=== PATIENT | female | born 1940 | race Caucasian/White ===

== ENCOUNTER → 2023-12-05 10:09 | Outpatient (REF) | payer MEDICARE, OTHER, SELFPAY ==
[2023-12-05 11:02] LABS: Hematocrit 30.1 % (37.0-47.0); Hemoglobin 9.8 g/dL (12.0-16.0); Mean Corp Hgb Conc. 32.6 g/dL (33.0-37.0); Mean Corpuscular Hgb 30.6 pg (27.0-31.0); Mean Corpuscular Volume 94.1 fL (81.0-99.0); Mean Platelet Volume 10.8 fL (7.4-10.4); Platelet Count 406 10^3/uL (130-400); Red Cell Dist. Width 21.4 % (11.5-14.5); White Blood Cell Count 5.5 10^3/uL (4.8-10.8)
[2023-12-05 11:36] LABS: ALT (SGPT) 19 U/L (0-35); AST (SGOT) 32 U/L (14-36); Albumin 3.7 g/dl (3.5-5.0); Alkaline Phosphatase 93 U/L (38-126); Blood Urea Nitrogen 32 mg/dl (7-17); Calcium 9.5 mg/dl (8.4-10.2); Carbon Dioxide 27 mmol/L (22-30); Chloride 105 mmol/L (98-107); Glucose 96 mg/dl (70-99); HDL Cholesterol 52 mg/dl; LDL Cholesterol, Calculated 84 mg/dl; Potassium 4.4 mmol/L (3.5-5.1); Sodium 138 mmol/L (135-145); Total Bilirubin 1.3 mg/dl (0.2-1.3); Total Cholesterol 150 mg/dl (50-199); Triglyceride 70 mg/dl (10-149); Very Low Density Lipoprotein 14 mg/dl (0-30); eGFR 56.95
[2023-12-05 11:52] LABS: Glycohemoglobin (HgbA1c) 5.6 % (4.0-5.6)
[2023-12-05 11:53] LABS: Free T4 2.14 ng/dl (0.78-2.19); Vitamin D, 25-OH*** 45.6 ng/mL (30-80)
[2023-12-05 12:14] LABS: TSH 2.94 uIU/ml (0.47-4.68)
== END ==
LOC: OLABSOL 10:09
PROVIDERS: ATTENDING PHYSICIAN Nurse Practitioner Gerontology
DX: E03.9 Hypothyroidism, unspecified (principal); E55.9 Vitamin D deficiency, unspecified; D64.9 Anemia, unspecified; R94.4 Abnormal results of kidney function studies; E11.9 Type 2 diabetes mellitus without complications
CPT/HCPCS: 36415; 80053; 80061; 82306; 83036; 84439; 84443; 85027

== ENCOUNTER → 2024-01-18 09:59 | Outpatient (REF) | payer MEDICARE, OTHER, SELFPAY ==
[2024-01-18 12:34] LABS: % Basophils 1.7 % (0-2); % Eosinophils 6.1 % (0-6); % Immature Granulocytes 0.2 % (0-0.5); % Lymphocytes 29.5 % (20.5-51.1); % Monocytes 11.6 % (1.7-9.3); % Neutrophils 50.9 % (42.2-75.2); Absolute Basophils 0.1 10^3/uL (0-0.2); Absolute Eosinophils 0.4 10^3/uL (0-0.7); Absolute Lymphocytes 1.7 10^3/uL (1.2-3.4); Absolute Monocytes 0.7 10^3/uL (0.1-0.6); Absolute Neutrophils 2.9 10^3/uL (1.4-6.5); Hematocrit 28.3 % (37.0-47.0); Hemoglobin 9.3 g/dL (12.0-16.0); Mean Corp Hgb Conc. 32.9 g/dL (33.0-37.0); Mean Corpuscular Hgb 29.6 pg (27.0-31.0); Mean Corpuscular Volume 90.1 fL (81.0-99.0); Mean Platelet Volume 9.6 fL (7.4-10.4); Nucleated Red Blood Cells % 0 %; Platelet Count 434 10^3/uL (130-400); Red Blood Cell Count 3.14 10^6/uL (4.20-5.40); Red Cell Dist. Width 20.7 % (11.5-14.5); White Blood Cell Count 5.8 10^3/uL (4.8-10.8)
[2024-01-18 12:49] LABS: NT-proBNP 7480 pg/ml
[2024-01-18 12:53] LABS: ALT (SGPT) 19 U/L (0-35); AST (SGOT) 33 U/L (14-36); Albumin 3.8 g/dl (3.5-5.0); Alkaline Phosphatase 84 U/L (38-126); Blood Urea Nitrogen 29 mg/dl (7-17); Calcium 9.4 mg/dl (8.4-10.2); Carbon Dioxide 30 mmol/L (22-30); Chloride 103 mmol/L (98-107); Glucose 87 mg/dl (70-99); Potassium 5.3 mmol/L (3.5-5.1); Sodium 136 mmol/L (135-145); Total Bilirubin 1.3 mg/dl (0.2-1.3); eGFR 45.48
[2024-01-18 18:53] LABS: Urine Albumin Negative (Neg - Trace); Urine Bilirubin Negative (Negative); Urine Character Clear (Clear); Urine Color Yellow; Urine Glucose Negative (Negative); Urine Ketone Negative (Negative); Urine Leukocyte Negative (Negative); Urine Nitrite Negative (Negative); Urine Occult Blood Negative (Negative); Urine Urobilinogen Negative (Neg - 1+)
== END ==
LOC: OLABSOL 09:59
PROVIDERS: ATTENDING PHYSICIAN Nurse Practitioner Gerontology
DX: D64.9 Anemia, unspecified (principal); R94.4 Abnormal results of kidney function studies; I50.9 Heart failure, unspecified; D37.09 Neoplasm of uncertain behavior of other specified sites of the oral cavity; N39.0 Urinary tract infection, site not specified
CPT/HCPCS: 80053; 81003; 83880; 85025; 87086

== ENCOUNTER → 2024-01-25 09:44 | Outpatient (REF) | payer MEDICARE, OTHER, SELFPAY | LOC: OLABSOL 09:44 | PROVIDERS: ATTENDING PHYSICIAN Nurse Practitioner Gerontology | DX: E87.5 Hyperkalemia (principal); E83.42 Hypomagnesemia | CPT/HCPCS: 83735 ==

== ENCOUNTER → 2024-01-30 13:02 | Outpatient (REF) | payer MEDICARE, OTHER, SELFPAY | LOC: OLABSOL 13:02 | PROVIDERS: ATTENDING PHYSICIAN Nurse Practitioner Gerontology | DX: D64.9 Anemia, unspecified (principal); E56.1 Deficiency of vitamin K | CPT/HCPCS: 36415 ==

== ENCOUNTER 2024-06-18 08:32 | Outpatient (RCR) | payer MEDICARE, OTHER, SELFPAY | END 2024-06-18 23:59 | disposition home or self-care (01) | LOC: RPT 08:32 | PROVIDERS: FAMILY PHYSICIAN Internal Medicine | DX: I89.0 Lymphedema, not elsewhere classified (principal); Z73.6 Limitation of activities due to disability; R26.2 Difficulty in walking, not elsewhere classified | CPT/HCPCS: 97163; 97535; 97760 ==

== ENCOUNTER → 2024-06-20 11:17 | Outpatient (REF) | payer MEDICARE, OTHER, SELFPAY ==
[2024-06-20 14:16] LABS: Glycohemoglobin (HgbA1c) 6.8 % (4.0-5.6)
== END ==
LOC: OLABSOL 11:17
PROVIDERS: ATTENDING PHYSICIAN Nurse Practitioner Family
DX: E11.65 Type 2 diabetes mellitus with hyperglycemia (principal)
CPT/HCPCS: 36415; 83036

== ENCOUNTER → 2024-07-11 12:54 | Outpatient (REF) | payer MEDICARE, OTHER, SELFPAY ==
[2024-07-11 14:24] LABS: ALT (SGPT) 19 U/L (0-35); AST (SGOT) 29 U/L (14-36); Albumin 3.7 g/dl (3.5-5.0); Alkaline Phosphatase 85 U/L (38-126); Blood Urea Nitrogen 55 mg/dl (7-17); Calcium 9.1 mg/dl (8.4-10.2); Carbon Dioxide 29 mmol/L (22-30); Chloride 99 mmol/L (98-107); Glucose 125 mg/dl (70-99); Potassium 4.8 mmol/L (3.5-5.1); Sodium 137 mmol/L (135-145); Total Bilirubin 1.7 mg/dl (0.2-1.3)
== END ==
LOC: OLABSOL 12:54
PROVIDERS: ATTENDING PHYSICIAN Internal Medicine
DX: N18.31 Chronic kidney disease, stage 3a (principal)
CPT/HCPCS: 36415; 80053

== ENCOUNTER 2024-07-25 13:58 | Outpatient (RCR) | payer MEDICARE, OTHER, SELFPAY | END 2024-07-25 23:59 | disposition home or self-care (01) | LOC: RPT 13:58 | PROVIDERS: FAMILY PHYSICIAN Internal Medicine | DX: I89.0 Lymphedema, not elsewhere classified (principal); Z73.6 Limitation of activities due to disability; R26.2 Difficulty in walking, not elsewhere classified | CPT/HCPCS: 97140; 97535 ==

== ENCOUNTER 2024-09-10 18:54 | Inpatient (IN) | payer MEDICARE, OTHER, SELFPAY ==
[2024-09-10] VITALS (15 sets, daily range): BP systolic 65–115; BP diastolic 38–77
--- NOTE | 2024-09-10 15:41 | ED.GENMED ---
History of Present Illness
General
Chief Complaint: Breathing Problem
Source: patient
Exam Limitations: none
Time Seen by Provider: 09/10/24 14:58
Nursing documentation reviewed up to this point in time: agreed with
History of Present Illness
History of Present Illness:
83-year-old female from nursing facility [facility] presents to the ER for shortness of breath. Patient has a history of CABG, aortic valve replacement (TAVR) , hypertension hypercholesteremia ,diabetes, chronic swelling/lymphedema to bilateral
legs patient is been short of breath the past several weeks. She denies any actual chest pain.
Patient is on Lasix. As per daughter she saw her cleaner touch up worker Dr. Chris Craig([place]) 2 weeks ago and had Lasix increased to twice a day.
She does feel that she is still retaining fluid . She denies any recent fever or chills. She does report she was sick several weeks ago with viral syndrome .
She denies any chest pain.
Past History
Past History
ED Past Medical History: HTN, Hypercholesterolemia, NIDDM, Valvular disease and Hypothyroidism
ED Past Surgical History: Cardiac, Cholecystectomy, Gynecological and Other
Social History
Tobacco: Non-smoker
Living: alone
Employment: Retired
Review of Systems
Review of Systems
Allergies reviewed?: Yes
All Other Systems: ROS reviewed and negative except as documented in HPI and ROS
Constitutional: Reports no symptoms; Denies fever, fatigue or chills
EENT: Reports no symptoms
Respiratory: Reports trouble breathing
Cardiac: Reports no symptoms; Denies chest pain
ABD/GI: Reports no symptoms
: Reports no symptoms
Musculoskeletal: Reports no symptoms
Skin: Reports no symptoms
Neurological: Reports no symptoms
Psychiatric: Reports no symptoms
Phy Exam
General Physical Exam
General Presentation: well appearing
General age: appears stated age
General Skin: warm and dry
General Habitus: normal
General Mental: alert
General Hydration: appears well hydrated
Cardiovascular Exam
Cardiovascular Exam: regular rate/rhythm, no murmur and normal peripheral pulses
Pulmonary Exam
Pulmonary Exam: lungs clear and no respiratory distress
Neurological Exam
Neurological Exam: alert and oriented x3
Musculoskeletal Exam
Musculoskeletal Exam: other (mild swelling to b/l l/e )
Skin Exam
Skin Exam: normal color and warm/dry
Psychiatric Exam
Psychiatric Exam: normal mood/affect
Scores
Heart Failure Risk
Heart Failure Risk Score: Not Applicable
Course
Orders/Labs/Results
Orders:
Orders
09/10/24 Dinner
Cholesterol Lowering
At Your Request: Limited, Help Desk Support Specialist Required
Fluid Restriction: 1440 mL/day (48 oz)
Cholesterol Lowering: Sodium, 2 Gram
1800 bob/15 CHO Diabetic
09/10/24 15:35
Basic Metabolic Panel Urgent
Complete Blood Count/With Diff Urgent
NT-proBNP Urgent
09/10/24 15:39
Electrocardiogram (*1) Urgent
Reason for Study: Shortness of Breath
EKG- Treatment ONCE
09/10/24 16:10
Chest [CR Chest - 2 Views ] Urgent
Comment:
Reason For Exam: sob
09/10/24 17:45
Potassium Urgent
Troponin I Urgent
09/10/24 18:21
Admit/Transfer Patient As Directed
Co-Sign Provider:
Level of Care: Inpatient admission
Assign to:: Telemetry
Physician / Group: loyd
Diagnosis: chf exacerbation
Reason for Telemetry: Arrhythmia
Date to Stop Telemetry: 09/13/24
Time to Stop Telemetry: 11:00
Reason for Hospitalization: chf exacerbation
Expected length of stay greater than two midnights?: Yes
ELOS- Estimated Length of Stay in days: 2
I certify the patient meets the requirements for IP care: Yes
PRN Pain Medication Management As Directed
May give lesser potent ordered pain med per pt: Yes
preference::
Protocol:: Medication orders for pain may be administered in a
manner that supports deferring to patient preference
when the pt is:
- Requesting an ordered lesser potent pain medication.
Least to most potent pain medications are defined
as: acetaminophen < NSAID < tramadol < opioids
(morphine, oxycodone, hydromorphone).
- Requesting a lesser dose of the same medication IF
ORDERED.
- Requesting a less intrusive route of administration
if both routes are prescribed by the provider (PO <
IV).
09/10/24 18:22
Code Status As Directed
Resuscitation Status: Full Code
09/10/24 18:25
Furosemide [Lasix] 40 mg IV NOW STA
09/10/24 19:06
Dextrose 50%-Water [Dextrose 50% Syringe] 12.5 grams IV [id number] PRN
Glucagon [GlucaGen] 1 mg IM PRN PRN
09/10/24 19:06
Activity As Directed
Activity Level: As Tolerated
Bedside Glucose Monitoring As Directed
Frequency: AC&HS
Additional Instructions:: Change to q6h if pt on TPN, tube feeding or not eating
Intake/ Output As Directed
Frequency: q12h
Patient Education As Directed
Type: CHF folder
Comment: give on admission. Document in Interdisciplinary Education record
Sleep Apnea Assessment by RN As Directed
Comment:
Physician Instructions:
Vital Signs As Directed
Frequency: Other
Additional Instructions:: Q12 or per unit guidelines if more frequent.
Weight As Directed
Frequency: Daily
Type of Scale: Standing Scale
Comment: Daily morning weight. If unable to stand, use balanced bed scale.
Weight As Directed
Frequency: Once
Type of Scale: Standing Scale
Comment: Upon Admission. If unable to stand, use balanced bed scale.
Pulse Ox/cont/shift [RESP] Routine
Quantity: 1
Special Instructions: Daily pulse oximetry at rest. If greater than 92% at rest also obtain pulse oximetry
while ambulating as tolerated.
DX Deep Vein Thrombosis Video Routine
09/10/24 20:00
Heparin 5,000 units SC Q12
09/11/24 05:12
Complete Blood Count/With Diff IN AM
Comprehensive Metabolic Panel IN AM
Glycohemoglobin (HgbA1c) IN AM
09/11/24 07:30
Insulin Aspart Corrective Low [Novolog Flexpen-Low Resistance] See Protocol SC AC
09/11/24 08:00
Furosemide [Lasix] 40 mg IV BID AT 0800,1600
Abnormal Lab Results
09/10/24 09/10/24
15:35 17:45
RBC 3.75 L 10^6/uL
(4.20-5.40)
Hgb 11.3 L g/dL
(12.0-16.0)
Hct 34.3 L %
(37.0-47.0)
MCHC 32.9 L g/dL
(33.0-37.0)
RDW 18.6 H %
(11.5-14.5)
MPV 10.8 H fL
(7.4-10.4)
Lymphocytes % 20.2 L %
(20.5-51.1)
BUN 75 H mg/dl
(7-17)
Creatinine 2.7 H mg/dL
(0.6-1.0)
Glucose 179 H mg/dl
(70-99)
Troponin I 0.039 H* ng/ml
09/10/24 15:35
09/10/24 17:45
Vital Signs
Initial and Last Documented VS:
Initial Vital Signs
Pulse Resp Pulse Ox
65 25 94
09/10/24 14:55 09/10/24 14:55 09/10/24 14:55
Last Documented Vital Signs
Temp Pulse Resp BP Pulse Ox
98.2 F 95 17 115/56 97
09/12/24 04:32 09/12/24 06:30 09/12/24 06:30 09/12/24 06:02 09/12/24 06:30
MDM/Problems Addressed
Differential Diagnosis Includes:
Not limited to congestive heart failure
MDM/Problems Addressed:
Patient is documented has increasing shortness of breath over the past several weeks. Her Lasix was increased 2 weeks ago however she states she is still short of breath with exertion. She does have chronic lower extremity swelling. Her BNP is
elevated at 27,000, chest x-ray read by me hazy consistent with CHF. Her troponin is pending however she has no chest pain. She does have intermittent PVCs on the monitor. Potassium was clotted and pending. Patient's renal function increased
from 1.7 creatinine July 11 to 2.7 today also with elevated BUN. Will hold off on Lasix until potassium is back also with elevated renal function. Patient is short of breath with exertion even moving back and forth from x-ray. 2 L nasal
cannula applied for support and comfort. Patient will need hospitalist admission for diuresis and close monitoring of renal function.
*Radiology
Radiology exam reviewed: radiology read reviewed
*Pulse Oximetry
Patient hypoxic: no
*EKG
Interpreted by ED Provider?: Yes
Heart Rate: 62
Rate: normal
Rhythm: sinus
Ischemia: non-specific ST changes
*Critical Care Note
Total Time (30-74mins, 75-104mins- exclusive of procedures): Not Applicable
ED Attending Note
-
Portions of this chart may have been created with voice recognition software.� Occasional wrong word or��sound alike� substitutions may have occurred due to the inherent limitations of voice recognition software.
Discharge Plan
Departure
Patient Disposition: Admit
Date of Disposition: 09/10/24
Time of Disposition: 17:53
Admit to: Telemetry
Admit to doctor: hospitalist
Presentation/result/management discussed w/ accepting MD/DO: Hospitalist
Patient with high blood pressure during this ER visit?: No
Covid-19: Not Applicable
Discharge Problem:
ANDERSON (dyspnea on exertion), Congestive heart failure, Acute renal insufficiency
Interventions
Interventions:
*Risk Screen - Suicide Last Done: 09/10/24 14:56
*General Assessment Last Done: 09/10/24 19:34
*Neglect/Abuse Screening Last Done: 09/10/24 14:56
*ED- Fall Risk Assessment Last Done: 09/10/24 19:34
*ED COVID-19 Vaccine History Last Done: 09/10/24 19:34
*Nursing Disposition Last Done: 09/11/24 00:47
ED- Cardiac Assessment Last Done: 09/10/24 15:45
ED- Pulmonary Assessment Last Done: 09/10/24 15:45
Discharge Date and Time
Discharge Date/Time: 09/11/24 00:48
[2024-09-10 15:50] LABS: % Basophils 1.1 % (0-2); % Eosinophils 2.3 % (0-6); % Immature Granulocytes 0.2 % (0-0.5); % Lymphocytes 20.2 % (20.5-51.1); % Monocytes 9.1 % (1.7-9.3); % Neutrophils 67.1 % (42.2-75.2); Absolute Basophils 0.1 10^3/uL (0-0.2); Absolute Eosinophils 0.2 10^3/uL (0-0.7); Absolute Lymphocytes 1.3 10^3/uL (1.2-3.4); Absolute Monocytes 0.6 10^3/uL (0.1-0.6); Absolute Neutrophils 4.5 10^3/uL (1.4-6.5); Hematocrit 34.3 % (37.0-47.0); Hemoglobin 11.3 g/dL (12.0-16.0); Mean Corp Hgb Conc. 32.9 g/dL (33.0-37.0); Mean Corpuscular Hgb 30.1 pg (27.0-31.0); Mean Corpuscular Volume 91.5 fL (81.0-99.0); Mean Platelet Volume 10.8 fL (7.4-10.4); Nucleated Red Blood Cells % 0 %; Platelet Count 336 10^3/uL (130-400); Red Blood Cell Count 3.75 10^6/uL (4.20-5.40); Red Cell Dist. Width 18.6 % (11.5-14.5); White Blood Cell Count 6.6 10^3/uL (4.8-10.8)
[2024-09-10 16:13] LABS: NT-proBNP > 27000 pg/ml
[2024-09-10 16:16] LABS: Blood Urea Nitrogen 75 mg/dl (7-17); Calcium 9.4 mg/dl (8.4-10.2); Carbon Dioxide 27 mmol/L (22-30); Chloride 100 mmol/L (98-107); Glucose 179 mg/dl (70-99); Sodium 137 mmol/L (135-145); eGFR 17.19
[2024-09-10 18:17] LABS: Potassium 4.9 mmol/L (3.5-5.1)
--- NOTE | 2024-09-10 18:30 | HPS.HSE ---
Family Physician
-
Family Physician: Elidia West
Chief Complaint
-
shortness of breath
History of Present Illness
83-year-old male past medical history of CAD status post CABG, TAVR, hypertension, hypercholesteremia, diabetes, chronic lymphedema, presenting with shortness of breath for the past several weeks. Shortness of breath is worse with exertion and she
cannot lie down flat. She denies chest pain. Denies fevers or chills. She has cough. She saw her manager lpn Dr. Chris Craig at [place] 2 weeks ago and had Lasix increased to twice a 40 day. She feels she is still retaining fluid.
Denies fevers or chills. She had a viral syndrome few weeks ago. She has increased lower extremity edema going up to her thighs.
She denies smoking or alcohol use.
Medical History
Past Medical History
Past Medical History: Reports Other (CAD status post CABG, TAVR, hypertension, hypercholesteremia, diabetes, chronic lymphedema)
Past Surgical History: Reports None
Social History
Tobacco: Non-smoker
Alcohol: None
Drug: None
Family History
Family History: Not pertinent
Allergies / Home Medications
Allergies reflects when Allergies were last updated in [employer].
Home Medications with original date entered in [employer]
Allergy/Medication List:
Allergies
Allergy/AdvReac Type Severity Reaction Status Date / Time
lisinopril Allergy Mild Unknown Verified 09/10/24 14:56
Home Medications
cephalexin 250 mg capsule 250 mg PO DAILY Infection 11/30/20
vitamins A,C,H-vzvh-aynaxi 4,296 mcg-226 mg-90 mg capsule (PreserVision AREDS) 2 cap PO DAILY 03/14/21
acetaminophen 325 mg tablet 650 mg (2 x 325 mg) PO Q6HPRN PRN MILD PAIN 03/29/21
aspirin 81 mg chewable tablet 81 mg PO DAILY #30 tabs 03/29/21
atorvastatin 40 mg tablet 40 mg PO QPM #30 tabs 03/29/21
calcium 500 mg (as carbonate)-vitamin D3 5 mcg (200 unit) tablet (Oyster Shell Calcium-Vitamin D3) 500 mg PO DAILY #30 tabs 03/29/21
carvedilol 6.25 mg tablet 6.25 mg PO BID #60 tabs 03/29/21
clopidogrel 75 mg tablet 75 mg PO DAILY #30 tabs 03/29/21
clotrimazole 1 % topical cream (Antifungal (clotrimazole)) 1 applic topical BID #1 tube 03/29/21
docusate sodium 100 mg capsule 100 mg PO BID #60 caps 03/29/21
furosemide 40 mg tablet 40 mg PO BID AT 0800,1600 #60 tabs 03/29/21
glipizide 2.5 mg tablet, extended release 24 hr 2.5 mg PO DAILY #30 tabs 03/29/21
levothyroxine 88 mcg tablet 88 mcg PO DAILY@0700 #30 tabs 03/29/21
losartan 25 mg tablet 25 mg PO DAILY #30 tabs 03/29/21
magnesium oxide 500 mg PO TID #90 tabs 03/29/21
melatonin 3 mg tablet 3 mg PO HS #30 tabs 03/29/21
metformin 500 mg tablet 500 mg PO BID #60 tabs 03/29/21
methenamine hippurate 1 gram tablet 1 g PO DAILY #0 tabs 03/29/21
multivitamin with folic acid 400 mcg tablet (Tab-A-Ingrid) 1 tab PO DAILY #30 tabs 03/29/21
pantoprazole 40 mg tablet,delayed release 40 mg PO DAILY #30 tabs 03/29/21
spironolactone 25 mg tablet 12.5 mg (1/2 x 25 mg) PO DAILY ##30 03/29/21
Review of Systems
-
History Source: Patient
A 12 point ROS was completed and negative except as noted: Yes
Constitutional: Reports No Symptoms
EENT: Reports No Symptoms
Respiratory: Reports See HPI
Cardiac: Reports See HPI
Abdomen/GI: Reports No Symptoms
: Reports No Symptoms
Musculoskeletal: Reports No Symptoms
Skin: Reports No Symptoms
Neurological: Reports No Symptoms
Endocrine: Reports No Symptoms
Hematologic/Lymphatic: Reports No Symptoms
Psych: Reports No Symptoms
Physical Exam
Vital Signs
Vital Signs
Temp Pulse Resp BP Pulse Ox
97.8 F 64 19 115/77 97
09/10/24 14:56 09/10/24 18:00 09/10/24 18:00 09/10/24 18:00 09/10/24 18:00
Physical Exam
General: Well Developed, Well Nourished and No Apparent Distress
HEENT: NormoCephalic, Moist mucous membranes and Atraumatic
Respiratory: Clear
Cardiac: S1/S2 and Regular Rhythm; No Murmur or Rub
GI: Soft, Non Tender, Non Distended and Normal Bowel Sounds; No Organomegaly
Rectal: Deferred by Provider
Musculoskeletal: No Clubbing, No Cyanosis and No Edema
Skin: No Rash
Neuro: Nonfocal/grossly intact
Laboratory Results
-
09/10/24 15:35
09/10/24 17:45
Laboratory Results
Total Bilirubin Cancelled 09/10/24 15:35
AST Cancelled 09/10/24 15:35
ALT Cancelled 09/10/24 15:35
Alkaline Phosphatase Cancelled 09/10/24 15:35
Data Reviewed
-
Lab Data: Labs Reviewed by me
Old Records: Reviewed
Impression/Plan
-
IMPRESSION:
PLAN:
# Acute CHF exacerbation
-Cardiac BNP greater than 27,000
-Chest x-ray shows pulm edema, report pending
-Check I's and O's, daily weights
-40 IV Lasix twice daily
-Get records from [place]
-Cardiology consulted
# SAM likely cardiorenal on CKD
-Creatinine of 2.7 from 1.9
-40 IV Lasix twice daily
-Nephrology consulted
-Hold spironolactone, losartan,
Edema blistering
History of TAVR
CAD status post CABG
-Continue Plavix
-Continue Coreg
Chronic lymphedema
Essential hypertension
Hypercholesterolemia
Chronic anemia
Type 2 diabetes
-Hold metformin, glipizide
-Insulin sliding scale
History of CVA
Hypothyroidism
-Continue levothyroxine
Full code
DVT prophylaxis�heparin
Cardiac diet
[2024-09-10 18:34] LABS: Troponin I 0.039 ng/ml
[2024-09-10] MEDS: LASIX 40 MG IV (18:53)
[2024-09-10] MEDS: HEPARIN 5000 UNITS SC (21:10)
[2024-09-10] MEDS: ProAmatine 5 MG PO (21:13)
[2024-09-10] MEDS: LOW STRENGTH ASPIRIN 81 MG PO (22:22)
--- NOTE | 2024-09-10 23:00 | PTCARENOTE ---
Patient received from ED. Report given over the phone from ED RN. Pt transported on a stretcher and pulled over to the bed. Pt AAOx3, [id number]. Pt NS on monitor with PVCs. Pt on 2L NC SpO2 96%. Pt on Levo gtt to maintain MAP >65, titrating as necessary
see order and worklist. Pt denies any chest pain or SOB. B/l LE edema +3. Purewick replaced. Assessment as charted. Pt oriented to the unit and has the call rey within reach.
--- NOTE | 2024-09-10 23:19 | W.PN.UPDATE ---
Update Note
Progress Note Update
Patient is hypotensive asymptomatic with SBP in high 70s, one time order of midodrine 5mg given. SBP still in low 80s and map is 57. Will start Levophed and transfer to IMU level for med administration per protocol.
[2024-09-10] MEDS: LEVOPHED 250 IV (23:42)
[2024-09-11] VITALS (54 sets, daily range): BP systolic 80–115; BP diastolic 38–87; BMI 41.8; BMI 41.7
[2024-09-11] MEDS: SYNTHROID 88 MCG PO (05:32)
[2024-09-11 05:38] LABS: % Basophils 0.9 % (0-2); % Eosinophils 3.6 % (0-6); % Immature Granulocytes 0.2 % (0-0.5); % Lymphocytes 20.9 % (20.5-51.1); % Monocytes 8.2 % (1.7-9.3); % Neutrophils 66.2 % (42.2-75.2); Absolute Basophils 0.1 10^3/uL (0-0.2); Absolute Eosinophils 0.2 10^3/uL (0-0.7); Absolute Lymphocytes 1.3 10^3/uL (1.2-3.4); Absolute Monocytes 0.5 10^3/uL (0.1-0.6); Absolute Neutrophils 4.2 10^3/uL (1.4-6.5); Hematocrit 33.5 % (37.0-47.0); Mean Corp Hgb Conc. 32.8 g/dL (33.0-37.0); Mean Corpuscular Hgb 30.1 pg (27.0-31.0); Mean Corpuscular Volume 91.5 fL (81.0-99.0); Mean Platelet Volume 10.4 fL (7.4-10.4); Nucleated Red Blood Cells % 0 %; Platelet Count 320 10^3/uL (130-400); Red Blood Cell Count 3.66 10^6/uL (4.20-5.40); Red Cell Dist. Width 18.1 % (11.5-14.5); White Blood Cell Count 6.4 10^3/uL (4.8-10.8)
[2024-09-11 05:57] LABS: ALT (SGPT) 15 U/L (0-35); AST (SGOT) 23 U/L (14-36); Albumin 3.3 g/dl (3.5-5.0); Alkaline Phosphatase 90 U/L (38-126); Blood Urea Nitrogen 74 mg/dl (7-17); Calcium 9.4 mg/dl (8.4-10.2); Carbon Dioxide 31 mmol/L (22-30); Chloride 101 mmol/L (98-107); Estimated Creatinine Clearance 19 ml/min; Glucose 147 mg/dl (70-99); Potassium 4.6 mmol/L (3.5-5.1); Sodium 138 mmol/L (135-145); Total Bilirubin 1.5 mg/dl (0.2-1.3); Total Protein 5.5 g/dl (6.3-8.2); eGFR 17.98
--- NOTE | 2024-09-11 07:52 | CON.CAR ---
Addendum entered and electronically signed by Luly Mojica MD 09/11/24 14:54:
I saw and examined the patient.
The Television Maintenance Man's note was reviewed and I agree with the note.
Comment: General: Well developed, well nourished in NAD.
Heart: Distant heart sounds with 2/6 basal systolic murmur
Lungs: Crackles at the bases decreased at the bases bilateral
Extremities: No clubbing, cyanosis at least +2 edema bilaterally.
She has a very complex cardiac history with CABG and 2009 and bioprosthetic aortic valve replacement in 2020. Previously followed by Dr. Chris Craig at [place] but now has moved to [place]. She presents with heart failure and extremis along
with hypotension necessitating discontinuation of guideline directed medical therapy for heart failure with reduced ejection fraction. Previous left ventricular ejection fraction 25% on last check with primary tire mold tester 07/2023 left ventricular
ejection fraction 45% with peak/mean aortic valve gradients 49/32 mmHg. She feels her dry weight is closer to 190 pounds and on presentation she was 220 pounds. This is complicated in addition by renal insufficiency with current creatinine 2.6 and
prior baseline on admission 1.5.
Plan at this time:
-Continue Levophed as needed for blood pressure support
-Continue to maintain oxygenation status
-Continue diuresis. proBNP 27,000
-Continue to monitor renal function. Nephrology consult. Avoid all nephrotoxic medication including SGLT2 inhibitors
-Await echocardiogram
-Heart failure education
-Continue guideline directed medical therapy for coronary artery disease in addition. Currently on statin. No chest pain noted. Troponins are flat. Likely non-NC troponin elevation.
-Continue to monitor telemetry
I have discussed with nursing.
I had discussed with patient and all questions answered.
32 minutes total critical care time.
Original Note:
Consultation
Consultation Request
Date/Time Consultation Performed: 09/11/24
Requesting Provider: Dr. Akbar
Performing Provider: Nicole Montiel PA-C for Dr. Luly Mojica
Reason for Consultation: CHF
Medical History
-
Chief Complaint: SOB
History of Present Illness:
Patient is an 83 yo F with PMH of CABG in 2008, biologic AVR with root enlargement and CABG times 07/21/2020, cardiomyopathy EF 25%, diabetes, hypertension, hyperlipidemia, history of CVA, history of breast cancer, CKD who is followed by Dr. Perez
Rafa at [place]. She is a resident of [facility] since October 2023. She reports she saw her tire mold tester several weeks ago due to shortness of breath and lower extremity edema. She states her Lasix was increased from 20 mg daily to
40 mg daily then to 40 mg twice daily. She initially saw some increase in urinary output, however did not see significant change with transitioning to twice daily dosing. She worries about salt intake since she has been at assisted living as she
can no longer have as much control over her food. With any exertion she had to stop every couple of seconds due to shortness of breath. She reports she has been sleeping in a chair. She also endorses abd bloating and significant LE edema. She
states last evening was particularly difficult for her to catch her breath and came to the ER. proBNP greater than 27,000. Chest x-ray with moderate acute interstitial and alveolar cardiogenic pulmonary edema, small bilateral pleural effusions.
Due to hypotension initially required levophed resulting in admission to IMU.
PMH:
Chronic HFrEF
CAD
s/p CABG 10/2008 with FOLEY to LAD and SVG to RPDA
s/p cardiac cath at [facility] 11/16/20 FOLEY to LAD patent, SVG to RPDA occluded, ostial Circ 75% stenosis, ostial RCA 75% stenosis
Severe
Type 2 NC related to severe 11/2020 resulting in transfer to [facility], s/p BAV 12/06/20
Status post sternotomy with biologic AVR, aortic root enlargement with pericardial patch, and CABG x1 on 03/04/[address] Smith
Brief post op afib episode while at [facility]
CM EF 25% by echo 11/18/20
s/p [facility] [facility] implanted loop recorder
PVCs
Chronic LBBB
DM 2
HTN
Hyperlipidemia
Hypothyroid
h/o CVA
Peripheral neuropathy
s/p IVC filter
Breast cancer s/p chemotherapy and radiation 2008
CKD
Past Medical History
Past Medical History: Other (in HPI)
Social History
Tobacco: Non-Smoker
Alcohol: None
Living: Assisted Living ([facility])
Employment: Retired
Family History
Family History: CAD
Allergies / Home Medications
Allergy/AdvReac Type Severity Reaction Status Date / Time
lisinopril Allergy Unknown Verified 09/10/24 23:25
�Medication �Instructions �Recorded �Confirmed �Type
acetaminophen 325 mg tablet 650 mg (2 x 325 mg) PO Q6HPRN PRN 03/29/21 09/10/24 Rx
MILD PAIN
carvedilol 6.25 mg tablet 6.25 mg PO BID #60 tabs 03/29/21 09/10/24 Rx
clopidogrel 75 mg tablet 75 mg PO DAILY #30 tabs 03/29/21 09/10/24 Rx
furosemide 40 mg tablet 40 mg PO BID AT 0800,1600 #60 tabs 03/29/21 09/10/24 Rx
levothyroxine 88 mcg tablet 88 mcg PO DAILY@0700 #30 tabs 03/29/21 09/10/24 Rx
pantoprazole 40 mg tablet,delayed 40 mg PO DAILY #30 tabs 03/29/21 09/10/24 Rx
release
aspirin 81 mg chewable tablet 81 mg PO Q12H 09/10/24 09/10/24 History
atorvastatin 40 mg tablet 40 mg PO DAILY 09/10/24 09/10/24 History
calcium 600 mg (as 1 tab PO DAILY 09/10/24 09/10/24 History
carbonate)-vitamin D3 10 mcg (400
unit) tablet (Calcium 600 + D(3))
ciclopirox 0.77 % topical cream 1 applic topical DAILY bottoms of 09/10/24 09/10/24 History
feet
dextromethorphan-guaifenesin 10 10 ml PO Q4HPRN PRN cough 09/10/24 09/10/24 History
mg-100 mg/5 mL oral syrup
empagliflozin 10 mg tablet 10 mg PO DAILY 09/10/24 09/10/24 History
(Jardiance)
ferrous sulfate 325 mg (65 mg 325 mg PO DAILY 09/10/24 09/10/24 History
iron) tablet
fluticasone propionate 50 2 spray intranasal DAILY 09/10/24 09/10/24 History
mcg/actuation nasal
spray,suspension
guaifenesin 400 mg tablet 400 mg PO BIDPRN PRN congestion 09/10/24 09/10/24 History
loratadine 10 mg tablet 10 mg PO DAILY 09/10/24 09/10/24 History
magnesium oxide 500 mg PO DAILY 09/10/24 09/10/24 History
methenamine hippurate 1 gram tablet 1 g PO BID 09/10/24 09/10/24 History
miconazole nitrate 2 % topical 1 applic topical BIDPRN PRN under 09/10/24 09/10/24 History
powder (Micro-Guard) bilateral breasts/abd folds
potassium citrate 15 mEq (1,620 15 meq PO BID 09/10/24 09/10/24 History
mg) tablet,extended release
sacubitril 24 mg-valsartan 26 mg 1 tab PO BID 09/10/24 09/10/24 History
tablet (Entresto)
sennosides 8.6 mg tablet (senna) 8.6 mg PO DAILYPRN PRN constipation 09/10/24 09/10/24 History
therapeutic multivitamin 1 tab PO DAILY 09/10/24 09/10/24 History
vit C 250 mg-vit E 90 mg-zinc 40 1 tab PO BID 09/10/24 09/10/24 History
mg-copper 1 [id number]
capsule (PreserVision AREDS-2)
zinc oxide-cod liver oil 40 % 1 applic topical BID 09/10/24 09/10/24 History
topical paste (Desitin)
Review of Systems
-
History Source: Patient
All other systems: Negative unless noted
Physical Exam
Vital Signs
Temp Pulse Resp BP Pulse Ox
98.6 F 64 19 115/61 99
09/11/24 03:50 09/11/24 06:00 09/11/24 06:00 09/11/24 06:00 09/11/24 06:00
Lab Results
09/11/24 05:12
09/11/24 05:12
Troponin I 0.040 ng/ml H* 09/11/24 05:12
Rgg-V-Imekzhwbhgj Pept > 73137 pg/ml 09/10/24 15:35
Physical Exam
General: No Apparent Distress, Comfortable and Other (on supp O2. obese)
HEENT: Normocephalic, Anicteric and Moist Mucous Membranes
Respiratory: Rhonchi and Non Labored Respirations
Cardiac: S1/S2 and Regular Rhythm
GI: Soft, Non Tender, Non Distended and Normal Bowel Sounds
Musculoskeletal: No Clubbing, No Cyanosis and Edema (3+ of B/L LE to level of thighs)
Skin: Warm and Dry
Neuro: AO x 3
Impression / Plan
-
Primary Field Service Tech: Dr. Chris Craig of [place]
Assessment:
Presentation with SOB, LE edema
Acute on chronic HFrEF
Acute hypoxic respiratory insufficiency
SAM on CKD, suspected cardiorenal
Hypotension requiring pressor support
Elevated troponin, suspected nonischemic myocardial injury
CAD
s/p CABG 10/2008 with FOLEY to LAD and SVG to RPDA
s/p cardiac cath at [facility] 11/16/20 FOLEY to LAD patent, SVG to RPDA occluded, ostial Circ 75% stenosis, ostial RCA 75% stenosis
Severe
Type 2 NC related to severe 11/2020 resulting in transfer to [facility], s/p BAV 12/06/20
Status post sternotomy with biologic AVR, aortic root enlargement with pericardial patch, and CABG x1 SVG to distal RCA on 03/04/[address] Smith
Brief post op afib episode while at [facility], without known recurrence
CM EF 25% by echo 11/18/20
s/p [employer] implanted loop recorder
PVCs
Chronic LBBB
DM 2
HTN
Hyperlipidemia
Hypothyroid
h/o CVA
Peripheral neuropathy
s/p IVC filter
L breast cancer s/p lumpectomy, chemotherapy, and radiation 2008
Obesity
Anemia
ECHO 07/2023: Mildly reduced LV systolic function 45% due to akinesis of distal inferior wall, mild MR with severe left atrial dilation, bioprosthetic aortic valve with peak gradient 49/mean gradient 32, valve size known to be small, moderate
pulmonary hypertension
Nuclear stress test 08/24/2023: Large sized moderate to severe defect in apex, apical anterior, apical inferior wall, prone imaging not performed, defect consistent with infarct with minimal gerald-infarct ischemia, EF 35% with global hypokinesis and
anteroapical akinesis, unchanged compared to prior cath and echo in 2020
Plan:
-Patient presents with worsening shortness of breath and lower extremity edema despite escalation of outpatient diuretic therapy. proBNP on arrival greater than 27,000 and chest x-ray with evidence of pulmonary edema and small bilateral pleural
effusions
-records obtained and reviewed from primary tire mold tester including last office visit 08/15/24, echo 07/23/23, stress test 08/24/23, labs 03/21/24
-Continue IV Lasix 40mg BID. Wean supplemental oxygen as able. Patient reports a dry weight of approximately 190 pounds. had previously been on 20mg po lasix daily, however over last 2 months has been escalated to 40mg BID.
-Baseline creatinine 1.56 as of 03/23/2024. 2.6 today
-Due to hypotension, has been requiring Levophed, currently at 6. Wean as able
-continue GDMT of CM as BP allows. on coreg, entresto, jardiance as OP. of note, she is on methenamine hippurate as OP so monitor closely on SGLT2 inhibitor
-last EF by echo 07/2023 was 45%. will repeat echo this admission, ordered by me
-CHF education
-wean supp O2 as able. not on O2 prior to admission
-continue OP asa, plavix
-trops flat at 0.04. reports no CP. suspected nonischemic myocardial injury. last ischemic eval as above in 2023.
-she is in SR with LBBB on review of tele with frequent PVCs at times in pattern of bigeminy. known history of PVCs. K stable. check mag. continue BB as able.
-PT/OT
-LE wound care. may have degree of chronic lymphedema in addition
Data Reviewed
-
EKG: Tracing Personally Visualized and interpreted
Radiology: Report Reviewed by me
Medical Tests (Nuc Med, Echo etc): Report Reviewed by me
Labs: Labs Reviewed by me
Old Records: Requested and Reviewed
[2024-09-11] MEDS: NOVOLOG FLEXPEN-LOW RESISTANCE SC (09:06)
[2024-09-11] MEDS: UROCIT-K 10 MEQ PO ×2 (09:06→20:23)
[2024-09-11 09:07] LABS: Glucose - Point of Care 143 mg/dl (70-99)
[2024-09-11] MEDS: FARXIGA 10 MG PO (09:07)
[2024-09-11] MEDS: PROTONIX 40 MG PO (09:07)
[2024-09-11] MEDS: MAGNESIUM OXIDE 500 MG PO (09:07)
[2024-09-11] MEDS: LOW STRENGTH ASPIRIN 81 MG PO ×2 (09:07→20:23)
[2024-09-11] MEDS: COREG 6.25 MG PO ×2 (09:07→20:22)
[2024-09-11] MEDS: FEOSOL 325 MG PO (09:07)
[2024-09-11] MEDS: PLAVIX 75 MG PO (09:07)
[2024-09-11] MEDS: CLARITIN 10 MG PO (09:07)
[2024-09-11] MEDS: OCUVITE SOFTGEL 1 CAP PO ×2 (09:07→20:23)
[2024-09-11] MEDS: HEPARIN 5000 UNITS SC ×2 (09:10→20:22)
[2024-09-11] MEDS: THERAGRAN 1 TABLET PO (09:10)
[2024-09-11] MEDS: HIPREX 1 GRAM PO ×2 (09:10→20:22)
[2024-09-11] MEDS: LIPITOR 40 MG PO (09:10)
[2024-09-11] MEDS: LASIX 40 MG IV ×2 (09:10→16:52)
[2024-09-11] MEDS: OSCAL 500 + D 500 MG PO (09:12)
[2024-09-11 09:20] LABS: Glycohemoglobin (HgbA1c) 6.8 % (4.0-5.6)
--- NOTE | 2024-09-11 11:10 | W.CON.NEPH ---
Consultation
-
Date/Time Consultation Requested: 09/10/24 2218
Date/Time Consultation Performed: 09/11/24 1030
Requesting Provider: Elisha Balderrama
Performing Provider: Yulisa Miramontes
Reason for Consultation: SAM
Medical History
-
Chief Complaint: sob
History of Present Illness:
83-year-old male past medical history of CAD status post CABG 2008, TAVR 2020, cardiomyopathy EF 25% on ENtresto,lasix, hypertension on coreg, hypercholesteremia, diabetes on Jardiance, chronic lymphedema, HLD, CKD cr 1.2 in December, last cr in Jul
1.9 presenting to ER on 09/10 with shortness of breath for the past several weeks, initially started with FLU like symp. She lives at [facility] and her Lasix dose was increased by cards Dr. Chris Craig at [place] 2weeks ago but her symp
did not improve. She has orthopnea, thinks gained ~10 lbs. She denies chest pain. Denies fevers or chills. She has cough. Denies fevers or chills. She has increased lower extremity edema going up to her thighs. No dysuria. no n/v.
In ER CXR showed pulm edema, she also noted hypotensive and started on norepinephrine Her cr was at 2.7 on admit and today at 2.6. Nephrology asked to see her for SAM.
Past Medical History
Chronic HFrEF
CAD
s/p CABG 10/2008 with FOLEY to LAD and SVG to RPDA
s/p cardiac cath at [facility] 11/16/20 FOLEY to LAD patent, SVG to RPDA occluded, ostial Circ 75% stenosis, ostial RCA 75% stenosis
Type 2 PA related to severe 11/2020 resulting in transfer to [facility], s/p BAV 12/06/20
Status post sternotomy with biologic AVR, aortic root enlargement with pericardial patch, and CABG x1 on 03/04/[address] Smith
P Afib
CM EF 25% by echo 11/18/20
s/p [facility] implanted loop recorder
PVCs
Chronic LBBB
DM 2
HTN
Hyperlipidemia
Hypothyroid
h/o CVA
Peripheral neuropathy
s/p IVC filter
Breast cancer s/p chemotherapy and radiation 2008
CKD3
Social History
Tobacco: Non-Smoker
Alcohol: None
Living: Assisted Living ([facility])
Employment: Retired
Family History
no CKD
Family History: Not Pertinent
Allergies / Home Medications
Allergy/AdvReac Type Severity Reaction Status Date / Time
lisinopril Allergy Unknown Verified 09/10/24 23:25
�Medication �Instructions �Recorded �Confirmed �Type
acetaminophen 325 mg tablet 650 mg (2 x 325 mg) PO Q6HPRN PRN 03/29/21 09/10/24 Rx
MILD PAIN
carvedilol 6.25 mg tablet 6.25 mg PO BID #60 tabs 03/29/21 09/10/24 Rx
clopidogrel 75 mg tablet 75 mg PO DAILY #30 tabs 03/29/21 09/10/24 Rx
furosemide 40 mg tablet 40 mg PO BID AT 0800,1600 #60 tabs 03/29/21 09/10/24 Rx
levothyroxine 88 mcg tablet 88 mcg PO DAILY@0700 #30 tabs 03/29/21 09/10/24 Rx
pantoprazole 40 mg tablet,delayed 40 mg PO DAILY #30 tabs 03/29/21 09/10/24 Rx
release
aspirin 81 mg chewable tablet 81 mg PO Q12H 09/10/24 09/10/24 History
atorvastatin 40 mg tablet 40 mg PO DAILY 09/10/24 09/10/24 History
calcium 600 mg (as 1 tab PO DAILY 09/10/24 09/10/24 History
carbonate)-vitamin D3 10 mcg (400
unit) tablet (Calcium 600 + D(3))
ciclopirox 0.77 % topical cream 1 applic topical DAILY bottoms of 09/10/24 09/10/24 History
feet
dextromethorphan-guaifenesin 10 10 ml PO Q4HPRN PRN cough 09/10/24 09/10/24 History
mg-100 mg/5 mL oral syrup
empagliflozin 10 mg tablet 10 mg PO DAILY 09/10/24 09/10/24 History
(Jardiance)
ferrous sulfate 325 mg (65 mg 325 mg PO DAILY 09/10/24 09/10/24 History
iron) tablet
fluticasone propionate 50 2 spray intranasal DAILY 09/10/24 09/10/24 History
mcg/actuation nasal
spray,suspension
guaifenesin 400 mg tablet 400 mg PO BIDPRN PRN congestion 09/10/24 09/10/24 History
loratadine 10 mg tablet 10 mg PO DAILY 09/10/24 09/10/24 History
magnesium oxide 500 mg PO DAILY 09/10/24 09/10/24 History
methenamine hippurate 1 gram tablet 1 g PO BID 09/10/24 09/10/24 History
miconazole nitrate 2 % topical 1 applic topical BIDPRN PRN under 09/10/24 09/10/24 History
powder (Micro-Guard) bilateral breasts/abd folds
potassium citrate 15 mEq (1,620 15 meq PO BID 09/10/24 09/10/24 History
mg) tablet,extended release
sacubitril 24 mg-valsartan 26 mg 1 tab PO BID 09/10/24 09/10/24 History
tablet (Entresto)
sennosides 8.6 mg tablet (senna) 8.6 mg PO DAILYPRN PRN constipation 09/10/24 09/10/24 History
therapeutic multivitamin 1 tab PO DAILY 09/10/24 09/10/24 History
vit C 250 mg-vit E 90 mg-zinc 40 1 tab PO BID 09/10/24 09/10/24 History
mg-copper 1 [id number]
capsule (PreserVision AREDS-2)
zinc oxide-cod liver oil 40 % 1 applic topical BID 09/10/24 09/10/24 History
topical paste (Desitin)
Review of Systems
-
All complete 12 point ROS have been inquired and found negative other than stated in HPI
Physical Exam
Vital Signs
Vital Signs
Temp Pulse Resp BP Pulse Ox
97.8 F 60 21 96/52 97
09/11/24 07:17 09/11/24 10:45 09/11/24 10:45 09/11/24 10:30 09/11/24 10:53
Lab Results
WBC 6.4 10^3/uL (4.8-10.8) 09/11/24 05:12
RBC 3.66 10^6/uL (4.20-5.40) L 09/11/24 05:12
Hgb 11.0 g/dL (12.0-16.0) L 09/11/24 05:12
Hct 33.5 % (37.0-47.0) L 09/11/24 05:12
Plt Count 320 10^3/uL (130-400) 09/11/24 05:12
Sodium 138 mmol/L (135-145) 09/11/24 05:12
Potassium 4.6 mmol/L (3.5-5.1) 09/11/24 05:12
Chloride 101 mmol/L (98-107) 09/11/24 05:12
Carbon Dioxide 31 mmol/L (22-30) H 09/11/24 05:12
BUN 74 mg/dl (7-17) H 09/11/24 05:12
Creatinine 2.6 mg/dL (0.6-1.0) H 09/11/24 05:12
eGFR 17.98 09/11/24 05:12
Glucose 147 mg/dl (70-99) H 09/11/24 05:12
Calcium 9.4 mg/dl (8.4-10.2) 09/11/24 05:12
Pzz-Y-Acjmrrxldid Pept > 41655 pg/ml 09/10/24 15:35
Albumin 3.3 g/dl (3.5-5.0) L 09/11/24 05:12
Physical Exam
General: Awake, Alert, Oriented, AOx3, No Distress and Nontoxic
HEENT: EOMI, Anicteric and Facial Symmetry
Respiratory: Crackels and Nonlabored Respirations
Cardiac: S1/S2 and Regular Rate/Rhythm
Breast: Deferred by me
Abdomen: Soft, Nontender and Other (obese)
Musculoskeletal: Cyanosis and Edema (3+)
Skin: No Rash and Warm
Neuro: Nonfocal/Grossly Intact
Psych: Mood/afflect pleasant, Insight/judgement good and Appropriate
Data Reviewed
-
Radiology: Report Reviewed by me and Discussed with Patient
Labs: Labs Reviewed by me, Discussed with Nurse and Discussed with Patient
Assessment/Plan
-
IMP:
Acute on chronic CHF exacerbation with reduced ejection fraction
Acute hypoxic respiratory insufficiency
Sam with CKD
Cardiomyopathy EF of 45% from echo in 2023
s/p CABG 10/2008 with FOLEY to LAD and SVG to RPDA
s/p cardiac cath at [facility] 11/16/20 FOLEY to LAD patent, SVG to RPDA occluded, ostial Circ 75% stenosis, ostial RCA 75% stenosis
Severe s/p BAV 12/06/20
Shock, unknown etiology
Elevated troponin likely secondary to nonischemic myocardial injury
Edema blistering 2/2 fluid overload
Chronic lymphedema
Essential hypertension
Chronic LBBB
Hypercholesterolemia
Chronic anemia
Type 2 diabetes
History of CVA
Hypothyroidism
Plan:
A/w sob, noted CHF flare
SAM with CKD_no clear baseline cr , cr 1.2 in december, and in Jul at 1.9
highly suspect cardiorenal, await UA and Fena
check renal US, follow bladder scan
cont IV diuresis for CHF
hypotension , cont levo for MAP >65, no clear etiology
echo pending
avoid nephrotoxins and hold SGLT2I
follow labs
d/w pt and nursing
--- NOTE | 2024-09-11 11:51 | W.PN.HOSP.TC ---
Today's Communication/Plan
-
Monitor vital signs see plan
Wean oxygen as tolerated
Continue with IV diuresis
Hold Farxiga for now
Monitor renal function
Currently on Levophed, change parameters to keep systolic >90
Assessment / Plan
Assessment / Plan
General: Well Developed, Well Nourished and No Apparent Distress
HEENT: NormoCephalic, Moist mucous membranes and Atraumatic
Respiratory: Clear
Cardiac: S1/S2 and Regular Rhythm; No Murmur or Rub
GI: Soft, Non Tender, Non Distended and Normal Bowel Sounds
Musculoskeletal: + Edema
Neuro: Nonfocal/grossly intact
Acute on chronic CHF exacerbation with reduced ejection fraction
Acute hypoxic respiratory insufficiency secondary to above, currently on 2 L. Wean oxygen as tolerated
-Cardiac BNP greater than 27,000
-Chest x-ray shows pulm edema, does not appear to have pneumonia. Will monitor. No fever, leukocytosis.
-Check I's and O's, daily weights
Continue with IV diuresis
-Get records from [facility]
EF of 25% from echo in 2020
-Cardiology following
Echo
s/p CABG 10/2008 with FOLEY to LAD and SVG to RPDA
s/p cardiac cath at [facility] 11/16/20 FOLEY to LAD patent, SVG to RPDA occluded, ostial Circ 75% stenosis, ostial RCA 75% stenosis
Severe
Hold Farxiga
Shock, unknown etiology
Continue with Levophed for systolic less than 90, wean Levophed as tolerated. Currently at 5
monitor for infection
# SAM likely cardiorenal on CKD, unknown baseline
-Creatinine of 2.7 from 1.9; now 2.6
continue with IV diuresis
-Nephrology consulted
-Hold spironolactone, losartan
Check UA
Elevated troponin likely secondary to nonischemic myocardial injury
Monitor
Edema blistering 2/2 fluid overload
monitor
Check venous Doppler lower extremity
History of TAVR
CAD status post CABG
-Continue Plavix
-Continue Coreg
Chronic lymphedema
Essential hypertension
Chronic LBBB
Hypercholesterolemia
Chronic anemia
Type 2 diabetes
-Hold metformin, glipizide
-Insulin sliding scale
A1c 6.8
History of CVA
Hypothyroidism
-Continue levothyroxine
Full code
DVT prophylaxis�heparin
I spent a total of 54 minutes with the patient or on the floor. More than 50% of this time involved counseling and coordination of care.
Anticipated Discharge: > 48 hours
Subjective/Interval History
-
Date of Service: September 11, 2024
denies pain
Objective Data
-
Labs:
Laboratory Results
09/11/24
05:12
WBC 6.4
Hgb 11.0 L
Hct 33.5 L
Plt Count 320
Sodium 138
Potassium 4.6
Chloride 101
Carbon Dioxide 31 H
BUN 74 H
Creatinine 2.6 H
Glucose 147 H
Calcium 9.4
Total Bilirubin 1.5 H
AST 23
ALT 15
Alkaline Phosphatase 90
Vital Signs:
Vital Signs
Temp Pulse Resp BP Pulse Ox
97.8 F 60 21 96/52 97
09/11/24 07:17 09/11/24 10:45 09/11/24 10:45 09/11/24 10:30 09/11/24 10:53
I&O
09/10/24 09/11/24 09/12/24
06:59 06:59 06:59
Intake Total 240 / 240
Output Total 550 / 550
Balance -310 / -310
[2024-09-11 12:26] LABS: Glucose - Point of Care 152 mg/dl (70-99)
--- NOTE | 2024-09-11 12:39 | CARDSERVDEF ---
Echocardiogram with [facility] completed after protocol screening completed. Allergies verified.
Patent IV site: right metacarpal 22 G PC site clear
IV site flushed with 0.9% NaCl pre and post administration.
Diluted bolus method utilized to enhance visualization of ventricular waldron.
Total volume given: __3__ mL
Patient tolerated all procedures well without complications.
[2024-09-11] MEDS: NOVOLOG FLEXPEN-LOW RESISTANCE 1 UNITS SC ×2 (12:55→17:52)
[2024-09-11] MEDS: LEVOPHED 250 IV (12:55)
[2024-09-11 13:12] LABS: Urine Albumin Negative (Neg - Trace); Urine Bilirubin Negative (Negative); Urine Character Clear (Clear); Urine Color Yellow; Urine Glucose 4+ (Negative); Urine Ketone Negative (Negative); Urine Leukocyte 2+ (Negative); Urine Nitrite Negative (Negative); Urine Occult Blood Negative (Negative); Urine Urobilinogen Negative (Neg - 1+)
[2024-09-11 13:37] LABS: Troponin I 0.036 ng/ml
[2024-09-11 13:44] LABS: Urine Bacteria Few (Negative)
[2024-09-11 14:54] LABS: Urine Protein 13 mg/dl (0-12)
--- NOTE | 2024-09-11 16:35 | CM ---
Patient from [facility] facility with Dx Acute on chronic CHF exacerbation. O2 2L Receiving Levophed gtt, IV Lasix. Per nursing; A/O, forgetful.
Met with patient who resides alone at [facility].
Patient states she is assisted with ADLs as she has difficulty dressing and reaching for her socks, and needs assistance with showering.
She states she is independent in ambulation with her RW.
DME - RW
She has she was getting in house PT - Need to confirm with [facility].
Prior [facility]
PCP - [facility]
Pharmacy - [facility]
Patient will benefit from PT/OT Evals when medically stable ---> message to Dr Akbar.
Plan follow up after seen by PT/OT.
Plan probable return to [facility].
[2024-09-11 17:38] LABS: Glucose - Point of Care 181 mg/dl (70-99)
[2024-09-11 22:00] LABS: Glucose - Point of Care 118 mg/dl (70-99)
[2024-09-12] VITALS (38 sets, daily range): BP systolic 76–122; BP diastolic 31–72; BMI 41.3
[2024-09-12 04:56] LABS: % Basophils 0.7 % (0-2); % Eosinophils 3.9 % (0-6); % Immature Granulocytes 0.3 % (0-0.5); % Lymphocytes 14.5 % (20.5-51.1); % Monocytes 10.4 % (1.7-9.3); % Neutrophils 70.2 % (42.2-75.2); Absolute Basophils 0.1 10^3/uL (0-0.2); Absolute Eosinophils 0.3 10^3/uL (0-0.7); Absolute Monocytes 0.8 10^3/uL (0.1-0.6); Absolute Neutrophils 5.1 10^3/uL (1.4-6.5); Hematocrit 32.7 % (37.0-47.0); Hemoglobin 10.8 g/dL (12.0-16.0); Mean Corpuscular Hgb 30.3 pg (27.0-31.0); Mean Corpuscular Volume 91.9 fL (81.0-99.0); Mean Platelet Volume 12.2 fL (7.4-10.4); Nucleated Red Blood Cells % 0 %; Platelet Count 348 10^3/uL (130-400); Red Blood Cell Count 3.56 10^6/uL (4.20-5.40); Red Cell Dist. Width 17.9 % (11.5-14.5); White Blood Cell Count 7.2 10^3/uL (4.8-10.8)
[2024-09-12 05:16] LABS: Blood Urea Nitrogen 66 mg/dl (7-17); Calcium 9.4 mg/dl (8.4-10.2); Carbon Dioxide 33 mmol/L (22-30); Chloride 98 mmol/L (98-107); Estimated Creatinine Clearance 22 ml/min; Glucose 146 mg/dl (70-99); Potassium 4.5 mmol/L (3.5-5.1); Sodium 137 mmol/L (135-145); eGFR 21.97
[2024-09-12] MEDS: TYLENOL 650 MG PO (05:22)
[2024-09-12] MEDS: SYNTHROID 88 MCG PO (05:22)
[2024-09-12] MEDS: DESENEX/MITRAZOL/ZEASORB 1 APPLIC TOPICAL ×2 (05:22→20:38)
[2024-09-12] MEDS: LEVOPHED 250 IV ×2 (05:59→20:38)
--- NOTE | 2024-09-12 07:12 | PTCARENOTE ---
Pt able to sleep. NSR/SB w/ BBB & frequent PVCs/ bigeminy. Levo gtt titrated per the worklist. Tylenol provided for back pain. pt swallowing pills w/o issues. repositioned throughout the night. heels floated. afebrile. Purewick in place, no BM. HS
CBG 118. on 1L NC, Sp02 WNL. Call rey within reach.
[2024-09-12 07:26] LABS: Glucose - Point of Care 139 mg/dl (70-99)
[2024-09-12] MEDS: NOVOLOG FLEXPEN-LOW RESISTANCE SC (08:38)
[2024-09-12] MEDS: CLARITIN 10 MG PO (08:55)
[2024-09-12] MEDS: OCUVITE SOFTGEL 1 CAP PO ×2 (08:55→20:33)
[2024-09-12] MEDS: PROTONIX 40 MG PO (08:55)
[2024-09-12] MEDS: UROCIT-K 10 MEQ PO ×2 (08:55→20:33)
[2024-09-12] MEDS: PLAVIX 75 MG PO (08:55)
[2024-09-12] MEDS: FEOSOL 325 MG PO (08:55)
[2024-09-12] MEDS: OSCAL 500 + D 500 MG PO (08:55)
[2024-09-12] MEDS: COREG 6.25 MG PO ×2 (08:55→20:33)
[2024-09-12] MEDS: LIPITOR 40 MG PO (08:55)
[2024-09-12] MEDS: THERAGRAN 1 TABLET PO (08:55)
[2024-09-12] MEDS: MAGNESIUM OXIDE 500 MG PO (08:55)
[2024-09-12] MEDS: HIPREX 1 GRAM PO ×2 (08:55→20:33)
[2024-09-12] MEDS: HEPARIN 5000 UNITS SC ×2 (08:56→20:33)
[2024-09-12] MEDS: LASIX 40 MG IV ×2 (08:56→17:44)
--- NOTE | 2024-09-12 09:08 | PN.CDI ---
CDI
- -
CDI:
Physician Documentation Request
Admit Date: 09/10/24 18:54
Dear Doctor Raffy,
Please review the following and provide your response in the progress notes.
Clinical Indicators:
Pt admitted with acute on chronic systolic CHF exacerbation/shock/ SAM
Documented per nursing wound care notes/panel 09/10, ' Present on admission left buttock pressure related pressure injury stage 1 ...Treatment silicone border.'
Physician documentation of the type and location of wounds is required for compliant documentation. Based on the above clinical findings and your assessment, please provide the following in your progress note:
1. Location of the ulcer/wound, including laterality.
2. Type (etiology) of ulcer/wound:
- Pressure (decubitus) ulcer
- Non-Pressure Ulcer
- Other ( please specify)
Use of terms such as suspected, likely, concern for, or probable (associated with a specific diagnosis that is being evaluated, monitored, or treated as if it exists) are acceptable and can be coded in the inpatient setting, when documented at the
time of discharge.
Thank you,
Dawn Ruiz RN
CDI Specialist
[place] [facility]
Please use your independent medical judgment in providing your response.
*Source: National Pressure Ulcer Advisory Panel (NPUAP)
[2024-09-12] MEDS: LOW STRENGTH ASPIRIN 81 MG PO ×2 (10:31→20:33)
[2024-09-12] MEDS: LIDOCAINE 4% PATCH 2 PATCH TOPICAL (10:31)
--- NOTE | 2024-09-12 11:01 | PTOTSP ---
Speech Therapy Swallowing Assessment
Oral/pharyngeal swallow deemed within functional limits without overt signs of aspiration.
Recommend
1. Continue with current diet of regular solids and thin liquids.
2. Upright as able with intake.
3. Meds whole in applesauce.
4. No skilled ST indicated at this time.
--- NOTE | 2024-09-12 11:12 | W.PN.NEPH.PH ---
Today's Communication / Plan
-
diurese
Assessment/Plan
-
IMP:
Acute on chronic CHF exacerbation with reduced ejection fraction
Acute hypoxic respiratory insufficiency
Fredi with CKD
Cardiomyopathy EF of 45% from echo in 2023
s/p CABG 10/2008 with FOLEY to LAD and SVG to RPDA
s/p cardiac cath at [facility] 11/16/20 FOLEY to LAD patent, SVG to RPDA occluded, ostial Circ 75% stenosis, ostial RCA 75% stenosis
Severe s/p BAV 12/06/20
Shock, unknown etiology
Elevated troponin likely secondary to nonischemic myocardial injury
Edema blistering 2/2 fluid overload
Chronic lymphedema
Essential hypertension
Chronic LBBB
Hypercholesterolemia
Chronic anemia
Type 2 diabetes
History of CVA
Hypothyroidism
Plan:
continue IV lasix
follow BMP
watch BP carefully
renal US ok
-
-
Date of Service: September 12, 2024
CC / HPI / ROS
-
Chief Complaint:
FREDI
History of Present Illness:
FREDI/Cr down to 2.2
BP low stable
diuresing well for decompensated HF with lasix
weights down
Review of Systems:
no CP
SOB slightly better
Labs
-
Labs:
WBC 7.2 10^3/uL (4.8-10.8) 09/12/24 04:12
RBC 3.56 10^6/uL (4.20-5.40) L 09/12/24 04:12
Hgb 10.8 g/dL (12.0-16.0) L 09/12/24 04:12
Hct 32.7 % (37.0-47.0) L 09/12/24 04:12
Plt Count 348 10^3/uL (130-400) 09/12/24 04:12
Sodium 137 mmol/L (135-145) 09/12/24 04:12
Potassium 4.5 mmol/L (3.5-5.1) 09/12/24 04:12
Chloride 98 mmol/L (98-107) 09/12/24 04:12
Carbon Dioxide 33 mmol/L (22-30) H 09/12/24 04:12
BUN 66 mg/dl (7-17) H 09/12/24 04:12
Creatinine 2.2 mg/dL (0.6-1.0) H 09/12/24 04:12
eGFR 21.97 09/12/24 04:12
Glucose 146 mg/dl (70-99) H 09/12/24 04:12
Calcium 9.4 mg/dl (8.4-10.2) 09/12/24 04:12
Vle-Z-Bkzwpzkprjy Pept > 68507 pg/ml 09/10/24 15:35
Albumin 3.3 g/dl (3.5-5.0) L 09/11/24 05:12
Physical Exam
-
Vital Signs:
Vital Signs
Temp Pulse Resp BP Pulse Ox
97.5 F 93 21 93/58 97
09/12/24 07:05 09/12/24 09:15 09/12/24 09:15 09/12/24 09:15 09/12/24 09:15
Cardiovascular:: Regular rate and rhythm
Respiratory:: Bilateral: Coarse
Lung Excursion:: Normal
Abdomen:: Nontender and Soft
Bowel Sounds:: Normal
Extremity Edema:: +1: Bilateral:
--- NOTE | 2024-09-12 12:10 | PTCARENOTE ---
Pt's assessment as documented. Aox3, [place]. NSR with [employer] on tele monitor. Levo infusing for SBP over 90; titrated per protocol- see intervention. Satting mid 90's on 1L. Pt ringing appropriately. IVT at bedside to place PICC.
[2024-09-12 12:53] LABS: Glucose - Point of Care 188 mg/dl (70-99)
[2024-09-12] MEDS: NOVOLOG FLEXPEN-LOW RESISTANCE 1 UNITS SC (13:21)
--- NOTE | 2024-09-12 13:50 | W.PN.HOSP.TC ---
Today's Communication/Plan
-
Monitor vital signs see plan
Continue with diuresis
Wean pressors as tolerated
Start cefepime
Monitor renal function
PT/OT
Wean oxygen as tolerated
Assessment / Plan
Assessment / Plan
General: Well Developed, Well Nourished and No Apparent Distress
HEENT: NormoCephalic, Moist mucous membranes and Atraumatic
Respiratory: Clear
Cardiac: S1/S2 and Regular Rhythm; No Murmur or Rub
GI: Soft, Non Tender, Non Distended and Normal Bowel Sounds
Musculoskeletal: + Edema
Neuro: Nonfocal/grossly intact
Acute on chronic CHF exacerbation with reduced ejection fraction
Acute hypoxic respiratory insufficiency secondary to above, currently on 2 L. Wean oxygen as tolerated
-Cardiac BNP greater than 27,000
-Chest x-ray shows pulm edema, does not appear to have pneumonia. Will monitor. No fever, leukocytosis.
-Check I's and O's, daily weights
Continue with IV diuresis
-Get records from [place]
EF of 25% from echo in 2020
-Cardiology following
Echo 09/11 noted with a EF 15 to 20%,
s/p CABG 10/2008 with FOLEY to LAD and SVG to RPDA
s/p cardiac cath at [facility] 11/16/20 FOLEY to LAD patent, SVG to RPDA occluded, ostial Circ 75% stenosis, ostial RCA 75% stenosis
Severe
Hold Farxiga
Shock, unknown etiology
Continue with Levophed for systolic less than 90, wean Levophed as tolerated. Currently at 5
monitor for infection
# SAM likely cardiorenal on CKD, unknown baseline
-Creatinine of 2.7 from 1.9; now 2.2
continue with IV diuresis
-Nephrology consulted
-Hold spironolactone, losartan
UA suggestive of mild UTI, urine culture with gram-negative rods. History of Pseudomonas, E. coli. Start cefepime
Elevated troponin likely secondary to nonischemic myocardial injury
Monitor
Edema blistering 2/2 fluid overload
monitor
venous Doppler lower extremity neg for DVT
History of TAVR
CAD status post CABG
-Continue Plavix
-Continue Coreg
Chronic lymphedema
left buttock pressure related pressure injury stage 1
Essential hypertension
Chronic LBBB
Hypercholesterolemia
Chronic anemia
Type 2 diabetes
-Hold metformin, glipizide
-Insulin sliding scale
A1c 6.8
History of CVA
Hypothyroidism
-Continue levothyroxine
Full code
DVT prophylaxis�heparin
Total Critical Care Time__42___ minutes. I was immediately available to the patient and staff. I personally examined, reviewed labs, diagnostic images/reports, interpretations, treatment plans, discussed patient care with other providers and
family or caregivers (if patient is unable to make decisions), entered orders as appropriate and documented the medical record.
Anticipated Discharge: > 48 hours
Subjective/Interval History
-
Date of Service: September 12, 2024
denies nausea
Objective Data
-
Labs:
Laboratory Results
09/12/24
04:12
WBC 7.2
Hgb 10.8 L
Hct 32.7 L
Plt Count 348
Sodium 137
Potassium 4.5
Chloride 98
Carbon Dioxide 33 H
BUN 66 H
Creatinine 2.2 H
Glucose 146 H
Calcium 9.4
Vital Signs:
Vital Signs
Temp Pulse Resp BP Pulse Ox
98.1 F 94 26 99/60 94
09/12/24 11:17 09/12/24 12:00 09/12/24 12:00 09/12/24 11:31 09/12/24 12:12
I&O
09/11/24 09/12/24 09/13/24
06:59 06:59 06:59
Intake Total 240 / 240 960 / 960 240 / 240
Output Total 550 / 550 1950 / 1950 1000 / 1000
Balance -310 / -310 -990 / -990 -760 / -760
[2024-09-12] MEDS: STERILE WATER FOR INJECTION 10 ML IV (14:53)
[2024-09-12] MEDS: MAXIPIME 1000 MG IV (14:53)
--- NOTE | 2024-09-12 14:58 | VATNOTE ---
Per radiology report, PICC tip is in good position with tip in the SVC. PCN notified PICC OK to use at this time. Instructed to change IV tubing prior to using PICC. Ipsilateral IV discontinued by this RN.
--- NOTE | 2024-09-12 17:30 | CM ---
Patient from [facility] facility with Dx CHF, SAM. O2 1L. Receiving Levophed gtt, IV Lasix, IV Abx. PICC line. Per nursing; forgetful. PT Held today.
Plan follow up after seen by PT.
Plan probable return to [facility].
[2024-09-12 17:39] LABS: Glucose - Point of Care 243 mg/dl (70-99)
[2024-09-12] MEDS: NOVOLOG FLEXPEN-LOW RESISTANCE 300 UNITS SC (17:44)
--- NOTE | 2024-09-12 18:20 | W.PN.CARDCBS ---
Today's Communication / Plan
-
Will review 2D echocardiogram regarding increased AVR gradients
Continue efforts for diuresis
Continue hemodynamic support with pressors and wean as able
May need inotropes if does not continue to improve
IV antibiotics for positive urine culture
Impression / Plan
-
Primary E Learning Coordinator: Dr. Chris Craig of [place]
Assessment:
Presentation with SOB, LE edema
Acute on chronic HFrEF
Acute hypoxic respiratory insufficiency
SAM on CKD, suspected cardiorenal
Hypotension requiring pressor support
Elevated troponin, suspected nonischemic myocardial injury
CAD
s/p CABG 10/2008 with FOLEY to LAD and SVG to RPDA
s/p cardiac cath at [facility] 11/16/20 FOLEY to LAD patent, SVG to RPDA occluded, ostial Circ 75% stenosis, ostial RCA 75% stenosis
Severe
Type 2 [place] related to severe 11/2020 resulting in transfer to [facility], s/p BAV 12/06/20
Status post sternotomy with biologic AVR, aortic root enlargement with pericardial patch, and CABG x1 SVG to distal RCA on 03/04/[address] Smith
Brief post op afib episode while at [facility], without known recurrence
CM EF 25% by echo 11/18/20
s/p [facility] implanted loop recorder
PVCs
Chronic LBBB
DM 2
HTN
Hyperlipidemia
Hypothyroid
h/o CVA
Peripheral neuropathy
s/p IVC filter
L breast cancer s/p lumpectomy, chemotherapy, and radiation 2008
Obesity
Anemia
ECHO 07/2023: Mildly reduced LV systolic function 45% due to akinesis of distal inferior wall, mild MR with severe left atrial dilation, bioprosthetic aortic valve with peak gradient 49/mean gradient 32, valve size known to be small, moderate
pulmonary hypertension
Nuclear stress test 08/24/2023: Large sized moderate to severe defect in apex, apical anterior, apical inferior wall, prone imaging not performed, defect consistent with infarct with minimal gerald-infarct ischemia, EF 35% with global hypokinesis and
anteroapical akinesis, unchanged compared to prior cath and echo in 2020
2D echocardiogram 09/11/2024: Dilated left ventricle with severely reduced left ventricular systolic function estimated 15-20% with grade 2 diastolic dysfunction increased LV filling pressures. Moderate mitral and tricuspid regurgitation.
Bioprosthetic aortic valve with peak/mean gradients 37/23 mmHg and no significant aortic regurgitation.
Plan:
Acute on chronic heart failure with reduced ejection fraction with marked volume overload, Status post AVR/aortic root enlargement with pericardial patch in 2020 with coronary artery disease status post CABG in 2008 and redo CABG x 1 with SVG G to
distal RCA at the time of AVR in 2020 and component of lymphedema. Symptoms of acute decompensation over 1 month with escalating outpatient doses of Lasix and attempts towards goal-directed medical therapy with Acute on chronic renal failure
-Patient reports some improvement in shortness of breath and edema with IV Lasix
-Will continue efforts to diurese
-Wean supplemental oxygen as able.
-Reviewed echocardiogram with patient and daughter at bedside.
-Baseline creatinine 1.56 as of 03/23/2024; peak 2.7, today slightly improved at 2.4
-Nephrology consult reviewed
-Monitor renal function closely. Keep K greater than 4, mag greater than 2
-trops flat at 0.04. reports no CP. suspected nonischemic myocardial injury. last ischemic eval as above in 2023.
-GDMT limited with hypotension/MICHELL- currently on Levophed at 4 with MAP >65
-Continue outpatient aspirin and Plavix
-Consider addition of hydralazine drops however will hold off at this time
-PVCs at times in bigeminal pattern noted on telemetry
Gram-negative bacilli in urine culture without leukocytosis
-IV antibiotics per primary
Progress Note - E Learning Coordinator
Subjective
Date of Service: September 12, 2024
Seen and examined. Reports improved shortness of breath and abdominal distention. Denies chest pain or pressure.
Objective
Labs:
09/12/24 04:12
09/12/24 04:12
Labs
Hgb 10.8 g/dL (12.0-16.0) L 09/12/24 04:12
Hct 32.7 % (37.0-47.0) L 09/12/24 04:12
Plt Count 348 10^3/uL (130-400) 09/12/24 04:12
Sodium 137 mmol/L (135-145) 09/12/24 04:12
Potassium 4.5 mmol/L (3.5-5.1) 09/12/24 04:12
BUN 66 mg/dl (7-17) H 09/12/24 04:12
Creatinine 2.2 mg/dL (0.6-1.0) H 09/12/24 04:12
Glucose 146 mg/dl (70-99) H 09/12/24 04:12
Troponins
09/10/24 09/11/24 09/11/24
17:45 05:12 13:02
Troponin I 0.039 H* 0.040 H* 0.036 H*
Vital Signs and I&O:
Vital Signs
Temp Pulse Resp BP Pulse Ox
98.5 F 63 23 106/53 95
09/12/24 15:09 09/12/24 17:15 09/12/24 17:15 09/12/24 17:15 09/12/24 17:15
Vital Signs
Temp Pulse Resp BP Pulse Ox
98.5 F 63 23 106/53 95
09/12/24 15:09 09/12/24 17:15 09/12/24 17:15 09/12/24 17:15 09/12/24 17:15
Intake & Output
09/10/24 09/11/24 09/12/24 09/13/24
06:59 06:59 06:59 06:59
Intake Total 240 / 240 960 / 960 240 / 240
Output Total 550 / 550 1950 / 1950 1000 / 1000
Balance -310 / -310 -990 / -990 -760 / -760
Physical Exam
Physical Exam
General: 83-year-old female with nasal cannula O2, awake alert and oriented in no acute distress at rest
Heart: Regular. Positive S1-S2. Positive ectopy. 2/6 SM
Lungs: Bronchovesicular breath sounds decreased bilaterally with bibasilar crackles
Extremities:+++ edema bilaterally/Component of lymphedema.
[2024-09-12 21:06] LABS: Glucose - Point of Care 315 mg/dl (70-99)
[2024-09-13] VITALS (26 sets, daily range): BP systolic 97–126; BP diastolic 38–89; PULSE 72; O2SAT 98; BMI 42.1
[2024-09-13] MEDS: STERILE WATER FOR INJECTION 10 ML IV ×2 (02:55→13:52)
[2024-09-13] MEDS: MAXIPIME 1000 MG IV ×2 (02:55→13:52)
[2024-09-13 04:06] LABS: Glucose - Point of Care 149 mg/dl (70-99)
[2024-09-13] MEDS: SYNTHROID 88 MCG PO (05:53)
[2024-09-13 06:11] LABS: % Basophils 0.6 % (0-2); % Eosinophils 3.9 % (0-6); % Immature Granulocytes 0.3 % (0-0.5); % Lymphocytes 16.6 % (20.5-51.1); % Monocytes 10.8 % (1.7-9.3); % Neutrophils 67.8 % (42.2-75.2); Absolute Eosinophils 0.3 10^3/uL (0-0.7); Absolute Lymphocytes 1.1 10^3/uL (1.2-3.4); Absolute Monocytes 0.7 10^3/uL (0.1-0.6); Absolute Neutrophils 4.6 10^3/uL (1.4-6.5); Hematocrit 29.9 % (37.0-47.0); Hemoglobin 10.3 g/dL (12.0-16.0); Mean Corp Hgb Conc. 34.4 g/dL (33.0-37.0); Mean Corpuscular Hgb 31.5 pg (27.0-31.0); Mean Corpuscular Volume 91.4 fL (81.0-99.0); Mean Platelet Volume 10.5 fL (7.4-10.4); Nucleated Red Blood Cells % 0 %; Platelet Count 289 10^3/uL (130-400); Red Blood Cell Count 3.27 10^6/uL (4.20-5.40); Red Cell Dist. Width 17.7 % (11.5-14.5); White Blood Cell Count 6.7 10^3/uL (4.8-10.8)
--- NOTE | 2024-09-13 06:32 | PTCARENOTE ---
CHG done this morning. PICC line dressing intact, +blood return. Levo titrated per the worklist. Repositioned throughout the night; heels floated. Voiding clear yellow urine via purewick. no BM. NSR/SB w/ BBB/PVCs/1st degree AVB. 1L NC. swallowing
pills in applesauce w/o issues. pt has pain to back when turning, denied the need for pain medication. foam to sacrum intact. Call rey and tray table within reach. pt appreciative of care.
[2024-09-13 06:41] LABS: Blood Urea Nitrogen 61 mg/dl (7-17); Calcium 9.5 mg/dl (8.4-10.2); Carbon Dioxide 34 mmol/L (22-30); Chloride 96 mmol/L (98-107); Estimated Creatinine Clearance 30 ml/min; Glucose 144 mg/dl (70-99); Sodium 136 mmol/L (135-145)
[2024-09-13] MEDS: LIPITOR 40 MG PO (08:56)
[2024-09-13] MEDS: PROTONIX 40 MG PO (08:57)
[2024-09-13] MEDS: PLAVIX 75 MG PO (08:57)
[2024-09-13] MEDS: UROCIT-K 10 MEQ PO ×2 (08:58→21:20)
[2024-09-13] MEDS: THERAGRAN 1 TABLET PO (08:58)
[2024-09-13] MEDS: MAGNESIUM OXIDE 500 MG PO (08:59)
[2024-09-13] MEDS: CLARITIN 10 MG PO (09:00)
[2024-09-13] MEDS: COREG 6.25 MG PO ×2 (09:00→21:20)
[2024-09-13] MEDS: OCUVITE SOFTGEL 1 CAP PO ×2 (09:00→21:20)
[2024-09-13] MEDS: HIPREX 1 GRAM PO ×2 (09:01→21:20)
[2024-09-13] MEDS: OSCAL 500 + D 500 MG PO (09:02)
[2024-09-13] MEDS: FEOSOL 325 MG PO (09:02)
[2024-09-13] MEDS: HEPARIN 5000 UNITS SC ×2 (09:03→21:20)
[2024-09-13] MEDS: LASIX 40 MG IV ×2 (09:07→18:06)
[2024-09-13] MEDS: LIDOCAINE 4% PATCH 2 PATCH TOPICAL (09:08)
[2024-09-13 09:21] LABS: Glucose - Point of Care 126 mg/dl (70-99)
[2024-09-13] MEDS: NOVOLOG FLEXPEN-LOW RESISTANCE SC (09:30)
--- NOTE | 2024-09-13 10:52 | W.PN.NEPH.PH ---
Today's Communication / Plan
-
diurese
Assessment/Plan
-
IMP:
Acute on chronic CHF exacerbation with reduced ejection fraction
Acute hypoxic respiratory insufficiency
Fredi with CKD
Cardiomyopathy EF of 45% from echo in 2023
s/p CABG 10/2008 with FOLEY to LAD and SVG to RPDA
s/p cardiac cath at [facility] 11/16/20 FOLEY to LAD patent, SVG to RPDA occluded, ostial Circ 75% stenosis, ostial RCA 75% stenosis
Severe s/p BAV 12/06/20
Shock, unknown etiology
Elevated troponin likely secondary to nonischemic myocardial injury
Edema blistering 2/2 fluid overload
Chronic lymphedema
Essential hypertension
Chronic LBBB
Hypercholesterolemia
Chronic anemia
Type 2 diabetes
History of CVA
Hypothyroidism
Plan:
continue IV lasix
follow BMP
watch BP carefully
hopefully po lasix in next 48hrs
-
-
Date of Service: September 13, 2024
CC / HPI / ROS
-
Chief Complaint:
FREDI
History of Present Illness:
FREDI/Cr down to 1.6
BP low stable
diuresing well for decompensated HF with lasix
weights down
Review of Systems:
no CP
SOB slightly better
Labs
-
Labs:
WBC 6.7 10^3/uL (4.8-10.8) 09/13/24 06:01
RBC 3.27 10^6/uL (4.20-5.40) L 09/13/24 06:01
Hgb 10.3 g/dL (12.0-16.0) L 09/13/24 06:01
Hct 29.9 % (37.0-47.0) L 09/13/24 06:01
Plt Count 289 10^3/uL (130-400) 09/13/24 06:01
Sodium 136 mmol/L (135-145) 09/13/24 06:01
Potassium 4.0 mmol/L (3.5-5.1) 09/13/24 06:01
Chloride 96 mmol/L (98-107) L 09/13/24 06:01
Carbon Dioxide 34 mmol/L (22-30) H 09/13/24 06:01
BUN 61 mg/dl (7-17) H 09/13/24 06:01
Creatinine 1.6 mg/dL (0.6-1.0) H 09/13/24 06:01
eGFR 32.20 09/13/24 06:01
Glucose 144 mg/dl (70-99) H 09/13/24 06:01
Calcium 9.5 mg/dl (8.4-10.2) 09/13/24 06:01
Llm-W-Tiqrjqbsqji Pept > 29890 pg/ml 09/10/24 15:35
Albumin 3.3 g/dl (3.5-5.0) L 09/11/24 05:12
Physical Exam
-
Vital Signs:
Vital Signs
Temp Pulse Resp BP Pulse Ox
97.6 F 76 24 104/55 96
09/13/24 07:25 09/13/24 06:15 09/13/24 06:15 09/13/24 06:00 09/13/24 06:00
Cardiovascular:: Regular rate and rhythm
Respiratory:: Bilateral: Coarse
Lung Excursion:: Normal
Abdomen:: Nontender and Soft
Bowel Sounds:: Normal
Extremity Edema:: +1: Bilateral:
[2024-09-13 12:01] LABS: Glucose - Point of Care 178 mg/dl (70-99)
[2024-09-13] MEDS: LOW STRENGTH ASPIRIN 81 MG PO ×2 (12:21→21:20)
[2024-09-13] MEDS: NOVOLOG FLEXPEN-LOW RESISTANCE 1 UNITS SC ×2 (13:51→18:07)
--- NOTE | 2024-09-13 14:55 | W.PN.HOSP.TC ---
Today's Communication/Plan
-
Monitor vital signs see plan
Continue with cefepime
Follow urine culture
PT/OT
Continue with IV diuresis
Monitor renal function
Wean oxygen as tolerated
Assessment / Plan
Assessment / Plan
General: Well Developed, Well Nourished and No Apparent Distress
HEENT: NormoCephalic, Moist mucous membranes and Atraumatic
Respiratory: Clear
Cardiac: S1/S2 and Regular Rhythm; No Murmur or Rub
GI: Soft, Non Tender, Non Distended and Normal Bowel Sounds
Musculoskeletal: + Edema
Neuro: Nonfocal/grossly intact
Acute on chronic CHF exacerbation with reduced ejection fraction
Acute hypoxic respiratory insufficiency secondary to above, currently on 2 L. Wean oxygen as tolerated
-Cardiac BNP greater than 27,000
-Chest x-ray shows pulm edema, does not appear to have pneumonia. Will monitor. No fever, leukocytosis.
-Check I's and O's, daily weights
Continue with IV diuresis
-Get records from [place]
EF of 25% from echo in 2020
-Cardiology following
Echo 09/11 noted with a EF 15 to 20%,
s/p CABG 10/2008 with FOLEY to LAD and SVG to RPDA
s/p cardiac cath at [facility] 11/16/20 FOLEY to LAD patent, SVG to RPDA occluded, ostial Circ 75% stenosis, ostial RCA 75% stenosis
Severe
Hold Farxiga
Shock, unknown etiology
Continue with Levophed for systolic less than 90, wean Levophed as tolerated. Currently at 1
monitor for infection
# SAM likely cardiorenal on CKD, unknown baseline
-Creatinine of 2.7 from 1.9; now 1.6
continue with IV diuresis
-Nephrology following
-Hold spironolactone, losartan
UA suggestive of mild UTI, urine culture with gram-negative rods. History of Pseudomonas, E. coli. Start cefepime
UTI
History of multiple UTIs in past
Urine culture with gram-negative bacilli
History of Pseudomonas, continue with cefepime
Postvoid residual
Elevated troponin likely secondary to nonischemic myocardial injury
Monitor
Edema blistering 2/2 fluid overload
monitor
venous Doppler lower extremity neg for DVT
History of TAVR
CAD status post CABG
-Continue Plavix
-Continue Coreg
Chronic lymphedema
left buttock pressure related pressure injury stage 1
Essential hypertension
Chronic LBBB
Hypercholesterolemia
Chronic anemia
Type 2 diabetes
-Hold metformin, glipizide
-Insulin sliding scale
A1c 6.8
History of CVA
Hypothyroidism
-Continue levothyroxine
Full code
DVT prophylaxis�heparin
I spent a total of 52 minutes with the patient or on the floor. More than 50% of this time involved counseling and coordination of care.
Anticipated Discharge: > 48 hours
Subjective/Interval History
-
Date of Service: September 13, 2024
Denies chest pain
Objective Data
-
Labs:
Laboratory Results
09/13/24
06:01
WBC 6.7
Hgb 10.3 L
Hct 29.9 L
Plt Count 289
Sodium 136
Potassium 4.0
Chloride 96 L
Carbon Dioxide 34 H
BUN 61 H
Creatinine 1.6 H
Glucose 144 H
Calcium 9.5
Vital Signs:
Vital Signs
Temp Pulse Resp BP Pulse Ox
98.5 F 76 24 104/55 96
09/13/24 14:53 09/13/24 06:15 09/13/24 06:15 09/13/24 06:00 09/13/24 06:00
I&O
09/12/24 09/13/24 09/14/24
06:59 06:59 06:59
Intake Total 960 / 960 240 / 240
Output Total 1949 / 1950 1800 / 1800 1100 / 1100
Balance -990 / -990 -1560 / -1560 -1100 / -1100
--- NOTE | 2024-09-13 15:15 | W.PN.CARDCBS ---
Today's Communication / Plan
-
Continue diuresis
Follow labs
Continue pressor support as needed could consider starting dobutamine with caution given aortic valve disease if no improvement
Impression / Plan
-
Primary Service Counter Cashier: Dr. Chris Craig of [place]
Assessment:
Presentation with SOB, LE edema
Acute on chronic HFrEF with decreased left ventricular ejection fraction 15 to 20%
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
Acute hypoxic respiratory insufficiency
SAM on CKD, suspected cardiorenal
Hypotension requiring pressor support
Elevated troponin, suspected nonischemic myocardial injury
CAD
s/p CABG 10/2008 with FOLEY to LAD and SVG to RPDA
s/p cardiac cath at [facility] 11/16/20 FOLEY to LAD patent, SVG to RPDA occluded, ostial Circ 75% stenosis, ostial RCA 75% stenosis
Severe
Type 2 [place] related to severe 11/2020 resulting in transfer to [facility], s/p BAV 12/06/20
Status post sternotomy with biologic AVR, aortic root enlargement with pericardial patch, and CABG x1 SVG to distal RCA on 03/04/[address] Smith
Brief post op afib episode while at [facility], without known recurrence
s/p [employer] implanted loop recorder
PVCs
Chronic LBBB
DM 2
HTN
Hyperlipidemia
Hypothyroid
h/o CVA
Peripheral neuropathy
s/p IVC filter
L breast cancer s/p lumpectomy, chemotherapy, and radiation 2008
Obesity
Anemia
ECHO 07/2023: Mildly reduced LV systolic function 45% due to akinesis of distal inferior wall, mild MR with severe left atrial dilation, bioprosthetic aortic valve with peak gradient 49/mean gradient 32, valve size known to be small, moderate
pulmonary hypertension
Nuclear stress test 08/24/2023: Large sized moderate to severe defect in apex, apical anterior, apical inferior wall, prone imaging not performed, defect consistent with infarct with minimal gerald-infarct ischemia, EF 35% with global hypokinesis and
anteroapical akinesis, unchanged compared to prior cath and echo in 2020
2D echocardiogram 09/11/2024: Dilated left ventricle with severely reduced left ventricular systolic function estimated 15-20% with grade 2 diastolic dysfunction increased LV filling pressures. Moderate mitral and tricuspid regurgitation.
Bioprosthetic aortic valve with peak/mean gradients 37/23 mmHg and no significant aortic regurgitation.
Plan:
Acute on chronic heart failure with reduced ejection fraction with marked volume overload, Status post AVR/aortic root enlargement with pericardial patch in 2020 with coronary artery disease status post CABG in 2008 and redo CABG x 1 with SVG G to
distal RCA at the time of AVR in 2020 and component of lymphedema. Symptoms of acute decompensation over 1 month with escalating outpatient doses of Lasix and attempts towards goal-directed medical therapy with Acute on chronic renal failure.
We discussed her decreased ejection fraction today with left ventricular ejection fraction 15 to 20%. Previously 25% documented at [place] but according to primary tetryl wringer operator records echo most recently 07/2023 45%.
-Continue IV diuresis unfortunately she has required Levophed to maintain blood pressure with diuresis.
-She is making progress with volume and will continue to reassess
-If blood pressure continues to be problematic could consider low-dose dobutamine with caution given likely significant aortic valve stenosis
-Wean oxygen as tolerates
-On 09/12/2024 our team also reviewed echocardiogram with patient and daughter at bedside.
-GDMT limited with hypotension/MICHELL- currently on Levophed
Aortic valve stenosis with bioprosthetic aortic valve 12/06/2020
-I suspect she has significant aortic valve stenosis.
-Gradients 07/2023 done elsewhere in the setting of ejection fraction 45% were 49/32 mmHg. This admission 08/2024 with ejection fraction 15 to 20% gradients 37/23 mmHg.
-Acute on chronic renal insufficiency with now creatinine at baseline at 1.6. Prior baseline 1.56 (03/23/2024). Creatinine peaked at 2.7
-Appreciate nephrology input
CABG x 1 with SVG to distal RCA 03/04/2021 with cardiac catheterization as noted and FOLEY to LAD patent at that time.
-Original CABG 2008 with FOLEY to LAD and SVG to RPDA (occluded)
-Redo CABG 2020 at time of AVR with SVG to distal RCA
-Troponins flat at 0.04. reports
-No chest pain. Suspect nonischemic myocardial injury. Last ischemic as above in 2023.
-Continue outpatient aspirin and Plavix
-PVCs at times in bigeminal pattern at times noted on telemetry
-Left bundle branch block noted
Given last left ventricular ejection fraction 45% I do not believe that there was discussion regarding need for resynchronization therapy/ICD
Gram-negative bacilli in urine culture without leukocytosis
-IV antibiotics per primary
Although able to answer questions today she does have some memory loss related to details. Defer to primary service.
Progress Note - Service Counter Cashier
Subjective
Date of Service: September 13, 2024
She denies chest pain, palpitations and dizziness. Breathing is a bit better than prior.
Objective
Labs:
09/13/24 06:01
09/13/24 06:01
Labs
Hgb 10.3 g/dL (12.0-16.0) L 09/13/24 06:01
Hct 29.9 % (37.0-47.0) L 09/13/24 06:01
Plt Count 289 10^3/uL (130-400) 09/13/24 06:01
Sodium 136 mmol/L (135-145) 09/13/24 06:01
Potassium 4.0 mmol/L (3.5-5.1) 09/13/24 06:01
BUN 61 mg/dl (7-17) H 09/13/24 06:01
Creatinine 1.6 mg/dL (0.6-1.0) H 09/13/24 06:01
Glucose 144 mg/dl (70-99) H 09/13/24 06:01
Troponins
09/10/24 09/11/24 09/11/24
17:45 05:12 13:02
Troponin I 0.039 H* 0.040 H* 0.036 H*
Vital Signs and I&O:
Vital Signs
Temp Pulse Resp BP Pulse Ox
98.5 F 70 21 102/89 96
09/13/24 14:53 09/13/24 15:00 09/13/24 15:00 09/13/24 15:00 09/13/24 15:00
Vital Signs
Temp Pulse Resp BP Pulse Ox
98.5 F 70 21 102/89 96
09/13/24 14:53 09/13/24 15:00 09/13/24 15:00 09/13/24 15:00 09/13/24 15:00
Intake & Output
09/11/24 09/12/24 09/13/24 09/14/24
06:59 06:59 06:59 06:59
Intake Total 240 / 240 960 / 960 240 / 240
Output Total 550 / 550 1950 / 1950 1800 / 1800 1100 / 1100
Balance -310 / -310 -990 / -990 -1560 / -1560 -1100 / -1100
Physical Exam
Physical Exam
General: Well developed, well nourished in NAD.
Heart: Non displaced PMI, RRR, 3/6 basal systolic murmur, No S3, S4, no rubs.
Lungs: Crackles at the bases
Extremities: No clubbing, cyanosis +1 edema bilaterally.
Neuro: Awake and pleasant
[2024-09-13 17:54] LABS: Glucose - Point of Care 153 mg/dl (70-99)
[2024-09-13 21:16] LABS: Glucose - Point of Care 181 mg/dl (70-99)
[2024-09-14] VITALS (9 sets, daily range): BP systolic 97–133; BP diastolic 42–86; BMI 40.4
[2024-09-14] MEDS: MAXIPIME 1000 MG IV ×2 (01:18→14:04)
[2024-09-14] MEDS: STERILE WATER FOR INJECTION 10 ML IV ×2 (01:18→14:04)
[2024-09-14] MEDS: SYNTHROID 88 MCG PO (05:37)
--- NOTE | 2024-09-14 06:17 | PTCARENOTE ---
No changes overnight. BP stable off levo. NSR w/ BBB & 1st degree AVB. Voiding via purewick. repositioned as pt tolerates, heels floated. denies any pain. CHG done this morning. Pt becomes forgetful; pt stated she needed to go to work at 1am.
re-oriented as needed. Foam changed on bottom. PICC line dressing intact, +blood return. 2L NC in place; pt takes 02 off at times. swallows pills whole in applesauce w/o issues.
call rey and tray table within reach.
[2024-09-14 06:25] LABS: % Basophils 0.6 % (0-2); % Eosinophils 2.6 % (0-6); % Immature Granulocytes 0.4 % (0-0.5); % Lymphocytes 13.6 % (20.5-51.1); % Monocytes 10.2 % (1.7-9.3); % Neutrophils 72.6 % (42.2-75.2); Absolute Eosinophils 0.2 10^3/uL (0-0.7); Absolute Lymphocytes 0.9 10^3/uL (1.2-3.4); Absolute Monocytes 0.7 10^3/uL (0.1-0.6); Hematocrit 30.5 % (37.0-47.0); Hemoglobin 9.9 g/dL (12.0-16.0); Mean Corp Hgb Conc. 32.5 g/dL (33.0-37.0); Mean Corpuscular Hgb 30.1 pg (27.0-31.0); Mean Corpuscular Volume 92.7 fL (81.0-99.0); Mean Platelet Volume 10.3 fL (7.4-10.4); Nucleated Red Blood Cells % 0 %; Platelet Count 295 10^3/uL (130-400); Red Blood Cell Count 3.29 10^6/uL (4.20-5.40); Red Cell Dist. Width 17.8 % (11.5-14.5); White Blood Cell Count 6.9 10^3/uL (4.8-10.8)
[2024-09-14 06:43] LABS: Blood Urea Nitrogen 55 mg/dl (7-17); Calcium 9.5 mg/dl (8.4-10.2); Carbon Dioxide 39 mmol/L (22-30); Chloride 96 mmol/L (98-107); Estimated Creatinine Clearance 31 ml/min; Glucose 141 mg/dl (70-99); Potassium 3.9 mmol/L (3.5-5.1); Sodium 139 mmol/L (135-145); eGFR 34.79
[2024-09-14] MEDS: NOVOLOG FLEXPEN-LOW RESISTANCE SC (08:17)
[2024-09-14 08:26] LABS: Glucose - Point of Care 146 mg/dl (70-99)
--- NOTE | 2024-09-14 09:56 | W.PN.NEPH.PH ---
Today's Communication / Plan
-
Reduce Lasix
Assessment/Plan
-
IMP:
Acute on chronic CHF exacerbation with reduced ejection fraction
Acute hypoxic respiratory insufficiency
Fredi with CKD
Cardiomyopathy EF of 45% from echo in 2023
s/p CABG 10/2008 with FOLEY to LAD and SVG to RPDA
s/p cardiac cath at [facility] 11/16/20 FOLEY to LAD patent, SVG to RPDA occluded, ostial Circ 75% stenosis, ostial RCA 75% stenosis
Severe s/p BAV 12/06/20
Shock, unknown etiology
Elevated troponin likely secondary to nonischemic myocardial injury
Edema blistering 2/2 fluid overload
Chronic lymphedema
Essential hypertension
Chronic LBBB
Hypercholesterolemia
Chronic anemia
Type 2 diabetes
History of CVA
Hypothyroidism
Plan:
continue IV lasix, reduce to daily
follow BMP
watch BP carefully
hopefully po lasix in next 48hrs
-
-
Date of Service: September 14, 2024
CC / HPI / ROS
-
Chief Complaint:
FREDI
History of Present Illness:
FREDI/Cr down to 1.5
BP low stable
diuresing well for decompensated HF with lasix
weights down
Alkalosis evolving 39
Review of Systems:
no CP
SOB slightly better
Labs
-
Labs:
WBC 6.9 10^3/uL (4.8-10.8) 09/14/24 05:49
RBC 3.29 10^6/uL (4.20-5.40) L 09/14/24 05:49
Hgb 9.9 g/dL (12.0-16.0) L 09/14/24 05:49
Hct 30.5 % (37.0-47.0) L 09/14/24 05:49
Plt Count 295 10^3/uL (130-400) 09/14/24 05:49
Sodium 139 mmol/L (135-145) 09/14/24 05:49
Potassium 3.9 mmol/L (3.5-5.1) 09/14/24 05:49
Chloride 96 mmol/L (98-107) L 09/14/24 05:49
Carbon Dioxide 39 mmol/L (22-30) H 09/14/24 05:49
BUN 55 mg/dl (7-17) H 09/14/24 05:49
Creatinine 1.5 mg/dL (0.6-1.0) H 09/14/24 05:49
eGFR 34.79 09/14/24 05:49
Glucose 141 mg/dl (70-99) H 09/14/24 05:49
Calcium 9.5 mg/dl (8.4-10.2) 09/14/24 05:49
Awf-W-Rphonscoarh Pept > 27424 pg/ml 09/10/24 15:35
Albumin 3.3 g/dl (3.5-5.0) L 09/11/24 05:12
Physical Exam
-
Vital Signs:
Vital Signs
Temp Pulse Resp BP Pulse Ox
97.8 F 68 21 122/48 96
09/14/24 07:20 09/14/24 06:00 09/14/24 06:00 09/14/24 04:00 09/14/24 06:00
Cardiovascular:: Regular rate and rhythm
Respiratory:: Bilateral: Coarse
Lung Excursion:: Normal
Abdomen:: Nontender and Soft
Bowel Sounds:: Normal
Extremity Edema:: +1: Bilateral:
[2024-09-14] MEDS: PROTONIX 40 MG PO (09:57)
[2024-09-14] MEDS: UROCIT-K 10 MEQ PO ×2 (09:58→20:28)
[2024-09-14] MEDS: THERAGRAN 1 TABLET PO (09:58)
[2024-09-14] MEDS: CLARITIN 10 MG PO (09:58)
[2024-09-14] MEDS: PLAVIX 75 MG PO (10:00)
[2024-09-14] MEDS: LIPITOR 40 MG PO (10:00)
[2024-09-14] MEDS: LIDOCAINE 4% PATCH 2 PATCH TOPICAL (10:06)
[2024-09-14] MEDS: LASIX 40 MG IV (10:07)
[2024-09-14] MEDS: LOW STRENGTH ASPIRIN 81 MG PO ×2 (10:09→21:00)
[2024-09-14] MEDS: FEOSOL 325 MG PO (10:09)
[2024-09-14] MEDS: COREG 6.25 MG PO ×2 (10:09→20:28)
[2024-09-14] MEDS: OSCAL 500 + D 500 MG PO (10:12)
[2024-09-14] MEDS: MAGNESIUM OXIDE 500 MG PO (10:17)
[2024-09-14] MEDS: HEPARIN 5000 UNITS SC ×2 (10:17→20:28)
[2024-09-14] MEDS: OCUVITE SOFTGEL 1 CAP PO ×2 (10:18→20:28)
[2024-09-14] MEDS: HIPREX PO (10:25)
--- NOTE | 2024-09-14 12:16 | W.PN.HOSP.TC ---
Today's Communication/Plan
-
Monitor vital signs see plan
Weaned off pressors, if blood pressure stable then can be transferred to the floor
Continue with IV diuresis
Monitor renal function
PT/OT
Continue with antibiotics
Assessment / Plan
Assessment / Plan
General: Well Developed, Well Nourished and No Apparent Distress
HEENT: NormoCephalic, Moist mucous membranes and Atraumatic
Respiratory: Clear
Cardiac: S1/S2 and Regular Rhythm; No Murmur or Rub
GI: Soft, Non Tender, Non Distended and Normal Bowel Sounds
Musculoskeletal: + Edema
Neuro: Nonfocal/grossly intact
Acute on chronic CHF exacerbation with reduced ejection fraction
Acute hypoxic respiratory insufficiency secondary to above, currently on 2 L. Wean oxygen as tolerated
-Cardiac BNP greater than 27,000
-Chest x-ray shows pulm edema, does not appear to have pneumonia. Will monitor. No fever, leukocytosis.
-Check I's and O's, daily weights
Continue with IV diuresis
-Get records from [place]
EF of 25% from echo in 2020
-Cardiology following
Echo 09/11 noted with a EF 15 to 20%,
s/p CABG 10/2008 with FOLEY to LAD and SVG to RPDA
s/p cardiac cath at [facility] 11/16/20 FOLEY to LAD patent, SVG to RPDA occluded, ostial Circ 75% stenosis, ostial RCA 75% stenosis
Severe
Hold Farxiga
Shock, unknown etiology
Continue with Levophed for systolic less than 90, wean Levophed as tolerated. now off; if stable then transfer to floors
monitor for infection
# SAM likely cardiorenal on CKD, unknown baseline
-Creatinine of 2.7 from 1.9; now 1.5
continue with IV diuresis
-Nephrology following
-Hold spironolactone, losartan
UA suggestive of mild UTI, urine culture with gram-negative rods. History of Pseudomonas, E. coli. Started cefepime
UTI
History of multiple UTIs in past
Urine culture with gram-negative bacilli
History of Pseudomonas, continue with cefepime
Postvoid residual
Elevated troponin likely secondary to nonischemic myocardial injury
Monitor
Edema blistering 2/2 fluid overload
monitor
venous Doppler lower extremity neg for DVT
History of TAVR
CAD status post CABG
-Continue Plavix
-Continue Coreg
Chronic lymphedema
left buttock pressure related pressure injury stage 1
Essential hypertension
Chronic LBBB
Hypercholesterolemia
Chronic anemia
Type 2 diabetes
-Hold metformin, glipizide
-Insulin sliding scale
A1c 6.8
History of CVA
Hypothyroidism
-Continue levothyroxine
Full code
DVT prophylaxis�heparin
I spent a total of 52 minutes with the patient or on the floor. More than 50% of this time involved counseling and coordination of care.
Anticipated Discharge: > 48 hours
Subjective/Interval History
-
Date of Service: September 14, 2024
Denies chest pain
Objective Data
-
Labs:
Laboratory Results
09/14/24
05:49
WBC 6.9
Hgb 9.9 L
Hct 30.5 L
Plt Count 295
Sodium 139
Potassium 3.9
Chloride 96 L
Carbon Dioxide 39 H
BUN 55 H
Creatinine 1.5 H
Glucose 141 H
Calcium 9.5
Vital Signs:
Vital Signs
Temp Pulse Resp BP Pulse Ox
97.6 F 68 21 122/48 96
09/14/24 11:57 09/14/24 06:00 09/14/24 06:00 09/14/24 04:00 09/14/24 06:00
I&O
09/13/24 09/14/24 09/15/24
06:59 06:59 06:59
Intake Total 240 / 240
Output Total 1800 / 1800 1999
Balance -1560 / -1560 -1999
[2024-09-14 12:22] LABS: Glucose - Point of Care 175 mg/dl (70-99)
--- NOTE | 2024-09-14 13:39 | W.PN.CARDCBS ---
Today's Communication / Plan
-
Continue diuresis
Follow labs
Reinstitute guideline directed medical therapy when blood pressure stabilizes
Treatment of UTI per primary service
Impression / Plan
-
Primary Wet End Helper: Dr. Chris Craig of [place]
Assessment:
Presentation with SOB, LE edema
Acute on chronic HFrEF with decreased left ventricular ejection fraction 15 to 20%
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
Acute hypoxic respiratory insufficiency
SAM on CKD, suspected cardiorenal
Hypotension requiring pressor support
Elevated troponin, suspected nonischemic myocardial injury
CAD
s/p CABG 10/2008 with FOLEY to LAD and SVG to RPDA
s/p cardiac cath at [facility] 11/16/20 FOLEY to LAD patent, SVG to RPDA occluded, ostial Circ 75% stenosis, ostial RCA 75% stenosis
Severe
Type 2 [place] related to severe 11/2020 resulting in transfer to [facility], s/p BAV 12/06/20
Status post sternotomy with biologic AVR, aortic root enlargement with pericardial patch, and CABG x1 SVG to distal RCA on 03/04/[address] Smith
Brief post op afib episode while at [facility], without known recurrence
s/p [employer] implanted loop recorder
PVCs
Chronic LBBB
DM 2
HTN
Hyperlipidemia
Hypothyroid
h/o CVA
Peripheral neuropathy
s/p IVC filter
L breast cancer s/p lumpectomy, chemotherapy, and radiation 2008
Obesity
Anemia
Memory loss
ECHO 07/2023: Mildly reduced LV systolic function 45% due to akinesis of distal inferior wall, mild MR with severe left atrial dilation, bioprosthetic aortic valve with peak gradient 49/mean gradient 32, valve size known to be small, moderate
pulmonary hypertension
Nuclear stress test 08/24/2023: Large sized moderate to severe defect in apex, apical anterior, apical inferior wall, prone imaging not performed, defect consistent with infarct with minimal gerald-infarct ischemia, EF 35% with global hypokinesis and
anteroapical akinesis, unchanged compared to prior cath and echo in 2020
2D echocardiogram 09/11/2024: Dilated left ventricle with severely reduced left ventricular systolic function estimated 15-20% with grade 2 diastolic dysfunction increased LV filling pressures. Moderate mitral and tricuspid regurgitation.
Bioprosthetic aortic valve with peak/mean gradients 37/23 mmHg and no significant aortic regurgitation.
Plan:
Acute on chronic heart failure with reduced ejection fraction admitted with marked volume overload, Status post AVR/aortic root enlargement with pericardial patch in 2020 with coronary artery disease status post CABG in 2008 and redo CABG x 1 with
SVG to distal RCA at the time of AVR in 2020 and component of lymphedema. Symptoms of acute decompensation over 1 month with escalating outpatient doses of Lasix and attempts towards goal-directed medical therapy with Acute on chronic renal failure.
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 Previously at [place] she did have ejection fraction previously noted at 25%. Probable worsening of bioprosthetic aortic valve stenosis.
Memory loss for which she currently lives at assisted living at [place].
Her daughter is at the bedside.
Discussed with patient and her daughter at great length current status with volume overload and significant decrease in left ventricular ejection fraction for which she is diuresing although she still appears dyspneic.
Heart failure with severely reduced ejection fraction acute on chronic
-Continue IV diuresis which was dose reduced by nephrology. During this admission she had required Levophed to maintain blood pressure with diuresis. Now discontinued.
-If blood pressure becomes recurrently problematic in the setting of volume overload could consider low-dose dobutamine with caution given likely significant aortic valve stenosis
-Continue oxygen
-GDMT limited with hypotension/MICHELL. Continue to reassess reinstituting to help with improvement of LV function.
Aortic valve stenosis with bioprosthetic aortic valve 12/06/2020
-I suspect she has significant aortic valve stenosis.
-Gradients 07/2023 done elsewhere in the setting of ejection fraction 45% were 49/32 mmHg. This admission 08/2024 with ejection fraction 15 to 20% gradients 37/23 mmHg.
Acute on chronic renal insufficiency
-Acute on chronic renal insufficiency with now creatinine at baseline at 1.5. Prior baseline 1.56 (03/23/2024). Creatinine peaked at 2.7
-Appreciate nephrology input
Coronary artery disease
CABG x 1 with SVG to distal RCA 03/04/2021 with cardiac catheterization as noted and FOLEY to LAD patent at that time.
-Original CABG 2008 with FOLEY to LAD and SVG to RPDA (occluded)
-Redo CABG 2020 at time of AVR with SVG to distal RCA
-Troponins flat at 0.04.
-No chest pain. Suspect nonischemic myocardial injury. Last ischemic as above in 2023.
-Continue outpatient aspirin and Plavix
-PVCs at times in bigeminal pattern at times noted on telemetry
-Left bundle branch block noted
Given last left ventricular ejection fraction 45% I do not believe that there was discussion regarding need for resynchronization therapy/ICD
Gram-negative bacilli (Pseudomonas) in urine culture without leukocytosis
-IV antibiotics per primary service
Although able to answer questions today she does have some memory loss related to details.
I did speak with the patient and her daughter at great length about 'big picture '. They wish to take things day by day. Given memory loss exhibited during hospital stay I do not think she would be a candidate at this time for invasive procedures
of significance. Would continue to diurese and try to implement guideline directed medical therapy once blood pressure has stabilized. Then would reassess left ventricular ejection fraction. Would only proceed with cardiac catheterization as
inpatient/outpatient if patient would be a candidate for intervention/redo valve which is not clearly the case currently. Daughter agrees and for now conservative management.
I spent 32 minutes critical care time [id number] and [id number] time in discussion with patient and her daughter and review of records. We have identified goals of care. On discharge patient would like to follow with me in the office given
that she is now living locally.
Progress Note - Wet End Helper
Subjective
Date of Service: September 14, 2024
She is short of breath but denies chest pain and palpitations.
Objective
Labs:
09/14/24 05:49
09/14/24 05:49
Labs
Hgb 9.9 g/dL (12.0-16.0) L 09/14/24 05:49
Hct 30.5 % (37.0-47.0) L 09/14/24 05:49
Plt Count 295 10^3/uL (130-400) 09/14/24 05:49
Sodium 139 mmol/L (135-145) 09/14/24 05:49
Potassium 3.9 mmol/L (3.5-5.1) 09/14/24 05:49
BUN 55 mg/dl (7-17) H 09/14/24 05:49
Creatinine 1.5 mg/dL (0.6-1.0) H 09/14/24 05:49
Glucose 141 mg/dl (70-99) H 09/14/24 05:49
Vital Signs and I&O:
Vital Signs
Temp Pulse Resp BP Pulse Ox
97.6 F 68 21 122/48 96
09/14/24 11:57 09/14/24 06:00 09/14/24 06:00 09/14/24 04:00 09/14/24 06:00
Vital Signs
Temp Pulse Resp BP Pulse Ox
97.6 F 68 21 122/48 96
09/14/24 11:57 09/14/24 06:00 09/14/24 06:00 09/14/24 04:00 09/14/24 06:00
Intake & Output
09/12/24 09/13/24 09/14/24 09/15/24
06:59 06:59 06:59 06:59
Intake Total 960 / 960 240 / 240
Output Total 1950 / 1950 1800 / 1800 1999
Balance -990 / -990 -1560 / -1560 -1999
Physical Exam
Physical Exam
General: Short of breath at rest
Heart: Distant heart sounds, regular. 2/6 basal systolic murmur
Lungs: Coarse breath sounds anteriorly oxygen in place.
Extremities: No clubbing, cyanosis at least +1 edema bilaterally.
Neuro: Pleasant but with memory loss
[2024-09-14] MEDS: NOVOLOG FLEXPEN-LOW RESISTANCE 1 UNITS SC (14:00)
[2024-09-14 17:26] LABS: Glucose - Point of Care 210 mg/dl (70-99)
[2024-09-14] MEDS: NOVOLOG FLEXPEN-LOW RESISTANCE 2 UNITS SC (17:29)
[2024-09-14 21:46] LABS: Glucose - Point of Care 220 mg/dl (70-99)
[2024-09-15] MEDS: MAXIPIME 1000 MG IV ×2 (01:10→13:25)
[2024-09-15] MEDS: STERILE WATER FOR INJECTION 10 ML IV ×2 (01:10→13:27)
[2024-09-15 03:00] VITALS: BP 115/50
[2024-09-15] MEDS: SYNTHROID 88 MCG PO (05:15)
[2024-09-15 05:19] VITALS: BMI 40.7
[2024-09-15 07:27] VITALS: BP 128/64
[2024-09-15 07:56] LABS: % Eosinophils 4.1 % (0-6); % Immature Granulocytes 0.3 % (0-0.5); % Monocytes 10.6 % (1.7-9.3); Absolute Basophils 0.1 10^3/uL (0-0.2); Absolute Eosinophils 0.3 10^3/uL (0-0.7); Absolute Monocytes 0.8 10^3/uL (0.1-0.6); Absolute Neutrophils 5.2 10^3/uL (1.4-6.5); Hematocrit 29.3 % (37.0-47.0); Hemoglobin 9.7 g/dL (12.0-16.0); Mean Corp Hgb Conc. 33.1 g/dL (33.0-37.0); Mean Corpuscular Hgb 30.7 pg (27.0-31.0); Mean Corpuscular Volume 92.7 fL (81.0-99.0); Nucleated Red Blood Cells % 0 %; Platelet Count 270 10^3/uL (130-400); Red Blood Cell Count 3.16 10^6/uL (4.20-5.40); Red Cell Dist. Width 17.5 % (11.5-14.5); White Blood Cell Count 7.4 10^3/uL (4.8-10.8)
[2024-09-15 08:23] LABS: NT-proBNP > 27000 pg/ml
[2024-09-15 08:42] LABS: Blood Urea Nitrogen 58 mg/dl (7-17); Calcium 9.2 mg/dl (8.4-10.2); Carbon Dioxide 37 mmol/L (22-30); Chloride 96 mmol/L (98-107); Estimated Creatinine Clearance 34 ml/min; Glucose 136 mg/dl (70-99); Potassium 4.1 mmol/L (3.5-5.1); Sodium 138 mmol/L (135-145)
[2024-09-15 08:56] LABS: Glucose - Point of Care 149 mg/dl (70-99)
[2024-09-15] MEDS: LIDOCAINE 4% PATCH 2 PATCH TOPICAL (09:06)
[2024-09-15] MEDS: PROTONIX 40 MG PO (09:06)
[2024-09-15] MEDS: PLAVIX 75 MG PO (09:07)
[2024-09-15] MEDS: THERAGRAN 1 TABLET PO (09:07)
[2024-09-15] MEDS: COREG 6.25 MG PO ×2 (09:07→21:45)
[2024-09-15] MEDS: OCUVITE SOFTGEL 1 CAP PO ×2 (09:07→21:47)
[2024-09-15] MEDS: OSCAL 500 + D 500 MG PO (09:07)
[2024-09-15] MEDS: LIPITOR 40 MG PO (09:07)
[2024-09-15] MEDS: UROCIT-K 10 MEQ PO ×2 (09:07→21:47)
[2024-09-15] MEDS: FEOSOL 325 MG PO (09:07)
[2024-09-15] MEDS: LASIX 40 MG IV (09:08)
[2024-09-15] MEDS: HEPARIN 5000 UNITS SC ×2 (09:08→21:48)
[2024-09-15] MEDS: NOVOLOG FLEXPEN-LOW RESISTANCE SC (09:09)
[2024-09-15] MEDS: LOW STRENGTH ASPIRIN 81 MG PO ×2 (09:11→21:47)
[2024-09-15] MEDS: CLARITIN 10 MG PO (09:11)
[2024-09-15] MEDS: MAGNESIUM OXIDE 500 MG PO (09:12)
[2024-09-15] MEDS: FLUSH (NSS) 2 FLUSH IV (09:17)
[2024-09-15 10:34] VITALS: BP 112/60
--- NOTE | 2024-09-15 11:27 | W.PN.HOSP.TC ---
Today's Communication/Plan
-
Monitor vital signs
see plan
Continue with IV diuresis
Continue with antibiotics
PT/OT
Wean oxygen as tolerated
Assessment / Plan
Assessment / Plan
General: Well Developed, Well Nourished and No Apparent Distress
HEENT: NormoCephalic, Moist mucous membranes and Atraumatic
Respiratory: Clear
Cardiac: S1/S2 and Regular Rhythm; No Murmur or Rub
GI: Soft, Non Tender, Non Distended and Normal Bowel Sounds
Musculoskeletal: + Edema
Neuro: Nonfocal/grossly intact
Acute on chronic CHF exacerbation with reduced ejection fraction
Acute hypoxic respiratory insufficiency secondary to above, currently on 2 L. Wean oxygen as tolerated
-Cardiac BNP greater than 27,000
-Chest x-ray shows pulm edema, does not appear to have pneumonia. Will monitor. No fever, leukocytosis.
-Check I's and O's, daily weights
Continue with IV diuresis
-Get records from [place]
EF of 25% from echo in 2020
-Cardiology following
Echo 09/11 noted with a EF 15 to 20%,
s/p CABG 10/2008 with FOLEY to LAD and SVG to RPDA
s/p cardiac cath at [facility] 11/16/20 FOLEY to LAD patent, SVG to RPDA occluded, ostial Circ 75% stenosis, ostial RCA 75% stenosis
Severe
Hold Farxiga
Shock, unknown etiology
resolved
Pressors weaned off
# SAM likely cardiorenal on CKD, unknown baseline
-Creatinine of 2.7 from 1.9; now 1.4
continue with IV diuresis
-Nephrology following
-Hold spironolactone, losartan
UA suggestive of mild UTI, urine culture with pseudomonas. History of Pseudomonas, E. coli. Started cefepime
UTI
History of multiple UTIs in past
Urine culture with pseudomonas
History of Pseudomonas, continue with cefepime
Postvoid residual
Elevated troponin likely secondary to nonischemic myocardial injury
Monitor
Edema blistering 2/2 fluid overload
monitor
venous Doppler lower extremity neg for DVT
History of TAVR
CAD status post CABG
-Continue Plavix
-Continue Coreg
Chronic lymphedema
left buttock pressure related pressure injury stage 1
Essential hypertension
Chronic LBBB
Hypercholesterolemia
Chronic anemia
Type 2 diabetes
-Hold metformin, glipizide
-Insulin sliding scale
A1c 6.8
History of CVA
Hypothyroidism
-Continue levothyroxine
Full code
DVT prophylaxis�heparin
I spent a total of 51 minutes with the patient or on the floor. More than 50% of this time involved counseling and coordination of care.
Anticipated Discharge: 24 - 48 hours
Subjective/Interval History
-
Date of Service: September 15, 2024
denies pain
Objective Data
-
Labs:
Laboratory Results
09/15/24
07:46
WBC 7.4
Hgb 9.7 L
Hct 29.3 L
Plt Count 270
Sodium 138
Potassium 4.1
Chloride 96 L
Carbon Dioxide 37 H
BUN 58 H
Creatinine 1.4 H
Glucose 136 H
Calcium 9.2
Vital Signs:
Vital Signs
Temp Pulse Resp BP Pulse Ox
98.1 F 67 20 112/60 96
09/15/24 10:34 09/15/24 10:34 09/15/24 11:10 09/15/24 10:34 09/15/24 10:34
I&O
09/14/24 09/15/24 09/16/24
06:59 06:59 06:59
Intake Total 480 / 480
Output Total 1999 1300 / 1300
Balance -1999 -820 / -820
[2024-09-15 12:26] LABS: Glucose - Point of Care 185 mg/dl (70-99)
[2024-09-15] MEDS: NOVOLOG FLEXPEN-LOW RESISTANCE 1 UNITS SC ×2 (12:28→18:34)
--- NOTE | 2024-09-15 13:17 | W.PN.CARDCBS ---
Addendum entered and electronically signed by Eric Woodson MD 09/15/24 19:17:
83-year-old woman with CABG 2008, CABG and aortic valve replacement 2020, followed at [place] but now living at [facility], admitted with acute on chronic heart failure reduced EF and hypotension with SAM on CKD. proBNP 27,000 on admission,
creatinine 2.6, troponin 0.040
PMH/PSH: Suspected prosthetic valve dysfunction, diabetes, hypertension, hyperlipidemia, left bundle branch block, IVC filter, breast cancer treated with chemotherapy and radiation, CKD, memory loss, moderate MR, UTI
Medications: Methenamine, subcu heparin, aspirin 81 every 12, atorvastatin 40 mg a day,, Farxiga, on hold, iron, Claritin, mag oxide 500 a day, potassium citrate, multivitamins, carvedilol 6.25 twice daily, clopidogrel 75 mg a day, levothyroxine 88
mcg daily, pantoprazole, lidocaine patch, Maxipime, furosemide 40 mg daily
112/60, pulse 67, respiratory rate 20, weight is 97.6 kg, which is unchanged, if accurate weight was 104 kg on admission in 2020 was 80.4 kg, intake and output -0.8 L, Pleasant, mildly confused, exam difficult but lungs with few crackles, JVD may be
elevated, soft MR murmur, abdomen obese, some edema
Echo 09/11/2024: EF 15 to 20%, normal RV, MAC, moderate MR, bioprosthetic aortic valve peak and mean gradients are 37 and 23 mmHg, moderate TR, pulmonary artery systolic pressure is 58
BUN and creatinine 58 and 1.4, potassium 4.1
Impression:
Acute on chronic HFrEF
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
Severe ischemic/nonischemic cardiomyopathy, EF 15 to 20%
SAM on CKD
History of CABG x 2, 2008 and 2020
Prior need for pressor support
Left bundle branch block
Diabetes
Hypertension
Hyperlipidemia
History of CVA
IVC filter, left breast cancer with lumpectomy, chemotherapy radiation
Dementia
Plan:
SGLT2 antagonist on hold given Pseudomonas and urine
Patient now on oral furosemide 40 mg a day
SAM is improving, creatinine was 2.7 on admission, now 1.4
Will need to follow volume status closely, BP is marginal with baseline CKD, severe aortic stenosis, and very severe LV dysfunction. It may be difficult to get to euvolemic state without unacceptable SAM
Prognosis is guarded, currently she is still a full code.
Goals of care/level of care may need to be considered
Likely will need to be discharged to a skilled facility
Original Note:
Today's Communication / Plan
-
Lasix 40 mg PO daily per Nephrology, weight trending up, but oxygenation improved
Impression / Plan
-
PCP: Dr. Elidia Meneses
Primary Warehouse Distribution Specialist: Dr. Chris Craig of [place]
Assessment:
Presentation with SOB, LE edema 09/10/24
Acute on chronic HFrEF
CM EF previously 45% by echo 07/2023 and reduced further to 15 to 20% by echo 09/11/24
Severe
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
s/p sternotomy with biologic AVR, aortic root enlargement with pericardial patch, and CABG x1 SVG to distal RCA by Dr. Smith on 03/04/2021
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
Acute hypoxic respiratory insufficiency
SAM on CKD, suspected cardiorenal
Hypotension requiring pressor support
Elevated troponin, suspected nonischemic myocardial injury
CAD
s/p CABG with FOLEY to LAD and SVG to RPDA (occluded by cath 2020) in 2008
s/p cardiac cath at [facility] FOLEY to LAD patent, SVG to RPDA occluded, ostial Circ 75% stenosis, ostial RCA 75% stenosis 11/16/20
s/p CABG at time of AVR with SVG to distal RCA 03/04/21
Brief post op afib episode while at [facility], without known recurrence
s/p [facility] implanted loop recorder
PVCs
Chronic LBBB
DM 2
HTN
Hyperlipidemia
Hypothyroid
h/o CVA
Peripheral neuropathy
s/p IVC filter
L breast cancer s/p lumpectomy, chemotherapy, and radiation 2008
Obesity
Anemia
Memory loss
Nuclear stress test 08/24/2023: Large sized moderate to severe defect in apex, apical anterior, apical inferior wall, prone imaging not performed, defect consistent with infarct with minimal gerald-infarct ischemia, EF 35% with global hypokinesis and
anteroapical akinesis, unchanged compared to prior cath and echo in 2020
Echo 03/24/2021: EF 25%, severe global hypokinesis with possible inferolateral and apical akinesis, mild MR, bioprosthetic AVR with peak/mean 21/12 mmHg
ECHO 07/2023: Mildly reduced LV systolic function 45% due to akinesis of distal inferior wall, mild MR with severe left atrial dilation, bioprosthetic aortic valve with peak gradient 49/mean gradient 32, valve size known to be small, moderate
pulmonary hypertension
Echo 09/11/2024: Dilated left ventricle with severely reduced left ventricular systolic function estimated 15-20% with grade 2 diastolic dysfunction increased LV filling pressures. Moderate mitral and tricuspid regurgitation. Bioprosthetic aortic
valve with peak/mean gradients 37/23 mmHg and no significant aortic regurgitation.
Plan:
-Patient with h/o severe treated at [facility] with BAV on 12/06/2020 followed later by sternotomy with tissue AVR, aortic root enlargement, pericardial patch and CABG x 1 on 03/04/2021. Coming in now with acute HF and by echo there appears to be likely
significant bioprosthetic .
-If bed scale weight is correct then weight is up 2 lbs following transition to Lasix 40 mg PO daily. Patient was taking Lasix 40 mg PO BID prior to admission. Nephrology following and lowered the Lasix dose.
-Despite possible weight gain it appears that oxygenation has improved and the patient now with pulse ox at 95% on room air 09/15/24
-EF now down to 15-20% and was previously 45% by echo 07/2023. Of note EF was previously as low as 25% by an echo at on 03/24/2021.
-Outpatient dose of Coreg 6.25 mg BID has been continued
-Outpatient dose of Entresto 24/26 mg twice daily has been on hold since admission due to hypotension and then SAM
-Outpatient dose of Jardiance 10 mg daily was transition to Farxiga 10 mg daily due to formulary changes at , will resume Jardiance upon d/c
-Troponin peaked at 0.04 and was managed as a nonischemic myocardial injury troponin elevation in the setting of acute HF. No CP
-Patient is not felt to be candidate for invasive management. Patient lives at [facility] and has memory loss though we have seen during this admission. Patient remains a full code, but details were discussed with the patient and most
importantly her daughter on 09/14/2024 and they are aware of the plans for conservative management and are in agreement.
-BP is 112/60 following morning meds on 09/15/2024. Patient with hypotension earlier this admission that was treated with Levophed. If patient has recurrent hypotension would recommend low-dose dobutamine given likely severe
-Patient is chronically on aspirin and Plavix for history of CVA
-Cefepime ordered for Pseudomonas UTI
-
Progress Note - Warehouse Distribution Specialist
Subjective
Date of Service: September 15, 2024
Sleeping initially, then awakens and knows she is in the hospital
Objective
Labs:
09/15/24 07:46
09/15/24 07:46
Labs
Hgb 9.7 g/dL (12.0-16.0) L 09/15/24 07:46
Hct 29.3 % (37.0-47.0) L 09/15/24 07:46
Plt Count 270 10^3/uL (130-400) 09/15/24 07:46
Sodium 138 mmol/L (135-145) 09/15/24 07:46
Potassium 4.1 mmol/L (3.5-5.1) 09/15/24 07:46
BUN 58 mg/dl (7-17) H 09/15/24 07:46
Creatinine 1.4 mg/dL (0.6-1.0) H 09/15/24 07:46
Glucose 136 mg/dl (70-99) H 09/15/24 07:46
Vital Signs and I&O:
Vital Signs
Temp Pulse Resp BP Pulse Ox
98.1 F 67 20 112/60 96
09/15/24 10:34 09/15/24 10:34 09/15/24 11:10 09/15/24 10:34 09/15/24 10:34
Vital Signs
Temp Pulse Resp BP Pulse Ox
98.1 F 67 20 112/60 96
09/15/24 10:34 09/15/24 10:34 09/15/24 11:10 09/15/24 10:34 09/15/24 10:34
Intake & Output
09/13/24 09/14/24 09/15/24 09/16/24
06:59 06:59 06:59 06:59
Intake Total 240 / 240 480 / 480
Output Total 1800 / 1800 1999 / 1999 1300 / 1300
Balance -1560 / -1560 -1999 / -2000 -820 / -820
Physical Exam
Physical Exam
General: NAD
Heart: SR on tele
Lungs: RA
Extremities: +1 edema B/L LE
Neuro: Pleasant but with memory loss
--- NOTE | 2024-09-15 13:18 | W.PN.NEPH.PH ---
Today's Communication / Plan
-
po lasix
Assessment/Plan
-
IMP:
Acute on chronic CHF exacerbation with reduced ejection fraction
Acute hypoxic respiratory insufficiency
Fredi with CKD
Cardiomyopathy EF of 45% from echo in 2023
s/p CABG 10/2008 with FOLEY to LAD and SVG to RPDA
s/p cardiac cath at [facility] 11/16/20 FOLEY to LAD patent, SVG to RPDA occluded, ostial Circ 75% stenosis, ostial RCA 75% stenosis
Severe s/p BAV 12/06/20
Shock, unknown etiology
Elevated troponin likely secondary to nonischemic myocardial injury
Edema blistering 2/2 fluid overload
Chronic lymphedema
Essential hypertension
Chronic LBBB
Hypercholesterolemia
Chronic anemia
Type 2 diabetes
History of CVA
Hypothyroidism
Plan:
follow BMP
cr much improved
po lasx today
-
-
Date of Service: September 15, 2024
CC / HPI / ROS
-
Chief Complaint:
FREDI
History of Present Illness:
FREDI/Cr down to 1.5
BP low stable
diuresing well for decompensated HF with lasix
weights down
Alkalosis evolving 39
Review of Systems:
no CP
SOB slightly better
Labs
-
Labs:
WBC 7.4 10^3/uL (4.8-10.8) 09/15/24 07:46
RBC 3.16 10^6/uL (4.20-5.40) L 09/15/24 07:46
Hgb 9.7 g/dL (12.0-16.0) L 09/15/24 07:46
Hct 29.3 % (37.0-47.0) L 09/15/24 07:46
Plt Count 270 10^3/uL (130-400) 09/15/24 07:46
Sodium 138 mmol/L (135-145) 09/15/24 07:46
Potassium 4.1 mmol/L (3.5-5.1) 09/15/24 07:46
Chloride 96 mmol/L (98-107) L 09/15/24 07:46
Carbon Dioxide 37 mmol/L (22-30) H 09/15/24 07:46
BUN 58 mg/dl (7-17) H 09/15/24 07:46
Creatinine 1.4 mg/dL (0.6-1.0) H 09/15/24 07:46
eGFR 37.80 09/15/24 07:46
Glucose 136 mg/dl (70-99) H 09/15/24 07:46
Calcium 9.2 mg/dl (8.4-10.2) 09/15/24 07:46
Hss-F-Bjfsmoxwspj Pept > 20032 pg/ml 09/15/24 07:46
Albumin 3.3 g/dl (3.5-5.0) L 09/11/24 05:12
Physical Exam
-
Vital Signs:
Vital Signs
Temp Pulse Resp BP Pulse Ox
98.1 F 67 20 112/60 96
09/15/24 10:34 09/15/24 10:34 09/15/24 11:10 09/15/24 10:34 09/15/24 10:34
Cardiovascular:: Regular rate and rhythm
Respiratory:: Bilateral: Coarse
Lung Excursion:: Normal
Abdomen:: Nontender and Soft
Bowel Sounds:: Normal
Extremity Edema:: +1: Bilateral:
--- NOTE | 2024-09-15 14:17 | CM ---
PT recommended SNF when stable for discharge; CM spoke with patient's daughter via phone; she is agreeable with plan; SNF site preferences are [facility] and [facility]
Referrals sent via [facility]
Plan: discharge to SNF pending bed availability
[2024-09-15 15:11] VITALS: BP 120/54
[2024-09-15 16:59] LABS: Glucose - Point of Care 194 mg/dl (70-99)
[2024-09-15 19:43] VITALS: BP 110/69
[2024-09-15 23:48] VITALS: BP 87/44
[2024-09-16] VITALS (17 sets, daily range): BP systolic 79–120; BP diastolic 46–78; PULSE 67; O2SAT 97; BMI 40.8; BMI 40.7
[2024-09-16 01:07] LABS: Glucose - Point of Care 157 mg/dl (70-99)
--- NOTE | 2024-09-16 01:35 | W.PN.UPDATE ---
Update Note
Progress Note Update
-Per nursing staff, patient is hypotensive SBP in high 80s, bp was monitored for another hour, recheck bp with sbp in 70s and map in 50s. Patient is currently Acute on chronic HFrEF and on Lasix daily will avoid IVF. Levophed ordered and patient
transferred to IMU for med administration. �
-after patient transferred to IMU, Levophed was not started as recheck bp not within parameters to start ( sbp in 100s and map > 65).
Will keep the order for now and monitor during the night.
[2024-09-16] MEDS: MAXIPIME 1000 MG IV ×3 (02:00→14:10)
[2024-09-16] MEDS: STERILE WATER FOR INJECTION 10 ML IV ×2 (03:01→14:09)
--- NOTE | 2024-09-16 03:09 | PTCARENOTE ---
Received pt from 3W RN. Initial BP on L calf 115/54 MAP 67. Repeat BP on R forearm 94/56 MAP 69. Levo order in to keep SBP > 90. Levo not within admin parameters at this time. Will continue to monitor.
--- NOTE | 2024-09-16 03:20 | PTCARENOTE ---
Patient's blood pressure was 86/45. After rechecking, it was 87/44. Patient is asymptomatic. Heart rate is 68. Patient has both a left upper extremity restriction and a right upper extremity restriction, so blood pressures are checked on her calves.
SHAINA Huber notified. Blood pressure rechecked 1 hour and 30 minutes later, it was 79/46. SHAINA Huber notified. SHAINA Huber spoke to me via phone, put in order for Midodrine. SHAINA Huber spoke to me via phone again,
told this RN not to give Midodrine and transfer patient to IMU.
--- NOTE | 2024-09-16 03:27 | PTCARENOTE ---
Patient transferred to IMU.
[2024-09-16 05:34] LABS: % Basophils 0.8 % (0-2); % Eosinophils 5.5 % (0-6); % Immature Granulocytes 0.3 % (0-0.5); % Lymphocytes 19.3 % (20.5-51.1); % Monocytes 9.4 % (1.7-9.3); % Neutrophils 64.7 % (42.2-75.2); Absolute Basophils 0.1 10^3/uL (0-0.2); Absolute Eosinophils 0.3 10^3/uL (0-0.7); Absolute Lymphocytes 1.2 10^3/uL (1.2-3.4); Absolute Monocytes 0.6 10^3/uL (0.1-0.6); Absolute Neutrophils 3.9 10^3/uL (1.4-6.5); Hemoglobin 9.4 g/dL (12.0-16.0); Mean Corp Hgb Conc. 32.4 g/dL (33.0-37.0); Mean Corpuscular Hgb 30.1 pg (27.0-31.0); Mean Corpuscular Volume 92.9 fL (81.0-99.0); Mean Platelet Volume 11.5 fL (7.4-10.4); Nucleated Red Blood Cells % 0 %; Platelet Count 318 10^3/uL (130-400); Red Blood Cell Count 3.12 10^6/uL (4.20-5.40); Red Cell Dist. Width 17.3 % (11.5-14.5); White Blood Cell Count 6.1 10^3/uL (4.8-10.8)
[2024-09-16 05:58] LABS: Blood Urea Nitrogen 67 mg/dl (7-17); Calcium 9.1 mg/dl (8.4-10.2); Chloride 95 mmol/L (98-107); Estimated Creatinine Clearance 29 ml/min; Glucose 138 mg/dl (70-99); Potassium 4.3 mmol/L (3.5-5.1); Sodium 136 mmol/L (135-145)
[2024-09-16] MEDS: SYNTHROID 88 MCG PO (06:07)
[2024-09-16 06:09] LABS: Carbon Dioxide 32 mmol/L (22-30)
[2024-09-16 07:36] LABS: Glucose - Point of Care 163 mg/dl (70-99)
[2024-09-16] MEDS: CLARITIN 10 MG PO (08:16)
[2024-09-16] MEDS: FEOSOL 325 MG PO (08:16)
[2024-09-16] MEDS: MAGNESIUM OXIDE 500 MG PO (08:16)
[2024-09-16] MEDS: OCUVITE SOFTGEL 1 CAP PO ×2 (08:16→19:47)
[2024-09-16] MEDS: PROTONIX 40 MG PO (08:16)
[2024-09-16] MEDS: UROCIT-K 10 MEQ PO ×2 (08:16→19:46)
[2024-09-16] MEDS: OSCAL 500 + D 500 MG PO (08:16)
[2024-09-16] MEDS: LASIX 40 MG PO (08:17)
[2024-09-16] MEDS: COREG 6.25 MG PO (08:17)
[2024-09-16] MEDS: THERAGRAN 1 TABLET PO (08:17)
[2024-09-16] MEDS: PLAVIX 75 MG PO (08:17)
[2024-09-16] MEDS: HEPARIN 5000 UNITS SC ×2 (08:17→19:47)
[2024-09-16] MEDS: LIPITOR 40 MG PO (08:17)
[2024-09-16] MEDS: NOVOLOG FLEXPEN-LOW RESISTANCE 1 UNITS SC ×3 (08:18→17:02)
[2024-09-16] MEDS: LIDOCAINE 4% PATCH 2 PATCH TOPICAL (08:40)
--- NOTE | 2024-09-16 09:13 | W.PN.CARDCBS ---
Today's Communication / Plan
-
Decrease carvedilol from 6.25 twice daily to 3.125 twice daily
If blood pressure drops again, add midodrine
Diuretics per nephrology
Impression / Plan
-
PCP: Dr. Elidia Meneses
Primary Business Analyst Ecommerce: Dr. Chris Craig of [place]
Assessment:
Presentation with SOB, LE edema 09/10/24
Acute on chronic HFrEF
CM EF previously 45% by echo 07/2023 and reduced further to 15 to 20% by echo 09/11/24
Severe
h/o type 2 PA related to severe 11/2020 resulting in transfer to [facility], s/p BAV 12/06/20
s/p sternotomy with biologic AVR, aortic root enlargement with pericardial patch, and CABG x1 SVG to distal RCA by Dr. Smith on 03/04/2021
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
Acute hypoxic respiratory insufficiency
SAM on CKD, suspected cardiorenal
Hypotension requiring pressor support
Elevated troponin, suspected nonischemic myocardial injury
CAD
s/p CABG with FOLEY to LAD and SVG to RPDA (occluded by cath 2020) in 2008
s/p cardiac cath at [facility] FOLEY to LAD patent, SVG to RPDA occluded, ostial Circ 75% stenosis, ostial RCA 75% stenosis 11/16/20
s/p CABG at time of AVR with SVG to distal RCA 03/04/21
Brief post op afib episode while at [facility], without known recurrence
s/p [facility] implanted loop recorder
PVCs
Chronic LBBB
DM 2
HTN
Hyperlipidemia
Hypothyroid
h/o CVA
Peripheral neuropathy
s/p IVC filter
L breast cancer s/p lumpectomy, chemotherapy, and radiation 2008
Obesity
Anemia
Memory loss
Nuclear stress test 08/24/2023: Large sized moderate to severe defect in apex, apical anterior, apical inferior wall, prone imaging not performed, defect consistent with infarct with minimal gerald-infarct ischemia, EF 35% with global hypokinesis and
anteroapical akinesis, unchanged compared to prior cath and echo in 2020
Echo 03/24/2021: EF 25%, severe global hypokinesis with possible inferolateral and apical akinesis, mild MR, bioprosthetic AVR with peak/mean 21/12 mmHg
ECHO 07/2023: Mildly reduced LV systolic function 45% due to akinesis of distal inferior wall, mild MR with severe left atrial dilation, bioprosthetic aortic valve with peak gradient 49/mean gradient 32, valve size known to be small, moderate
pulmonary hypertension
Echo 09/11/2024: Dilated left ventricle with severely reduced left ventricular systolic function estimated 15-20% with grade 2 diastolic dysfunction increased LV filling pressures. Moderate mitral and tricuspid regurgitation. Bioprosthetic aortic
valve with peak/mean gradients 37/23 mmHg and no significant aortic regurgitation.
Plan:
Her acute on chronic heart failure with reduced EF is marginally compensated, but she remains very tenuous with episodes of hypotension in the setting of prosthetic aortic valve stenosis/dysfunction. Yesterday she was transferred to IMU in
anticipation of the need of norepinephrine. Jardiance/Farxiga are on hold related to Pseudomonas in the urine. Defer to hospitalist and nephrology as to whether or not Jardiance can be resumed. Patient now on cefepime.
Now on oral furosemide 40 mg a day. Creatinine is 1.6, had been 1.4 yesterday and was 2.7 on admission. She is still volume overloaded, but we cannot achieve a euvolemic state without unacceptable kidney injury and hypotension.
Will decrease carvedilol to 3.125 mg twice daily, may need to discontinue. If blood pressure remains low would add midodrine.
Prognosis remains guarded, goals of care/level of care may need to be addressed. Currently, patient is a full code.
From cardiac standpoint, okay to proceed with discharge planning.
Progress Note - Business Analyst Ecommerce
Subjective
Date of Service: September 16, 2024:
Transferred last night for hypotension and written for norepinephrine, blood pressure dania, and norepinephrine not started, currently patient offers no complaints
Meds: Methenamine, subcu heparin, aspirin 81 every 12, atorvastatin 40 mg a day, Farxiga 10 mg a day on hold, iron, Claritin, mag oxide, potassium citrate 10 mill equivalents twice daily, multivitamins, carvedilol 6.25 twice daily, Plavix 75 mg a
day, levothyroxine 88 mcg daily, pantoprazole 40 mg a day, calcium, lidocaine patch, Maxipime, furosemide 40 mg daily, norepinephrine, never started
105/50, 94/56, pulse 65, respiratory 21, afebrile, weight is 97.7 kg, which is stable, weight on admission was 104 kg, intake and output +0.2 L if accurate, pleasant, offers no complaints, head neck exam unremarkable, lungs relatively clear, aortic
stenosis murmur abdomen benign some edema
Hemoglobin 9.4, hemoglobin had been 9.7, BUN and creatinine are 67 and 1.6, creatinine had been 1.4, was 2.7 on admission, now on furosemide 40 mg a day
Objective
Labs:
09/16/24 05:07
09/16/24 05:07
Labs
Hgb 9.4 g/dL (12.0-16.0) L 09/16/24 05:07
Hct 29.0 % (37.0-47.0) L 09/16/24 05:07
Plt Count 318 10^3/uL (130-400) 09/16/24 05:07
Sodium 136 mmol/L (135-145) 09/16/24 05:07
Potassium 4.3 mmol/L (3.5-5.1) 09/16/24 05:07
BUN 67 mg/dl (7-17) H 09/16/24 05:07
Creatinine 1.6 mg/dL (0.6-1.0) H 09/16/24 05:07
Glucose 138 mg/dl (70-99) H 09/16/24 05:07
Vital Signs and I&O:
Vital Signs
Temp Pulse Resp BP Pulse Ox
36.3 C 65 21 105/50 97
09/16/24 07:22 09/16/24 08:17 09/16/24 06:00 09/16/24 08:17 09/16/24 06:00
Vital Signs
Temp Pulse Resp BP Pulse Ox
36.3 C 65 21 105/50 97
09/16/24 07:22 09/16/24 08:17 09/16/24 06:00 09/16/24 08:17 09/16/24 06:00
Intake & Output
09/14/24 09/15/24 09/16/24 09/17/24
07:59 07:59 07:59 07:59
Intake Total 480 / 480 570 / 570
Output Total 1999 1300 / 1300 350 / 350
Balance -1999 / -820 / -820 220 / 220
Physical Exam
Physical Exam
See above
[2024-09-16] MEDS: LOW STRENGTH ASPIRIN 81 MG PO ×2 (09:42→21:44)
--- NOTE | 2024-09-16 10:55 | W.PN.NEPH.PH ---
Today's Communication / Plan
-
Continue p.o. Lasix/daily weights/sodium restriction
Assessment/Plan
-
IMP:
Acute on chronic CHF exacerbation with reduced ejection fraction
Acute hypoxic respiratory insufficiency
Fredi with CKD
Cardiomyopathy EF of 45% from echo in 2023
s/p CABG 10/2008 with FOLEY to LAD and SVG to RPDA
s/p cardiac cath at [facility] 11/16/20 FOLEY to LAD patent, SVG to RPDA occluded, ostial Circ 75% stenosis, ostial RCA 75% stenosis
Severe s/p BAV 12/06/20
Shock, unknown etiology
Elevated troponin likely secondary to nonischemic myocardial injury
Edema blistering 2/2 fluid overload
Chronic lymphedema
Essential hypertension
Chronic LBBB
Hypercholesterolemia
Chronic anemia
Type 2 diabetes
History of CVA
Hypothyroidism
Plan:
follow BMP
Creatinine overall improved slightly up today at 1.6 with a peak of 2.7
Converted to p.o. Lasix on 09/15= she had a hypotensive episode over the last 12 hours was transferred for pressor support but ultimately did not require
Follow weights
Sodium restriction
Total Time Spent with Patient (in minutes): 35
-
-
Date of Service: September 16, 2024
CC / HPI / ROS
-
Chief Complaint:
FREDI
History of Present Illness:
FREDI/Cr down to 1.5>1.6
BP low stable
diuresing well for decompensated HF with lasix
weights down
Alkalosis evolving 39
Review of Systems:
no CP
Remains on nasal cannula
Negative fluid balance over the last 24
Labs
-
Labs:
WBC 6.1 10^3/uL (4.8-10.8) 09/16/24 05:07
RBC 3.12 10^6/uL (4.20-5.40) L 09/16/24 05:07
Hgb 9.4 g/dL (12.0-16.0) L 09/16/24 05:07
Hct 29.0 % (37.0-47.0) L 09/16/24 05:07
Plt Count 318 10^3/uL (130-400) 09/16/24 05:07
Sodium 136 mmol/L (135-145) 09/16/24 05:07
Potassium 4.3 mmol/L (3.5-5.1) 09/16/24 05:07
Chloride 95 mmol/L (98-107) L 09/16/24 05:07
Carbon Dioxide 32 mmol/L (22-30) H 09/16/24 05:07
BUN 67 mg/dl (7-17) H 09/16/24 05:07
Creatinine 1.6 mg/dL (0.6-1.0) H 09/16/24 05:07
eGFR 32.20 09/16/24 05:07
Glucose 138 mg/dl (70-99) H 09/16/24 05:07
Calcium 9.1 mg/dl (8.4-10.2) 09/16/24 05:07
Lgs-I-Jtsnmvkgnlg Pept > 23681 pg/ml 09/15/24 07:46
Albumin 3.3 g/dl (3.5-5.0) L 09/11/24 05:12
Physical Exam
-
Vital Signs:
Vital Signs
Temp Pulse Resp BP Pulse Ox
97.3 F 69 16 120/78 96
09/16/24 07:22 09/16/24 10:00 09/16/24 10:00 09/16/24 10:00 09/16/24 10:00
Cardiovascular:: Regular rate and rhythm
Respiratory:: Bilateral: Coarse
Lung Excursion:: Normal
Abdomen:: Nontender and Soft
Bowel Sounds:: Normal
Extremity Edema:: +1: Bilateral:
[2024-09-16 10:57] LABS: Magnesium 2.4 mg/dl (1.6-2.3)
[2024-09-16 11:42] LABS: Glucose - Point of Care 182 mg/dl (70-99)
--- NOTE | 2024-09-16 12:35 | W.PN.HOSP.TC ---
Today's Communication/Plan
-
monitor vitals
see plan
monitor BP closely
wean o2 as tolerated
cw diuresis
Discussed with daughter, consult palliative care
Monitor renal function
Assessment / Plan
Assessment / Plan
General: Well Developed, Well Nourished and No Apparent Distress
HEENT: NormoCephalic, Moist mucous membranes and Atraumatic
Respiratory: Clear
Cardiac: S1/S2 and Regular Rhythm; No Murmur or Rub
GI: Soft, Non Tender, Non Distended and Normal Bowel Sounds
Musculoskeletal: + Edema
Neuro: Nonfocal/grossly intact
Acute on chronic CHF exacerbation with reduced ejection fraction
Acute hypoxic respiratory insufficiency secondary to above, currently on 2 L. Wean oxygen as tolerated
-Cardiac BNP greater than 27,000
-Chest x-ray shows pulm edema, does not appear to have pneumonia. Will monitor. No fever, leukocytosis.
-Check I's and O's, daily weights
Continue with diuresis per renal
EF of 25% from echo in 2020
-Cardiology following
Echo 09/11 noted with a EF 15 to 20%,
s/p CABG 10/2008 with FOLEY to LAD and SVG to RPDA
s/p cardiac cath at [facility] 11/16/20 FOLEY to LAD patent, SVG to RPDA occluded, ostial Circ 75% stenosis, ostial RCA 75% stenosis
Severe
Hold Farxiga
Shock, unknown etiology
resolved
Pressors weaned off
was hypotensive again09/16; transferred back to IMU, so far no pressors restarted
coreg dec, monitor. If BP low again then cardiology rec midodrine, would need to be cautious give low EF
# SAM likely cardiorenal on CKD, unknown baseline
-Creatinine of 2.7 from 1.9; now 1.6
continue with diuresis
-Nephrology following
-Hold spironolactone, losartan
UA suggestive of mild UTI, urine culture with pseudomonas. History of Pseudomonas, E. coli. Started cefepime
UTI
History of multiple UTIs in past
Urine culture with pseudomonas
History of Pseudomonas, continue with cefepime
Postvoid residual
Elevated troponin likely secondary to nonischemic myocardial injury
Monitor
Edema blistering 2/2 fluid overload
monitor
venous Doppler lower extremity neg for DVT
History of TAVR
CAD status post CABG
-Continue Plavix
-Continue Coreg
Chronic lymphedema
left buttock pressure related pressure injury stage 1
Essential hypertension
Chronic LBBB
Hypercholesterolemia
Chronic anemia
Type 2 diabetes
-Hold metformin, glipizide
-Insulin sliding scale
A1c 6.8
History of CVA
Hypothyroidism
-Continue levothyroxine
Full code
DVT prophylaxis�heparin
I discussed CODE STATUS and hospital course with patient and daughter. They understand and daughter agreeable on meeting with palliate care. Consulted palliative care.
I spent a total of 52 minutes with the patient or on the floor. More than 50% of this time involved counseling and coordination of care.
Anticipated Discharge: > 48 hours
Subjective/Interval History
-
Date of Service: September 16, 2024
denies pain
Objective Data
-
Labs:
Laboratory Results
09/16/24
05:07
WBC 6.1
Hgb 9.4 L
Hct 29.0 L
Plt Count 318
Sodium 136
Potassium 4.3
Chloride 95 L
Carbon Dioxide 32 H
BUN 67 H
Creatinine 1.6 H
Glucose 138 H
Calcium 9.1
Vital Signs:
Vital Signs
Temp Pulse Resp BP Pulse Ox
98.2 F 65 18 110/64 93
09/16/24 11:09 09/16/24 12:00 09/16/24 12:00 09/16/24 12:00 09/16/24 12:00
I&O
09/15/24 09/16/24 09/17/24
06:59 06:59 06:59
Intake Total 480 / 480 570 / 570
Output Total 1300 / 1300 350 / 350
Balance -820 / -820 220 / 220
--- NOTE | 2024-09-16 14:19 | PTCARENOTE ---
Assumed care of patient at beginning of this shift from previous RN with O2 2L n/c in use; able to wean to 1L n/c with POx 95%. Attempted to wean to RA but POx dropped to 87-88%. Patient Ox3 but drowsy; easily arousable. See worklist for full
assessment and vital signs.
[2024-09-16 16:49] LABS: Glucose - Point of Care 194 mg/dl (70-99)
[2024-09-16] MEDS: COREG 3.125 MG PO (19:46)
[2024-09-16] MEDS: TYLENOL 650 MG PO (21:44)
[2024-09-16 21:45] LABS: Glucose - Point of Care 205 mg/dl (70-99)
--- NOTE | 2024-09-16 23:33 | PTCARENOTE ---
Assumed care for patient overnight, received report from octavio RN. Pt AAOx3, [place]. Pt forgetful at times and anxious regarding palliative care consult. Pt remaining on 2L NC. SpO2 95%. Pt normal sinus on monitor with BBB 1st degree block and
prolonged QT. Lungs diminished with fine crackles at the right base. Pt incontinent of urine. Pt had one saturation of urine. CHG bath and oral care done. Sacral foam and R buttock foam replaced. Heel foams remain in place and intact. Heels floated
on a pillow. Pt having 5/10 pain describing as 'aching' in lower back, PRN Tylenol administered. Pt tolerating frequent turning and repositioning. Call rey is within reach.
[2024-09-17] VITALS (15 sets, daily range): BP systolic 88–146; BP diastolic 46–76; BMI 40.7
[2024-09-17] MEDS: ProAmatine 5 MG PO ×3 (02:00→17:44)
[2024-09-17] MEDS: STERILE WATER FOR INJECTION 10 ML IV (02:00)
--- NOTE | 2024-09-17 04:23 | DOWNTIME ---
There was a [employer] Client [employer] Downtime on 09/17/2024 from 0100 to 09/18/2023 at 0420 . Downtime documentation of patient's care, including medication administrations, has been reconciled in the electronic record per guidelines. Refer to the
patient's paper chart under the miscellaneous tab to see printed paper medication records and downtime forms.
--- NOTE | 2024-09-17 04:26 | PTCARENOTE ---
Patient became hypotensive BP 88/46 MAP 60. CHUCK Malik made aware and came to the bedside. Got a verbal order to give 5mg midodrine PO for hypotension due to downtime. Pt BP has since resolved last BP 142/65 MAP 87. Pt remained asymptomatic.
[2024-09-17] MEDS: SYNTHROID 88 MCG PO (05:44)
[2024-09-17 06:08] LABS: % Basophils 1.4 % (0-2); % Eosinophils 8.8 % (0-6); % Immature Granulocytes 0.3 % (0-0.5); % Lymphocytes 18.4 % (20.5-51.1); % Monocytes 8.8 % (1.7-9.3); % Neutrophils 62.3 % (42.2-75.2); Absolute Basophils 0.1 10^3/uL (0-0.2); Absolute Eosinophils 0.5 10^3/uL (0-0.7); Absolute Lymphocytes 1.1 10^3/uL (1.2-3.4); Absolute Monocytes 0.5 10^3/uL (0.1-0.6); Absolute Neutrophils 3.6 10^3/uL (1.4-6.5); Hematocrit 27.5 % (37.0-47.0); Hemoglobin 9.2 g/dL (12.0-16.0); Mean Corp Hgb Conc. 33.5 g/dL (33.0-37.0); Mean Corpuscular Hgb 30.8 pg (27.0-31.0); Mean Platelet Volume 10.2 fL (7.4-10.4); Nucleated Red Blood Cells % 0 %; Platelet Count 297 10^3/uL (130-400); Red Blood Cell Count 2.99 10^6/uL (4.20-5.40); Red Cell Dist. Width 17.2 % (11.5-14.5); White Blood Cell Count 5.8 10^3/uL (4.8-10.8)
[2024-09-17 06:24] LABS: Blood Urea Nitrogen 79 mg/dl (7-17); Carbon Dioxide 34 mmol/L (22-30); Chloride 95 mmol/L (98-107); Estimated Creatinine Clearance 29 ml/min; Glucose 149 mg/dl (70-99); Potassium 4.4 mmol/L (3.5-5.1); Sodium 135 mmol/L (135-145)
[2024-09-17 08:12] LABS: Glucose - Point of Care 165 mg/dl (70-99)
--- NOTE | 2024-09-17 08:47 | W.CON.PAL ---
Consultation
-
Date/Time Consultation Requested: 09/16
Date/Time Consultation Performed: 09/16
Requesting Provider: Dr Akbar
Performing Provider: Maddy Calhoun
Reason for Consult: Goals of Care Discussion
Primary Diagnosis: advanced heart failure, CKD
Reason for Admission
Illness Course/HPI
83 year old F with PMH of severe s/p TAVR, CAD s/p CABG, CKD, multiple UTIs admitted with heart failure exacerbation.
Upon admission +SAM creat 2.9. Echo with EF 15%, previously 25% on echo in July. Also with recurrent AV stenosis. Follows at [facility] with cardiology. She was hypotensive requiring levo. Diuresed with worsening renal function. Also with UTI s/p
antibiotics.
Remains a full code. Discussions had with patient and daughter regarding poor prognosis and end stage nature of heart failure.
Consult for GOC.
Seen at bedside with no family present. Patient is awake and oriented but seems slightly confused. States they have been telling her 'all the same bad things' but that she doesnt believe it. Discussed her testing thus far to which she stated 'well
i've lived a good life and I dont want to be bothered anymore.' Started to answer some questions inappropriately but was easily redirected.
Per chart review she resides at the [facility] in assisted living. Needs assistance with bathing, dressing. Independent with ambulation with RW.
Called and spoke with patients daughter Tanesha. Tanesha expresses understanding that patient is not doing well, but is optimistic because she is starting to look better. Discussed that 'big picture' she has an end stage heart condition that puts her
at risk for further complications and repeat hospitalizations. We discussed hospice as an option either now or down the line. She believes they could do hospice at her [facility] if it came to that but states after talking with her mother, goal is to at
least try to get to rehab and see how it goes. If she declines further, hospice would be considered. As far as code status, states she discussed this with her mom who said she would be okay with CPR and intubation for short term, but not if
prolonged.
Will follow up with patient tomorrow.
Pain & Symptom Assessment
[place] Symptom Scale 0=none, 10=worst
Pain: 0
Drowsy: 3
Appetite: 0
Shortness of Breath: 0
Objective Data
-
Objective Data:
Vital Signs
Temp Pulse Resp BP Pulse Ox
97.0 F 70 21 99/76 95
09/17/24 03:15 09/17/24 06:00 09/17/24 06:00 09/17/24 06:00 09/17/24 06:00
Laboratory Results
09/17/24 05:43
09/17/24 05:43
Hemoglobin A1c 6.8 % (4.0-5.6) H 09/11/24 05:12
Total Protein 5.5 g/dl (6.3-8.2) L 09/11/24 05:12
Albumin 3.3 g/dl (3.5-5.0) L 09/11/24 05:12
Urine Color Yellow 09/11/24 13:02
Urine Clarity Clear (Clear) 09/11/24 13:02
Urine pH 7.0 (5.0-9.0) 09/11/24 13:02
Ur Specific [place] 1.010 (<1.030) 09/11/24 13:02
Urine Ketones Negative (Negative) 09/11/24 13:02
Urine Bilirubin Negative (Negative) 09/11/24 13:02
Palliative Performance Scale
Palliative Performance Scale:
PPS Level Ambulation Activity & Evidence of Disease Self Care Intake Conscious Level
100% Full Normal Activity & Work; Full Intake Full
No Evidence of Disease
90% Full Normal Activity & Work; Full Normal Full
Some Evidence of Disease
80% Full Normal Activity with Effort Full Normal or Full
Some Evidence of Disease Reduced
70% Reduced Unable Normal Job/Work Full Normal or Full
Significant Disease Reduced
60% Reduced Unable Hobby/Housework Occasional Normal or Full or Confusion
Significant Disease Assistance Reduced
50% Mainly Sit/Lie Unable to do Any Work Considerable Normal or Full or Confusion
Extensive Disease Assistance Req'd Reduced
40% Mainly in Bed Unable to do Most Activity Mainly Assistance Normal or Full or Drowsy;
Extensive Disease Reduced +/- Confusion
30% Totally Bed Unable to do Any Activity Total Care Normal or Full or Drowsy;
Bound Extensive Disease Reduced +/- Confusion
20% Totally Bed Bound Unable to do Any Activity Total Care Minimal to Full or Drowsy;
Extensive Disease Sips +/- Confusion
10% Totally Bed Bound Unable to do Any Activity Total Care Mouth Care Drowsy or Coma;
Extensive Disease Only +/- Confusion
0%
PPS Score Level:
Palliative Performance Score Response
Palliative Performance Score Response: 40%
Physical Exam
-
General: Comfortable and Obese
HEENT: Normocephalic
Respiratory: Clear to Auscultation
Cardiac: Regular Rhythm and Murmur
Peripheral Vascular: No Edema
GI: Soft and Nontender
Skin: Warm
Neuro: AO x 3
Psych: Confused
Assessment / Plan
-
Assessment/Plan:
83 year old F with CKD, end stage heart failure admitted with CHF exacerbation and SAM.
- goals are rehabilitative at this time. If patient were to decline, hospice would be considered
- full code at this time
- will follow up with patient/family this week
Care Reviewed
Data Reviewed
Radiology procedure: Image Reviewed
Medical Tests: I reviewed
Reviewed with: Patient, Family and Physician
[2024-09-17] MEDS: NOVOLOG FLEXPEN-LOW RESISTANCE 1 UNITS SC ×3 (09:03→17:46)
[2024-09-17] MEDS: PROTONIX 40 MG PO (09:04)
[2024-09-17] MEDS: CLARITIN 10 MG PO (09:04)
[2024-09-17] MEDS: COREG 3.125 MG PO ×2 (09:04→20:28)
[2024-09-17] MEDS: MAGNESIUM OXIDE 500 MG PO (09:04)
[2024-09-17] MEDS: UROCIT-K 10 MEQ PO ×2 (09:04→20:29)
[2024-09-17] MEDS: FEOSOL 325 MG PO (09:04)
[2024-09-17] MEDS: HEPARIN 5000 UNITS SC ×2 (09:05→20:29)
[2024-09-17] MEDS: LIPITOR 40 MG PO (09:05)
[2024-09-17] MEDS: OSCAL 500 + D 500 MG PO (09:05)
[2024-09-17] MEDS: THERAGRAN 1 TABLET PO (09:05)
[2024-09-17] MEDS: LASIX 40 MG PO (09:05)
[2024-09-17] MEDS: PLAVIX 75 MG PO (09:05)
[2024-09-17] MEDS: OCUVITE SOFTGEL 1 CAP PO ×2 (09:05→20:29)
[2024-09-17] MEDS: LIDOCAINE 4% PATCH 2 PATCH TOPICAL (09:06)
--- NOTE | 2024-09-17 09:09 | W.PN.NEPH.PH ---
Today's Communication / Plan
-
midodrine
Assessment/Plan
-
IMP:
Acute on chronic CHF exacerbation with reduced ejection fraction
Acute hypoxic respiratory insufficiency
Fredi with CKD
Cardiomyopathy EF of 45% from echo in 2023
s/p CABG 10/2008 with FOLEY to LAD and SVG to RPDA
s/p cardiac cath at [facility] 11/16/20 FOLEY to LAD patent, SVG to RPDA occluded, ostial Circ 75% stenosis, ostial RCA 75% stenosis
Severe s/p BAV 12/06/20
Shock, unknown etiology
Elevated troponin likely secondary to nonischemic myocardial injury
Edema blistering 2/2 fluid overload
Chronic lymphedema
Essential hypertension
Chronic LBBB
Hypercholesterolemia
Chronic anemia
Type 2 diabetes
History of CVA
Hypothyroidism
Plan:
add midodrine
increase lasix
Does appear that she is still significantly volume overloaded
We may need to attempt diuresis until development of FREDI
Could consider right heart catheterization Sunday after additional diuresis
follow BMP
-
-
Date of Service: September 17, 2024
CC / HPI / ROS
-
Chief Complaint:
FREDI
History of Present Illness:
FREDI/Cr down to 1.6 stable
BP low stable
diuresing slowly for decompensated HF with lasix
weights down
Alkalosis stable 34
Review of Systems:
no CP
Remains on nasal cannula
Labs
-
Labs:
WBC 5.8 10^3/uL (4.8-10.8) 09/17/24 05:43
RBC 2.99 10^6/uL (4.20-5.40) L 09/17/24 05:43
Hgb 9.2 g/dL (12.0-16.0) L 09/17/24 05:43
Hct 27.5 % (37.0-47.0) L 09/17/24 05:43
Plt Count 297 10^3/uL (130-400) 09/17/24 05:43
Sodium 135 mmol/L (135-145) 09/17/24 05:43
Potassium 4.4 mmol/L (3.5-5.1) 09/17/24 05:43
Chloride 95 mmol/L (98-107) L 09/17/24 05:43
Carbon Dioxide 34 mmol/L (22-30) H 09/17/24 05:43
BUN 79 mg/dl (7-17) H 09/17/24 05:43
Creatinine 1.6 mg/dL (0.6-1.0) H 09/17/24 05:43
eGFR 32.20 09/17/24 05:43
Glucose 149 mg/dl (70-99) H 09/17/24 05:43
Calcium 9.0 mg/dl (8.4-10.2) 09/17/24 05:43
Vyo-P-Fibzclgdvjt Pept > 19365 pg/ml 09/15/24 07:46
Albumin 3.3 g/dl (3.5-5.0) L 09/11/24 05:12
Physical Exam
-
Vital Signs:
Vital Signs
Temp Pulse Resp BP Pulse Ox
97.0 F 70 21 99/76 95
09/17/24 03:15 09/17/24 06:00 09/17/24 06:00 09/17/24 06:00 09/17/24 06:00
Cardiovascular:: Regular rate and rhythm
Respiratory:: Bilateral: Rales
Lung Excursion:: Normal
Abdomen:: Nontender and Soft
Bowel Sounds:: Normal
Extremity Edema:: +3: Bilateral:
--- NOTE | 2024-09-17 10:30 | W.PN.CARDCBS ---
Today's Communication / Plan
-
Continue to attempt to diurese with Lasix 40 mg IV twice daily. Follow creatinine at 1.6.
Continue lower dose of carvedilol. May need to add midodrine if blood pressure remains labile.
Continue medical therapy for CAD.
I suspect she has significant bioprosthetic stenosis with markedly reduced ejection fraction.
Continue discussions regarding level of care.
Impression / Plan
-
PCP: Dr. Elidia Meneses
Primary Cleaning Crew Member: Dr. Chris Craig of [place]
Assessment:
Presentation with SOB, LE edema 09/10/24
Acute on chronic HFrEF
CM EF previously 45% by echo 07/2023 and reduced further to 15 to 20% by echo 09/11/24
Severe
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
s/p sternotomy with biologic AVR, aortic root enlargement with pericardial patch, and CABG x1 SVG to distal RCA by Dr. Smith on 03/04/2021
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
Acute hypoxic respiratory insufficiency
SAM on CKD, suspected cardiorenal
Hypotension requiring pressor support
Elevated troponin, suspected nonischemic myocardial injury
CAD
s/p CABG with FOLEY to LAD and SVG to RPDA (occluded by cath 2020) in 2008
s/p cardiac cath at [facility] FOLEY to LAD patent, SVG to RPDA occluded, ostial Circ 75% stenosis, ostial RCA 75% stenosis 11/16/20
s/p CABG at time of AVR with SVG to distal RCA 03/04/21
Brief post op afib episode while at [facility], without known recurrence
s/p [facility] [place] implanted loop recorder
PVCs
Chronic LBBB
DM 2
HTN
Hyperlipidemia
Hypothyroid
h/o CVA
Peripheral neuropathy
s/p IVC filter
L breast cancer s/p lumpectomy, chemotherapy, and radiation 2008
Obesity
Anemia
Memory loss
Nuclear stress test 08/24/2023: Large sized moderate to severe defect in apex, apical anterior, apical inferior wall, prone imaging not performed, defect consistent with infarct with minimal gerald-infarct ischemia, EF 35% with global hypokinesis and
anteroapical akinesis, unchanged compared to prior cath and echo in 2020
Echo 03/24/2021: EF 25%, severe global hypokinesis with possible inferolateral and apical akinesis, mild MR, bioprosthetic AVR with peak/mean 21/12 mmHg
ECHO 07/2023: Mildly reduced LV systolic function 45% due to akinesis of distal inferior wall, mild MR with severe left atrial dilation, bioprosthetic aortic valve with peak gradient 49/mean gradient 32, valve size known to be small, moderate
pulmonary hypertension
Echo 09/11/2024: Dilated left ventricle with severely reduced left ventricular systolic function estimated 15-20% with grade 2 diastolic dysfunction increased LV filling pressures. Moderate mitral and tricuspid regurgitation. Bioprosthetic aortic
valve with peak/mean gradients 37/23 mmHg and no significant aortic regurgitation.
Plan:
Her acute on chronic heart failure with reduced EF is marginally compensated, but she remains very tenuous with episodes of hypotension in the setting of prosthetic aortic valve stenosis/dysfunction.
Her blood pressure remains labile. Remains on low-dose Coreg. May need to add midodrine.
Jardiance/Farxiga are on hold related to Pseudomonas in the urine. Defer to hospitalist and nephrology as to whether or not Jardiance can be resumed. Patient now on cefepime.
Creatinine is overall improved at 1.6. Agree with plan to attempt IV diuresis. We may need to accept some azotemia. She is still volume overloaded, but we cannot achieve a euvolemic state without unacceptable kidney injury and hypotension.
Prognosis remains guarded, goals of care/level of care may need to be addressed. Currently, patient is a full code.
Her long-term prognosis appears to be very poor. I do not think she is a redo surgical candidate and she likely has significant bioprosthetic aortic valve stenosis.
Will continue discussions with family. Could consider right heart catheterization to better evaluate volume status, however. Also been discussions about palliative care. This would be reasonable.
Progress Note - Cleaning Crew Member
Subjective
Date of Service: September 17, 2024
Denies new chest pains. Still has baseline shortness of breath. No new fevers
Objective
Labs:
09/17/24 05:43
09/17/24 05:43
Labs
Hgb 9.2 g/dL (12.0-16.0) L 09/17/24 05:43
Hct 27.5 % (37.0-47.0) L 09/17/24 05:43
Plt Count 297 10^3/uL (130-400) 09/17/24 05:43
Sodium 135 mmol/L (135-145) 09/17/24 05:43
Potassium 4.4 mmol/L (3.5-5.1) 09/17/24 05:43
BUN 79 mg/dl (7-17) H 09/17/24 05:43
Creatinine 1.6 mg/dL (0.6-1.0) H 09/17/24 05:43
Glucose 149 mg/dl (70-99) H 09/17/24 05:43
Vital Signs and I&O:
Vital Signs
Temp Pulse Resp BP Pulse Ox
97.0 F 70 21 99/76 95
09/17/24 03:15 09/17/24 06:00 09/17/24 06:00 09/17/24 06:00 09/17/24 06:00
Vital Signs
Temp Pulse Resp BP Pulse Ox
97.0 F 70 21 99/76 95
09/17/24 03:15 09/17/24 06:00 09/17/24 06:00 09/17/24 06:00 09/17/24 06:00
Intake & Output
09/15/24 09/16/24 09/17/24 09/18/24
06:59 06:59 06:59 06:59
Intake Total 480 / 480 570 / 570 780 / 780
Output Total 1300 / 1300 350 / 350 650 / 650
Balance -820 / -820 220 / 220 130 / 130
Physical Exam
Physical Exam
GEN: No distress, awake, Ox3
HEENT: supple, anicteric, mmm
LUNGS: scatt rhonchi
CV: Reg, S1/S2, 2/6 syst LSB, S3+
ABD: soft, BS+, NT/ND
EXT: +1 edema
NEURO: Gross non-focal
SKIN: No rash
--- NOTE | 2024-09-17 10:58 | WOUNDNOTE ---
LLE (LATERAL); RLE (MEDIAL)
--- NOTE | 2024-09-17 10:59 | WOUNDNOTE ---
SACRAL/R BUTTOCKS (sacral crease/dimple blanchable red, no ulcer)
--- NOTE | 2024-09-17 11:00 | WOUNDNOTE ---
[facility] RN note: Patient seen for HAPI for sacral stage 2 pressure injury. Sacrum blanchable red and intact. R buttocks ulcer healed. Skin on heels blanchable red and intact. Patient incontinent of urine. Renuka care given. Sacral shaped silicone border
foam changed on sacrum and silicone border foam dressing changed on R buttocks. Protective silicone border foam applied to R posterior lower calf healed/scabbed blister. +Hemosiderosis. Patient stated she wears knee high Velcro compression garments
at home. She lives a [facility] (assisted living?). Patient is on a [facility] [employer] air bed. t/c SPD and ordered a bariatric air chair cushion. Discussed with ZAYRA Lopez. Consult as needed.
--- NOTE | 2024-09-17 11:04 | WOUNDNOTE ---
Patient turned to R semi side lying position with help from [facility]. Heels off bed with pillow.
--- NOTE | 2024-09-17 11:25 | WOUNDNOTE ---
Confirmed bilateral knee high Tubigrip (remove q hs) order with Dr. kAbar. Care plan and discharge instructions updated.
[2024-09-17] MEDS: LASIX 40 MG IV ×2 (11:53→15:22)
[2024-09-17] MEDS: LOW STRENGTH ASPIRIN 81 MG PO ×2 (11:58→21:45)
[2024-09-17 12:18] LABS: Glucose - Point of Care 197 mg/dl (70-99)
--- NOTE | 2024-09-17 12:39 | W.PN.HOSP.TC ---
Today's Communication/Plan
-
monitor vitals
see plan
GOC discussions ongoing
palliative consulted
wean o2 as tolerated
Midodrine with holding parameters
Continue with IV diuresis
Monitor renal function
switch to PO abx
Discussed with Daughter
Assessment / Plan
Assessment / Plan
General: Well Developed, Well Nourished and No Apparent Distress
HEENT: NormoCephalic, Moist mucous membranes and Atraumatic
Respiratory: Clear
Cardiac: S1/S2 and Regular Rhythm; No Murmur or Rub
GI: Soft, Non Tender, Non Distended and Normal Bowel Sounds
Musculoskeletal: + Edema
Neuro: Nonfocal/grossly intact
Acute on chronic CHF exacerbation with reduced ejection fraction
Acute hypoxic respiratory insufficiency secondary to above, currently on 2 L. Wean oxygen as tolerated
-Cardiac BNP greater than 27,000
-Chest x-ray shows pulm edema, does not appear to have pneumonia. Will monitor. No fever, leukocytosis.
-Check I's and O's, daily weights
Continue with diuresis per renal, Back to IV diuresis. If family wants full intervention then possible RHC
EF of 25% from echo in 2020
-Cardiology following
Echo 09/11 noted with a EF 15 to 20%,
s/p CABG 10/2008 with FOLEY to LAD and SVG to RPDA
s/p cardiac cath at [facility] 11/16/20 FOLEY to LAD patent, SVG to RPDA occluded, ostial Circ 75% stenosis, ostial RCA 75% stenosis
Severe
Hold Farxiga
add midodrine with holding parameter
Shock, unknown etiology
resolved
Pressors weaned off
was hypotensive again09/16; transferred back to IMU, so far no pressors restarted
coreg dec, monitor. If BP low again then cardiology rec midodrine, would need to be cautious give low EF
# SAM likely cardiorenal on CKD, unknown baseline
-Creatinine of 2.7 from 1.9; now 1.6
continue with diuresis
-Nephrology following
-Hold spironolactone, losartan
UA suggestive of mild UTI, urine culture with pseudomonas. History of Pseudomonas, E. coli. Transition to Cipro to complete course
UTI
History of multiple UTIs in past
Urine culture with pseudomonas;Transition to Cipro to complete course
Postvoid residual
Elevated troponin likely secondary to nonischemic myocardial injury
Monitor
Edema blistering 2/2 fluid overload
monitor
venous Doppler lower extremity neg for DVT
History of TAVR
CAD status post CABG
-Continue Plavix
-Continue Coreg
Chronic lymphedema
left buttock pressure related pressure injury stage 1
Essential hypertension
Chronic LBBB
Hypercholesterolemia
Chronic anemia
Type 2 diabetes
-Hold metformin, glipizide
-Insulin sliding scale
A1c 6.8
History of CVA
Hypothyroidism
-Continue levothyroxine
Full code
DVT prophylaxis�heparin
I discussed CODE STATUS and hospital course with patient and daughter. They understand and daughter agreeable on meeting with palliate care. Consulted palliative care.
CODE STATUS remains full code
I spent a total of 52 minutes with the patient or on the floor. More than 50% of this time involved counseling and coordination of care.
Anticipated Discharge: > 48 hours
Subjective/Interval History
-
Date of Service: September 17, 2024
denies pain
Objective Data
-
Labs:
Laboratory Results
09/17/24
05:43
WBC 5.8
Hgb 9.2 L
Hct 27.5 L
Plt Count 297
Sodium 135
Potassium 4.4
Chloride 95 L
Carbon Dioxide 34 H
BUN 79 H
Creatinine 1.6 H
Glucose 149 H
Calcium 9.0
Vital Signs:
Vital Signs
Temp Pulse Resp BP Pulse Ox
97.5 F 67 25 97/57 95
09/17/24 07:20 09/17/24 10:00 09/17/24 10:00 09/17/24 10:00 09/17/24 10:00
I&O
09/16/24 09/17/24 09/18/24
06:59 06:59 06:59
Intake Total 570 / 570 780 / 780
Output Total 350 / 350 650 / 650
Balance 220 / 220 130 / 130
[2024-09-17] MEDS: CIPRO 500 MG PO (14:40)
--- NOTE | 2024-09-17 16:33 | PTCARENOTE ---
Assumed care of patient this morning from previous shift with O2 2l n/c in use and POx 96%. Patient quiet and tearful at times about condition; this nurse contacted electroplater automatic's office and spoke with Galina Vazquez who came to visit with patient.
Lasix po changed to IV and midodrine added by Dr Akbar; see worklist for vital sign trends. Suly Ponce up to see patient and changed sacral/buttock dressings; BLE tubigrips added as per order. See worklist for full assessment.
[2024-09-17 16:34] LABS: Glucose - Point of Care 179 mg/dl (70-99)
--- NOTE | 2024-09-17 16:49 | PN.CDI ---
CDI
- -
CDI:
Physician Documentation Request
Admit Date: 09/10/24 18:54
Dear Doctor Raffy,
Please review the following and provide your response in the progress notes.
Clinical Indicators:
Pt admitted with acute on chronic systolic CHF exacerbation/shock/ SAM
Documented per WOCN NOTE 09/17 @ 11Am, ' Patient seen for HAPI for sacral stage 2 pressure injury.... Sacral shaped silicone border foam changed on sacrum and silicone border foam dressing changed on R buttocks.....'
Physician documentation of the type and location of wounds is required for compliant documentation. Based on the above clinical findings and your assessment, please provide the following in your progress note:
1. Location of the ulcer/wound, including laterality.
2. Type (etiology) of ulcer/wound:
- Pressure (decubitus) ulcer
- Non-pressure ulcer
- Other ( please specify)
Use of terms such as suspected, likely, concern for, or probable (associated with a specific diagnosis that is being evaluated, monitored, or treated as if it exists) are acceptable and can be coded in the inpatient setting, when documented at the
time of discharge.
Thank you,
Dawn Ruiz RN
CDI Specialist
[facility]
Please use your independent medical judgment in providing your response.
*Source: National Pressure Ulcer Advisory Panel (NPUAP)
[2024-09-17] MEDS: SENOKOT 8.6 MG PO (20:32)
[2024-09-17 21:26] LABS: Glucose - Point of Care 196 mg/dl (70-99)
--- NOTE | 2024-09-17 22:14 | PTCARENOTE ---
Assumed care for patient overnight, received report from dayshift RN. Pt AAOx3, seemingly in better spirits regarding plan of care. Pt remaining on 2L NC SpO2 94%. BPs sustaining. VSS. Voiding large amounts of clear yellow urine. Assessment and
vitals as charted. Tolerating frequent turning and repositioning. Call rey within reach.
[2024-09-18] VITALS (14 sets, daily range): BP systolic 89–143; BP diastolic 52–84; PULSE 72; O2SAT 87; BMI 41.5
--- NOTE | 2024-09-18 01:38 | PTCARENOTE ---
Pt woke up very confused, ripping telemetry leads and gown off. Pt disoriented to time and place. Pt incontinent of urine. Pt changed, CHG bath done. Pt reoriented and reassured. Pt now calm.
[2024-09-18 04:51] LABS: % Eosinophils 7.9 % (0-6); % Immature Granulocytes 0.5 % (0-0.5); % Lymphocytes 17.2 % (20.5-51.1); % Monocytes 8.3 % (1.7-9.3); % Neutrophils 65.1 % (42.2-75.2); Absolute Basophils 0.1 10^3/uL (0-0.2); Absolute Eosinophils 0.5 10^3/uL (0-0.7); Absolute Monocytes 0.5 10^3/uL (0.1-0.6); Absolute Neutrophils 3.8 10^3/uL (1.4-6.5); Hematocrit 28.4 % (37.0-47.0); Hemoglobin 9.1 g/dL (12.0-16.0); Mean Corpuscular Hgb 29.9 pg (27.0-31.0); Mean Corpuscular Volume 93.4 fL (81.0-99.0); Nucleated Red Blood Cells % 0 %; Platelet Count 342 10^3/uL (130-400); Red Blood Cell Count 3.04 10^6/uL (4.20-5.40); White Blood Cell Count 5.8 10^3/uL (4.8-10.8)
[2024-09-18 05:17] LABS: Blood Urea Nitrogen 87 mg/dl (7-17); Calcium 8.9 mg/dl (8.4-10.2); Carbon Dioxide 34 mmol/L (22-30); Chloride 95 mmol/L (98-107); Estimated Creatinine Clearance 30 ml/min; Glucose 155 mg/dl (70-99); Potassium 4.4 mmol/L (3.5-5.1); Sodium 136 mmol/L (135-145)
[2024-09-18] MEDS: SYNTHROID 88 MCG PO (05:49)
--- NOTE | 2024-09-18 08:00 | PTCARENOTE ---
PT AAO x3, pleasant and cooperative, took pills 3 at a time with water. States she is not hungry at this time does not want me to order her breakfast
[2024-09-18 08:21] LABS: Glucose - Point of Care 157 mg/dl (70-99)
[2024-09-18] MEDS: NOVOLOG FLEXPEN-LOW RESISTANCE 1 UNITS SC (08:34)
[2024-09-18] MEDS: LIDOCAINE 4% PATCH 2 PATCH TOPICAL (08:35)
[2024-09-18] MEDS: UROCIT-K 10 MEQ PO ×2 (08:36→21:27)
[2024-09-18] MEDS: MAGNESIUM OXIDE 500 MG PO (08:36)
[2024-09-18] MEDS: THERAGRAN 1 TABLET PO (08:37)
[2024-09-18] MEDS: COREG 3.125 MG PO ×2 (08:37→21:27)
[2024-09-18] MEDS: HEPARIN 5000 UNITS SC ×2 (08:37→21:27)
[2024-09-18] MEDS: OSCAL 500 + D 500 MG PO (08:39)
[2024-09-18] MEDS: PROTONIX 40 MG PO (08:40)
[2024-09-18] MEDS: CIPRO 500 MG PO (08:40)
[2024-09-18] MEDS: LIPITOR 40 MG PO (08:40)
[2024-09-18] MEDS: PLAVIX 75 MG PO (08:40)
[2024-09-18] MEDS: CLARITIN 10 MG PO (08:40)
[2024-09-18] MEDS: LASIX 40 MG IV ×2 (08:41→15:56)
[2024-09-18] MEDS: OCUVITE SOFTGEL 1 CAP PO ×2 (08:41→21:27)
[2024-09-18] MEDS: FEOSOL 325 MG PO (08:56)
[2024-09-18] MEDS: ProAmatine 5 MG PO ×2 (08:58→15:56)
[2024-09-18] MEDS: LOW STRENGTH ASPIRIN 81 MG PO ×2 (09:03→21:27)
--- NOTE | 2024-09-18 09:49 | W.PN.HOSP.TC ---
Today's Communication/Plan
-
CW IV diuresis
Assessment / Plan
Assessment / Plan
Acute on chronic CHF exacerbation with reduced ejection fraction
Acute hypoxic respiratory insufficiency secondary to above, currently on room air
-Cardiac BNP greater than 27,000
-Chest x-ray shows pulm edema, does not appear to have pneumonia. Will monitor. No fever, leukocytosis.
-Check I's and O's, daily weights
Continue with diuresis per renal, Back to IV diuresis. If family wants full intervention then possible RHC
EF of 25% from echo in 2020
-Cardiology following
Echo 09/11 noted with a EF 15 to 20%,
s/p CABG 10/2008 with FOLEY to LAD and SVG to RPDA
s/p cardiac cath at [facility] 11/16/20 FOLEY to LAD patent, SVG to RPDA occluded, ostial Circ 75% stenosis, ostial RCA 75% stenosis
Severe
Hold Farxiga
Continue midodrine with holding parameter
Shock, unknown etiology
resolved
Pressors weaned off
was hypotensive again09/16; transferred back to IMU, so far no pressors restarted
coreg dec, monitor. If BP low again then cardiology rec midodrine, would need to be cautious give low EF
# SAM likely cardiorenal on CKD, unknown baseline
-Creatinine of 2.7 from 1.9; now 1.6
continue with diuresis
-Nephrology following
-Hold spironolactone, losartan
UA suggestive of mild UTI, urine culture with pseudomonas. History of Pseudomonas, E. coli. Transition to Cipro to complete course
UTI
History of multiple UTIs in past
Urine culture with pseudomonas;Transition to Cipro to complete course
Postvoid residual
Elevated troponin likely secondary to nonischemic myocardial injury
Monitor
Edema blistering 2/2 fluid overload
monitor
venous Doppler lower extremity neg for DVT
History of TAVR
CAD status post CABG
-Continue Plavix
-Continue Coreg
Chronic lymphedema
left buttock pressure related pressure injury stage 1
Essential hypertension
Chronic LBBB
Hypercholesterolemia
Chronic anemia
Type 2 diabetes
-Hold metformin, glipizide
-Insulin sliding scale
A1c 6.8
History of CVA
Hypothyroidism
-Continue levothyroxine
Full code
DVT prophylaxis�heparin
Dr. Akbar discussed CODE STATUS and hospital course with patient and daughter. They understand and daughter agreeable on meeting with palliate care. Consulted palliative care.
CODE STATUS remains full code
Discussed with nephrology in the unit. Continue with IV diuresis with midodrine support. She is moving fluids without much changes in creatinine but BUN is rising. Possibly right heart cath on Sunday after diuresis. Might need inotrope support
depending on her blood pressure.
Total time spent on today's encounter was 52 minutes which included time spent in counseling the patient/family regarding diagnosis and treatment plan as listed above, goals of care, and symptom management. Case was discussed with nursing staff,
specialists, and care coordinators/case management. All labs and imaging personally reviewed by me. Remainder the time spent in detailed review of previous records, lab data, imaging, and other medical provider documentation.
Anticipated Discharge: > 48 hours
Subjective/Interval History
-
Date of Service: September 18, 2024
Denies shortness of breath. She think she still has a lot of body weight to come down.
Denies chest pain.
No nausea vomiting.
No fevers.
Objective Data
-
Labs:
Laboratory Results
09/18/24
04:28
WBC 5.8
Hgb 9.1 L
Hct 28.4 L
Plt Count 342
Sodium 136
Potassium 4.4
Chloride 95 L
Carbon Dioxide 34 H
BUN 87 H
Creatinine 1.6 H
Glucose 155 H
Calcium 8.9
Vital Signs:
Vital Signs
Temp Pulse Resp BP Pulse Ox
97.4 F 76 23 115/58 99
09/18/24 07:20 09/18/24 08:58 09/18/24 06:00 09/18/24 08:58 09/18/24 04:04
I&O
09/17/24 09/18/24 09/19/24
06:59 06:59 06:59
Intake Total 780 / 780
Output Total 1000 / 1000 750 / 750 350 / 350
Balance -220 / -220 -750 / -750 -350 / -350
Review of Systems
-
EENT: Denies Sore Throat
Respiratory: Denies Cough
Abdomen/GI: Denies Abdominal Pain, Nausea or Vomiting
Neuro: Denies Dizzy
Physical Exam
-
General: No Apparent Distress
HEENT: Moist Mucous Membranes
Respiratory: Crackles (few basal crackles); Negative Wheezes
Cardiac: Regular Rhythm and S1/S2
GI: Soft and Other (obese)
Neuro: AO x 3
Psych: Calm
Data Reviewed
-
Labs: Labs Reviewed by me
--- NOTE | 2024-09-18 09:52 | W.PN.NEPH.PH ---
Today's Communication / Plan
-
diurese
Assessment/Plan
-
IMP:
Acute on chronic CHF exacerbation with reduced ejection fraction
Acute hypoxic respiratory insufficiency
Fredi with CKD
Cardiomyopathy EF of 45% from echo in 2023
s/p CABG 10/2008 with FOLEY to LAD and SVG to RPDA
s/p cardiac cath at [facility] 11/16/20 FOLEY to LAD patent, SVG to RPDA occluded, ostial Circ 75% stenosis, ostial RCA 75% stenosis
Severe s/p BAV 12/06/20
Shock, unknown etiology
Elevated troponin likely secondary to nonischemic myocardial injury
Edema blistering 2/2 fluid overload
Chronic lymphedema
Essential hypertension
Chronic LBBB
Hypercholesterolemia
Chronic anemia
Type 2 diabetes
History of CVA
Hypothyroidism
Plan:
continue midodrine
continue IV lasix
Does appear that she is still significantly volume overloaded
We may need to attempt diuresis until development of FREDI
Would consider right heart catheterization Sunday after additional diuresis over weekend
follow BMP
-
-
Date of Service: September 18, 2024
CC / HPI / ROS
-
Chief Complaint:
FREDI
History of Present Illness:
FREDI/Cr down to 1.6 stable
BP low stable
diuresing slowly for decompensated HF with lasix IV
weights up
Alkalosis stable 34
Review of Systems:
no CP
Remains on nasal cannula
Labs
-
Labs:
WBC 5.8 10^3/uL (4.8-10.8) 09/18/24 04:28
RBC 3.04 10^6/uL (4.20-5.40) L 09/18/24 04:28
Hgb 9.1 g/dL (12.0-16.0) L 09/18/24 04:28
Hct 28.4 % (37.0-47.0) L 09/18/24 04:28
Plt Count 342 10^3/uL (130-400) 09/18/24 04:28
Sodium 136 mmol/L (135-145) 09/18/24 04:28
Potassium 4.4 mmol/L (3.5-5.1) 09/18/24 04:28
Chloride 95 mmol/L (98-107) L 09/18/24 04:28
Carbon Dioxide 34 mmol/L (22-30) H 09/18/24 04:28
BUN 87 mg/dl (7-17) H 09/18/24 04:28
Creatinine 1.6 mg/dL (0.6-1.0) H 09/18/24 04:28
eGFR 32.20 09/18/24 04:28
Glucose 155 mg/dl (70-99) H 09/18/24 04:28
Calcium 8.9 mg/dl (8.4-10.2) 09/18/24 04:28
Fmq-Y-Tkwhlzmtwms Pept > 37297 pg/ml 09/15/24 07:46
Albumin 3.3 g/dl (3.5-5.0) L 09/11/24 05:12
Physical Exam
-
Vital Signs:
Vital Signs
Temp Pulse Resp BP Pulse Ox
97.4 F 76 23 115/58 99
09/18/24 07:20 09/18/24 08:58 09/18/24 06:00 09/18/24 08:58 09/18/24 04:04
Cardiovascular:: Regular rate and rhythm
Respiratory:: Bilateral: Coarse
Lung Excursion:: Normal
Abdomen:: Nontender and Soft
Bowel Sounds:: Normal
Extremity Edema:: +2: Bilateral:
[2024-09-18 12:49] LABS: Glucose - Point of Care 131 mg/dl (70-99)
[2024-09-18] MEDS: NOVOLOG FLEXPEN-LOW RESISTANCE SC ×2 (12:50→15:54)
[2024-09-18] MEDS: ProAmatine PO (12:51)
--- NOTE | 2024-09-18 12:52 | PTCARENOTE ---
Pt refusing meds , pt thinks Trumpi s making people not like her. Dr Miles aware
--- NOTE | 2024-09-18 13:39 | W.PN.CARDCBS ---
Addendum entered and electronically signed by Joel Hernandez MD 09/18/24 13:54:
I saw and examined the patient.
The Bundle Clerk's note was reviewed and I agree with the note.
Comment:
GEN: No distress, awake, Ox3
HEENT: supple, anicteric, mmm
LUNGS: scatt rhonchi
CV: Reg, S1/S2, 3/6 syst LSB, no gallop
ABD: soft, BS+, NT/ND
EXT: +1 edema
NEURO: Gross non-focal
SKIN: No rash
Plan:
Continues to do poorly. Remains on IV Lasix. Her weight is minimally improved.
Creat stable at 1.6 but BUN rising.
Unfortunately she has a new worsening cardiomyopathy with significant bioprosthetic aortic valve stenosis.
Continue Coreg and midodrine.
Her long-term prognosis appears to be very poor. The patient expresses concern with continuing with current level of care.
Will discuss with family options. I am happy to have a family meeting tomorrow to further discuss her prognosis from a cardiac standpoint.
Original Note:
Today's Communication / Plan
-
goal of care discussions ongoing. overall prognosis poor
for now continue IV lasix
follow BPs
Impression / Plan
-
PCP: Dr. Elidia Meneses
Primary Photovoltaic Fabrication Technician: Dr. Chris Craig of [place]
Assessment:
Presentation with SOB, LE edema 09/10/24
Acute on chronic HFrEF
CM EF previously 45% by echo 07/2023 and reduced further to 15 to 20% by echo 09/11/24
Severe
h/o type 2 SC related to severe 11/2020 resulting in transfer to [facility], s/p BAV 12/06/20
s/p sternotomy with biologic AVR, aortic root enlargement with pericardial patch, and CABG x1 SVG to distal RCA by Dr. Smith on 03/04/2021
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
Acute hypoxic respiratory insufficiency
SAM on CKD, suspected cardiorenal
Hypotension requiring pressor support
Elevated troponin, suspected nonischemic myocardial injury
CAD
s/p CABG with FOLEY to LAD and SVG to RPDA (occluded by cath 2020) in 2008
s/p cardiac cath at [facility] FOLEY to LAD patent, SVG to RPDA occluded, ostial Circ 75% stenosis, ostial RCA 75% stenosis 11/16/20
s/p CABG at time of AVR with SVG to distal RCA 03/04/21
Brief post op afib episode while at [facility], without known recurrence
s/p [facility] [place] implanted loop recorder
PVCs
Chronic LBBB
DM 2
HTN
Hyperlipidemia
Hypothyroid
h/o CVA
Peripheral neuropathy
s/p IVC filter
L breast cancer s/p lumpectomy, chemotherapy, and radiation 2008
Obesity
Anemia
Memory loss
Nuclear stress test 08/24/2023: Large sized moderate to severe defect in apex, apical anterior, apical inferior wall, prone imaging not performed, defect consistent with infarct with minimal gerald-infarct ischemia, EF 35% with global hypokinesis and
anteroapical akinesis, unchanged compared to prior cath and echo in 2020
Echo 03/24/2021: EF 25%, severe global hypokinesis with possible inferolateral and apical akinesis, mild MR, bioprosthetic AVR with peak/mean 21/12 mmHg
ECHO 07/2023: Mildly reduced LV systolic function 45% due to akinesis of distal inferior wall, mild MR with severe left atrial dilation, bioprosthetic aortic valve with peak gradient 49/mean gradient 32, valve size known to be small, moderate
pulmonary hypertension
Echo 09/11/2024: Dilated left ventricle with severely reduced left ventricular systolic function estimated 15-20% with grade 2 diastolic dysfunction increased LV filling pressures. Moderate mitral and tricuspid regurgitation. Bioprosthetic aortic
valve with peak/mean gradients 37/23 mmHg and no significant aortic regurgitation.
Plan:
-Unclear if weight accurate, as noted to be up 4 pounds overnight. She is now off of Levophed, will follow blood pressures
-She has EF 15 to 20% by echocardiogram and worsened bioprosthetic aortic valve gradients and moderate MR in setting of low flow state.
-Today she states 'I do not want to live anymore'. Nursing reports she is refusing medications and did not want to be examined during my visit. She had meeting with palliative care yesterday, and plan was to proceed with that upon discharge if she
continued to clinically improve. Will need to discuss with patient's daughter. Do not think she would be candidate for redo valve in valve surgery in setting of significant hypotension and cardiomyopathy with renal insufficiency. She remains a
full code at this time. Overall prognosis remains poor
-Continue diuresis with IV Lasix. Creatinine stable at 1.6
-Continue low-dose Coreg, midodrine
-Jardiance/Farxiga are on hold related to Pseudomonas in the urine, and suspect should not be restarted
-continue asa, plavix, statin
-d/w nursing. d/w hospitalist
Progress Note - Photovoltaic Fabrication Technician
Subjective
Date of Service: September 18, 2024
'I do not want to live anymore'
Objective
Labs:
09/18/24 04:28
09/18/24 04:28
Labs
Hgb 9.1 g/dL (12.0-16.0) L 09/18/24 04:28
Hct 28.4 % (37.0-47.0) L 09/18/24 04:28
Plt Count 342 10^3/uL (130-400) 09/18/24 04:28
Sodium 136 mmol/L (135-145) 09/18/24 04:28
Potassium 4.4 mmol/L (3.5-5.1) 09/18/24 04:28
BUN 87 mg/dl (7-17) H 09/18/24 04:28
Creatinine 1.6 mg/dL (0.6-1.0) H 09/18/24 04:28
Glucose 155 mg/dl (70-99) H 09/18/24 04:28
Vital Signs and I&O:
Vital Signs
Temp Pulse Resp BP Pulse Ox
97.4 F 73 21 117/81 92
09/18/24 07:20 09/18/24 10:00 09/18/24 10:00 09/18/24 10:00 09/18/24 10:09
Vital Signs
Temp Pulse Resp BP Pulse Ox
97.4 F 73 21 117/81 92
09/18/24 07:20 09/18/24 10:00 09/18/24 10:00 09/18/24 10:00 09/18/24 10:09
Intake & Output
09/16/24 09/17/24 09/18/24 09/19/24
07:59 07:59 07:59 07:59
Intake Total 570 / 570 780 / 780
Output Total 350 / 350 1000 / 1000 750 / 750 350 / 350
Balance 220 / 220 -220 / -220 -750 / -750 -350 / -350
Physical Exam
Physical Exam
limited exam as patient refused
GEN: No distress, awake, alert, oriented x3. obese
HEENT: supple, anicteric, mmm, eomi
LUNGS: CTA anterolaterally, no wheezes
CV: Reg, S1/S2, 2/6 murmur
EXT: Trace edema of B/L LE
NEURO: Gross non-focal
SKIN: Warm, pink, dry. No rash
--- NOTE | 2024-09-18 14:55 | PTCARENOTE ---
Pt daughter at bedside ordering food for pt. Daughter awrae of confusion and states she would rather this than her being depressed.
--- NOTE | 2024-09-18 15:47 | CM ---
Patient from [facility] facility with Dx Acute on chronic CHF exacerbation. O2 2L. Receiving Levophed gtt, IV Lasix. Seen by wound care nurse. Per nursing; both oriented and confused today. PT & OT; requires assist of 2, skilled
rehab vs return to [facility]. Seen by Ship Laborer.
SNF referrals reviewed; declined by [facility] in [place]
Spoke with [facility]; they cannot accept a patient right now with the stage 2 wound.
Spoke with patient's daughter Tanesha;
she is here today and has been getting updates from the doctor and nurse, and shares she was told that her mother is not a candidate for aortic valve replacement, they are getting the excess fluid off. Daughter plans on meeting with someone from
the Palliative Care team tomorrow.
Provided update to daughter that neither [facility] or [facility] can accept. Discussed alternate local SNFs and provided ratings; daughter [facility]. Additional SNF referrals placed.
CM continuing to follow.
Plan follow up updated SNF referrals.
--- NOTE | 2024-09-18 15:54 | W.PN.UPDATE ---
Update Note
Progress Note Update
called and discussed with patient's daughter Tanesha via telephone for 6:46. We discussed what her mother had expressed to me earlier today, and daughter states patient is 'loopy'. We discussed that she would not be a candidate for redo valve
surgery with RI and CM, and patient reportedly would not want this anyway. Daughter states patient does not want invasive or extreme measures. We then discussed focus of palliative care on comfort and quality of life. We discussed DNR code status
would be appropriate with these diagnoses. Plan for family meeting tomorrow at 1:00PM to discuss further.
--- NOTE | 2024-09-18 16:02 | PTCARENOTE ---
Pt given Midodrine early whike daughter here. she took med without incident
[2024-09-18 16:05] LABS: Glucose - Point of Care 149 mg/dl (70-99)
--- NOTE | 2024-09-18 16:09 | CM ---
Patient from [facility] with Dx Acute on chronic CHF exacerbation. O2 2L. Receiving midodrine, IV Lasix. Midline IV. Seen by wound care nurse. Per nursing; both oriented and confused today. PT & OT; requires assist of
2, skilled rehab vs return to [facility]. Seen by Fuel Buyer.
SNF referrals reviewed; declined by [facility] in [place]
Spoke with [facility]; they cannot accept a patient right now with the stage 2 wound.
Spoke with patient's daughter Tanesha;
she is here today and has been getting updates from the doctor and nurse, and shares she was told that her mother is not a candidate for aortic valve replacement, they are getting the excess fluid off. Daughter plans on meeting with someone from
the Palliative Care team tomorrow.
Provided update to daughter that neither [facility] or [facility] can accept. Discussed alternate local SNFs and provided ratings; daughter [facility]. Additional SNF referrals placed.
CM continuing to follow.
Plan follow up updated SNF referrals.
[2024-09-19] VITALS (13 sets, daily range): BP systolic 84–123; BP diastolic 44–99; BMI 41.0
--- NOTE | 2024-09-19 03:14 | PTCARENOTE ---
Pt AAOx2, disoriented to time. Pt confused at times and forgetful. Pt anxious overnight and sleeping on and off. Pt remains on 2L O2. SpO2 95%. Pt tolerating frequent turning and repositioning. Call rey within reach.
[2024-09-19 05:01] LABS: Hematocrit 29.2 % (37.0-47.0); Hemoglobin 9.4 g/dL (12.0-16.0); Mean Corp Hgb Conc. 32.2 g/dL (33.0-37.0); Mean Corpuscular Volume 93.3 fL (81.0-99.0); Mean Platelet Volume 11.5 fL (7.4-10.4); Platelet Count 372 10^3/uL (130-400); Red Blood Cell Count 3.13 10^6/uL (4.20-5.40); White Blood Cell Count 5.7 10^3/uL (4.8-10.8)
[2024-09-19 05:25] LABS: Blood Urea Nitrogen 84 mg/dl (7-17); Calcium 9.3 mg/dl (8.4-10.2); Carbon Dioxide 35 mmol/L (22-30); Chloride 98 mmol/L (98-107); Estimated Creatinine Clearance 30 ml/min; Glucose 132 mg/dl (70-99); Magnesium 2.4 mg/dl (1.6-2.3); Potassium 4.2 mmol/L (3.5-5.1); Sodium 137 mmol/L (135-145)
[2024-09-19] MEDS: SYNTHROID 88 MCG PO (05:39)
[2024-09-19] MEDS: NOVOLOG FLEXPEN-LOW RESISTANCE SC ×3 (08:25→17:10)
[2024-09-19] MEDS: PLAVIX 75 MG PO (08:26)
[2024-09-19] MEDS: FEOSOL 325 MG PO (08:26)
[2024-09-19] MEDS: ProAmatine 5 MG PO ×2 (08:26→13:06)
[2024-09-19] MEDS: PROTONIX 40 MG PO (08:26)
[2024-09-19] MEDS: COREG 3.125 MG PO ×2 (08:26→20:17)
[2024-09-19] MEDS: LIPITOR 40 MG PO (08:26)
[2024-09-19] MEDS: UROCIT-K 10 MEQ PO ×2 (08:26→20:17)
[2024-09-19] MEDS: THERAGRAN 1 TABLET PO (08:26)
[2024-09-19] MEDS: CLARITIN 10 MG PO (08:26)
[2024-09-19] MEDS: OCUVITE SOFTGEL 1 CAP PO ×2 (08:26→20:17)
[2024-09-19] MEDS: MAGNESIUM OXIDE 500 MG PO (08:26)
[2024-09-19] MEDS: CIPRO 500 MG PO (08:26)
[2024-09-19] MEDS: OSCAL 500 + D 500 MG PO (08:26)
[2024-09-19] MEDS: HEPARIN 5000 UNITS SC ×2 (08:27→20:17)
[2024-09-19] MEDS: LASIX 40 MG IV ×2 (08:27→16:45)
[2024-09-19] MEDS: LIDOCAINE 4% PATCH 2 PATCH TOPICAL (08:28)
[2024-09-19 08:36] LABS: Glucose - Point of Care 128 mg/dl (70-99)
--- NOTE | 2024-09-19 09:14 | W.PN.HOSP.TC ---
Today's Communication/Plan
-
CW IV diuresis
RHC as pt wants to pursue continued tx
Family mtg with daughter planned at 1pm by cards.
Assessment / Plan
Assessment / Plan
Acute on chronic CHF exacerbation with reduced ejection fraction
Acute hypoxic respiratory insufficiency secondary to above, back on 2 L
-Cardiac BNP greater than 27,000
-Chest x-ray shows pulm edema, does not appear to have pneumonia. Will monitor. No fever, leukocytosis.
-Check I's and O's, daily weights
-Continue with diuresis per renal, Back to IV diuresis. If family wants full intervention then possible RHC
-EF of 25% from echo in 2020
-Cardiology following
-Echo 09/11 noted with a EF 15 to 20%,
-S/p CABG 10/2008 with FOLEY to LAD and SVG to RPDA
-S/p cardiac cath at [facility] 11/16/20 FOLEY to LAD patent, SVG to RPDA occluded, ostial Circ 75% stenosis, ostial RCA 75% stenosis
Severe
-Hold Farxiga
-Continue midodrine with holding parameter
Shock, unknown etiology
resolved
Pressors weaned off
was hypotensive again09/16; transferred back to IMU, so far no pressors restarted
coreg dec, monitor. If BP low again then cardiology rec midodrine, would need to be cautious give low EF
# SAM likely cardiorenal on CKD, unknown baseline
-Creatinine of 2.7 from 1.9; now 1.6
-Continue with diuresis
-Nephrology following
-Hold spironolactone, losartan
UA suggestive of mild UTI, urine culture with pseudomonas. History of Pseudomonas, E. coli. Transition to Cipro to complete course
UTI
History of multiple UTIs in past
Urine culture with pseudomonas;Transitioned to Cipro
Day 8 of abx -dc further.
Afeb , WBC normal. No dysuria.
Elevated troponin likely secondary to nonischemic myocardial injury
Monitor
Edema blistering 2/2 fluid overload
monitor
venous Doppler lower extremity neg for DVT
History of TAVR
CAD status post CABG
-Continue Plavix
-Continue Coreg
Chronic lymphedema
left buttock pressure related pressure injury stage 1
Essential hypertension
Chronic LBBB
Hypercholesterolemia
Chronic anemia
Type 2 diabetes
-Hold metformin, glipizide
-Insulin sliding scale
A1c 6.8
History of CVA
Hypothyroidism
-Continue levothyroxine
Full code
DVT prophylaxis�heparin
Patient yesterday told other medical providers that she had a nap and she wanted to .
Confronted today with patient about it.' I was being a smart Aleck yesterday doctor !' was her response.
She wants to continue with the treatments.
Dr. Akbar discussed CODE STATUS and hospital course with patient and daughter. They understand and daughter agreeable on meeting with palliate care. Consulted palliative care.
CODE STATUS remains full code
Discussed with RN
Total time spent on today's encounter was 52 minutes which included time spent in counseling the patient/family regarding diagnosis and treatment plan as listed above, goals of care, and symptom management. Case was discussed with nursing staff,
specialists, and care coordinators/case management. All labs and imaging personally reviewed by me. Remainder the time spent in detailed review of previous records, lab data, imaging, and other medical provider documentation.
Anticipated Discharge: > 48 hours
Subjective/Interval History
-
Date of Service: September 19, 2024
Patient slept okay
She had a good breakfast. Finished 100% of her breakfast.
Denies shortness of breath at rest. Requiring 2 L of oxygen. No chest pain.
No dizziness.
Objective Data
-
Labs:
Laboratory Results
09/19/24
04:27
WBC 5.7
Hgb 9.4 L
Hct 29.2 L
Plt Count 372
Sodium 137
Potassium 4.2
Chloride 98
Carbon Dioxide 35 H
BUN 84 H
Creatinine 1.6 H
Glucose 132 H
Calcium 9.3
Vital Signs:
Vital Signs
Temp Pulse Resp BP Pulse Ox
97.8 F 65 22 105/50 100
09/19/24 07:27 09/19/24 08:27 09/19/24 06:00 09/19/24 08:27 09/19/24 06:00
I&O
09/18/24 09/19/24 09/20/24
06:59 06:59 06:59
Output Total 750 / 750 1700 / 1700
Balance -750 / -750 -1700 / -1700
Review of Systems
-
Constitutional: Denies Fever or Chills
Abdomen/GI: Denies Abdominal Pain, Nausea or Vomiting
Neuro: Denies Dizzy
Physical Exam
-
General: No Apparent Distress
HEENT: Moist Mucous Membranes
Respiratory: Crackles (Bibasilar) and Non Labored Respirations; Negative Wheezes or Accessory Resp Muscle Use
Cardiac: Regular Rhythm and S1/S2; Negative Tachycardic
GI: Soft
Musculoskeletal: Edema, Right Lower Extrem and Edema, Left Lower Extrem
Neuro: AO x 3
Psych: Calm; Negative Confused or Agitated
Data Reviewed
-
Labs: Labs Reviewed by me
[2024-09-19] MEDS: LOW STRENGTH ASPIRIN 81 MG PO ×2 (10:21→20:18)
--- NOTE | 2024-09-19 12:14 | PTCARENOTE ---
Assumed care of patient at beginning of this shift from previous RN with O2 2l n/c in use. Attempted to wean to RA but POx dropped to 89-90%. Lungs diminished with exp wheeze; occasional moist cough. Family meeting to discuss GOC set for 1300 per
Jd. See worklist for full assessment and vital signs.
--- NOTE | 2024-09-19 12:35 | W.PN.PAL2 ---
Today's Communication
-
seen at bedside, no family
reports to me today that shes 'lived a good life and is ready to go' also reported this to team yesterday then said she was joking
planned to speak with cards today with daughter present
will follow up re' that conversation
Assessment / Plan
-
Assessment/Plan:
- planned for discussion with cardiology and daughter today
- daughter aware patient is a candidate for hospice if this is the direction they want to go
- spoke with patient about hospice today as well although she is slightly confused
- will follow up regarding conversation with daughter today
Pain & Symptom Assessment
[place] Symptom Scale 0=none, 10=worst
Pain: 0
Tired: 4
Shortness of Breath: 0
Objective Data
-
Objective Data:
Vital Signs
Temp Pulse Resp BP Pulse Ox
97.8 F 67 21 110/61 97
09/19/24 07:27 09/19/24 10:00 09/19/24 10:00 09/19/24 10:00 09/19/24 10:14
Laboratory Results
09/19/24 04:27
09/19/24 04:27
Hemoglobin A1c 6.8 % (4.0-5.6) H 09/11/24 05:12
Total Protein 5.5 g/dl (6.3-8.2) L 09/11/24 05:12
Albumin 3.3 g/dl (3.5-5.0) L 09/11/24 05:12
Urine Color Yellow 09/11/24 13:02
Urine Clarity Clear (Clear) 09/11/24 13:02
Urine pH 7.0 (5.0-9.0) 09/11/24 13:02
Ur Specific Leroy 1.010 (<1.030) 09/11/24 13:02
Urine Ketones Negative (Negative) 09/11/24 13:02
Urine Bilirubin Negative (Negative) 09/11/24 13:02
Palliative Performance Scale
Palliative Performance Scale:
PPS Level Ambulation Activity & Evidence of Disease Self Care Intake Conscious Level
100% Full Normal Activity & Work; Full Intake Full
No Evidence of Disease
90% Full Normal Activity & Work; Full Normal Full
Some Evidence of Disease
80% Full Normal Activity with Effort Full Normal or Full
Some Evidence of Disease Reduced
70% Reduced Unable Normal Job/Work Full Normal or Full
Significant Disease Reduced
60% Reduced Unable Hobby/Housework Occasional Normal or Full or Confusion
Significant Disease Assistance Reduced
50% Mainly Sit/Lie Unable to do Any Work Considerable Normal or Full or Confusion
Extensive Disease Assistance Req'd Reduced
40% Mainly in Bed Unable to do Most Activity Mainly Assistance Normal or Full or Drowsy;
Extensive Disease Reduced +/- Confusion
30% Totally Bed Unable to do Any Activity Total Care Normal or Full or Drowsy;
Bound Extensive Disease Reduced +/- Confusion
20% Totally Bed Bound Unable to do Any Activity Total Care Minimal to Full or Drowsy;
Extensive Disease Sips +/- Confusion
10% Totally Bed Bound Unable to do Any Activity Total Care Mouth Care Drowsy or Coma;
Extensive Disease Only +/- Confusion
0%
PPS Score Level:
Physical Exam
-
General: Well Developed, Conversant and Obese
HEENT: Normocephalic
Respiratory: Decreased Breath Sounds
Cardiac: Regular Rhythm
GI: Soft
Skin: Warm
Neuro: AO x 3
Care Reviewed
Data Reviewed
Medical Tests: I reviewed
Reviewed with: Patient
--- NOTE | 2024-09-19 12:35 | W.PN.NEPH.PH ---
Today's Communication / Plan
-
Continue diuretic
Assessment/Plan
-
IMP:
Acute on chronic CHF exacerbation with reduced ejection fraction
Acute hypoxic respiratory insufficiency
Fredi with CKD
Cardiomyopathy EF of 45% from echo in 2023
s/p CABG 10/2008 with FOLEY to LAD and SVG to RPDA
s/p cardiac cath at [facility] 11/16/20 FOLEY to LAD patent, SVG to RPDA occluded, ostial Circ 75% stenosis, ostial RCA 75% stenosis
Severe s/p BAV 12/06/20
Shock, unknown etiology
Elevated troponin likely secondary to nonischemic myocardial injury
Edema blistering 2/2 fluid overload
Chronic lymphedema
Essential hypertension
Chronic LBBB
Hypercholesterolemia
Chronic anemia
Type 2 diabetes
History of CVA
Hypothyroidism
Plan:
continue midodrine
continue IV lasix
Hospice being considered
Possible right heart cath
follow BMP
-
-
Date of Service: September 19, 2024
CC / HPI / ROS
-
Chief Complaint:
FREDI
History of Present Illness:
FREDI/Cr down to 1.6 stable
BP low stable
diuresing slowly for decompensated HF with lasix IV
Review of Systems:
no CP
Remains on nasal cannula
Labs
-
Labs:
WBC 5.7 10^3/uL (4.8-10.8) 09/19/24 04:27
RBC 3.13 10^6/uL (4.20-5.40) L 09/19/24 04:27
Hgb 9.4 g/dL (12.0-16.0) L 09/19/24 04:27
Hct 29.2 % (37.0-47.0) L 09/19/24 04:27
Plt Count 372 10^3/uL (130-400) 09/19/24 04:27
Sodium 137 mmol/L (135-145) 09/19/24 04:27
Potassium 4.2 mmol/L (3.5-5.1) 09/19/24 04:27
Chloride 98 mmol/L (98-107) 09/19/24 04:27
Carbon Dioxide 35 mmol/L (22-30) H 09/19/24 04:27
BUN 84 mg/dl (7-17) H 09/19/24 04:27
Creatinine 1.6 mg/dL (0.6-1.0) H 09/19/24 04:27
eGFR 32.20 09/19/24 04:27
Glucose 132 mg/dl (70-99) H 09/19/24 04:27
Calcium 9.3 mg/dl (8.4-10.2) 09/19/24 04:27
Chn-Z-Fljonhewlfy Pept > 48072 pg/ml 09/15/24 07:46
Albumin 3.3 g/dl (3.5-5.0) L 09/11/24 05:12
Physical Exam
-
Vital Signs:
Vital Signs
Temp Pulse Resp BP Pulse Ox
97.8 F 67 21 110/61 97
09/19/24 07:27 09/19/24 10:00 09/19/24 10:00 09/19/24 10:00 09/19/24 10:14
Cardiovascular:: Regular rate and rhythm
Respiratory:: Bilateral: Coarse
Lung Excursion:: Normal
Abdomen:: Nontender and Soft
Bowel Sounds:: Normal
Extremity Edema:: +2: Bilateral:
[2024-09-19 13:54] LABS: Glucose - Point of Care 137 mg/dl (70-99)
--- NOTE | 2024-09-19 13:58 | W.PN.CARDCBS ---
Today's Communication / Plan
-
Had extensive family meeting. Discussed options with daughter and patient.
Offered a right heart cath and KRYSTIN early next week as most aggressive option versus medical therapy alone with DNR/DNI versus hospice/palliative care.
She is going to think about these options.
For now continue IV Lasix, midodrine, and carvedilol.
Another option would be to add dobutamine to try to augment diuresis.
However if long-term issue is bioprosthetic aortic valve stenosis, the only realistic treatment for this is transcatheter valve in valve procedure.
Impression / Plan
-
PCP: Dr. Elidia Meneses
Primary Tooth Polisher: Dr. Chris Craig of [place]
Assessment:
Presentation with SOB, LE edema 09/10/24
Acute on chronic HFrEF
CM EF previously 45% by echo 07/2023 and reduced further to 15 to 20% by echo 09/11/24
Severe
h/o type 2 [place] related to severe 11/2020 resulting in transfer to [facility], s/p BAV 12/06/20
s/p sternotomy with biologic AVR, aortic root enlargement with pericardial patch, and CABG x1 SVG to distal RCA by Dr. Smith on 03/04/2021
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
Acute hypoxic respiratory insufficiency
SAM on CKD, suspected cardiorenal
Hypotension requiring pressor support
Elevated troponin, suspected nonischemic myocardial injury
CAD
s/p CABG with FOLEY to LAD and SVG to RPDA (occluded by cath 2020) in 2008
s/p cardiac cath at [facility] FOLEY to LAD patent, SVG to RPDA occluded, ostial Circ 75% stenosis, ostial RCA 75% stenosis 11/16/20
s/p CABG at time of AVR with SVG to distal RCA 03/04/21
Brief post op afib episode while at [facility], without known recurrence
s/p [facility] [facility] implanted loop recorder
PVCs
Chronic LBBB
DM 2
HTN
Hyperlipidemia
Hypothyroid
h/o CVA
Peripheral neuropathy
s/p IVC filter
L breast cancer s/p lumpectomy, chemotherapy, and radiation 2008
Obesity
Anemia
Memory loss
Nuclear stress test 08/24/2023: Large sized moderate to severe defect in apex, apical anterior, apical inferior wall, prone imaging not performed, defect consistent with infarct with minimal gerald-infarct ischemia, EF 35% with global hypokinesis and
anteroapical akinesis, unchanged compared to prior cath and echo in 2020
Echo 03/24/2021: EF 25%, severe global hypokinesis with possible inferolateral and apical akinesis, mild MR, bioprosthetic AVR with peak/mean 21/12 mmHg
ECHO 07/2023: Mildly reduced LV systolic function 45% due to akinesis of distal inferior wall, mild MR with severe left atrial dilation, bioprosthetic aortic valve with peak gradient 49/mean gradient 32, valve size known to be small, moderate
pulmonary hypertension
Echo 09/11/2024: Dilated left ventricle with severely reduced left ventricular systolic function estimated 15-20% with grade 2 diastolic dysfunction increased LV filling pressures. Moderate mitral and tricuspid regurgitation. Bioprosthetic aortic
valve with peak/mean gradients 37/23 mmHg and no significant aortic regurgitation.
Plan:
-I had a lengthy discussion with her and her daughter. I reviewed her echo personally and we discussed multiple treatment options. She remains in congestive heart failure with minimal improvement with diuresis with a borderline blood pressure.
LVEF is 20% with likely significant bioprosthetic aortic valve stenosis.
-Option 1 would be to continue aggressive care. We would proceed with a right heart catheterization on Sunday and likely transesophageal echo afterwards. This would allow us to properly evaluate her filling pressures, need for a possible inotrope,
and evaluate her bioprosthetic aortic valve for significant stenosis. We would also consider at some point a left heart catheterization if felt she was a candidate for valve in valve transcatheter valve procedure.
Option 2 would be medical therapy alone. We will continue to attempt diuresis. We could consider adding an inotrope to improve diuresis for the short-term.
Option 3 would be for palliative care/comfort care.
These are all reasonable options. The family going to think about them. I did advise them if they choose option 1 she is not able to be DNR/DNI while we are doing invasive cardiac procedures.
For now we will continue the Lasix 40 mg IV twice daily, and her creatinine overall remains stable at 1.6. Weight is down somewhat today.
-Continue low-dose Coreg, midodrine
-Jardiance/Farxiga are on hold related to Pseudomonas in the urine, and suspect should not be restarted
-continue asa, plavix, statin
Progress Note - Tooth Polisher
Subjective
Date of Service: September 19, 2024
Still with dyspnea on exertion. May be slightly improved. She denies chest pains.
Objective
Labs:
09/19/24 04:27
09/19/24 04:27
Labs
Hgb 9.4 g/dL (12.0-16.0) L 09/19/24 04:27
Hct 29.2 % (37.0-47.0) L 09/19/24 04:27
Plt Count 372 10^3/uL (130-400) 09/19/24 04:27
Sodium 137 mmol/L (135-145) 09/19/24 04:27
Potassium 4.2 mmol/L (3.5-5.1) 09/19/24 04:27
BUN 84 mg/dl (7-17) H 09/19/24 04:27
Creatinine 1.6 mg/dL (0.6-1.0) H 09/19/24 04:27
Glucose 132 mg/dl (70-99) H 09/19/24 04:27
Vital Signs and I&O:
Vital Signs
Temp Pulse Resp BP Pulse Ox
98.2 F 65 21 110/53 97
09/19/24 11:01 09/19/24 12:00 09/19/24 12:00 09/19/24 13:06 09/19/24 12:00
Vital Signs
Temp Pulse Resp BP Pulse Ox
98.2 F 65 21 110/53 97
09/19/24 11:01 09/19/24 12:00 09/19/24 12:00 09/19/24 13:06 09/19/24 12:00
Intake & Output
09/17/24 09/18/24 09/19/24 09/20/24
06:59 06:59 06:59 06:59
Intake Total 780 / 780
Output Total 1000 / 1000 750 / 750 1700 / 1700
Balance -220 / -220 -750 / -750 -1700 / -1700
Physical Exam
Physical Exam
GEN: No distress, awake, Ox3
HEENT: supple, anicteric, mmm
LUNGS: Decreased breath sounds at bases
CV: Reg, S1/S2, 1/6 syst LSB, no murmur
ABD: soft, BS+, NT/ND
EXT: No edema
NEURO: Gross non-focal
SKIN: No rash
[2024-09-19] MEDS: ProAmatine PO (17:04)
[2024-09-19 17:14] LABS: Glucose - Point of Care 148 mg/dl (70-99)
--- NOTE | 2024-09-19 17:52 | PTCARENOTE ---
Family and patient met with Dr Hernandez earlier this afternoon. Prior to leaving, daughter told this nurse patient made decision that she does not want procedures but she does want to continue meds. Daughter also stated that patient wants DNR. TT
with this information sent to both Dr Hernandez and Dr Miles to contact daughter for verification of decision. Code status changed by Dr Miles in computer to DNR status; purple bracelet placed on patient per protocol.
[2024-09-19] MEDS: TYLENOL 650 MG PO (20:18)
[2024-09-19] MEDS: DESENEX/MITRAZOL/ZEASORB 1 APPLIC TOPICAL (20:18)
[2024-09-19 21:38] LABS: Glucose - Point of Care 195 mg/dl (70-99)
--- NOTE | 2024-09-19 22:51 | PTCARENOTE ---
assumed care of patient. pt is AAOx2, not oriented to time but knows she is in [facility]. able to make needs known. VSS. on 2L NC 95%. bed alarm on. able to take pills without issues, no c/o pain to lower back. lidocaine patches removed
per order. mild c/o pain to head, PO tylenol given. care ongoing.
[2024-09-20] VITALS (14 sets, daily range): BP systolic 95–138; BP diastolic 56–94; BMI 40.1
--- NOTE | 2024-09-20 02:59 | PTCARENOTE ---
during hourly rounds, pt noted to be wide awake, stating that there are people walking around and she was told there is no one here at night so she is very suspicious. pt knows she is in [facility]. positive environment maintained.
explained there are medical staff here during the night so the feet she sees are other nurses and techs. bed alarm remains on. care ongoing.
[2024-09-20] MEDS: SYNTHROID 88 MCG PO (05:16)
[2024-09-20 05:47] LABS: Blood Urea Nitrogen 87 mg/dl (7-17); Calcium 9.6 mg/dl (8.4-10.2); Carbon Dioxide 38 mmol/L (22-30); Chloride 97 mmol/L (98-107); Estimated Creatinine Clearance 29 ml/min; Glucose 138 mg/dl (70-99); Potassium 4.6 mmol/L (3.5-5.1); Sodium 138 mmol/L (135-145)
--- NOTE | 2024-09-20 08:04 | W.PN.HOSP.TC ---
Today's Communication/Plan
-
Continue with IV diuresis
Follow BMP
Assessment / Plan
Assessment / Plan
Acute on chronic CHF exacerbation with reduced ejection fraction
Acute hypoxic respiratory insufficiency secondary to above, back on 2 L
-Cardiac BNP greater than 27,000
-Chest x-ray shows pulm edema, does not appear to have pneumonia. Will monitor. No fever, leukocytosis.
-Continue with diuresis per renal- Back to IV diuresis.
-EF of 25% from echo in 2020
-Echo 09/11 noted with a EF 15 to 20%,
-S/p CABG 10/2008 with FOLEY to LAD and SVG to RPDA
-S/p cardiac cath at [facility] 11/16/20 FOLEY to LAD patent, SVG to RPDA occluded, ostial Circ 75% stenosis, ostial RCA 75% stenosis
-Severe
-Hold Farxiga
-Continue midodrine with holding parameter
-Check I's and O's, daily weights-lost 4 pounds of weight since yesterday.
Shock, unknown etiology
resolved
Pressors weaned off
was hypotensive again09/16; transferred back to IMU, so far no pressors restarted
coreg dec, monitor.
Continue with midodrine.
# SAM likely cardiorenal on CKD, unknown baseline
-Creatinine of 2.7 from 1.9; now 1.6
-Continue with diuresis
-Nephrology following
-Hold spironolactone, losartan
UTI
History of multiple UTIs in past
Urine culture with pseudomonas;Transitioned to Cipro
finished abx
Afeb , WBC normal. No dysuria.
Elevated troponin likely secondary to nonischemic myocardial injury
Monitor
Edema blistering 2/2 fluid overload
monitor
venous Doppler lower extremity neg for DVT
History of TAVR
CAD status post CABG
-Continue Plavix
-Continue Coreg
Chronic lymphedema
left buttock pressure related pressure injury stage 1
Essential hypertension
Chronic LBBB
Hypercholesterolemia
Chronic anemia
Type 2 diabetes
-Hold metformin, glipizide
-Insulin sliding scale
A1c 6.8
History of CVA
Hypothyroidism
-Continue levothyroxine
Full code
DVT prophylaxis�heparin
Discussed with RN
DW cards today - would consider adding dobutatmine
Patient and daughter had discussion with cardiology yesterday. I followed with the daughter yesterday-they do not want any procedures moving forward and they want to medically manage her condition. No heart catheterizations. Her pressures now
also is DO NOT RESUSCITATE in the event of cardiac arrest or ventilatory support with respiratory arrest.
Today the patient reiterates that she does not want any procedures and wants only medications.
DNR/DNI
Total time spent on today's encounter was 52 minutes which included time spent in counseling the patient/family regarding diagnosis and treatment plan as listed above, goals of care, and symptom management. Case was discussed with nursing staff,
specialists, and care coordinators/case management. All labs and imaging personally reviewed by me. Remainder the time spent in detailed review of previous records, lab data, imaging, and other medical provider documentation.
Anticipated Discharge: > 48 hours
Subjective/Interval History
-
Date of Service: September 20, 2024
Last night she felt bit short of breath and also she had some central chest discomfort for few minutes which resolved by itself. No further chest pains or discomforts today.
No nausea vomiting.
Objective Data
-
Labs:
Laboratory Results
09/20/24 09/20/24
05:05 06:00
Sodium 138 Cancelled
Potassium 4.6 Cancelled
Chloride 97 L Cancelled
Carbon Dioxide 38 H Cancelled
BUN 87 H Cancelled
Creatinine 1.6 H Cancelled
Glucose 138 H Cancelled
Calcium 9.6 Cancelled
Vital Signs:
Vital Signs
Temp Pulse Resp BP Pulse Ox
98 F 67 21 125/62 98
09/20/24 03:41 09/20/24 06:00 09/20/24 06:00 09/20/24 06:00 09/20/24 06:00
I&O
09/19/24 09/20/24 09/21/24
06:59 06:59 06:59
Intake Total 240 / 240
Output Total 1700 / 1700 1300 / 1300
Balance -1700 / -1700 -1060 / -1060
Review of Systems
-
Constitutional: Denies Fever or Chills
Respiratory: Reports Trouble Breathing; Denies Cough
Cardiac: Denies Chest Pain (This morning) or Palpitations
Abdomen/GI: Denies Abdominal Pain, Nausea or Vomiting
Neuro: Denies Dizzy
Physical Exam
-
General: No Apparent Distress
HEENT: Moist Mucous Membranes
Respiratory: Crackles (Bibasilar) and Non Labored Respirations; Negative Wheezes or Accessory Resp Muscle Use
Cardiac: Regular Rhythm and S1/S2
GI: Soft
Musculoskeletal: Edema, Right Lower Extrem and Edema, Left Lower Extrem
Neuro: AO x 3
Data Reviewed
-
Labs: Labs Reviewed by me
[2024-09-20 08:57] LABS: Glucose - Point of Care 148 mg/dl (70-99)
[2024-09-20] MEDS: NOVOLOG FLEXPEN-LOW RESISTANCE SC (09:06)
[2024-09-20] MEDS: FEOSOL 325 MG PO (09:15)
[2024-09-20] MEDS: CLARITIN 10 MG PO (09:15)
[2024-09-20] MEDS: LIPITOR 40 MG PO (09:15)
[2024-09-20] MEDS: PROTONIX 40 MG PO (09:15)
[2024-09-20] MEDS: PLAVIX 75 MG PO (09:15)
[2024-09-20] MEDS: UROCIT-K 10 MEQ PO ×2 (09:17→20:08)
[2024-09-20] MEDS: COREG 3.125 MG PO (09:17)
[2024-09-20] MEDS: THERAGRAN 1 TABLET PO (09:17)
[2024-09-20] MEDS: MAGNESIUM OXIDE 500 MG PO (09:17)
[2024-09-20] MEDS: LOW STRENGTH ASPIRIN 81 MG PO ×2 (09:17→20:08)
[2024-09-20] MEDS: OCUVITE SOFTGEL 1 CAP PO ×2 (09:18→20:08)
[2024-09-20] MEDS: LIDOCAINE 4% PATCH TOPICAL (09:19)
[2024-09-20] MEDS: LASIX 40 MG IV ×2 (09:20→16:52)
[2024-09-20] MEDS: HEPARIN 5000 UNITS SC ×2 (09:20→20:08)
--- NOTE | 2024-09-20 09:20 | W.PN.CARDCBS ---
Today's Communication / Plan
-
She desires DNR/DNI but continued medical therapy. We are going to try to add low-dose dobutamine 5 mcg/kg/min to try to help augment diuresis.
Continue IV Lasix and midodrine.
Hold Coreg while on dobutamine.
Continue aspirin, Plavix, and atorvastatin for CAD.
Impression / Plan
-
PCP: Dr. Elidia Meneses
Primary Toll Gate Tender: Dr. Chris Craig of [place]
Assessment:
Presentation with SOB, LE edema 09/10/24
Acute on chronic HFrEF
CM EF previously 45% by echo 07/2023 and reduced further to 15 to 20% by echo 09/11/24
Severe
h/o type 2 [place] related to severe 11/2020 resulting in transfer to [facility], s/p BAV 12/06/20
s/p sternotomy with biologic AVR, aortic root enlargement with pericardial patch, and CABG x1 SVG to distal RCA by Dr. Smith on 03/04/2021
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
Acute hypoxic respiratory insufficiency
SAM on CKD, suspected cardiorenal
Hypotension requiring pressor support
Elevated troponin, suspected nonischemic myocardial injury
CAD
s/p CABG with FOLEY to LAD and SVG to RPDA (occluded by cath 2020) in 2008
s/p cardiac cath at [facility] FOLEY to LAD patent, SVG to RPDA occluded, ostial Circ 75% stenosis, ostial RCA 75% stenosis 11/16/20
s/p CABG at time of AVR with SVG to distal RCA 03/04/21
Brief post op afib episode while at [facility], without known recurrence
s/p [facility] implanted loop recorder
PVCs
Chronic LBBB
DM 2
HTN
Hyperlipidemia
Hypothyroid
h/o CVA
Peripheral neuropathy
s/p IVC filter
L breast cancer s/p lumpectomy, chemotherapy, and radiation 2008
Obesity
Anemia
Memory loss
Nuclear stress test 08/24/2023: Large sized moderate to severe defect in apex, apical anterior, apical inferior wall, prone imaging not performed, defect consistent with infarct with minimal gerald-infarct ischemia, EF 35% with global hypokinesis and
anteroapical akinesis, unchanged compared to prior cath and echo in 2020
Echo 03/24/2021: EF 25%, severe global hypokinesis with possible inferolateral and apical akinesis, mild MR, bioprosthetic AVR with peak/mean 21/12 mmHg
ECHO 07/2023: Mildly reduced LV systolic function 45% due to akinesis of distal inferior wall, mild MR with severe left atrial dilation, bioprosthetic aortic valve with peak gradient 49/mean gradient 32, valve size known to be small, moderate
pulmonary hypertension
Echo 09/11/2024: Dilated left ventricle with severely reduced left ventricular systolic function estimated 15-20% with grade 2 diastolic dysfunction increased LV filling pressures. Moderate mitral and tricuspid regurgitation. Bioprosthetic aortic
valve with peak/mean gradients 37/23 mmHg and no significant aortic regurgitation.
Plan:
-I had a lengthy discussion with her and her daughter. I reviewed her echo personally and we discussed multiple treatment options. She remains in congestive heart failure with minimal improvement with diuresis with a borderline blood pressure.
LVEF is 20% with likely significant bioprosthetic aortic valve stenosis.
The patient and her daughter prefer medical therapy with DNR. They do not desire right heart catheter KRYSTIN. At this point we are going to try low-dose dobutamine to try and augment diuresis.
For now we will continue the Lasix 40 mg IV twice daily, and her creatinine overall remains stable at 1.6. Weight is down somewhat today.
-Continue low-dose Coreg, midodrine
-Jardiance/Farxiga are on hold related to Pseudomonas in the urine, and suspect should not be restarted
-continue asa, plavix, statin
Progress Note - Toll Gate Tender
Subjective
Date of Service: September 20, 2024
Feels about the same. Had some atypical chest pains overnight but these are resolved.
Objective
Labs:
09/19/24 04:27
09/20/24 06:00
Labs
Hgb 9.4 g/dL (12.0-16.0) L 09/19/24 04:27
Hct 29.2 % (37.0-47.0) L 09/19/24 04:27
Plt Count 372 10^3/uL (130-400) 09/19/24 04:27
Sodium Cancelled 09/20/24 06:00
Potassium Cancelled 09/20/24 06:00
BUN Cancelled 09/20/24 06:00
Creatinine Cancelled 09/20/24 06:00
Glucose Cancelled 09/20/24 06:00
Vital Signs and I&O:
Vital Signs
Temp Pulse Resp BP Pulse Ox
98 F 67 21 125/62 98
09/20/24 03:41 09/20/24 06:00 09/20/24 06:00 09/20/24 06:00 09/20/24 06:00
Vital Signs
Temp Pulse Resp BP Pulse Ox
98 F 67 21 125/62 98
09/20/24 03:41 09/20/24 06:00 09/20/24 06:00 09/20/24 06:00 09/20/24 06:00
Intake & Output
09/18/24 09/19/24 09/20/24 09/21/24
06:59 06:59 06:59 06:59
Intake Total 240 / 240
Output Total 750 / 750 1700 / 1700 1300 / 1300
Balance -750 / -750 -1700 / -1700 -1060 / -1060
Physical Exam
Physical Exam
GEN: No distress, awake, Ox3
HEENT: supple, anicteric, mmm
LUNGS: CTA, no wheezes/rales
CV: Reg, S1/S2, 3/6 syst LSB, S3+
ABD: soft, BS+, NT/ND
EXT: +1 edema
NEURO: Gross non-focal
SKIN: No rash
[2024-09-20] MEDS: DESENEX/MITRAZOL/ZEASORB 1 APPLIC TOPICAL ×2 (09:21→20:07)
[2024-09-20] MEDS: OSCAL 500 + D 500 MG PO (09:23)
[2024-09-20] MEDS: ProAmatine 5 MG PO ×3 (09:25→17:33)
[2024-09-20] MEDS: DOBUTREX 500 MG 250 IV (11:04)
[2024-09-20 12:26] LABS: Glucose - Point of Care 157 mg/dl (70-99)
--- NOTE | 2024-09-20 12:26 | W.PN.NEPH.PH ---
Today's Communication / Plan
-
Continue diuretics with inotrope
Assessment/Plan
-
IMP:
Acute on chronic CHF exacerbation with reduced ejection fraction
Acute hypoxic respiratory insufficiency
Fredi with CKD
Cardiomyopathy EF of 45% from echo in 2023
s/p CABG 10/2008 with FOLEY to LAD and SVG to RPDA
s/p cardiac cath at [facility] 11/16/20 FOLEY to LAD patent, SVG to RPDA occluded, ostial Circ 75% stenosis, ostial RCA 75% stenosis
Severe s/p BAV 12/06/20
Shock, unknown etiology
Elevated troponin likely secondary to nonischemic myocardial injury
Edema blistering 2/2 fluid overload
Chronic lymphedema
Essential hypertension
Chronic LBBB
Hypercholesterolemia
Chronic anemia
Type 2 diabetes
History of CVA
Hypothyroidism
Plan:
continue midodrine
continue IV lasix
Hospice being considered
Negative fluid balance 1.7 L
Creatinine stable
Cardiology added dobutamine
Total Time Spent with Patient (in minutes): 31
-
-
Date of Service: September 20, 2024
CC / HPI / ROS
-
Chief Complaint:
FREDI
History of Present Illness:
FREDI/Cr down to 1.6 stable
BP low stable
diuresing slowly for decompensated HF with lasix IV
Review of Systems:
no CP
Remains on nasal cannula
Labs
-
Labs:
WBC 5.7 10^3/uL (4.8-10.8) 09/19/24 04:27
RBC 3.13 10^6/uL (4.20-5.40) L 09/19/24 04:27
Hgb 9.4 g/dL (12.0-16.0) L 09/19/24 04:27
Hct 29.2 % (37.0-47.0) L 09/19/24 04:27
Plt Count 372 10^3/uL (130-400) 09/19/24 04:27
Sodium Cancelled 09/20/24 06:00
Potassium Cancelled 09/20/24 06:00
Chloride Cancelled 09/20/24 06:00
Carbon Dioxide Cancelled 09/20/24 06:00
BUN Cancelled 09/20/24 06:00
Creatinine Cancelled 09/20/24 06:00
eGFR Cancelled 09/20/24 06:00
Glucose Cancelled 09/20/24 06:00
Calcium Cancelled 09/20/24 06:00
Fba-K-Qrytbvujzbg Pept > 68953 pg/ml 09/15/24 07:46
Albumin 3.3 g/dl (3.5-5.0) L 09/11/24 05:12
Physical Exam
-
Vital Signs:
Vital Signs
Temp Pulse Resp BP Pulse Ox
97.4 F 67 21 125/62 98
09/20/24 07:20 09/20/24 06:00 09/20/24 06:00 09/20/24 06:00 09/20/24 06:00
Cardiovascular:: Regular rate and rhythm
Respiratory:: Bilateral: Coarse
Lung Excursion:: Normal
Abdomen:: Nontender and Soft
Bowel Sounds:: Normal
Extremity Edema:: +2: Bilateral:
[2024-09-20] MEDS: NOVOLOG FLEXPEN-LOW RESISTANCE 1 UNITS SC ×2 (12:30→16:54)
[2024-09-20 16:44] LABS: Glucose - Point of Care 182 mg/dl (70-99)
[2024-09-20 21:22] LABS: Glucose - Point of Care 219 mg/dl (70-99)
--- NOTE | 2024-09-20 22:53 | PTCARENOTE ---
assumed care of patient. Patient disorientated to time and also confused at times buy able to make needs known. NSR on monitor with PVCS. Took pills with water without issue. Purewick in place draining carloz urine. Assessment and VS as documented.
Call rey in reach.
[2024-09-21] VITALS (12 sets, daily range): BP systolic 92–129; BP diastolic 57–94; BMI 39.8
--- NOTE | 2024-09-21 02:59 | PTCARENOTE ---
Addendum entered by Meenu Stratton RN 09/21/24 04:57:
IV lasix, morphine, chest xray and bipap ordered, BILLIARD PLAYER and RT at bedside. daughter called and updated on patient condition. Care ongoing.
Original Note:
patient began complaining of SOB. pulse ox 97% on 4L. Patient began wheezing and belly breathing. TT BILLIARD PLAYER and respiratory therapy. breathing treatment ordered. continuing to monitor.
[2024-09-21] MEDS: DUONEB 3 ML INH (03:04)
[2024-09-21] MEDS: LASIX 40 MG IV ×3 (04:01→17:13)
[2024-09-21] MEDS: SYNTHROID PO (04:11)
--- NOTE | 2024-09-21 04:14 | W.PN.UPDATE ---
Update Note
Progress Note Update
0300 pt awoke with sob, increase WOB, wheezing. Asked for a breathing tx--duoneb ordered but ineffective.
CXR ordered- official report pending but looks like worsening pleural effusions and pulm edema worsening.
PT with audible crackles
Confirmed pt with that she is DNR/DNI and does not want any procedures.
Wanted me to call daughter, tanesha. Tanesha called and update given on mothers change in respiratory status. daughter ok for morphine or ativan for anxiety or WOB
Patient at first did not want any meds but then did agree to take. Morphine 1ng ordered.
0530 placed hold on dobutamine as pt has been increasingly becoming more tachycardiac since initiation.
Tried to place on bipap but pt could not tolerate and was taking it off.
[2024-09-21] MEDS: MORPHINE SULFATE 1 MG IV (04:30)
[2024-09-21] MEDS: DOBUTREX 500 MG 250 IV (04:51)
[2024-09-21] MEDS: ATIVAN 0.25 MG IV (06:02)
--- NOTE | 2024-09-21 06:13 | PTCARENOTE ---
patient still working hard to breathe, SOB and wheezing. Attempted to place on bipap, consistently pulled bipap off and said she did not want to wear it. PRN Ativan given. Dobutamine gtt on hold per SOCK BOARDER. SOCK BOARDER at bedside throughout change in patient
condition. continuing to monitor patient.
[2024-09-21 08:05] LABS: Glucose - Point of Care 224 mg/dl (70-99)
[2024-09-21] MEDS: HEPARIN 5000 UNITS SC ×2 (08:07→20:15)
[2024-09-21] MEDS: LIDOCAINE 4% PATCH TOPICAL (08:09)
--- NOTE | 2024-09-21 09:13 | W.PN.HOSP.TC ---
Today's Communication/Plan
-
Check VBG
Continue with IV Lasix
Assessment / Plan
Assessment / Plan
Acute on chronic CHF exacerbation with reduced ejection fraction
Acute hypoxic respiratory insufficiency secondary to above, back on 2 L
-Cardiac BNP greater than 27,000
-Chest x-ray shows pulm edema, does not appear to have pneumonia. Will monitor. No fever, leukocytosis.
-Continue with diuresis per renal- Back to IV diuresis.
-EF of 25% from echo in 2020
-Echo 09/11 noted with a EF 15 to 20%,
-S/p CABG 10/2008 with FOLEY to LAD and SVG to RPDA
-S/p cardiac cath at [facility] 11/16/20 FOLEY to LAD patent, SVG to RPDA occluded, ostial Circ 75% stenosis, ostial RCA 75% stenosis
-Severe
-Hold Farxiga
-Continue midodrine with holding parameter
-Check I's and O's, daily weights-weight improving.
Patient becoming more progressively short of breath and becoming confused which I suspect is encephalopathy. Cannot tolerate dobutamine yesterday due to tachycardia and is on hold. Check a VBG to assess ventilatory status.
Shock, unknown etiology
resolved
Pressors weaned off
was hypotensive again09/16; transferred back to IMU, so far no pressors restarted
coreg dec, monitor.
Continue with midodrine.
# SAM likely cardiorenal on CKD, unknown baseline
-Creatinine of 2.7 from 1.9; creatinine from today pending
-Continue with diuresis
-Nephrology following
-Hold spironolactone, losartan
UTI
History of multiple UTIs in past
Urine culture with pseudomonas;Transitioned to Cipro
finished abx
Afeb , WBC normal. No dysuria.
Elevated troponin likely secondary to nonischemic myocardial injury
Monitor
Edema blistering 2/2 fluid overload
monitor
venous Doppler lower extremity neg for DVT
History of TAVR
CAD status post CABG
-Continue Plavix
-Continue Coreg
Chronic lymphedema
left buttock pressure related pressure injury stage 1
Essential hypertension
Chronic LBBB
Hypercholesterolemia
Chronic anemia
Type 2 diabetes
-Hold metformin, glipizide
-Insulin sliding scale
A1c 6.8
History of CVA
Hypothyroidism
-Continue levothyroxine
Full code
DVT prophylaxis�heparin
Discussed with RN
DW cards
Change in clinical status today noted. Patient more short of breath and confused. Patient had deferred procedures and wanted only medical therapy. Declined BiPAP. Concerning change in status . Check VBG and assess ventilatory status.
Will dw daughter about goals of care if continued deterioration
DNR/DNI
Total time spent on today's encounter was 52 minutes which included time spent in counseling the patient/family regarding diagnosis and treatment plan as listed above, goals of care, and symptom management. Case was discussed with nursing staff,
specialists, and care coordinators/case management. All labs and imaging personally reviewed by me. Remainder the time spent in detailed review of previous records, lab data, imaging, and other medical provider documentation.
Anticipated Discharge: > 48 hours
Subjective/Interval History
-
Date of Service: September 21, 2024
Last night events noted. Patient became more short of breath.
This morning patient is in and out of mentation. She is confused. She did receive morphine for shortness of breath.
Yesterday she was confused and was repeating things per RN
Objective Data
-
Labs:
Laboratory Results
09/21/24
06:00
Sodium Pending
Potassium Pending
Chloride Pending
Carbon Dioxide Pending
BUN Pending
Creatinine Pending
Glucose Pending
Calcium Pending
Vital Signs:
Vital Signs
Temp Pulse Resp BP Pulse Ox
97.8 F 111 34 97/57 92
09/21/24 07:05 09/21/24 08:03 09/21/24 04:00 09/21/24 08:03 09/21/24 04:00
I&O
09/20/24 09/21/24 09/22/24
06:59 06:59 06:59
Intake Total 240 / 240
Output Total 1300 / 1300 800 / 800
Balance -1060 / -1060 -800 / -800
Review of Systems
-
Unable to obtain full review of systems at this time due to: Other (Cognitively impaired)
Physical Exam
-
General: Negative Comfortable
Respiratory: Crackles (Bilateral lower zone); Negative Wheezes or Non Labored Respirations (Tachypnea noted)
Cardiac: Regular Rhythm and S1/S2
GI: Soft
Neuro: Awake; Negative Alert (Drifts of into sleep and when aroused she is confused today)
Psych: Negative Confused
Data Reviewed
-
Labs: Labs Reviewed by me
[2024-09-21] MEDS: LIPITOR PO (09:19)
[2024-09-21] MEDS: FEOSOL PO (09:19)
[2024-09-21] MEDS: CLARITIN PO (09:19)
[2024-09-21] MEDS: OSCAL 500 + D PO (09:20)
[2024-09-21] MEDS: MAGNESIUM OXIDE PO (09:20)
[2024-09-21] MEDS: OCUVITE SOFTGEL PO (09:20)
[2024-09-21] MEDS: PROTONIX PO (09:21)
[2024-09-21] MEDS: UROCIT-K PO (09:21)
[2024-09-21] MEDS: THERAGRAN PO (09:21)
[2024-09-21] MEDS: NOVOLOG FLEXPEN-LOW RESISTANCE 2 UNITS SC (10:09)
[2024-09-21] MEDS: DESENEX/MITRAZOL/ZEASORB 1 APPLIC TOPICAL ×2 (10:11→20:16)
[2024-09-21] MEDS: ProAmatine 5 MG PO ×3 (10:11→17:12)
[2024-09-21] MEDS: PLAVIX 75 MG PO (10:11)
[2024-09-21] MEDS: LOW STRENGTH ASPIRIN PO (10:40)
[2024-09-21 11:49] LABS: Venous Blood Gas B.E. 9.8 mmol/L (-4 to +4); Venous Blood Gas HCO3 35.3 mmol/L (22-27); Venous Blood Gas pCO2 52 mmHg (35-48); Venous Blood Gas pH 7.44 (7.32-7.43); Venous Blood Gas pO2 180 mmHg (30-50)
--- NOTE | 2024-09-21 12:04 | W.PN.CARDCBS ---
Today's Communication / Plan
-
Events overnight noted. She did poorly with dobutamine. Will stop dobutamine. Will restart carvedilol.
Continue IV Lasix and midodrine.
Agree with plans for DNR/DNI
Long-term prognosis remains very poor.
She had been diuresing some with the Lasix.
Impression / Plan
-
PCP: Dr. Elidia Meneses
Primary Object Oriented Developer: Dr. Chris Craig of [place]
Assessment:
Presentation with SOB, LE edema 09/10/24
Acute on chronic HFrEF
CM EF previously 45% by echo 07/2023 and reduced further to 15 to 20% by echo 09/11/24
Severe
h/o type 2 [place] related to severe 11/2020 resulting in transfer to [facility], s/p BAV 12/06/20
s/p sternotomy with biologic AVR, aortic root enlargement with pericardial patch, and CABG x1 SVG to distal RCA by Dr. Smith on 03/04/2021
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
Acute hypoxic respiratory insufficiency
SAM on CKD, suspected cardiorenal
Hypotension requiring pressor support
Elevated troponin, suspected nonischemic myocardial injury
CAD
s/p CABG with FOLEY to LAD and SVG to RPDA (occluded by cath 2020) in 2008
s/p cardiac cath at [facility] FOLEY to LAD patent, SVG to RPDA occluded, ostial Circ 75% stenosis, ostial RCA 75% stenosis 11/16/20
s/p CABG at time of AVR with SVG to distal RCA 03/04/21
Brief post op afib episode while at [facility], without known recurrence
s/p [facility] implanted loop recorder
PVCs
Chronic LBBB
DM 2
HTN
Hyperlipidemia
Hypothyroid
h/o CVA
Peripheral neuropathy
s/p IVC filter
L breast cancer s/p lumpectomy, chemotherapy, and radiation 2008
Obesity
Anemia
Memory loss
Nuclear stress test 08/24/2023: Large sized moderate to severe defect in apex, apical anterior, apical inferior wall, prone imaging not performed, defect consistent with infarct with minimal gerald-infarct ischemia, EF 35% with global hypokinesis and
anteroapical akinesis, unchanged compared to prior cath and echo in 2020
Echo 03/24/2021: EF 25%, severe global hypokinesis with possible inferolateral and apical akinesis, mild MR, bioprosthetic AVR with peak/mean 21/12 mmHg
ECHO 07/2023: Mildly reduced LV systolic function 45% due to akinesis of distal inferior wall, mild MR with severe left atrial dilation, bioprosthetic aortic valve with peak gradient 49/mean gradient 32, valve size known to be small, moderate
pulmonary hypertension
Echo 09/11/2024: Dilated left ventricle with severely reduced left ventricular systolic function estimated 15-20% with grade 2 diastolic dysfunction increased LV filling pressures. Moderate mitral and tricuspid regurgitation. Bioprosthetic aortic
valve with peak/mean gradients 37/23 mmHg and no significant aortic regurgitation.
Plan:
-Did very poorly overnight. Did not tolerate dobutamine. Still having episodes of congestive heart failure.
I reviewed her echo personally and we discussed multiple treatment options. She remains in congestive heart failure with minimal improvement with diuresis with a borderline blood pressure. LVEF is 20% with likely significant bioprosthetic aortic
valve stenosis.
The patient and her daughter prefer medical therapy with DNR. They do not desire right heart catheter RKYSTIN. Would restart carvedilol and continue IV Lasix.
For now we will continue the Lasix 40 mg IV twice daily, and her creatinine overall remains stable at 1.6. Weight is down somewhat today.
-Continue midodrine
-Jardiance/Farxiga are on hold related to Pseudomonas in the urine, and suspect should not be restarted
-continue asa, plavix, statin
Progress Note - Object Oriented Developer
Subjective
Date of Service: September 21, 2024
Had significant fatigue and palpitations overnight. [place] worse with the dobutamine. Agree with stopping dobutamine
Objective
Labs:
09/19/24 04:27
Labs
Hgb 9.4 g/dL (12.0-16.0) L 09/19/24 04:27
Hct 29.2 % (37.0-47.0) L 09/19/24 04:27
Plt Count 372 10^3/uL (130-400) 09/19/24 04:27
Sodium Cancelled 09/20/24 06:00
Potassium Cancelled 09/20/24 06:00
BUN Cancelled 09/20/24 06:00
Creatinine Cancelled 09/20/24 06:00
Glucose Cancelled 09/20/24 06:00
Vital Signs and I&O:
Vital Signs
Temp Pulse Resp BP Pulse Ox
97.8 F 111 34 104/66 92
09/21/24 07:05 09/21/24 08:03 09/21/24 04:00 09/21/24 10:11 09/21/24 04:00
Vital Signs
Temp Pulse Resp BP Pulse Ox
97.8 F 111 34 104/66 92
09/21/24 07:05 09/21/24 08:03 09/21/24 04:00 09/21/24 10:11 09/21/24 04:00
Intake & Output
09/19/24 09/20/24 09/21/24 09/22/24
06:59 06:59 06:59 06:59
Intake Total 240 / 240
Output Total 1700 / 1700 1300 / 1300 800 / 800
Balance -1700 / -1700 -1060 / -1060 -800 / -800
Physical Exam
Physical Exam
GEN: No distress, awake, Ox3
HEENT: supple, anicteric, mmm
LUNGS: bilat rhonchi
CV: Reg with ectopy, S1/S2, 1/6 syst LSB, S3+
ABD: soft, BS+, NT/ND
EXT: + edema
NEURO: Gross non-focal
SKIN: No rash
[2024-09-21 12:10] LABS: Blood Urea Nitrogen 84 mg/dl (7-17); Calcium 10.3 mg/dl (8.4-10.2); Carbon Dioxide 35 mmol/L (22-30); Chloride 96 mmol/L (98-107); Estimated Creatinine Clearance 31 ml/min; Glucose 206 mg/dl (70-99); Potassium 4.8 mmol/L (3.5-5.1); Sodium 138 mmol/L (135-145); eGFR 34.79
[2024-09-21 12:16] LABS: Glucose - Point of Care 199 mg/dl (70-99)
[2024-09-21] MEDS: NOVOLOG FLEXPEN-LOW RESISTANCE 1 UNITS SC (12:43)
--- NOTE | 2024-09-21 13:56 | W.PN.NEPH.PH ---
Today's Communication / Plan
-
Diuresis/hospice suggest
Assessment/Plan
-
IMP:
Acute on chronic CHF exacerbation with reduced ejection fraction
Acute hypoxic respiratory insufficiency
Fredi with CKD
Cardiomyopathy EF of 45% from echo in 2023
s/p CABG 10/2008 with FOLEY to LAD and SVG to RPDA
s/p cardiac cath at [facility] 11/16/20 FOLEY to LAD patent, SVG to RPDA occluded, ostial Circ 75% stenosis, ostial RCA 75% stenosis
Severe s/p BAV 12/06/20
Shock, unknown etiology
Elevated troponin likely secondary to nonischemic myocardial injury
Edema blistering 2/2 fluid overload
Chronic lymphedema
Essential hypertension
Chronic LBBB
Hypercholesterolemia
Chronic anemia
Type 2 diabetes
History of CVA
Hypothyroidism
Plan:
continue midodrine
continue IV lasix
Hospice being considered
Negative fluid balance 1 L
Creatinine stable
Cardiology added dobutamine with responded tachycardic was discontinued.
Continue supportive care
Total Time Spent with Patient (in minutes): 33
-
-
Date of Service: September 21, 2024
CC / HPI / ROS
-
Chief Complaint:
FREDI
History of Present Illness:
FREDI/Cr down to 1.6 stable
BP low stable
diuresing slowly for decompensated HF with lasix IV
Review of Systems:
no CP
Remains on nasal cannula
Labs
-
Labs:
WBC 5.7 10^3/uL (4.8-10.8) 09/19/24 04:27
RBC 3.13 10^6/uL (4.20-5.40) L 09/19/24 04:27
Hgb 9.4 g/dL (12.0-16.0) L 09/19/24 04:27
Hct 29.2 % (37.0-47.0) L 09/19/24 04:27
Plt Count 372 10^3/uL (130-400) 09/19/24 04:27
Sodium 138 mmol/L (135-145) 09/21/24 11:24
Potassium 4.8 mmol/L (3.5-5.1) 09/21/24 11:24
Chloride 96 mmol/L (98-107) L 09/21/24 11:24
Carbon Dioxide 35 mmol/L (22-30) H 09/21/24 11:24
BUN 84 mg/dl (7-17) H 09/21/24 11:24
Creatinine 1.5 mg/dL (0.6-1.0) H 09/21/24 11:24
eGFR 34.79 09/21/24 11:24
Glucose 206 mg/dl (70-99) H 09/21/24 11:24
Calcium 10.3 mg/dl (8.4-10.2) H 09/21/24 11:24
Orn-U-Gpbxgfhcimn Pept > 10387 pg/ml 09/15/24 07:46
Albumin 3.3 g/dl (3.5-5.0) L 09/11/24 05:12
Physical Exam
-
Vital Signs:
Vital Signs
Temp Pulse Resp BP Pulse Ox
97.8 F 111 34 109/81 92
09/21/24 07:05 09/21/24 08:03 09/21/24 04:00 09/21/24 12:44 09/21/24 04:00
Cardiovascular:: Regular rate and rhythm
Respiratory:: Bilateral: Coarse
Lung Excursion:: Normal
Abdomen:: Nontender and Soft
Bowel Sounds:: Normal
Extremity Edema:: +2: Bilateral:
[2024-09-21 16:45] LABS: Glucose - Point of Care 147 mg/dl (70-99)
[2024-09-21] MEDS: NOVOLOG FLEXPEN-LOW RESISTANCE SC (17:13)
[2024-09-21] MEDS: OCUVITE SOFTGEL 1 CAP PO (20:16)
[2024-09-21] MEDS: UROCIT-K 10 MEQ PO (20:16)
[2024-09-21] MEDS: COREG 3.125 MG PO (20:16)
[2024-09-21] MEDS: LOW STRENGTH ASPIRIN 81 MG PO (20:16)
[2024-09-21 23:04] LABS: Glucose - Point of Care 130 mg/dl (70-99)
[2024-09-22] VITALS (17 sets, daily range): BP systolic 87–119; BP diastolic 54–73; PULSE 66; O2SAT 97; BMI 39.4
[2024-09-22] MEDS: SYNTHROID 88 MCG PO (04:23)
[2024-09-22 05:06] LABS: Hematocrit 31.3 % (37.0-47.0); Mean Corp Hgb Conc. 31.9 g/dL (33.0-37.0); Mean Corpuscular Hgb 29.8 pg (27.0-31.0); Mean Corpuscular Volume 93.2 fL (81.0-99.0); Mean Platelet Volume 11.4 fL (7.4-10.4); Platelet Count 486 10^3/uL (130-400); Red Blood Cell Count 3.36 10^6/uL (4.20-5.40); Red Cell Dist. Width 17.1 % (11.5-14.5); White Blood Cell Count 6.4 10^3/uL (4.8-10.8)
[2024-09-22 05:27] LABS: Blood Urea Nitrogen 89 mg/dl (7-17); Calcium 9.5 mg/dl (8.4-10.2); Carbon Dioxide 32 mmol/L (22-30); Chloride 99 mmol/L (98-107); Estimated Creatinine Clearance 39 ml/min; Glucose 114 mg/dl (70-99); Potassium 4.8 mmol/L (3.5-5.1); Sodium 140 mmol/L (135-145); eGFR 45.48
--- NOTE | 2024-09-22 06:05 | PTCARENOTE ---
Received pt at change of shift. AAOx1-2; unable to state place and difficulty with time. BPs soft with SBP in the high 80s; MAP remains >65. Hygiene and oral care provided. Pt resting in bed with call rey in reach.
[2024-09-22 08:26] LABS: Glucose - Point of Care 112 mg/dl (70-99)
[2024-09-22] MEDS: NOVOLOG FLEXPEN-LOW RESISTANCE SC ×3 (08:33→17:55)
[2024-09-22] MEDS: UROCIT-K 10 MEQ PO ×2 (09:38→20:42)
[2024-09-22] MEDS: FEOSOL 325 MG PO (09:38)
[2024-09-22] MEDS: OCUVITE SOFTGEL 1 CAP PO ×2 (09:39→20:42)
[2024-09-22] MEDS: LIPITOR 40 MG PO (09:39)
[2024-09-22] MEDS: CLARITIN 10 MG PO (09:39)
[2024-09-22] MEDS: COREG 3.125 MG PO ×2 (09:39→20:53)
[2024-09-22] MEDS: PLAVIX 75 MG PO (09:39)
[2024-09-22] MEDS: OSCAL 500 + D 500 MG PO (09:39)
[2024-09-22] MEDS: MAGNESIUM OXIDE 500 MG PO (09:39)
[2024-09-22] MEDS: THERAGRAN 1 TABLET PO (09:39)
[2024-09-22] MEDS: LASIX 40 MG IV ×2 (09:40→17:35)
[2024-09-22] MEDS: HEPARIN 5000 UNITS SC ×2 (09:40→20:44)
[2024-09-22] MEDS: PROTONIX 40 MG PO (09:40)
[2024-09-22] MEDS: ProAmatine 5 MG PO ×3 (09:40→17:35)
[2024-09-22] MEDS: DESENEX/MITRAZOL/ZEASORB 1 APPLIC TOPICAL ×2 (09:41→21:53)
[2024-09-22] MEDS: LIDOCAINE 4% PATCH 2 PATCH TOPICAL (09:42)
[2024-09-22] MEDS: LOW STRENGTH ASPIRIN 81 MG PO ×2 (09:43→21:53)
--- NOTE | 2024-09-22 09:59 | W.PN.NEPH.PH ---
Today's Communication / Plan
-
cont IV diuresis
Assessment/Plan
-
IMP:
Acute on chronic CHF exacerbation with reduced ejection fraction
Acute hypoxic respiratory insufficiency
Fredi with CKD
Cardiomyopathy EF of 45% from echo in 2023
s/p CABG 10/2008 with FOLEY to LAD and SVG to RPDA
s/p cardiac cath at [facility] 11/16/20 FOLEY to LAD patent, SVG to RPDA occluded, ostial Circ 75% stenosis, ostial RCA 75% stenosis
Severe s/p BAV 12/06/20
Shock, unknown etiology
Elevated troponin likely secondary to nonischemic myocardial injury
Edema blistering 2/2 fluid overload
Chronic lymphedema
Essential hypertension
Chronic LBBB
Hypercholesterolemia
Chronic anemia
Type 2 diabetes
History of CVA
Hypothyroidism
Plan:
cr better at 1.2, persistent azotemia suggest cardiorenal in nature
continue midodrine
continue IV lasix, wt decreasing
BP remain soft on midodrine and low dose coreg
Hospice being considered
Continue supportive care, cards follows
holding ARB and Aldactone
d/w nursing
-
-
Date of Service: September 22, 2024
CC / HPI / ROS
-
Chief Complaint:
FREDI
History of Present Illness:
FREDI/Cr down to 1.2 stable
BP low stable
diuresing slowly for decompensated HF with lasix IV
wt is down, bun is up at 89, bicarb 32
Review of Systems:
no CP
Remains on nasal cannula
no sob at rest
Labs
-
Labs:
WBC 6.4 10^3/uL (4.8-10.8) 09/22/24 04:31
RBC 3.36 10^6/uL (4.20-5.40) L 09/22/24 04:31
Hgb 10.0 g/dL (12.0-16.0) L 09/22/24 04:31
Hct 31.3 % (37.0-47.0) L 09/22/24 04:31
Plt Count 486 10^3/uL (130-400) H D 09/22/24 04:31
Sodium 140 mmol/L (135-145) 09/22/24 04:31
Potassium 4.8 mmol/L (3.5-5.1) 09/22/24 04:31
Chloride 99 mmol/L (98-107) 09/22/24 04:31
Carbon Dioxide 32 mmol/L (22-30) H 09/22/24 04:31
BUN 89 mg/dl (7-17) H 09/22/24 04:31
Creatinine 1.2 mg/dL (0.6-1.0) H 09/22/24 04:31
eGFR 45.48 09/22/24 04:31
Glucose 114 mg/dl (70-99) H 09/22/24 04:31
Calcium 9.5 mg/dl (8.4-10.2) 09/22/24 04:31
Qvt-D-Yulfeqwbiys Pept > 75778 pg/ml 09/15/24 07:46
Albumin 3.3 g/dl (3.5-5.0) L 09/11/24 05:12
Physical Exam
-
Vital Signs:
Vital Signs
Temp Pulse Resp BP Pulse Ox
97.7 F 64 17 89/71 100
09/22/24 07:05 09/22/24 06:00 09/22/24 06:00 09/22/24 06:00 09/22/24 06:00
Cardiovascular:: Regular rate and rhythm
Lung Excursion:: Normal (decreased BS bilat)
Abdomen:: Nontender and Soft
Bowel Sounds:: Normal
Extremity Edema:: +2: Bilateral:
De Oliveira Catheter: No
[2024-09-22 11:36] LABS: Glucose - Point of Care 120 mg/dl (70-99)
--- NOTE | 2024-09-22 12:02 | W.PN.CARDCBS ---
Addendum entered and electronically signed by Romulo Limon MD 09/22/24 12:18:
I saw and examined the patient.
The DIETITIAN ASSISTANT or PA's note was reviewed and I agree with the note.
Comment: General: Well developed, well nourished in NAD.
Neck: Supple, no JVD, HJR, carotids +2 B/L, no bruits bilaterally.
Heart: Non displaced PMI, RRR, 2/6 basal systolic murmur, No S3, S4, no rubs.
Lungs: Scattered rhonchi
Extremities: No clubbing, cyanosis or edema bilaterally.
Neuro: Grossly nonfocal, awake, alert and oriented x3.
She remains hypoxic and is on 6 L. Will continue IV Lasix and follow renal function. Nephrology following as well.
Original Note:
Today's Communication / Plan
-
Did not tolerate dobutamine when last attempted
Cont Lasix IV, weight is at least trending down
Cre improved to 1.2
Impression / Plan
-
PCP: Dr. Elidia Meneses
Primary Foot And Ankle Surgeon: Dr. Chris Craig of [place]
Assessment:
Presentation with SOB, LE edema 09/10/24
Acute on chronic HFrEF
CM EF previously 45% by echo 07/2023 and reduced further to 15 to 20% by echo 09/11/24
Severe
h/o type 2 [place] related to severe 11/2020 resulting in transfer to [facility], s/p BAV 12/06/20
s/p sternotomy with biologic AVR, aortic root enlargement with pericardial patch, and CABG x1 SVG to distal RCA by Dr. Smith on 03/04/2021
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
Acute hypoxic respiratory insufficiency
SAM on CKD, suspected cardiorenal
Hypotension requiring pressor support
Elevated troponin, suspected nonischemic myocardial injury
CAD
s/p CABG with FOLEY to LAD and SVG to RPDA (occluded by cath 2020) in 2008
s/p cardiac cath at [facility] FOLEY to LAD patent, SVG to RPDA occluded, ostial Circ 75% stenosis, ostial RCA 75% stenosis 11/16/20
s/p CABG at time of AVR with SVG to distal RCA 03/04/21
Brief post op afib episode while at [facility], without known recurrence
s/p [facility] implanted loop recorder
PVCs
Chronic LBBB
DM 2
HTN
Hyperlipidemia
Hypothyroid
h/o CVA
Peripheral neuropathy
s/p IVC filter
L breast cancer s/p lumpectomy, chemotherapy, and radiation 2008
Obesity
Anemia
Memory loss
Nuclear stress test 08/24/2023: Large sized moderate to severe defect in apex, apical anterior, apical inferior wall, prone imaging not performed, defect consistent with infarct with minimal gerald-infarct ischemia, EF 35% with global hypokinesis and
anteroapical akinesis, unchanged compared to prior cath and echo in 2020
Echo 03/24/2021: EF 25%, severe global hypokinesis with possible inferolateral and apical akinesis, mild MR, bioprosthetic AVR with peak/mean 21/12 mmHg
ECHO 07/2023: Mildly reduced LV systolic function 45% due to akinesis of distal inferior wall, mild MR with severe left atrial dilation, bioprosthetic aortic valve with peak gradient 49/mean gradient 32, valve size known to be small, moderate
pulmonary hypertension
Echo 09/11/2024: Dilated left ventricle with severely reduced left ventricular systolic function estimated 15-20% with grade 2 diastolic dysfunction increased LV filling pressures. Moderate mitral and tricuspid regurgitation. Bioprosthetic aortic
valve with peak/mean gradients 37/23 mmHg and no significant aortic regurgitation.
Plan:
-Nephrology notes reviewed. Cre improved to 1.2 on 09/22/24. Cont Lasix 40 mg IV BID.
-Weight is down 2 lbs overnight if bed scale is correct. Weight as high as 222 lbs on 09/13/24 and down to 208 lbs on 09/22/24
-Has been intolerant of BiPAP and now wearing 6 L NC.
-EF now down to 15-20% and was previously 45% by echo 07/2023. Of note EF was previously as low as 25% by an echo at on 03/24/2021.
-Outpatient dose of Coreg decreased to 3.125 mg BID due to hypotension
-Outpatient dose of Entresto 24/26 mg twice daily has been on hold since admission due to hypotension and then SAM
-Outpatient dose of Jardiance 10 mg daily was transitioned to Farxiga 10 mg daily due to formulary changes at , but regardless remains on hold due to UTI
-Patient with h/o severe treated at [facility] with BAV on 12/06/2020 followed later by sternotomy with tissue AVR, aortic root enlargement, pericardial patch and CABG x 1 on 03/04/2021. Coming in now with acute HF and by echo there appears to be likely
significant bioprosthetic .
-Troponin peaked at 0.04 and was managed as a nonischemic myocardial injury troponin elevation in the setting of acute HF. No CP
-Patient is not felt to be candidate for invasive management. Patient lives at [facility] and has memory loss though we have seen during this admission. Patient remains a full code, but details were discussed with the patient and most
importantly her daughter on 09/14/2024 and again 09/21/24 discussed with patient and her daughter who prefer medical therapy with DNR. They do not desire right heart catheter KRYSTIN.
-Patient with hypotension earlier this admission that was treated with Levophed. Attempted low-dose dobutamine given likely severe when recurred with hypotension and patient did not tolerate.
-Patient is chronically on aspirin and Plavix for history of CVA
Progress Note - Foot And Ankle Surgeon
Subjective
Date of Service: September 22, 2024
No pain
Objective
Labs:
09/22/24 04:31
09/22/24 04:31
Labs
Hgb 10.0 g/dL (12.0-16.0) L 09/22/24 04:31
Hct 31.3 % (37.0-47.0) L 09/22/24 04:31
Plt Count 486 10^3/uL (130-400) H D 09/22/24 04:31
Sodium 140 mmol/L (135-145) 09/22/24 04:31
Potassium 4.8 mmol/L (3.5-5.1) 09/22/24 04:31
BUN 89 mg/dl (7-17) H 09/22/24 04:31
Creatinine 1.2 mg/dL (0.6-1.0) H 09/22/24 04:31
Glucose 114 mg/dl (70-99) H 09/22/24 04:31
Vital Signs and I&O:
Vital Signs
Temp Pulse Resp BP Pulse Ox
97.7 F 70 18 119/73 92
09/22/24 07:05 09/22/24 10:00 09/22/24 09:41 09/22/24 10:00 09/22/24 10:00
Vital Signs
Temp Pulse Resp BP Pulse Ox
97.7 F 70 18 119/73 92
09/22/24 07:05 09/22/24 10:00 09/22/24 09:41 09/22/24 10:00 09/22/24 10:00
Intake & Output
09/20/24 09/21/24 09/22/24 09/23/24
06:59 06:59 06:59 06:59
Intake Total 240 / 240
Output Total 1300 / 1300 800 / 800 300 / 300
Balance -1060 / -1060 -800 / -800 -300 / -300
Physical Exam
Physical Exam
General: NAD
Heart: SR on tele
Lungs: RA
Extremities: +1 edema B/L LE
Neuro: Pleasant but with memory loss
--- NOTE | 2024-09-22 12:57 | W.PN.PAL2 ---
Today's Communication
-
Palliative Care Follow up
Spoke with patient to follow up on goals. she is leaning towards a more palliative approach, but is not 100% on board with hospice. Spoke with daughter Tanesha who stated that was her understanding as well after their last joint conversation with
cardiology - patient still wanted to continue labs and testing. reviewed the palliative care program and services provided. Family is interested in outpatient palliative care support and eventual transition to hospice when patient is ready. Patient
will likely go to rehab prior to home at [facility].
Code status DNR.
Total floor time discussion with patient + call to daughter 60 mins
Assessment / Plan
-
Assessment/Plan:
Plan for outpatient palliative care follow up with eventual hospice transition when ready - not interested in hospice at this time.
Reason for Admission
Illness Course/HPI
83 year old F with PMH of severe s/p TAVR, CAD s/p CABG, CKD, multiple UTIs admitted with heart failure exacerbation.
Upon admission +SAM creat 2.9. Echo with EF 15%, previously 25% on echo in July. Also with recurrent AV stenosis. Follows at [facility] with cardiology. She was hypotensive requiring levo. Diuresed with worsening renal function. Also with UTI s/p
antibiotics.
Remains a full code. Discussions had with patient and daughter regarding poor prognosis and end stage nature of heart failure.
Consult for GOC.
Seen at bedside with no family present. Patient is awake and oriented but seems slightly confused. States they have been telling her 'all the same bad things' but that she doesnt believe it. Discussed her testing thus far to which she stated 'well
i've lived a good life and I dont want to be bothered anymore.' Started to answer some questions inappropriately but was easily redirected.
Per chart review she resides at the [facility] in assisted living. Needs assistance with bathing, dressing. Independent with ambulation with RW.
Called and spoke with patients daughter Tanesha. Tanesha expresses understanding that patient is not doing well, but is optimistic because she is starting to look better. Discussed that 'big picture' she has an end stage heart condition that puts her
at risk for further complications and repeat hospitalizations. We discussed hospice as an option either now or down the line. She believes they could do hospice at her [facility] if it came to that but states after talking with her mother, goal is to at
least try to get to rehab and see how it goes. If she declines further, hospice would be considered.
Goals of Care Discussion
Patient Goals
as above
Pain & Symptom Assessment
-
denies symptoms
Objective Data
-
Objective Data:
Vital Signs
Temp Pulse Resp BP Pulse Ox
97.6 F 70 18 119/73 92
09/22/24 11:05 09/22/24 10:00 09/22/24 09:41 09/22/24 10:00 09/22/24 10:00
Laboratory Results
09/22/24 04:31
09/22/24 04:31
Hemoglobin A1c 6.8 % (4.0-5.6) H 09/11/24 05:12
Total Protein 5.5 g/dl (6.3-8.2) L 09/11/24 05:12
Albumin 3.3 g/dl (3.5-5.0) L 09/11/24 05:12
Urine Color Yellow 09/11/24 13:02
Urine Clarity Clear (Clear) 09/11/24 13:02
Urine pH 7.0 (5.0-9.0) 09/11/24 13:02
Ur Specific Elim 1.010 (<1.030) 09/11/24 13:02
Urine Ketones Negative (Negative) 09/11/24 13:02
Urine Bilirubin Negative (Negative) 09/11/24 13:02
Palliative Performance Scale
Palliative Performance Scale:
PPS Level Ambulation Activity & Evidence of Disease Self Care Intake Conscious Level
100% Full Normal Activity & Work; Full Intake Full
No Evidence of Disease
90% Full Normal Activity & Work; Full Normal Full
Some Evidence of Disease
80% Full Normal Activity with Effort Full Normal or Full
Some Evidence of Disease Reduced
70% Reduced Unable Normal Job/Work Full Normal or Full
Significant Disease Reduced
60% Reduced Unable Hobby/Housework Occasional Normal or Full or Confusion
Significant Disease Assistance Reduced
50% Mainly Sit/Lie Unable to do Any Work Considerable Normal or Full or Confusion
Extensive Disease Assistance Req'd Reduced
40% Mainly in Bed Unable to do Most Activity Mainly Assistance Normal or Full or Drowsy;
Extensive Disease Reduced +/- Confusion
30% Totally Bed Unable to do Any Activity Total Care Normal or Full or Drowsy;
Bound Extensive Disease Reduced +/- Confusion
20% Totally Bed Bound Unable to do Any Activity Total Care Minimal to Full or Drowsy;
Extensive Disease Sips +/- Confusion
10% Totally Bed Bound Unable to do Any Activity Total Care Mouth Care Drowsy or Coma;
Extensive Disease Only +/- Confusion
0%
PPS Score Level:
Palliative Performance Score Response
Palliative Performance Score Response: 40%
Physical Exam
-
General: Well Developed and No Apparent Distress
Neuro: Awake and Alert
Psych: Calm
--- NOTE | 2024-09-22 14:38 | W.PN.HOSP.TC ---
Today's Communication/Plan
-
IV diuretics, midodrine
monitor mental status
Assessment / Plan
Assessment / Plan
Acute on chronic CHF exacerbation with reduced ejection fraction
Acute hypoxic respiratory insufficiency secondary to above, now on 6 L
-Cardiac BNP greater than 27,000
-Chest x-ray shows pulm edema, does not appear to have pneumonia. Will monitor. No fever, leukocytosis.
-Continue with diuresis per renal- Back to IV diuresis.
-EF of 25% from echo in 2020
-Echo 09/11 noted with a EF 15 to 20%,
-S/p CABG 10/2008 with FOLEY to LAD and SVG to RPDA
-S/p cardiac cath at [facility] 11/16/20 FOLEY to LAD patent, SVG to RPDA occluded, ostial Circ 75% stenosis, ostial RCA 75% stenosis
-Severe
-Hold Farxiga
-Continue midodrine with holding parameter
-Cont IV lasix
-Check I's and O's, daily weights-weight improving.
#Shock, unknown etiology
resolved
Pressors weaned off
was hypotensive again09/16; transferred back to IMU, so far no pressors restarted
coreg dec, monitor.
Continue with midodrine.
# SAM likely cardiorenal on CKD, unknown baseline
-Creatinine of 2.7 from 1.9; creatinine from today pending
-Continue with diuresis
-Nephrology following
-Hold spironolactone, losartan
#Acute metabolic encephalopathy
� Possibly secondary to CO2 narcosis with CHF exacerbation + UTI + along with +/- delirium
� Resolved today
#UTI
History of multiple UTIs in past
Urine culture with pseudomonas; Completed Cefepime to Cipro course
finished abx
Afeb , WBC normal. No dysuria.
Elevated troponin likely secondary to nonischemic myocardial injury
Monitor
Edema blistering 2/2 fluid overload
monitor
venous Doppler lower extremity neg for DVT
History of TAVR
CAD status post CABG
-Continue Plavix
-Continue Coreg
Chronic lymphedema
left buttock pressure related pressure injury stage 1
Essential hypertension
Chronic LBBB
Hypercholesterolemia
Chronic anemia
Type 2 diabetes
-Hold metformin, glipizide
-Insulin sliding scale
A1c 6.8
History of CVA
Hypothyroidism
-Continue levothyroxine
Full code
DVT prophylaxis�heparin
Discussed with RN
DW cards
DNR/DNI
Total time spent on today's encounter was 57 minutes which included time spent in counseling the patient/family regarding diagnosis and treatment plan as listed above, goals of care, and symptom management. Case was discussed with nursing staff,
specialists, and care coordinators/case management. All labs and imaging personally reviewed by me. Remainder the time spent in detailed review of previous records, lab data, imaging, and other medical provider documentation.
Anticipated Discharge: > 48 hours
Subjective/Interval History
-
Date of Service: September 22, 2024
Mental status improved, remains hypoxic
Objective Data
-
Labs:
Laboratory Results
09/22/24
04:31
WBC 6.4
Hgb 10.0 L
Hct 31.3 L
Plt Count 486 H D
Sodium 140
Potassium 4.8
Chloride 99
Carbon Dioxide 32 H
BUN 89 H
Creatinine 1.2 H
Glucose 114 H
Calcium 9.5
Vital Signs:
Vital Signs
Temp Pulse Resp BP Pulse Ox
97.6 F 70 18 119/73 92
09/22/24 11:05 09/22/24 10:00 09/22/24 09:41 09/22/24 10:00 09/22/24 10:00
I&O
09/21/24 09/22/24 09/23/24
06:59 06:59 06:59
Output Total 800 / 800 300 / 300
Balance -800 / -800 -300 / -300
Review of Systems
-
History Source: Patient
All other systems: Not reviewed unless documented
Physical Exam
-
General: Negative Comfortable
Respiratory: Crackles (Bilateral lower zone); Negative Wheezes or Non Labored Respirations (Tachypnea noted)
Cardiac: Regular Rhythm and S1/S2
GI: Soft
Skin: Warm
Neuro: Awake; Negative Alert (Drifts of into sleep and when aroused she is confused today)
Psych: Negative Confused
Data Reviewed
-
Diagnostic Radiology: Report Reviewed by me
Ultrasound: Report Reviewed by me
--- NOTE | 2024-09-22 15:31 | CM ---
CM following re: discharge planning.
Reviewed pt's chart, met with pt.
PT and OT continue recommending SNF level of care. [facility] offered a bed. Pt is aware, expressed her agreement.
D/C plan: [facility] when medically stable and based on bed availability on the day of discharge.
CM will follow with discharge plan updates as hospitalization progresses
[2024-09-22 18:05] LABS: Glucose - Point of Care 131 mg/dl (70-99)
--- NOTE | 2024-09-22 18:45 | PTCARENOTE ---
Tom lifted oob to chair - PT/OT assisted back to bed min- mod asst 1-2. AAO today, O2 weaned to 2L NC currently 92%. SR 1st AVB on tele. UA needed- placed whole new purewick set up and cleansed vaginal vault with gerald wipes- as she had a large
BM while oob today.
[2024-09-22] MEDS: COREG PO (20:42)
[2024-09-22] MEDS: HIPREX 1 GRAM PO (20:42)
[2024-09-22 21:10] LABS: Urine Albumin 2+ (Neg - Trace); Urine Bilirubin Negative (Negative); Urine Character Clear (Clear); Urine Color Yellow; Urine Glucose Negative (Negative); Urine Ketone Negative (Negative); Urine Leukocyte Negative (Negative); Urine Nitrite Negative (Negative); Urine Occult Blood 2+ (Negative); Urine Urobilinogen Negative (Neg - 1+)
[2024-09-22 21:15] LABS: Urine Squamous Cell 16-20 /LPF (Few)
[2024-09-22 21:20] LABS: Urine Bacteria Moderate (Negative)
--- NOTE | 2024-09-22 21:37 | PTCARENOTE ---
Assumed care of Pt from dayshift RN. Pt AAOx3. Awake ans answers orientation questions, chatting with RN. fraser. UA sent. NSR with 1st degree block. satting 96% on RABrennon sarkar in use. Assessment as documented. Call light in reach.
[2024-09-22 22:02] LABS: Glucose - Point of Care 151 mg/dl (70-99)
[2024-09-23] VITALS (13 sets, daily range): BP systolic 81–108; BP diastolic 49–66; BMI 39.1
[2024-09-23 05:01] LABS: Hematocrit 30.6 % (37.0-47.0); Mean Corp Hgb Conc. 32.7 g/dL (33.0-37.0); Mean Corpuscular Hgb 30.1 pg (27.0-31.0); Mean Corpuscular Volume 92.2 fL (81.0-99.0); Mean Platelet Volume 11.1 fL (7.4-10.4); Platelet Count 467 10^3/uL (130-400); Red Blood Cell Count 3.32 10^6/uL (4.20-5.40); Red Cell Dist. Width 17.2 % (11.5-14.5); White Blood Cell Count 6.5 10^3/uL (4.8-10.8)
[2024-09-23 05:39] LABS: ALT (SGPT) 132 U/L (0-35); AST (SGOT) 92 U/L (14-36); Albumin 3.2 g/dl (3.5-5.0); Alkaline Phosphatase 106 U/L (38-126); Blood Urea Nitrogen 86 mg/dl (7-17); Calcium 9.7 mg/dl (8.4-10.2); Carbon Dioxide 35 mmol/L (22-30); Chloride 100 mmol/L (98-107); Estimated Creatinine Clearance 35 ml/min; Glucose 114 mg/dl (70-99); Potassium 4.4 mmol/L (3.5-5.1); Sodium 142 mmol/L (135-145); Total Bilirubin 1.3 mg/dl (0.2-1.3); Total Protein 5.8 g/dl (6.3-8.2); eGFR 41.31
[2024-09-23] MEDS: SYNTHROID 88 MCG PO (06:19)
[2024-09-23 08:24] LABS: Glucose - Point of Care 120 mg/dl (70-99)
[2024-09-23] MEDS: NOVOLOG FLEXPEN-LOW RESISTANCE SC (08:30)
[2024-09-23] MEDS: OCUVITE SOFTGEL 1 CAP PO ×2 (08:31→21:38)
[2024-09-23] MEDS: HEPARIN 5000 UNITS SC ×2 (08:31→21:39)
[2024-09-23] MEDS: HIPREX 1 GRAM PO ×2 (08:31→21:38)
[2024-09-23] MEDS: LIPITOR 40 MG PO (08:31)
[2024-09-23] MEDS: PROTONIX 40 MG PO (08:31)
[2024-09-23] MEDS: THERAGRAN 1 TABLET PO (08:32)
[2024-09-23] MEDS: CLARITIN 10 MG PO (08:32)
[2024-09-23] MEDS: OSCAL 500 + D 500 MG PO (08:32)
[2024-09-23] MEDS: MAGNESIUM OXIDE 500 MG PO (08:32)
[2024-09-23] MEDS: FEOSOL 325 MG PO (08:32)
[2024-09-23] MEDS: UROCIT-K 10 MEQ PO ×2 (08:32→21:39)
[2024-09-23] MEDS: ProAmatine 5 MG PO ×3 (08:32→17:47)
[2024-09-23] MEDS: PLAVIX 75 MG PO (08:32)
[2024-09-23] MEDS: DESENEX/MITRAZOL/ZEASORB 1 APPLIC TOPICAL ×2 (08:33→21:40)
[2024-09-23] MEDS: COREG PO (09:46)
--- NOTE | 2024-09-23 09:55 | PTCARENOTE ---
Pt hypotensive, Dr. Ivory and Dr. Bledsoe aware.
--- NOTE | 2024-09-23 10:13 | PN.CDI ---
CDI
- -
CDI:
Physician Documentation Request
Admit Date: 09/10/24 18:54
Dear Doctor Dianelys,
Please review the following and provide your response in the progress notes.
Clinical Indicators:
Pt admitted with acute on chronic systolic CHF exacerbation/shock/ SAM
Documented throughout the record , ' Acute hypoxic respiratory insufficiency...'
Progress note 09/22, ' Acute hypoxic respiratory insufficiency secondary to above, now on 6 L.....'
Pt care note 09/21 @ 0259, ' patient began complaining of SOB. pulse ox 97% on 4L. Patient began wheezing and belly breathing. TT [facility] and respiratory therapy. breathing treatment ordered. continuing to monitor. ...'
Pt care note 09/21 @ 0613, ' patient still working hard to breathe, SOB and wheezing. Attempted to place on bipap, consistently pulled bipap off and said she did not want to wear it. PRN Ativan given...'
Clarify which of the following accurately represents the patient's respiratory status:
Acute Hypoxic Respiratory failure
Hypoxia- only
Other ( please specify )
Additional information for Respiratory Failure:
Recognized criteria for Respiratory Failure (Source: [facility] Hospitalist Apr/May 2013)
ABGs: (1 or more) Symptoms Please indicate type if known
1. p)2 <60 or RA SPO2 <91% on RA 1. Tachypnea, SOB, dyspnea Hypoxic
2. pCO2 50 and pH <7.35 2. Use of accessory muscles Hypercapnic
3. pO2 decrease of pCO2 increase by 3. Pallor or cyanosis Hypoxic and Hypercapnic
10 mmHg from baseline if known 4. Anxiety or restlessness Unable to determine
5. Unable to speak in full sentences
Supplemental O2 of > 40% (5LPM) Intubation is not required
Use of terms such as suspected, likely, concern for, or probable (associated with a specific diagnosis that is being evaluated, monitored, or treated as if it exists) are acceptable and can be coded in the inpatient setting, when documented at the
time of discharge.
Thank you,
Dawn Ruiz RN
CDI Specialist
[place] Text
Please use your independent medical judgment in providing your response.
[2024-09-23] MEDS: LASIX 40 MG IV ×2 (10:24→17:47)
[2024-09-23] MEDS: LOW STRENGTH ASPIRIN 81 MG PO ×2 (10:26→21:38)
[2024-09-23] MEDS: LIDOCAINE 4% PATCH 2 PATCH TOPICAL (10:27)
--- NOTE | 2024-09-23 12:20 | W.PN.CARDCBS ---
Addendum entered and electronically signed by Romulo Limon MD 09/23/24 12:37:
I saw and examined the patient.
The [employer]OP HAMMER SET UP OPERATOR or PA's note was reviewed and I agree with the note.
Comment: General: Well developed, well nourished in NAD.
Neck: Supple, no JVD, HJR, carotids +2 B/L, no bruits bilaterally.
Heart: Non displaced PMI, RRR, no murmurs, No S3, S4, no rubs.
Lungs: Scattered rhonchi
Extremities: No clubbing, cyanosis or edema bilaterally.
Neuro: Grossly nonfocal, awake, alert and oriented x3.
She remains hypoxic on oxygen. She may need home oxygen. Will continue Lasix IV.
Original Note:
Today's Communication / Plan
-
Cont Lasix 40 mg IV BID, weight and oxygen needs trending down
Impression / Plan
-
PCP: Dr. Elidia Meneses
Primary Ultrasound Spec: Dr. Chris Craig of [place]
Assessment:
Presentation with SOB, LE edema 09/10/24
Acute on chronic HFrEF
CM EF previously 45% by echo 07/2023 and reduced further to 15 to 20% by echo 09/11/24
Severe
h/o type 2 [place] related to severe 11/2020 resulting in transfer to [facility], s/p BAV 12/06/20
s/p sternotomy with biologic AVR, aortic root enlargement with pericardial patch, and CABG x1 SVG to distal RCA by Dr. Smith on 03/04/2021
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
Acute hypoxic respiratory insufficiency
SAM on CKD, suspected cardiorenal
Hypotension requiring pressor support
Elevated troponin, suspected nonischemic myocardial injury
CAD
s/p CABG with FOLEY to LAD and SVG to RPDA (occluded by cath 2020) in 2008
s/p cardiac cath at [facility] FOLEY to LAD patent, SVG to RPDA occluded, ostial Circ 75% stenosis, ostial RCA 75% stenosis 11/16/20
s/p CABG at time of AVR with SVG to distal RCA 03/04/21
Brief post op afib episode while at [facility], without known recurrence
s/p [facility] [place] implanted loop recorder
PVCs
Chronic LBBB
DM 2
HTN
Hyperlipidemia
Hypothyroid
h/o CVA
Peripheral neuropathy
s/p IVC filter
L breast cancer s/p lumpectomy, chemotherapy, and radiation 2008
Obesity
Anemia
Memory loss
Nuclear stress test 08/24/2023: Large sized moderate to severe defect in apex, apical anterior, apical inferior wall, prone imaging not performed, defect consistent with infarct with minimal gerald-infarct ischemia, EF 35% with global hypokinesis and
anteroapical akinesis, unchanged compared to prior cath and echo in 2020
Echo 03/24/2021: EF 25%, severe global hypokinesis with possible inferolateral and apical akinesis, mild MR, bioprosthetic AVR with peak/mean 21/12 mmHg
ECHO 07/2023: Mildly reduced LV systolic function 45% due to akinesis of distal inferior wall, mild MR with severe left atrial dilation, bioprosthetic aortic valve with peak gradient 49/mean gradient 32, valve size known to be small, moderate
pulmonary hypertension
Echo 09/11/2024: Dilated left ventricle with severely reduced left ventricular systolic function estimated 15-20% with grade 2 diastolic dysfunction increased LV filling pressures. Moderate mitral and tricuspid regurgitation. Bioprosthetic aortic
valve with peak/mean gradients 37/23 mmHg and no significant aortic regurgitation.
Plan:
-Cre up a bit to 1.3 on 09/23/24. Oxygenation improving, intolerant of BiPAP and now wearing 2 L NC.
-Weight is down 2 lbs overnight again. Cont Lasix 40 mg IV BID. Patient was taking Lasix 40 mg PO BID prior to admission
-EF now down to 15-20% and was previously 45% by echo 07/2023. Of note EF was previously as low as 25% by an echo at on 03/24/2021.
-Outpatient dose of Coreg decreased to 3.125 mg BID due to hypotension, dose held 09/23/24 AM due to hypotension
-Outpatient dose of Entresto 24/26 mg twice daily has been on hold since admission due to hypotension and then SAM
-Outpatient dose of Jardiance 10 mg daily was transitioned to Farxiga 10 mg daily due to formulary changes at , but regardless remains on hold due to UTI
-Patient with h/o severe treated at [facility] with BAV on 12/06/2020 followed later by sternotomy with tissue AVR, aortic root enlargement, pericardial patch and CABG x 1 on 03/04/2021. Coming in now with acute HF and by echo there appears to be likely
significant bioprosthetic .
-Troponin peaked at 0.04 and was managed as a nonischemic myocardial injury troponin elevation in the setting of acute HF. No CP
-Patient with hypotension earlier this admission that was treated with Levophed. Attempted low-dose dobutamine given likely severe when recurred with hypotension and patient did not tolerate.
-Patient is chronically on aspirin and Plavix for history of CVA
-Patient is not felt to be candidate for invasive management. Patient lives at [facility] and has memory loss though we have seen during this admission. Patient remains a full code, but details were discussed with the patient and most
importantly her daughter on 09/14/2024 and again 09/21/24 discussed with patient and her daughter who prefer medical therapy with DNR. They do not desire right heart catheter KRYSTIN. The palliative care note was reviewed on 09/23/2024 and patient is
agreeable to outpatient palliative care program enrollment, but is not interested in hospice at this time
Progress Note - Ultrasound Spec
Subjective
Date of Service: September 23, 2024
Less SOB
Objective
Labs:
09/23/24 04:14
09/23/24 04:14
Labs
Hgb 10.0 g/dL (12.0-16.0) L 09/23/24 04:14
Hct 30.6 % (37.0-47.0) L 09/23/24 04:14
Plt Count 467 10^3/uL (130-400) H 09/23/24 04:14
Sodium 142 mmol/L (135-145) 09/23/24 04:14
Potassium 4.4 mmol/L (3.5-5.1) 09/23/24 04:14
BUN 86 mg/dl (7-17) H 09/23/24 04:14
Creatinine 1.3 mg/dL (0.6-1.0) H 09/23/24 04:14
Glucose 114 mg/dl (70-99) H 09/23/24 04:14
Vital Signs and I&O:
Vital Signs
Temp Pulse Resp BP Pulse Ox
97.8 F 75 21 81/49 96
09/23/24 07:05 09/23/24 09:35 09/23/24 09:35 09/23/24 09:46 09/23/24 11:44
Vital Signs
Temp Pulse Resp BP Pulse Ox
97.8 F 75 21 81/49 96
09/23/24 07:05 09/23/24 09:35 09/23/24 09:35 09/23/24 09:46 09/23/24 11:44
Intake & Output
09/21/24 09/22/24 09/23/24 09/24/24
06:59 06:59 06:59 06:59
Intake Total 480 / 480
Output Total 800 / 800 300 / 300 575 / 575
Balance -800 / -800 -300 / -300 -95 / -95
Physical Exam
Physical Exam
General: NAD
Heart: SR on tele
Lungs: 2 L NC
Extremities: +1 edema B/L LE
Neuro: Pleasant but with memory loss
[2024-09-23 12:48] LABS: Glucose - Point of Care 220 mg/dl (70-99)
[2024-09-23] MEDS: NOVOLOG FLEXPEN-LOW RESISTANCE 2 UNITS SC (13:18)
--- NOTE | 2024-09-23 13:34 | W.PN.NEPH.PH ---
Today's Communication / Plan
-
follow lab s
Assessment/Plan
-
IMP:
Acute on chronic CHF exacerbation with reduced ejection fraction
Acute hypoxic respiratory insufficiency
Fredi with CKD
Cardiomyopathy EF of 45% from echo in 2023
s/p CABG 10/2008 with FOLEY to LAD and SVG to RPDA
s/p cardiac cath at [facility] 11/16/20 FOLEY to LAD patent, SVG to RPDA occluded, ostial Circ 75% stenosis, ostial RCA 75% stenosis
Severe s/p BAV 12/06/20
Shock, unknown etiology
Elevated troponin likely secondary to nonischemic myocardial injury
Edema blistering 2/2 fluid overload
Chronic lymphedema
Essential hypertension
Chronic LBBB
Hypercholesterolemia
Chronic anemia
Type 2 diabetes
History of CVA
Hypothyroidism
Plan:
cr slightly up at 1.3, persistent azotemia suggest cardiorenal in nature
continue midodrine
continue IV lasix, wt decreasing
BP remain soft on midodrine and low dose coreg
Hospice being considered, pt seem not ready for
Continue supportive care, cards follows
holding ARB, Farxiga and Aldactone
d/w pt and nursing
-
-
Date of Service: September 23, 2024
CC / HPI / ROS
-
Chief Complaint:
FREDI
History of Present Illness:
FREDI/Cr 1.3 stable
BP low stable
diuresing slowly for decompensated HF with lasix IV
wt is down, bun is up at 86, bicarb 35
Review of Systems:
no CP
Remains on nasal cannula
no sob at rest
Labs
-
Labs:
WBC 6.5 10^3/uL (4.8-10.8) 09/23/24 04:14
RBC 3.32 10^6/uL (4.20-5.40) L 09/23/24 04:14
Hgb 10.0 g/dL (12.0-16.0) L 09/23/24 04:14
Hct 30.6 % (37.0-47.0) L 09/23/24 04:14
Plt Count 467 10^3/uL (130-400) H 09/23/24 04:14
Sodium 142 mmol/L (135-145) 09/23/24 04:14
Potassium 4.4 mmol/L (3.5-5.1) 09/23/24 04:14
Chloride 100 mmol/L (98-107) 09/23/24 04:14
Carbon Dioxide 35 mmol/L (22-30) H 09/23/24 04:14
BUN 86 mg/dl (7-17) H 09/23/24 04:14
Creatinine 1.3 mg/dL (0.6-1.0) H 09/23/24 04:14
eGFR 41.31 09/23/24 04:14
Glucose 114 mg/dl (70-99) H 09/23/24 04:14
Calcium 9.7 mg/dl (8.4-10.2) 09/23/24 04:14
[id number] Pept > 53242 pg/ml 09/15/24 07:46
Albumin 3.2 g/dl (3.5-5.0) L 09/23/24 04:14
Physical Exam
-
Vital Signs:
Vital Signs
Temp Pulse Resp BP Pulse Ox
97.8 F 67 21 91/57 97
09/23/24 07:05 09/23/24 12:00 09/23/24 12:00 09/23/24 12:00 09/23/24 12:00
Cardiovascular:: Regular rate and rhythm
Respiratory:: Bilateral: Coarse
Lung Excursion:: Normal (decreased BS bilat)
Abdomen:: Nontender and Soft
Bowel Sounds:: Normal
Extremity Edema:: +2: Bilateral:
De Oliveira Catheter: No
--- NOTE | 2024-09-23 13:37 | PTCARENOTE ---
Pt presents as assessed. Aox3, very pleasant. NSR with first degree heart block, BBC, and prolonged QT on tele monitor. Sating mid 90's on 2L NC. Pt repeatedly removing O2 and desatting to the low 80's. O2 replaced and sats recovered quickly.
Medications administered as ordered. Purewick in place. Q2T maintained. Able to make needs known, call rey within reach.
--- NOTE | 2024-09-23 14:27 | W.PN.HOSP.TC ---
Today's Communication/Plan
-
weaning o2
cont diuresis
monitor renal function, lfts
Assessment / Plan
Assessment / Plan
Acute on chronic CHF exacerbation with reduced ejection fraction
Acute hypoxic respiratory insufficiency secondary to above, now on 6 L
-Cardiac BNP greater than 27,000
-Chest x-ray shows pulm edema, does not appear to have pneumonia. Will monitor. No fever, leukocytosis.
-Continue with diuresis per renal- Back to IV diuresis.
-EF of 25% from echo in 2020
-Echo 09/11 noted with a EF 15 to 20%,
-S/p CABG 10/2008 with FOLEY to LAD and SVG to RPDA
-S/p cardiac cath at [facility] 11/16/20 FOLEY to LAD patent, SVG to RPDA occluded, ostial Circ 75% stenosis, ostial RCA 75% stenosis
-Severe
-Hold Farxiga
-Continue midodrine with holding parameter
-Cont IV lasix
-Check I's and O's, daily weights-weight improving.
#Shock, unknown etiology
resolved
Pressors weaned off
was hypotensive again 09/16; transferred back to IMU, so far no pressors restarted
coreg dec, monitor.
Continue with midodrine.
# SAM likely cardiorenal on CKD, unknown baseline
-Creatinine of 2.7 from 1.9; creatinine from today pending
-Continue with diuresis
-Nephrology following
-Hold spironolactone, losartan
#Acute metabolic encephalopathy
� Possibly secondary to CO2 narcosis with CHF exacerbation + UTI + along with +/- delirium
� Resolved 09/22
#UTI
History of multiple UTIs in past
Urine culture with pseudomonas; Completed Cefepime to Cipro course
finished abx
Afeb , WBC normal. No dysuria. Asymptomatic
UA appears positive although could be likely, follow urine cultures
Elevated troponin likely secondary to nonischemic myocardial injury
Monitor
Edema blistering 2/2 fluid overload
monitor
venous Doppler lower extremity neg for DVT
Transaminitis
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
� Monitor with diuresis
History of TAVR
CAD status post CABG
-Continue Plavix
-Continue Coreg
Chronic lymphedema
left buttock pressure related pressure injury stage 1
Essential hypertension
Chronic LBBB
Hypercholesterolemia
Chronic anemia
Type 2 diabetes
-Hold metformin, glipizide
-Insulin sliding scale
A1c 6.8
History of CVA
Hypothyroidism
-Continue levothyroxine
Full code
DVT prophylaxis�heparin
Discussed with RN
DW cards
DNR/DNI
Total time spent on today's encounter was 56 minutes which included time spent in counseling the patient/family regarding diagnosis and treatment plan as listed above, goals of care, and symptom management. Case was discussed with nursing staff,
specialists, and care coordinators/case management. All labs and imaging personally reviewed by me. Remainder the time spent in detailed review of previous records, lab data, imaging, and other medical provider documentation.
Anticipated Discharge: 24 - 48 hours
Subjective/Interval History
-
Date of Service: September 23, 2024
no acute events overnight
Objective Data
-
Labs:
Laboratory Results
09/23/24
04:14
WBC 6.5
Hgb 10.0 L
Hct 30.6 L
Plt Count 467 H
Sodium 142
Potassium 4.4
Chloride 100
Carbon Dioxide 35 H
BUN 86 H
Creatinine 1.3 H
Glucose 114 H
Calcium 9.7
Total Bilirubin 1.3
AST 92 H
ALT 132 H
Alkaline Phosphatase 106
Vital Signs:
Vital Signs
Temp Pulse Resp BP Pulse Ox
98.9 F 67 21 91/57 97
09/23/24 11:05 09/23/24 12:00 09/23/24 12:00 09/23/24 12:00 09/23/24 12:00
I&O
09/22/24 09/23/24 09/24/24
06:59 06:59 06:59
Intake Total 480 / 480
Output Total 300 / 300 575 / 575
Balance -300 / -300 -95 / -95
Review of Systems
-
History Source: Patient
All other systems: Not reviewed unless documented
Physical Exam
-
General: Negative Comfortable
Respiratory: Wheezes (b/l lower lobe); Negative Non Labored Respirations (Tachypnea noted)
Cardiac: Regular Rhythm and S1/S2
GI: Soft
Skin: Warm
Neuro: Awake; Negative Alert (Drifts of into sleep and when aroused she is confused today)
Psych: Negative Confused
Data Reviewed
-
Diagnostic Radiology: Report Reviewed by me
Ultrasound: Report Reviewed by me
[2024-09-23 17:42] LABS: Glucose - Point of Care 172 mg/dl (70-99)
[2024-09-23] MEDS: NOVOLOG FLEXPEN-LOW RESISTANCE 1 UNITS SC (17:49)
[2024-09-23] MEDS: COREG 3.125 MG PO (21:38)
[2024-09-23 21:53] LABS: Glucose - Point of Care 200 mg/dl (70-99)
[2024-09-24] VITALS (13 sets, daily range): BP systolic 98–124; BP diastolic 53–78; PULSE 70–71; O2SAT 97; BMI 39.1
[2024-09-24 05:43] LABS: Hematocrit 29.2 % (37.0-47.0); Hemoglobin 9.7 g/dL (12.0-16.0); Mean Corp Hgb Conc. 33.2 g/dL (33.0-37.0); Mean Corpuscular Hgb 30.1 pg (27.0-31.0); Mean Corpuscular Volume 90.7 fL (81.0-99.0); Platelet Count 504 10^3/uL (130-400); Red Blood Cell Count 3.22 10^6/uL (4.20-5.40); Red Cell Dist. Width 17.2 % (11.5-14.5); White Blood Cell Count 6.3 10^3/uL (4.8-10.8)
[2024-09-24 05:58] LABS: ALT (SGPT) 107 U/L (0-35); AST (SGOT) 59 U/L (14-36); Albumin 3.4 g/dl (3.5-5.0); Alkaline Phosphatase 113 U/L (38-126); Blood Urea Nitrogen 79 mg/dl (7-17); Calcium 9.6 mg/dl (8.4-10.2); Carbon Dioxide 37 mmol/L (22-30); Chloride 98 mmol/L (98-107); Estimated Creatinine Clearance 35 ml/min; Glucose 136 mg/dl (70-99); Potassium 4.3 mmol/L (3.5-5.1); Sodium 141 mmol/L (135-145); Total Bilirubin 1.2 mg/dl (0.2-1.3); Total Protein 5.9 g/dl (6.3-8.2); eGFR 41.31
[2024-09-24] MEDS: SYNTHROID 88 MCG PO (06:12)
[2024-09-24] MEDS: HEPARIN 5000 UNITS SC ×2 (08:10→19:33)
[2024-09-24] MEDS: OSCAL 500 + D 500 MG PO (08:11)
[2024-09-24] MEDS: LIPITOR 40 MG PO (08:11)
[2024-09-24] MEDS: THERAGRAN 1 TABLET PO (08:11)
[2024-09-24] MEDS: UROCIT-K 10 MEQ PO ×2 (08:11→19:33)
[2024-09-24] MEDS: PROTONIX 40 MG PO (08:11)
[2024-09-24] MEDS: ProAmatine 5 MG PO ×3 (08:11→17:43)
[2024-09-24] MEDS: CLARITIN 10 MG PO (08:11)
[2024-09-24] MEDS: MAGNESIUM OXIDE 500 MG PO (08:11)
[2024-09-24] MEDS: OCUVITE SOFTGEL 1 CAP PO ×2 (08:12→19:33)
[2024-09-24] MEDS: DESENEX/MITRAZOL/ZEASORB 1 APPLIC TOPICAL ×2 (08:12→19:32)
[2024-09-24] MEDS: PLAVIX 75 MG PO (08:12)
[2024-09-24] MEDS: LASIX 40 MG IV ×2 (08:12→17:43)
[2024-09-24] MEDS: FEOSOL 325 MG PO (08:12)
[2024-09-24] MEDS: COREG 3.125 MG PO ×2 (08:12→19:32)
[2024-09-24] MEDS: HIPREX 1 GRAM PO ×2 (08:12→19:33)
[2024-09-24] MEDS: LIDOCAINE 4% PATCH 2 PATCH TOPICAL (08:13)
[2024-09-24] MEDS: NOVOLOG FLEXPEN-LOW RESISTANCE 1 UNITS SC (08:14)
[2024-09-24 08:21] LABS: Glucose - Point of Care 160 mg/dl (70-99)
[2024-09-24] MEDS: LOW STRENGTH ASPIRIN 81 MG PO ×2 (10:00→21:26)
--- NOTE | 2024-09-24 10:28 | W.PN.NEPH.PH ---
Today's Communication / Plan
-
Continue diuretics
Assessment/Plan
-
IMP:
Acute on chronic CHF exacerbation with reduced ejection fraction
Acute hypoxic respiratory insufficiency
Fredi with CKD
Cardiomyopathy EF of 45% from echo in 2023
s/p CABG 10/2008 with FOLEY to LAD and SVG to RPDA
[facility] 11/16/20 FOLEY to LAD patent, SVG to RPDA occluded, ostial Circ 75% stenosis, ostial RCA 75% stenosis
Severe s/p BAV 12/06/20
Shock, unknown etiology
Elevated troponin likely secondary to nonischemic myocardial injury
Edema blistering 2/2 fluid overload
Chronic lymphedema
Essential hypertension
Chronic LBBB
Hypercholesterolemia
Chronic anemia
Type 2 diabetes
History of CVA
Hypothyroidism
Plan:
cr slightly up at 1.3, persistent azotemia suggest cardiorenal in nature
continue midodrine
continue IV lasix, wt decreasing
BP remain soft on midodrine and low dose coreg
Hospice being considered, pt seem not ready for
Continue supportive care, cards follows
holding ARB, Farxiga and Aldactone
-1.3 L last 24 hours
-
-
Date of Service: September 24, 2024
CC / HPI / ROS
-
Chief Complaint:
FREDI
History of Present Illness:
FREDI/Cr 1.3 stable
BP low stable
diuresing slowly for decompensated HF with lasix IV
Review of Systems:
no CP
Remains on nasal cannula
no sob at rest
Labs
-
Labs:
WBC 6.3 10^3/uL (4.8-10.8) 09/24/24 05:17
RBC 3.22 10^6/uL (4.20-5.40) L 09/24/24 05:17
Hgb 9.7 g/dL (12.0-16.0) L 09/24/24 05:17
Hct 29.2 % (37.0-47.0) L 09/24/24 05:17
Plt Count 504 10^3/uL (130-400) H 09/24/24 05:17
Sodium 141 mmol/L (135-145) 09/24/24 05:17
Potassium 4.3 mmol/L (3.5-5.1) 09/24/24 05:17
Chloride 98 mmol/L (98-107) 09/24/24 05:17
Carbon Dioxide 37 mmol/L (22-30) H 09/24/24 05:17
BUN 79 mg/dl (7-17) H 09/24/24 05:17
Creatinine 1.3 mg/dL (0.6-1.0) H 09/24/24 05:17
eGFR 41.31 09/24/24 05:17
Glucose 136 mg/dl (70-99) H 09/24/24 05:17
Calcium 9.6 mg/dl (8.4-10.2) 09/24/24 05:17
Vee-W-Frqbmwcsxds Pept > 04792 pg/ml 09/15/24 07:46
Albumin 3.4 g/dl (3.5-5.0) L 09/24/24 05:17
Physical Exam
-
Vital Signs:
Vital Signs
Temp Pulse Resp BP Pulse Ox
98.3 F 68 25 124/67 95
09/24/24 07:54 09/24/24 08:00 09/24/24 08:00 09/24/24 08:12 09/24/24 08:00
Cardiovascular:: Regular rate and rhythm
Respiratory:: Bilateral: Coarse
Lung Excursion:: Normal (decreased BS bilat)
Abdomen:: Nontender and Soft
Bowel Sounds:: Normal
Extremity Edema:: +2: Bilateral:
De Oliveira Catheter: No
--- NOTE | 2024-09-24 11:25 | W.PN.CARDCBS ---
Addendum entered and electronically signed by Joel Hernandez MD 09/24/24 12:24:
I saw and examined the patient.
The Revenue Cycle Analyst's note was reviewed and I agree with the note.
Comment:
GEN: No distress, awake, Ox3
HEENT: supple, anicteric, mmm
LUNGS: scatt rhonchi
CV: Reg, S1/S2, 3/6 syst LSB, no gallop
ABD: soft, BS+, NT/ND
EXT: No edema
NEURO: Gross non-focal
SKIN: No rash
plan:
About the same. Will continue to diurese. Will need supportive oxygen likely at home.
Creat stable 1.3. Improved liver function testing
Will continue Coreg and midodrine.
She may be as well optimized from a cardiac standpoint that we can get her up. Will be stable for discharge over next 24 to 48 hours on p.o. Lasix.
Agree with DNR/DNI
Continue Coreg, atorvastatin, aspirin, and Plavix for coronary disease.
Original Note:
Today's Communication / Plan
-
Cont Lasix 40 mg IV BID
Impression / Plan
-
PCP: Dr. Elidia Meneses
Primary Thin Film Technician: Dr. Chris Craig of [place]
Assessment:
Presentation with SOB, LE edema 09/10/24
Acute on chronic HFrEF
CM EF previously 45% by echo 07/2023 and reduced further to 15 to 20% by echo 09/11/24
Severe
h/o type 2 [place] related to severe 11/2020 resulting in transfer to [facility], s/p BAV 12/06/20
s/p sternotomy with biologic AVR, aortic root enlargement with pericardial patch, and CABG x1 SVG to distal RCA by Dr. Smith on 03/04/2021
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
Acute hypoxic respiratory insufficiency
SAM on CKD, suspected cardiorenal
Hypotension requiring pressor support
Elevated troponin, suspected nonischemic myocardial injury
CAD
s/p CABG with FOLEY to LAD and SVG to RPDA (occluded by cath 2020) in 2008
s/p cardiac cath at [facility] FOLEY to LAD patent, SVG to RPDA occluded, ostial Circ 75% stenosis, ostial RCA 75% stenosis 11/16/20
s/p CABG at time of AVR with SVG to distal RCA 03/04/21
Brief post op afib episode while at [facility], without known recurrence
s/p [place] implanted loop recorder
PVCs
Chronic LBBB
DM 2
HTN
Hyperlipidemia
Hypothyroid
h/o CVA
Peripheral neuropathy
s/p IVC filter
L breast cancer s/p lumpectomy, chemotherapy, and radiation 2008
Obesity
Anemia
Memory loss
Nuclear stress test 08/24/2023: Large sized moderate to severe defect in apex, apical anterior, apical inferior wall, prone imaging not performed, defect consistent with infarct with minimal gerald-infarct ischemia, EF 35% with global hypokinesis and
anteroapical akinesis, unchanged compared to prior cath and echo in 2020
Echo 03/24/2021: EF 25%, severe global hypokinesis with possible inferolateral and apical akinesis, mild MR, bioprosthetic AVR with peak/mean 21/12 mmHg
ECHO 07/2023: Mildly reduced LV systolic function 45% due to akinesis of distal inferior wall, mild MR with severe left atrial dilation, bioprosthetic aortic valve with peak gradient 49/mean gradient 32, valve size known to be small, moderate
pulmonary hypertension
Echo 09/11/2024: Dilated left ventricle with severely reduced left ventricular systolic function estimated 15-20% with grade 2 diastolic dysfunction increased LV filling pressures. Moderate mitral and tricuspid regurgitation. Bioprosthetic aortic
valve with peak/mean gradients 37/23 mmHg and no significant aortic regurgitation.
Plan:
-Cre stable at 1.3 on 09/24/24. Remains stable on 2 L NC.
-Weight unchanged at 206 lbs on 09/24/24. Bed scale weights recorded. Cont Lasix 40 mg IV BID. Patient was taking Lasix 40 mg PO BID prior to admission
-EF now down to 15-20% and was previously 45% by echo 07/2023. Of note EF was previously as low as 25% by an echo at on 03/24/2021.
-Outpatient dose of Coreg decreased to 3.125 mg BID due to hypotension
-Outpatient dose of Entresto 24/26 mg twice daily has been on hold since admission due to hypotension and then SAM
-Outpatient dose of Jardiance 10 mg daily was transitioned to Farxiga 10 mg daily due to formulary changes at , but regardless remains on hold due to UTI
-Patient with h/o severe treated at [facility] with BAV on 12/06/2020 followed later by sternotomy with tissue AVR, aortic root enlargement, pericardial patch and CABG x 1 on 03/04/2021. Coming in now with acute HF and by echo there appears to be likely
significant bioprosthetic .
-Troponin peaked at 0.04 and was managed as a nonischemic myocardial injury troponin elevation in the setting of acute HF. No CP
-Patient with hypotension earlier this admission that was treated with Levophed. Attempted low-dose dobutamine given likely severe when recurred with hypotension and patient did not tolerate.
-Patient is chronically on aspirin and Plavix for history of CVA
-Patient is not felt to be candidate for invasive management. Patient lives at [facility] and has memory loss though we have seen during this admission. Patient remains a full code, but details were discussed with the patient and most
importantly her daughter on 09/14/2024 and again 09/21/24 discussed with patient and her daughter who prefer medical therapy with DNR. They do not desire right heart catheter KRYSTIN. The palliative care note was reviewed on 09/23/2024 and patient is
agreeable to outpatient palliative care program enrollment, but is not interested in hospice at this time
-PT/OT notes recommend SNF and patient agrees to [place]
Progress Note - Thin Film Technician
Subjective
Date of Service: September 24, 2024
Less SOB working with PT
Objective
Labs:
09/24/24 05:17
09/24/24 05:17
Labs
Hgb 9.7 g/dL (12.0-16.0) L 09/24/24 05:17
Hct 29.2 % (37.0-47.0) L 09/24/24 05:17
Plt Count 504 10^3/uL (130-400) H 09/24/24 05:17
Sodium 141 mmol/L (135-145) 09/24/24 05:17
Potassium 4.3 mmol/L (3.5-5.1) 09/24/24 05:17
BUN 79 mg/dl (7-17) H 09/24/24 05:17
Creatinine 1.3 mg/dL (0.6-1.0) H 09/24/24 05:17
Glucose 136 mg/dl (70-99) H 09/24/24 05:17
Vital Signs and I&O:
Vital Signs
Temp Pulse Resp BP Pulse Ox
98.1 F 71 19 123/76 95
09/24/24 11:08 09/24/24 09:48 09/24/24 09:48 09/24/24 10:03 09/24/24 08:00
Vital Signs
Temp Pulse Resp BP Pulse Ox
98.1 F 71 19 123/76 95
09/24/24 11:08 09/24/24 09:48 09/24/24 09:48 09/24/24 10:03 09/24/24 08:00
Intake & Output
09/22/24 09/23/24 09/24/24 09/25/24
06:59 06:59 06:59 06:59
Intake Total 480 / 480
Output Total 300 / 300 575 / 575 1300 / 1300
Balance -300 / -300 -95 / -95 -1300 / -1300
Physical Exam
Physical Exam
General: NAD
Heart: SR on tele
Lungs: 2 L NC
Extremities: +1 edema B/L LE
Neuro: No focal weakness
[2024-09-24 12:26] LABS: Glucose - Point of Care 209 mg/dl (70-99)
--- NOTE | 2024-09-24 12:30 | W.PN.PAL2 ---
Today's Communication
-
Patient seen for brief follow up. sitting in chair, comfortable. no acute distress. reports plan for dc in near future. palliative care office information has been provided to her and her daughter for outpatient follow up.
Objective Data
-
Objective Data:
Vital Signs
Temp Pulse Resp BP Pulse Ox
98.1 F 71 19 123/76 95
09/24/24 11:08 09/24/24 09:48 09/24/24 09:48 09/24/24 10:03 09/24/24 08:00
Laboratory Results
09/24/24 05:17
09/24/24 05:17
Hemoglobin A1c 6.8 % (4.0-5.6) H 09/11/24 05:12
Total Protein 5.9 g/dl (6.3-8.2) L 09/24/24 05:17
Albumin 3.4 g/dl (3.5-5.0) L 09/24/24 05:17
Urine Color Yellow 09/22/24 21:01
Urine Clarity Clear (Clear) 09/22/24 21:01
Urine pH 6.0 (5.0-9.0) 09/22/24 21:01
Ur Specific [place] 1.010 (<1.030) 09/22/24 21:01
Urine Ketones Negative (Negative) 09/22/24 21:01
Urine Bilirubin Negative (Negative) 09/22/24 21:01
Palliative Performance Scale
Palliative Performance Scale:
PPS Level Ambulation Activity & Evidence of Disease Self Care Intake Conscious Level
100% Full Normal Activity & Work; Full Intake Full
No Evidence of Disease
90% Full Normal Activity & Work; Full Normal Full
Some Evidence of Disease
80% Full Normal Activity with Effort Full Normal or Full
Some Evidence of Disease Reduced
70% Reduced Unable Normal Job/Work Full Normal or Full
Significant Disease Reduced
60% Reduced Unable Hobby/Housework Occasional Normal or Full or Confusion
Significant Disease Assistance Reduced
50% Mainly Sit/Lie Unable to do Any Work Considerable Normal or Full or Confusion
Extensive Disease Assistance Req'd Reduced
40% Mainly in Bed Unable to do Most Activity Mainly Assistance Normal or Full or Drowsy;
Extensive Disease Reduced +/- Confusion
30% Totally Bed Unable to do Any Activity Total Care Normal or Full or Drowsy;
Bound Extensive Disease Reduced +/- Confusion
20% Totally Bed Bound Unable to do Any Activity Total Care Minimal to Full or Drowsy;
Extensive Disease Sips +/- Confusion
10% Totally Bed Bound Unable to do Any Activity Total Care Mouth Care Drowsy or Coma;
Extensive Disease Only +/- Confusion
0%
PPS Score Level:
[2024-09-24] MEDS: NOVOLOG FLEXPEN-LOW RESISTANCE 5 UNITS SC (13:04)
--- NOTE | 2024-09-24 13:59 | W.PN.HOSP.TC ---
Today's Communication/Plan
-
weaning o2
cont diuresis
monitor renal function, lfts
monitor cultures
Assessment / Plan
Assessment / Plan
Acute on chronic CHF exacerbation with reduced ejection fraction
Acute hypoxic respiratory insufficiency secondary to above, now on 6 L
-Cardiac BNP greater than 27,000
-Chest x-ray shows pulm edema, does not appear to have pneumonia. Will monitor. No fever, leukocytosis.
-Continue with diuresis per renal- Back to IV diuresis.
-EF of 25% from echo in 2020
-Echo 09/11 noted with a EF 15 to 20%,
-S/p CABG 10/2008 with FOLEY to LAD and SVG to RPDA
-S/p cardiac cath at [facility] 11/16/20 FOLEY to LAD patent, SVG to RPDA occluded, ostial Circ 75% stenosis, ostial RCA 75% stenosis
-Severe
-Hold Farxiga
-Continue midodrine with holding parameter
-Cont IV lasix
-Check I's and O's, daily weights-weight improving.
#Shock, unknown etiology
resolved
Pressors weaned off
was hypotensive again 09/16; transferred back to IMU, so far no pressors restarted
coreg dec, monitor.
Continue with midodrine.
# SAM likely cardiorenal on CKD, unknown baseline
-Creatinine of 2.7 from 1.9; creatinine from today pending
-Continue with diuresis
-Nephrology following
-Hold spironolactone, losartan
#Acute metabolic encephalopathy
� Possibly secondary to CO2 narcosis with CHF exacerbation + UTI + along with +/- delirium
� Resolved 09/22
#UTI
History of multiple UTIs in past
Urine culture with pseudomonas; Completed Cefepime to Cipro course
finished abx
Afeb , WBC normal. No dysuria. Asymptomatic
UA appears positive although could be colonization, follow urine cultures; mental status resolved -will hold on antibiotics at this time awaiting finalized culture
Elevated troponin likely secondary to nonischemic myocardial injury
Monitor
Edema blistering 2/2 fluid overload
monitor
venous Doppler lower extremity neg for DVT
Transaminitis
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
� Monitor with diuresis
-improving
History of TAVR
CAD status post CABG
-Continue Plavix
-Continue Coreg
Chronic lymphedema
left buttock pressure related pressure injury stage 1
Essential hypertension
Chronic LBBB
Hypercholesterolemia
Chronic anemia
Type 2 diabetes
-Hold metformin, glipizide
-Insulin sliding scale
A1c 6.8
History of CVA
Hypothyroidism
-Continue levothyroxine
Full code
DVT prophylaxis�heparin
Discussed with RN
DW cards
DNR/DNI
Total time spent on today's encounter was 52 minutes which included time spent in counseling the patient/family regarding diagnosis and treatment plan as listed above, goals of care, and symptom management. Case was discussed with nursing staff,
specialists, and care coordinators/case management. All labs and imaging personally reviewed by me. Remainder the time spent in detailed review of previous records, lab data, imaging, and other medical provider documentation.
Anticipated Discharge: 24 - 48 hours
Subjective/Interval History
-
Date of Service: September 24, 2024
no acute events
Objective Data
-
Labs:
Laboratory Results
09/24/24
05:17
WBC 6.3
Hgb 9.7 L
Hct 29.2 L
Plt Count 504 H
Sodium 141
Potassium 4.3
Chloride 98
Carbon Dioxide 37 H
BUN 79 H
Creatinine 1.3 H
Glucose 136 H
Calcium 9.6
Total Bilirubin 1.2
AST 59 H
ALT 107 H
Alkaline Phosphatase 113
Vital Signs:
Vital Signs
Temp Pulse Resp BP Pulse Ox
98.1 F 71 19 123/76 95
09/24/24 11:08 09/24/24 09:48 09/24/24 09:48 09/24/24 10:03 09/24/24 08:00
I&O
09/23/24 09/24/24 09/25/24
06:59 06:59 06:59
Intake Total 480 / 480
Output Total 575 / 575 1300 / 1300
Balance -95 / -95 -1300 / -1300
Review of Systems
-
History Source: Patient
All other systems: Not reviewed unless documented
Physical Exam
-
General: Negative Comfortable
Respiratory: Wheezes (b/l lower lobe)
Cardiac: Regular Rhythm and S1/S2
GI: Soft
Skin: Warm
Neuro: Awake; Negative Alert (Drifts of into sleep and when aroused she is confused today)
Psych: Negative Confused
Data Reviewed
-
Diagnostic Radiology: Report Reviewed by me
Ultrasound: Report Reviewed by me
--- NOTE | 2024-09-24 16:36 | CM ---
Patient from [facility] with Dx Acute on chronic CHF exacerbation. O2 1L. Receiving midodrine, IV Lasix. Seen by wound care nurse. PT & OT; requires assist of 2, recommend skilled rehab. Per nursing; forgetful.
Per prior CM notes; patient accepted by [facility] and patient agreed to this plan.
Plan [facility] when medically ready.
[2024-09-24 17:42] LABS: Glucose - Point of Care 251 mg/dl (70-99)
[2024-09-24] MEDS: NOVOLOG FLEXPEN-LOW RESISTANCE 3 UNITS SC (17:43)
--- NOTE | 2024-09-24 18:39 | PTCARENOTE ---
OOB all day- Weaned off o2 92-94% on RAIR currently- remains on continuous pox. Rhythm unchanged on tele SR 1st AVB/ BBB PVCs/ PACs. Appetite good. IV Lasix and utilizing purewick for incontinence and output. + BM on BSC today.
--- NOTE | 2024-09-24 21:59 | PTCARENOTE ---
Pt AAOx3, forgetful at times and [place] [place] [facility], very pleasant. Attempted to wean patient to RA pt SpO2 87%, placed pt back on 1L NC. Pt voiding clear yellow urine. Edema to b/l lower extremities improving +1 no pitting. Desenex to b/l lower abdomen. Moisture
barrier applied to buttocks and perineal area. Pt tolerating frequent turning and repositioning. Call rey is within reach.
[2024-09-24 22:29] LABS: Glucose - Point of Care 167 mg/dl (70-99)
[2024-09-25] VITALS (13 sets, daily range): BP systolic 92–115; BP diastolic 50–85; BMI 38.7
[2024-09-25 04:52] LABS: Hematocrit 32.8 % (37.0-47.0); Hemoglobin 10.5 g/dL (12.0-16.0); Mean Corpuscular Hgb 29.8 pg (27.0-31.0); Mean Corpuscular Volume 93.2 fL (81.0-99.0); Mean Platelet Volume 10.4 fL (7.4-10.4); Platelet Count 522 10^3/uL (130-400); Red Blood Cell Count 3.52 10^6/uL (4.20-5.40); Red Cell Dist. Width 17.2 % (11.5-14.5); White Blood Cell Count 6.3 10^3/uL (4.8-10.8)
[2024-09-25 05:25] LABS: ALT (SGPT) 91 U/L (0-35); AST (SGOT) 50 U/L (14-36); Albumin 3.7 g/dl (3.5-5.0); Alkaline Phosphatase 116 U/L (38-126); Blood Urea Nitrogen 75 mg/dl (7-17); Calcium 9.7 mg/dl (8.4-10.2); Carbon Dioxide 36 mmol/L (22-30); Chloride 99 mmol/L (98-107); Estimated Creatinine Clearance 35 ml/min; Glucose 127 mg/dl (70-99); Potassium 4.6 mmol/L (3.5-5.1); Sodium 144 mmol/L (135-145); Total Bilirubin 1.2 mg/dl (0.2-1.3); Total Protein 6.2 g/dl (6.3-8.2); eGFR 41.31
[2024-09-25] MEDS: SYNTHROID 88 MCG PO (05:42)
[2024-09-25 08:01] LABS: Glucose - Point of Care 132 mg/dl (70-99)
--- NOTE | 2024-09-25 08:22 | PTCARENOTE ---
Patient received from lieutenant shift supervisor. Patient resting comfortably in bed. AAOx2, pleasantly confused. VSS. No events noted overnight. No complaints of pain at this time. Currently on 1L N/C, was attempted on room air but had desaturation, will
try to wean. Will attempt to get patient to chair if willing. No fluids through IV. No testing scheduled at this time. Possible downgrade? Call rey in reach.
[2024-09-25] MEDS: HEPARIN 5000 UNITS SC ×2 (08:35→20:07)
[2024-09-25] MEDS: LASIX 40 MG IV ×2 (08:36→17:05)
[2024-09-25] MEDS: DESENEX/MITRAZOL/ZEASORB 1 APPLIC TOPICAL ×2 (08:36→20:08)
[2024-09-25] MEDS: COREG 3.125 MG PO (08:37)
[2024-09-25] MEDS: LIPITOR 40 MG PO (08:37)
[2024-09-25] MEDS: UROCIT-K 10 MEQ PO ×2 (08:37→20:06)
[2024-09-25] MEDS: OSCAL 500 + D 500 MG PO (08:37)
[2024-09-25] MEDS: CLARITIN 10 MG PO (08:37)
[2024-09-25] MEDS: PROTONIX 40 MG PO (08:37)
[2024-09-25] MEDS: PLAVIX 75 MG PO (08:37)
[2024-09-25] MEDS: HIPREX 1 GRAM PO ×2 (08:37→20:06)
[2024-09-25] MEDS: THERAGRAN 1 TABLET PO (08:37)
[2024-09-25] MEDS: OCUVITE SOFTGEL 1 CAP PO ×2 (08:37→20:07)
[2024-09-25] MEDS: LIDOCAINE 4% PATCH 2 PATCH TOPICAL (08:37)
[2024-09-25] MEDS: ProAmatine 5 MG PO ×3 (08:37→17:05)
[2024-09-25] MEDS: FEOSOL 325 MG PO (08:37)
[2024-09-25] MEDS: MAGNESIUM OXIDE 500 MG PO (08:37)
[2024-09-25] MEDS: NOVOLOG FLEXPEN-LOW RESISTANCE SC (08:38)
--- NOTE | 2024-09-25 11:38 | W.PN.NEPH.PH ---
Today's Communication / Plan
-
Continue diuretic
Assessment/Plan
-
IMP:
Acute on chronic CHF exacerbation with reduced ejection fraction
Acute hypoxic respiratory insufficiency
Fredi with CKD
Cardiomyopathy EF of 45% from echo in 2023
s/p CABG 10/2008 with FOLEY to LAD and SVG to RPDA
s/p cardiac cath at [facility] 11/16/20 FOLEY to LAD patent, SVG to RPDA occluded, ostial Circ 75% stenosis, ostial RCA 75% stenosis
Severe s/p BAV 12/06/20
Shock, unknown etiology
Elevated troponin likely secondary to nonischemic myocardial injury
Edema blistering 2/2 fluid overload
Chronic lymphedema
Essential hypertension
Chronic LBBB
Hypercholesterolemia
Chronic anemia
Type 2 diabetes
History of CVA
Hypothyroidism
Plan:
cr slightly up at 1.3, persistent azotemia suggest cardiorenal in nature
continue midodrine
continue IV lasix, wt decreasing
BP remain soft on midodrine and low dose coreg
Hospice being considered, pt seem not ready for
Continue supportive care, cards follows
holding ARB, Farxiga and Aldactone
1.4 L out last 24-hour
-
-
Date of Service: September 25, 2024
CC / HPI / ROS
-
Chief Complaint:
FREDI
History of Present Illness:
FREDI/Cr 1.3 stable
BP low stable
diuresing slowly for decompensated HF with lasix IV
Review of Systems:
no CP
Remains on nasal cannula
no sob at rest
Labs
-
Labs:
WBC 6.3 10^3/uL (4.8-10.8) 09/25/24 04:30
RBC 3.52 10^6/uL (4.20-5.40) L 09/25/24 04:30
Hgb 10.5 g/dL (12.0-16.0) L 09/25/24 04:30
Hct 32.8 % (37.0-47.0) L 09/25/24 04:30
Plt Count 522 10^3/uL (130-400) H 09/25/24 04:30
Sodium 144 mmol/L (135-145) 09/25/24 04:30
Potassium 4.6 mmol/L (3.5-5.1) 09/25/24 04:30
Chloride 99 mmol/L (98-107) 09/25/24 04:30
Carbon Dioxide 36 mmol/L (22-30) H 09/25/24 04:30
BUN 75 mg/dl (7-17) H 09/25/24 04:30
Creatinine 1.3 mg/dL (0.6-1.0) H 09/25/24 04:30
eGFR 41.31 09/25/24 04:30
Glucose 127 mg/dl (70-99) H 09/25/24 04:30
Calcium 9.7 mg/dl (8.4-10.2) 09/25/24 04:30
Ein-R-Csizdasxyll Pept > 61323 pg/ml 09/15/24 07:46
Albumin 3.7 g/dl (3.5-5.0) 09/25/24 04:30
Physical Exam
-
Vital Signs:
Vital Signs
Temp Pulse Resp BP Pulse Ox
98.0 F 66 19 115/70 97
09/25/24 11:37 09/25/24 08:36 09/25/24 06:00 09/25/24 08:36 09/25/24 10:53
Cardiovascular:: Regular rate and rhythm
Respiratory:: Bilateral: Coarse
Lung Excursion:: Normal (decreased BS bilat)
Abdomen:: Nontender and Soft
Bowel Sounds:: Normal
Extremity Edema:: +2: Bilateral:
De Oliveira Catheter: No
[2024-09-25] MEDS: LOW STRENGTH ASPIRIN 81 MG PO ×2 (11:52→20:08)
[2024-09-25 12:29] LABS: Glucose - Point of Care 238 mg/dl (70-99)
[2024-09-25] MEDS: NOVOLOG FLEXPEN-LOW RESISTANCE 2 UNITS SC (12:50)
--- NOTE | 2024-09-25 15:03 | W.PN.CARDCBS ---
Addendum entered and electronically signed by Nasir Roberts DO 09/26/24 06:20:
I saw and examined the patient 09/25/2024 at 10:30AM.
The Economics Analyst's note was reviewed and I agree with the note.
Comment:
Plan:
Transition to oral lasix next 24 hrs, potentially 60 mg BID
Wt is down almost 20 lbs since admit
Cr stable
Pt is transition to palliative care with her comorbidities including dementia and with pt and family goals of care. Pt and family do no want invasive procedures
Her prognosis is poor with significant bioAVR aortic stenosis
Original Note:
Today's Communication / Plan
-
Oxygenation improved and now requiring 1 L, weight down potentially as much as 18 lbs depending on the accuracy of the bed scale weights that are recorded
Consider transitioning to Lasix PO in a.m., not sure if 40 mg BID or a higher dose of 80 mg BID is the right choice for d/c
Impression / Plan
-
PCP: Dr. Elidia Meneses
Primary Edge Bonder: Dr. Chris Craig of [facility]
Assessment:
Presentation with SOB, LE edema 09/10/24
Acute on chronic HFrEF
CM EF previously 45% by echo 07/2023 and reduced further to 15 to 20% by echo 09/11/24
Severe
h/o type 2 NH related to severe 11/2020 resulting in transfer to [facility], s/p BAV 12/06/20
s/p sternotomy with biologic AVR, aortic root enlargement with pericardial patch, and CABG x1 SVG to distal RCA by Dr. Smith on 03/04/2021
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
Acute hypoxic respiratory insufficiency
SAM on CKD, suspected cardiorenal
Hypotension requiring pressor support
Elevated troponin, suspected nonischemic myocardial injury
CAD
s/p CABG with FOLEY to LAD and SVG to RPDA (occluded by cath 2020) in 2008
s/p cardiac cath at [facility] FOLEY to LAD patent, SVG to RPDA occluded, ostial Circ 75% stenosis, ostial RCA 75% stenosis 11/16/20
s/p CABG at time of AVR with SVG to distal RCA 03/04/21
Brief post op afib episode while at [facility], without known recurrence
s/p [facility] [facility] implanted loop recorder
PVCs
Chronic LBBB
DM 2
HTN
Hyperlipidemia
Hypothyroid
h/o CVA
Peripheral neuropathy
s/p IVC filter
Left breast cancer s/p lumpectomy, chemotherapy, and radiation 2008
Obesity
Anemia
Memory loss
Nuclear stress test 08/24/2023: Large sized moderate to severe defect in apex, apical anterior, apical inferior wall, prone imaging not performed, defect consistent with infarct with minimal gerald-infarct ischemia, EF 35% with global hypokinesis and
anteroapical akinesis, unchanged compared to prior cath and echo in 2020
Echo 03/24/2021: EF 25%, severe global hypokinesis with possible inferolateral and apical akinesis, mild MR, bioprosthetic AVR with peak/mean 21/12 mmHg
ECHO 07/2023: Mildly reduced LV systolic function 45% due to akinesis of distal inferior wall, mild MR with severe left atrial dilation, bioprosthetic aortic valve with peak gradient 49/mean gradient 32, valve size known to be small, moderate
pulmonary hypertension
Echo 09/11/2024: Dilated left ventricle with severely reduced left ventricular systolic function estimated 15-20% with grade 2 diastolic dysfunction increased LV filling pressures. Moderate mitral and tricuspid regurgitation. Bioprosthetic aortic
valve with peak/mean gradients 37/23 mmHg and no significant aortic regurgitation.
Plan:
-Nephrology note reviewed, Cre 1.3, but will continue with Lasix 40 mg IV BID for now. Patient was taking Lasix 40 mg PO BID prior to admission
-Cre stable at 1.3 on 09/24/24. Remains stable on 2 L NC.
-Weight down at 204 lbs on 09/25/24. Bed scale weights recorded.
-EF now down to 15-20% and was previously 45% by echo 07/2023. Of note EF was previously as low as 25% by an echo at on 03/24/2021.
-Outpatient dose of Coreg decreased to 3.125 mg BID due to hypotension
-Outpatient dose of Entresto 24/26 mg twice daily has been on hold since admission due to hypotension and then SAM
-Outpatient dose of Jardiance 10 mg daily was transitioned to Farxiga 10 mg daily due to formulary changes at , but regardless remains on hold due to UTI
-Patient with h/o severe treated at [facility] with BAV on 12/06/2020 followed later by sternotomy with tissue AVR, aortic root enlargement, pericardial patch and CABG x 1 on 03/04/2021. Coming in now with acute HF and by echo there appears to be likely
significant bioprosthetic .
-Troponin peaked at 0.04 and was managed as a nonischemic myocardial injury troponin elevation in the setting of acute HF. No CP
-Patient with hypotension earlier this admission that was treated with Levophed. Attempted low-dose dobutamine given likely severe when patient had recurrent hypotension and patient did not tolerate.
-Patient is chronically on aspirin and Plavix for history of CVA
-Patient is not felt to be candidate for invasive management. Patient lives at [facility] and has memory loss though we have seen during this admission. Patient remains a full code, but details were discussed with the patient and most
importantly her daughter on 09/14/2024 and again 09/21/24 discussed with patient and her daughter who prefer medical therapy with DNR. They do not desire right heart catheter KRYSTIN. The palliative care note was reviewed on 09/23/2024 and patient is
agreeable to outpatient palliative care program enrollment, but is not interested in hospice at this time
-PT/OT notes recommend SNF and patient agrees to [facility]
Progress Note - Edge Bonder
Subjective
Date of Service: September 25, 2024
Still with some ANDERSON
Objective
Labs:
09/25/24 04:30
09/25/24 04:30
Labs
Hgb 10.5 g/dL (12.0-16.0) L 09/25/24 04:30
Hct 32.8 % (37.0-47.0) L 09/25/24 04:30
Plt Count 522 10^3/uL (130-400) H 09/25/24 04:30
Sodium 144 mmol/L (135-145) 09/25/24 04:30
Potassium 4.6 mmol/L (3.5-5.1) 09/25/24 04:30
BUN 75 mg/dl (7-17) H 09/25/24 04:30
Creatinine 1.3 mg/dL (0.6-1.0) H 09/25/24 04:30
Glucose 127 mg/dl (70-99) H 09/25/24 04:30
Vital Signs and I&O:
Vital Signs
Temp Pulse Resp BP Pulse Ox
98.0 F 64 19 98/63 97
09/25/24 11:37 09/25/24 13:02 09/25/24 06:00 09/25/24 13:02 09/25/24 10:53
Vital Signs
Temp Pulse Resp BP Pulse Ox
98.0 F 64 19 98/63 97
09/25/24 11:37 09/25/24 13:02 09/25/24 06:00 09/25/24 13:02 09/25/24 10:53
Intake & Output
09/23/24 09/24/24 09/25/24 09/26/24
06:59 06:59 06:59 06:59
Intake Total 480 / 480
Output Total 575 / 575 1300 / 1300 1400 / 1400
Balance -95 / -95 -1300 / -1300 -1400 / -1400
Physical Exam
Physical Exam
General: NAD
Heart: SR on tele
Lungs: 1 L NC
Extremities: Trace edema B/L LE
Neuro: No focal weakness
--- NOTE | 2024-09-25 15:10 | W.PN.HOSP.TC ---
Today's Communication/Plan
-
weaning o2
cont diuresis
monitor renal function, lfts
Assessment / Plan
Assessment / Plan
Acute on chronic CHF exacerbation with reduced ejection fraction
Acute hypoxic respiratory insufficiency secondary to above, now on 6 L
-Cardiac BNP greater than 27,000
-Chest x-ray shows pulm edema, does not appear to have pneumonia. Will monitor. No fever, leukocytosis.
-Continue with diuresis per renal- Back to IV diuresis.
-EF of 25% from echo in 2020
-Echo 09/11 noted with a EF 15 to 20%,
-S/p CABG 10/2008 with FOLEY to LAD and SVG to RPDA
-[facility] FOLEY to LAD patent, SVG to RPDA occluded, ostial Circ 75% stenosis, ostial RCA 75% stenosis
-Severe
-Hold Farxiga
-Continue midodrine with holding parameter
-Cont IV lasix
-Check I's and O's, daily weights-weight improving.
#Shock, unknown etiology
resolved
Pressors weaned off
was hypotensive again 09/16; transferred back to IMU, so far no pressors restarted
coreg dec, monitor.
Continue with midodrine.
# SAM likely cardiorenal on CKD, unknown baseline
-Creatinine of 2.7 from 1.9; creatinine from today pending
-Continue with diuresis
-Nephrology following
-Hold spironolactone, losartan
#Acute metabolic encephalopathy
� Possibly secondary to CO2 narcosis with CHF exacerbation + UTI + along with +/- delirium
� Resolved 09/22
#UTI
History of multiple UTIs in past
Urine culture with pseudomonas; Completed Cefepime to Cipro course
finished abx
Afeb , WBC normal. No dysuria. Asymptomatic
Repeat UA: Asymptomatic bacteruria - no symptoms and only 70k CFU; mental status resolved on its own -will hold on antibiotics at this time
Elevated troponin likely secondary to nonischemic myocardial injury
Monitor
Edema blistering 2/2 fluid overload
monitor
venous Doppler lower extremity neg for DVT
Transaminitis
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
� Monitor with diuresis
-improving
History of TAVR
CAD status post CABG
-Continue Plavix
-Continue Coreg
Chronic lymphedema
left buttock pressure related pressure injury stage 1
Essential hypertension
Chronic LBBB
Hypercholesterolemia
Chronic anemia
Type 2 diabetes
-Hold metformin, glipizide
-Insulin sliding scale
A1c 6.8
History of CVA
Hypothyroidism
-Continue levothyroxine
Full code
DVT prophylaxis�heparin
Discussed with RN
DW cards
DNR/DNI
Anticipated Discharge: Within 24 hours
Subjective/Interval History
-
Date of Service: September 25, 2024
No acute events
Objective Data
-
Labs:
Laboratory Results
09/25/24
04:30
WBC 6.3
Hgb 10.5 L
Hct 32.8 L
Plt Count 522 H
Sodium 144
Potassium 4.6
Chloride 99
Carbon Dioxide 36 H
BUN 75 H
Creatinine 1.3 H
Glucose 127 H
Calcium 9.7
Total Bilirubin 1.2
AST 50 H
ALT 91 H
Alkaline Phosphatase 116
Vital Signs:
Vital Signs
Temp Pulse Resp BP Pulse Ox
98.0 F 64 19 98/63 97
09/25/24 11:37 09/25/24 13:02 09/25/24 06:00 09/25/24 13:09/25/24 10:53
I&O
09/24/24 09/25/24 09/26/24
06:59 06:59 06:59
Output Total 1300 / 1300 1400 / 1400
Balance -1300 / -1300 -1400 / -1400
Review of Systems
-
History Source: Patient
All other systems: Not reviewed unless documented
Physical Exam
-
General: Negative Comfortable
HEENT: Normocephalic and Atraumatic
Cardiac: Regular Rhythm and S1/S2
GI: Soft
Genito-urinary: No Costovertebral Tender
Musculoskeletal: No Clubbing
Skin: Warm
Neuro: Awake, Alert (Drifts of into sleep and when aroused she is confused today), Oriented and AO x 3
Hematologic / Lymphatic: No Lymphadenopathy
Psych: Calm
Data Reviewed
-
Diagnostic Radiology: Report Reviewed by me
Ultrasound: Report Reviewed by me
[2024-09-25] MEDS: NOVOLOG FLEXPEN-LOW RESISTANCE 1 UNITS SC (17:32)
[2024-09-25 17:42] LABS: Glucose - Point of Care 197 mg/dl (70-99)
[2024-09-25] MEDS: COREG PO (20:08)
[2024-09-25 21:35] LABS: Glucose - Point of Care 162 mg/dl (70-99)
--- NOTE | 2024-09-25 22:03 | PTCARENOTE ---
Report called to ZAYRA Cardoza on 2N.
Patient called daughter to update. Patient belongings packed and brought with patient. Pt transferred via bed with PCT on 1L NC and tele box.
[2024-09-26] VITALS (9 sets, daily range): BP systolic 97–139; BP diastolic 54–71; PULSE 70; O2SAT 95; BMI 38.7
[2024-09-26] MEDS: SYNTHROID 88 MCG PO (05:15)
[2024-09-26 07:59] LABS: Hematocrit 30.3 % (37.0-47.0); Hemoglobin 9.7 g/dL (12.0-16.0); Mean Corpuscular Hgb 29.8 pg (27.0-31.0); Mean Corpuscular Volume 92.9 fL (81.0-99.0); Mean Platelet Volume 10.8 fL (7.4-10.4); Platelet Count 531 10^3/uL (130-400); Red Blood Cell Count 3.26 10^6/uL (4.20-5.40); Red Cell Dist. Width 17.2 % (11.5-14.5); White Blood Cell Count 6.3 10^3/uL (4.8-10.8)
[2024-09-26 08:00] LABS: Glucose - Point of Care 133 mg/dl (70-99)
[2024-09-26 08:40] LABS: ALT (SGPT) 67 U/L (0-35); AST (SGOT) 35 U/L (14-36); Albumin 3.2 g/dl (3.5-5.0); Alkaline Phosphatase 100 U/L (38-126); Blood Urea Nitrogen 71 mg/dl (7-17); Calcium 9.8 mg/dl (8.4-10.2); Carbon Dioxide 37 mmol/L (22-30); Chloride 98 mmol/L (98-107); Estimated Creatinine Clearance 38 ml/min; Glucose 120 mg/dl (70-99); Potassium 4.5 mmol/L (3.5-5.1); Sodium 141 mmol/L (135-145); Total Bilirubin 1.1 mg/dl (0.2-1.3); Total Protein 5.7 g/dl (6.3-8.2); eGFR 45.48
[2024-09-26] MEDS: NOVOLOG FLEXPEN-LOW RESISTANCE SC ×2 (09:11→17:18)
[2024-09-26] MEDS: MAGNESIUM OXIDE 500 MG PO (09:12)
[2024-09-26] MEDS: LIDOCAINE 4% PATCH 2 PATCH TOPICAL (09:12)
[2024-09-26] MEDS: PROTONIX 40 MG PO (09:13)
[2024-09-26] MEDS: ProAmatine 5 MG PO ×2 (09:14→13:10)
[2024-09-26] MEDS: CLARITIN 10 MG PO (09:14)
[2024-09-26] MEDS: HEPARIN 5000 UNITS SC ×2 (09:16→21:22)
[2024-09-26] MEDS: FEOSOL 325 MG PO (09:16)
[2024-09-26] MEDS: DESENEX/MITRAZOL/ZEASORB 1 APPLIC TOPICAL ×2 (09:16→21:22)
[2024-09-26] MEDS: THERAGRAN 1 TABLET PO (09:16)
[2024-09-26] MEDS: LIPITOR 40 MG PO (09:16)
[2024-09-26] MEDS: OCUVITE SOFTGEL 1 CAP PO ×2 (09:16→21:18)
[2024-09-26] MEDS: COREG 3.125 MG PO ×2 (09:17→21:18)
[2024-09-26] MEDS: HIPREX 1 GRAM PO ×2 (09:18→21:18)
[2024-09-26] MEDS: OSCAL 500 + D 500 MG PO (09:21)
[2024-09-26] MEDS: PLAVIX 75 MG PO (09:21)
[2024-09-26] MEDS: LASIX 40 MG IV (09:24)
[2024-09-26] MEDS: UROCIT-K 10 MEQ PO ×2 (09:26→21:17)
--- NOTE | 2024-09-26 10:27 | W.HF.CON ---
Heart Failure
- LV Function
Left ventricular function study result: LV Ejection fraction </= 35%
Ejection Fraction Percentage: 15-20
- ARNI
Patient already on ARNI: No
Heart Failure ARNI Contraindication: Mod/Severe Aortic Stenosis
- ACEI/ARB
Patient already on ACEI/ARB: No
Heart Failure ACEI/ARB Contraindication: Mod/Severe Aortic Stenosis
- Beta John
Patient already on Evidence Based Beta John: Yes
- Mineralocorticord Receptor Antagonist
Patient already on MRA: No
Heart Failure MRA Contraindication: Hypotension
- SGLT-2 Inhibitor
Patient already on SGLT-2 Inhibitor: No
Heart Failure SGLT-2 Inhibitor Contraindication: Patient Refusal
- NYHA CHF Classification
NYHA CHF Classification Level: Class III - Symptoms w/ min exertion, interferes w/ nml daily activity
- ACC/AHA Stage
ACC/AHA Stage: Stage D: Advanced Heart Failure
[2024-09-26] MEDS: LOW STRENGTH ASPIRIN 81 MG PO ×2 (10:59→21:23)
--- NOTE | 2024-09-26 11:09 | W.PN.CARDCBS ---
Addendum entered and electronically signed by Nicole Montiel PA-C 09/26/24 16:57:
Additional records obtained and reviewed from Dr. Smith and Dr. Craig. She has history of CABG x 2 10/2008 consisting of FOLEY to LAD, SVG to right PDA. She then underwent redo sternotomy with aortic valve replacement with #19 biological valve,
aortic root enlargement with pericardial patch, CABG x 1 with SVG to distal RCA after SVG to PDA was noted to be occluded by cath 10/2020.
By their notes she has a history of recurrent UTIs and was previously on suppressive Keflex, history of stroke in 2019 without known residual deficits.
Addendum entered and electronically signed by Mak Jay MD 09/26/24 15:05:
I saw and examined the patient.
The Manager Portable's note was reviewed and I agree with the note.
Comment: Briefly, 83-year-old woman past medical history of aortic valve replacement complicated by severe prosthetic valve aortic stenosis who presents in acute decompensated heart failure and was found to have severely LV dysfunction with EF
15-20%.
Ongoing goals of care discussion, but at this time patient would like to proceed with TAVR workup. We will arrange for right heart catheterization, tentatively today, to start this process.
For now examines as volume overloaded
Would continue IV diuretics pending results of RHC which will help to guide further therapy
Continue carvedilol and farxiga
Unfortunately her blood pressure is unlikely to tolerate additional GDMT as she has been maintained on midodrine here
Rest per Nicole back
Original Note:
Today's Communication / Plan
-
RHC today
continue IV lasix
Impression / Plan
-
PCP: Dr. Elidia Meneses
Primary Baby Attendant: Dr. Chris Craig of [place]
Assessment:
Presentation with SOB, LE edema 09/10/24
Acute on chronic HFrEF
CM EF previously 45% by echo 07/2023 and reduced further to 15 to 20% by echo 09/11/24
Severe
h/o type 2 [place] related to severe 11/2020 resulting in transfer to [facility], s/p BAV 12/06/20
s/p sternotomy with biologic AVR, aortic root enlargement with pericardial patch, and CABG x1 SVG to distal RCA by Dr. Smith on 03/04/2021
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
Acute hypoxic respiratory insufficiency
SAM on CKD, suspected cardiorenal
Hypotension requiring pressor support
Elevated troponin, suspected nonischemic myocardial injury
CAD
s/p CABG with FOLEY to LAD and SVG to RPDA (occluded by cath 2020) in 2008
s/p cardiac cath at [facility] FOLEY to LAD patent, SVG to RPDA occluded, ostial Circ 75% stenosis, ostial RCA 75% stenosis 11/16/20
s/p CABG at time of AVR with SVG to distal RCA 03/04/21
Brief post op afib episode while at [facility], without known recurrence
s/p [employer] implanted loop recorder
PVCs
Chronic LBBB
DM 2
HTN
Hyperlipidemia
Hypothyroid
h/o CVA
Peripheral neuropathy
s/p IVC filter
Left breast cancer s/p lumpectomy, chemotherapy, and radiation 2008
Obesity
Anemia
Memory loss
Nuclear stress test 08/24/2023: Large sized moderate to severe defect in apex, apical anterior, apical inferior wall, prone imaging not performed, defect consistent with infarct with minimal gerald-infarct ischemia, EF 35% with global hypokinesis and
anteroapical akinesis, unchanged compared to prior cath and echo in 2020
Echo 03/24/2021: EF 25%, severe global hypokinesis with possible inferolateral and apical akinesis, mild MR, bioprosthetic AVR with peak/mean 21/12 mmHg
ECHO 07/2023: Mildly reduced LV systolic function 45% due to akinesis of distal inferior wall, mild MR with severe left atrial dilation, bioprosthetic aortic valve with peak gradient 49/mean gradient 32, valve size known to be small, moderate
pulmonary hypertension
Echo 09/11/2024: Dilated left ventricle with severely reduced left ventricular systolic function estimated 15-20% with grade 2 diastolic dysfunction increased LV filling pressures. Moderate mitral and tricuspid regurgitation. Bioprosthetic aortic
valve with peak/mean gradients 37/23 mmHg and no significant aortic regurgitation.
Plan:
-Patient with h/o severe treated at [facility] with BAV on 12/06/2020 followed later by sternotomy with tissue AVR, aortic root enlargement, pericardial patch and CABG x 1 on 03/04/2021. Coming in now with acute HF and by echo there appears to be likely
significant bioprosthetic .
-Patient had previously been presented with 3 options for treatment of CHF and bioprosthetic valve disease including moving forward with workup for valve in valve TAVR, medical therapy with likely palliative care, or hospice level care. Last week
upon discussion of these options, patient had opted for medical therapy with DNR CODE STATUS, and was tentatively planned for discharge to SNF with palliative care today. Last night patient's daughter had called nursing station stating that she had
spoken to her mom and as she is feeling much better, patient would like to reverse her DNR and move forward with valve in valve evaluation. Discussed with patient's daughter via telephone for 6:09 today and she confirms this plan. We did discuss
that patient has multiple comorbidities which would make her a higher risk candidate for any procedures including renal insufficiency, reduced EF, relative hypotension on midodrine, obesity, advanced age with memory issues (lives at [facility] assisted
living). We discussed that she could go through with evaluation for valve in valve procedure, and could be turned down based on this. She reports understanding and wants to proceed
-For right heart cath today
-Back to full code
-Weight down 16 pounds from admission if accurate, but have been bed scale weights. continue IV Lasix 40 mg twice daily. Creatinine 1.2. Was on p.o. Lasix 40 mg twice daily prior to admission
-Wean supplemental oxygen as able
-EF by echo this admission 15 to 20%, previously was 45% 07/2023.
-She required Levophed earlier this admission for significant hypotension. Low-dose dobutamine was attempted, however patient had hypotension and did not tolerate. Continue Coreg (intermittent doses have been skipped due to hypotension). Not on
MIKY/ARB/ARNI/Aldactone due to chronic renal insufficiency and hypotension. SGLT2 inhibitor has been on hold due to UTI
-Troponin peaked at 0.04 and was managed as a nonischemic myocardial injury troponin elevation in the setting of acute HF. No CP.
-Patient is chronically on aspirin and Plavix for history of CVA
-d/w nursing.
-updated hospitalist via TT
Progress Note - Baby Attendant
Subjective
Date of Service: September 26, 2024
reports breathing improving
Objective
Labs:
09/26/24 07:14
09/26/24 07:14
Labs
Hgb 9.7 g/dL (12.0-16.0) L 09/26/24 07:14
Hct 30.3 % (37.0-47.0) L 09/26/24 07:14
Plt Count 531 10^3/uL (130-400) H 09/26/24 07:14
Sodium 141 mmol/L (135-145) 09/26/24 07:14
Potassium 4.5 mmol/L (3.5-5.1) 09/26/24 07:14
BUN 71 mg/dl (7-17) H 09/26/24 07:14
Creatinine 1.2 mg/dL (0.6-1.0) H 09/26/24 07:14
Glucose 120 mg/dl (70-99) H 09/26/24 07:14
Vital Signs and I&O:
Vital Signs
Temp Pulse Resp BP Pulse Ox
97.6 F 65 16 97/62 99
09/26/24 07:55 09/26/24 09:24 09/26/24 07:55 09/26/24 09:24 09/26/24 07:55
Vital Signs
Temp Pulse Resp BP Pulse Ox
97.6 F 65 16 97/62 99
09/26/24 07:55 09/26/24 09:24 09/26/24 07:55 09/26/24 09:24 09/26/24 07:55
Intake & Output
09/24/24 09/25/24 09/26/24 09/27/24
07:59 07:59 07:59 07:59
Intake Total 940 / 940
Output Total 1300 / 1300 1400 / 1400 600 / 600
Balance -1300 / -1300 -1400 / -1400 340 / 340
Physical Exam
Physical Exam
GEN: No distress, awake, alert, oriented x3. on supp O2. obese
HEENT: supple, anicteric, mmm, eomi
LUNGS: CTA B/L anterolaterally, no wheezes
CV: Reg, S1/S2, 2/6 syst LSB murmur
ABD: soft, BS+, NT/ND
EXT: No cyanosis, clubbing. 2-3+ edema of B/L LE
NEURO: Gross non-focal
SKIN: Warm, pink, dry. No rash
--- NOTE | 2024-09-26 12:05 | W.PN.NEPH.PH ---
Today's Communication / Plan
-
lasix IV
Assessment/Plan
-
IMP:
Acute on chronic CHF exacerbation with reduced ejection fraction
Acute hypoxic respiratory insufficiency
Fredi with CKD
Cardiomyopathy EF of 45% from echo in 2023
s/p CABG 10/2008 with FOLEY to LAD and SVG to RPDA
s/p cardiac cath at [facility] 11/16/20 FOLEY to LAD patent, SVG to RPDA occluded, ostial Circ 75% stenosis, ostial RCA 75% stenosis
Severe s/p BAV 12/06/20
Shock, unknown etiology
Elevated troponin likely secondary to nonischemic myocardial injury
Edema blistering 2/2 fluid overload
Chronic lymphedema
Essential hypertension
Chronic LBBB
Hypercholesterolemia
Chronic anemia
Type 2 diabetes
History of CVA
Hypothyroidism
Plan:
cr stable
continue midodrine
continue IV lasix, wt decreasing
BP remain soft on midodrine and low dose coreg
Hospice being considered, pt seem not ready for
Continue supportive care, cards follows
holding ARB, Farxiga and Aldactone
1.4 L out last 24-hour
cont lasix bid
-
-
Date of Service: September 26, 2024
CC / HPI / ROS
-
Chief Complaint:
FREDI
History of Present Illness:
FREDI/Cr 1.3 stable
BP low stable
diuresing slowly for decompensated HF with lasix IV
Review of Systems:
no CP
Remains on nasal cannula
no sob at rest
Labs
-
Labs:
WBC 6.3 10^3/uL (4.8-10.8) 09/26/24 07:14
RBC 3.26 10^6/uL (4.20-5.40) L 09/26/24 07:14
Hgb 9.7 g/dL (12.0-16.0) L 09/26/24 07:14
Hct 30.3 % (37.0-47.0) L 09/26/24 07:14
Plt Count 531 10^3/uL (130-400) H 09/26/24 07:14
Sodium 141 mmol/L (135-145) 09/26/24 07:14
Potassium 4.5 mmol/L (3.5-5.1) 09/26/24 07:14
Chloride 98 mmol/L (98-107) 09/26/24 07:14
Carbon Dioxide 37 mmol/L (22-30) H 09/26/24 07:14
BUN 71 mg/dl (7-17) H 09/26/24 07:14
Creatinine 1.2 mg/dL (0.6-1.0) H 09/26/24 07:14
eGFR 45.48 09/26/24 07:14
Glucose 120 mg/dl (70-99) H 09/26/24 07:14
Calcium 9.8 mg/dl (8.4-10.2) 09/26/24 07:14
Csc-B-[id number] Pept > 40710 pg/ml 09/15/24 07:46
Albumin 3.2 g/dl (3.5-5.0) L 09/26/24 07:14
Physical Exam
-
Vital Signs:
Vital Signs
Temp Pulse Resp BP Pulse Ox
98.1 F 70 16 102/59 94
09/26/24 12:01 09/26/24 12:01 09/26/24 12:01 09/26/24 12:01 09/26/24 12:01
Cardiovascular:: Regular rate and rhythm
Respiratory:: Bilateral: Coarse
Lung Excursion:: Normal (decreased BS bilat)
Abdomen:: Nontender and Soft
Bowel Sounds:: Normal
Extremity Edema:: +2: Bilateral:
De [place] Catheter: No
[2024-09-26 12:24] LABS: Glucose - Point of Care 189 mg/dl (70-99)
--- NOTE | 2024-09-26 12:57 | W.PN.HOSP.TC ---
Today's Communication/Plan
-
TAVR work up as per Cards/daughter
IV diureiss
Assessment / Plan
Assessment / Plan
Acute on chronic CHF exacerbation with reduced ejection fraction
Acute hypoxic respiratory insufficiency secondary to above, now on 6 L
-Cardiac BNP greater than 27,000
-Chest x-ray shows pulm edema, does not appear to have pneumonia. Will monitor. No fever, leukocytosis.
-Continue with diuresis per renal- Back to IV diuresis.
-EF of 25% from echo in 2020
-Echo 09/11 noted with a EF 15 to 20%,
-S/p CABG 10/2008 with FOLEY to LAD and SVG to RPDA
-S/p cardiac cath at [facility] 11/16/20 FOLEY to LAD patent, SVG to RPDA occluded, ostial Circ 75% stenosis, ostial RCA 75% stenosis
-Severe
-Hold Farxiga
-Continue midodrine with holding parameter
-Cont IV lasix
-Check I's and O's, daily weights-weight improving.
#Shock, unknown etiology
resolved
Pressors weaned off
was hypotensive again 09/16; transferred back to IMU, so far no pressors restarted
coreg dec, monitor.
Continue with midodrine.
# SAM likely cardiorenal on CKD, unknown baseline
-Creatinine of 2.7 from 1.9; creatinine from today pending
-Continue with diuresis
-Nephrology following
-Hold spironolactone, losartan
History of TAVR
-now as per daughter - wants work up for TAVR
-[facility] as per Cards
#Acute metabolic encephalopathy
� Possibly secondary to CO2 narcosis with CHF exacerbation + UTI + along with +/- delirium
� Resolved 09/22
#UTI
History of multiple UTIs in past
Urine culture with pseudomonas; Completed Cefepime to Cipro course
finished abx
Afeb , WBC normal. No dysuria. Asymptomatic
Repeat UA: Asymptomatic bacteruria - no symptoms and only 70k CFU; mental status resolved on its own -will hold on antibiotics at this time
Elevated troponin likely secondary to nonischemic myocardial injury
Monitor
Edema blistering 2/2 fluid overload
monitor
venous Doppler lower extremity neg for DVT
Transaminitis
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
� Monitor with diuresis
-improving
CAD status post CABG
-Continue Plavix
-Continue Coreg
Chronic lymphedema
left buttock pressure related pressure injury stage 1
Essential hypertension
Chronic LBBB
Hypercholesterolemia
Chronic anemia
Type 2 diabetes
-Hold metformin, glipizide
-Insulin sliding scale
A1c 6.8
History of CVA
Hypothyroidism
-Continue levothyroxine
Full code
DVT prophylaxis�heparin
Discussed with RN
DW cards
Dispo: Daughter wants full code now
Total time spent on today's encounter was 50 minutes which included time spent in counseling the patient/family regarding diagnosis and treatment plan as listed above, goals of care, and symptom management. Case was discussed with nursing staff,
specialists, and care coordinators/case management. All labs and imaging personally reviewed by me. Remainder the time spent in detailed review of previous records, lab data, imaging, and other medical provider documentation.
Anticipated Discharge: Within 24 hours
Subjective/Interval History
-
Date of Service: September 26, 2024
No acute events overnight
Objective Data
-
Labs:
Laboratory Results
09/26/24
07:14
WBC 6.3
Hgb 9.7 L
Hct 30.3 L
Plt Count 531 H
Sodium 141
Potassium 4.5
Chloride 98
Carbon Dioxide 37 H
BUN 71 H
Creatinine 1.2 H
Glucose 120 H
Calcium 9.8
Total Bilirubin 1.1
AST 35
ALT 67 H
Alkaline Phosphatase 100
Vital Signs:
Vital Signs
Temp Pulse Resp BP Pulse Ox
98.1 F 70 16 102/59 94
09/26/24 12:01 09/26/24 12:01 09/26/24 12:01 09/26/24 12:01 09/26/24 12:01
I&O
09/25/24 09/26/24 09/27/24
06:59 06:59 06:59
Intake Total 940 / 940
Output Total 1400 / 1400 600 / 600
Balance -1400 / -1400 340 / 340
Review of Systems
-
History Source: Patient
All other systems: Not reviewed unless documented
Physical Exam
-
General: Negative Comfortable
HEENT: Normocephalic and Atraumatic
Cardiac: Regular Rhythm and S1/S2
GI: Soft
Genito-urinary: No Costovertebral Tender
Musculoskeletal: No Clubbing
Skin: Warm
Neuro: Awake, Alert, Oriented and AO x 3
Hematologic / Lymphatic: No Lymphadenopathy
Psych: Calm
Data Reviewed
-
Diagnostic Radiology: Report Reviewed by me
Ultrasound: Report Reviewed by me
[2024-09-26] MEDS: NOVOLOG FLEXPEN-LOW RESISTANCE 1 UNITS SC (13:06)
--- NOTE | 2024-09-26 13:31 | CM ---
Reviewed the chart notes. Per cardiology, planning a RHC today. [facility] and [facility] no beds. [facility] interested. CM continues to be available to patient/family and is monitoring medical plan for needs at discharge.
Plan: Discharge to SNF/rehab once medically stable. No precert required.
--- NOTE | 2024-09-26 15:34 | ITS.CL.CATH ---
Acting Teacher - Catheterization
Cardiac Catheterization
Procedure Report:
RIGHT HEART CATHETERIZATION
Date of Procedure: September 26, 2024
Referring: Dr. Luly Mojica
INDICATION: This is an 83-year-old female with a past medical history notable for coronary artery disease and history of coronary artery bypass grafting in 2008 and aortic valve replacement with root enlargement and bypass surgery in March 2021
with placement of a biologic aortic valve and aortic root enlargement with pericardial patch as well as CABG x 1 with SVG-distal RCA by Dr. Prescott. Coronary angiogram prior to surgery revealed a patent FOLEY-LAD. The SVG-PDA was occluded. There
was an ostial 75% circumflex stenosis and an ostial 75% RCA stenosis.
She has been a resident at [facility] since October 2023 and presents to [facility] for evaluation of increased shortness of breath and lower extremity edema. Her LVEF in July 2023 was noted to be mildly reduced with an estimated
ejection fraction of 45% with a mean aortic valve gradient at that time of 32 mmHg. The most recent echocardiogram was notable for an estimated ejection fraction of 15-20%. The ventricle was found to be globally hypokinetic. There is moderate
mitral regurgitation and peak and mean aortic valve gradients are 37 and 23 mmHg. She has pulmonary hypertension with estimated pulmonary artery systolic pressures of 58 mmHg.
There has been significant waxing and waning in her and the family goals of therapy as she was made palliative care earlier this hospital stay. They are considering a more aggressive stance for her care and have asked to proceed with right heart
catheterization
Hemodynamics (mmHg):
RA (m) : 25
RV (s/d,m) : 80/17, 24
PA (s/d, m) : 79/36, 52
PCWP (m) : 45
Ao Cuff: 135/61, 90
Cardiac Output : 2.8 L/min and Cardiac Index : 1.5 L/min/m-2
Systemic vascular resistance: 23.2 Wood units or 1857 [id number]-hl(-5)
Pulmonary vascular resistance: 2.5 Wood units or 200 djkts-sda-fq(-5)
RADIATION SUMMARY: Fluoro Time (min): 0.7, Dose (mGy): 8.2, DAP (Gy.cm2) : 1.3
CONCLUSION:
1. Significantly elevated right and left ventricular filling pressures with severely reduced cardiac output and cardiac index
Copy to: Dr. Luly Mojica
--- NOTE | 2024-09-26 16:04 | PTCARENOTE ---
patient back to 2N from orthodontic lab technician.Pt had RHC , right brachial vein dressing intact and dry. vs documented. no s/s of distress noted.
--- NOTE | 2024-09-26 16:17 | W.PN.UPDATE ---
Update Note
Progress Note Update
correspondence with cardiology , RHC show high pressures. will increase lasix to 80mg BID
[2024-09-26] MEDS: LASIX 80 MG IV (16:26)
[2024-09-26] MEDS: LASIX IV (16:33)
[2024-09-26 16:51] LABS: Glucose - Point of Care 135 mg/dl (70-99)
[2024-09-26] MEDS: ProAmatine PO (18:06)
[2024-09-26 22:18] LABS: Glucose - Point of Care 178 mg/dl (70-99)
[2024-09-27 03:52] VITALS: BP 104/60
[2024-09-27] MEDS: SYNTHROID 88 MCG PO (05:10)
[2024-09-27 06:00] VITALS: BMI 38.6
[2024-09-27 07:25] LABS: Glucose - Point of Care 131 mg/dl (70-99)
[2024-09-27 07:38] VITALS: BP 96/60
[2024-09-27 08:17] LABS: Hematocrit 27.9 % (37.0-47.0); Hemoglobin 9.5 g/dL (12.0-16.0); Mean Corp Hgb Conc. 34.1 g/dL (33.0-37.0); Mean Corpuscular Hgb 30.4 pg (27.0-31.0); Mean Corpuscular Volume 89.1 fL (81.0-99.0); Mean Platelet Volume 11.4 fL (7.4-10.4); Platelet Count 462 10^3/uL (130-400); Red Blood Cell Count 3.13 10^6/uL (4.20-5.40); Red Cell Dist. Width 17.2 % (11.5-14.5); White Blood Cell Count 6.2 10^3/uL (4.8-10.8)
[2024-09-27 08:48] LABS: ALT (SGPT) 54 U/L (0-35); AST (SGOT) 33 U/L (14-36); Albumin 3.5 g/dl (3.5-5.0); Alkaline Phosphatase 107 U/L (38-126); Blood Urea Nitrogen 69 mg/dl (7-17); Calcium 9.9 mg/dl (8.4-10.2); Carbon Dioxide 35 mmol/L (22-30); Chloride 98 mmol/L (98-107); Estimated Creatinine Clearance 38 ml/min; Glucose 124 mg/dl (70-99); Potassium 4.5 mmol/L (3.5-5.1); Sodium 141 mmol/L (135-145); Total Bilirubin 1.3 mg/dl (0.2-1.3); Total Protein 6.1 g/dl (6.3-8.2); eGFR 45.48
[2024-09-27] MEDS: HIPREX 1 GRAM PO ×2 (09:00→20:45)
[2024-09-27] MEDS: UROCIT-K 10 MEQ PO ×2 (09:00→20:45)
[2024-09-27] MEDS: MAGNESIUM OXIDE 500 MG PO (09:00)
[2024-09-27] MEDS: ProAmatine 5 MG PO ×3 (09:00→17:35)
[2024-09-27] MEDS: NOVOLOG FLEXPEN-LOW RESISTANCE SC ×2 (09:00→17:34)
[2024-09-27] MEDS: LIPITOR 40 MG PO (09:01)
[2024-09-27] MEDS: CLARITIN 10 MG PO (09:01)
[2024-09-27] MEDS: OCUVITE SOFTGEL 1 CAP PO ×2 (09:01→20:45)
[2024-09-27] MEDS: OSCAL 500 + D 500 MG PO (09:01)
[2024-09-27] MEDS: PLAVIX 75 MG PO (09:01)
[2024-09-27] MEDS: LOW STRENGTH ASPIRIN 81 MG PO ×2 (09:02→21:23)
[2024-09-27] MEDS: THERAGRAN 1 TABLET PO (09:02)
[2024-09-27] MEDS: COREG 3.125 MG PO ×2 (09:02→20:43)
[2024-09-27] MEDS: PROTONIX 40 MG PO (09:02)
[2024-09-27] MEDS: FEOSOL 325 MG PO (09:02)
[2024-09-27] MEDS: HEPARIN 5000 UNITS SC ×2 (09:03→20:43)
[2024-09-27] MEDS: LASIX 80 MG IV ×2 (09:04→17:32)
[2024-09-27] MEDS: LIDOCAINE 4% PATCH 2 PATCH TOPICAL (09:05)
[2024-09-27] MEDS: DESENEX/MITRAZOL/ZEASORB 1 APPLIC TOPICAL (09:06)
--- NOTE | 2024-09-27 09:53 | W.PN.NEPH.PH ---
Today's Communication / Plan
-
Sign off
Assessment/Plan
-
IMP:
Acute on chronic CHF exacerbation with reduced ejection fraction
Acute hypoxic respiratory insufficiency
Fredi with CKD
Cardiomyopathy EF of 45% from echo in 2023
s/p CABG 10/2008 with FOLEY to LAD and SVG to RPDA
s/p cardiac cath at [facility] 11/16/20 FOLEY to LAD patent, SVG to RPDA occluded, ostial Circ 75% stenosis, ostial RCA 75% stenosis
Severe s/p BAV 12/06/20
Shock, unknown etiology
Elevated troponin likely secondary to nonischemic myocardial injury
Edema blistering 2/2 fluid overload
Chronic lymphedema
Essential hypertension
Chronic LBBB
Hypercholesterolemia
Chronic anemia
Type 2 diabetes
History of CVA
Hypothyroidism
Plan:
cr stable at baseline 1.2
continue midodrine for bp support
continue 80 mg IV lasix twice daily , wt decreasing
BP remain soft on midodrine and low dose coreg
Continue supportive care, cards follows
holding ARB, Farxiga and Aldactone in setting of hypotension
We will sign off
-
-
Date of Service: September 27, 2024
CC / HPI / ROS
-
Chief Complaint:
FREDI
History of Present Illness:
FREDI/Cr 1.2 stable
BP low stable
diuresing slowly for decompensated HF with lasix IV
Review of Systems:
no CP
Remains on nasal cannula
no sob at rest
Labs
-
Labs:
WBC 6.2 10^3/uL (4.8-10.8) 09/27/24 07:52
RBC 3.13 10^6/uL (4.20-5.40) L 09/27/24 07:52
Hgb 9.5 g/dL (12.0-16.0) L 09/27/24 07:52
Hct 27.9 % (37.0-47.0) L 09/27/24 07:52
Plt Count 462 10^3/uL (130-400) H 09/27/24 07:52
Sodium 141 mmol/L (135-145) 09/27/24 07:52
Potassium 4.5 mmol/L (3.5-5.1) 09/27/24 07:52
Chloride 98 mmol/L (98-107) 09/27/24 07:52
Carbon Dioxide 35 mmol/L (22-30) H 09/27/24 07:52
BUN 69 mg/dl (7-17) H 09/27/24 07:52
Creatinine 1.2 mg/dL (0.6-1.0) H 09/27/24 07:52
eGFR 45.48 09/27/24 07:52
Glucose 124 mg/dl (70-99) H 09/27/24 07:52
Calcium 9.9 mg/dl (8.4-10.2) 09/27/24 07:52
Pao-Z-Jricohhsrkj Pept > 38129 pg/ml 09/15/24 07:46
Albumin 3.5 g/dl (3.5-5.0) 09/27/24 07:52
Physical Exam
-
Vital Signs:
Vital Signs
Temp Pulse Resp BP Pulse Ox
97.8 F 67 17 96/60 97
09/27/24 07:38 09/27/24 09:04 09/27/24 07:38 09/27/24 09:04 09/27/24 07:38
Cardiovascular:: Regular rate and rhythm
Respiratory:: Bilateral: Coarse
Lung Excursion:: Normal (decreased BS bilat)
Abdomen:: Nontender and Soft
Bowel Sounds:: Normal
Extremity Edema:: +2: Bilateral:
De Oliveira Catheter: No
--- NOTE | 2024-09-27 10:39 | W.PN.CARDCBS ---
Addendum entered and electronically signed by Nasir Roberts DO 09/27/24 12:23:
I saw and examined the patient.
The Supervisor Parking Lot's note was reviewed and I agree with the note.
Comment:
HPI: Patient with h/o severe treated at [facility] with BAV on 12/06/2020 followed later by sternotomy with tissue AVR, aortic root enlargement, pericardial patch and CABG x 1 on 03/04/2021. Coming in now with acute HF and by echo there appears to be
likely significant bioprosthetic .
Additional Hx:
-After discussion with patient's daughter 09/26 they opted to move forward with valve in valve evaluation. She has a prior #19 biological aortic valve.
-Right heart cath 09/26/2024 with wedge of 45 and cardiac index of 1.5.
-EF by echo this admission 15 to 20%, previously was 45% 07/2023.
-Troponin peaked at 0.04 and was managed as a nonischemic myocardial injury troponin elevation in the setting of acute HF. No CP.
-Patient is chronically on aspirin and Plavix for history of CVA
-IV Lasix dose has been increased to 80 mg twice daily.
-Creatinine stable overnight at 1.2.
-Nephrology signed off
-was on p.o. Lasix 40 mg twice daily prior to admission
-Monitor daily wts and Is and Os and cr
-She required Levophed earlier this admission for significant hypotension. Low-dose dobutamine was attempted, however patient had hypotension and did not tolerate.
-Hypotension limits GDMT
-Continue Coreg (intermittent doses have been skipped due to hypotension).
-Not on MIKY/ARB/ARNI/Aldactone due to chronic renal insufficiency and hypotension.
-Not SGLT2 inhibitor candidate given recurrent UTIs
-Wean supplemental oxygen as able
Original Note:
Today's Communication / Plan
-
continue IV lasix diuresis
valve in valve evaluation
Impression / Plan
-
PCP: Dr. Elidia Meneses
Primary [employer] Clerk: Dr. Chris Craig of [place]
Assessment:
Presentation with SOB, LE edema 09/10/24
Acute on chronic HFrEF
CM EF previously 45% by echo 07/2023 and reduced further to 15 to 20% by echo 09/11/24
Severe
h/o type 2 NM related to severe 11/2020 resulting in transfer to [facility], s/p BAV 12/06/20
s/p sternotomy with biologic AVR, aortic root enlargement with pericardial patch, and CABG x1 SVG to distal RCA by Dr. Smith on 03/04/2021
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
Acute hypoxic respiratory insufficiency
SAM on CKD, suspected cardiorenal
Hypotension requiring pressor support
Elevated troponin, suspected nonischemic myocardial injury
CAD
s/p CABG with FOLEY to LAD and SVG to RPDA (occluded by cath 2020) in 2008
s/p cardiac cath at [facility] FOLEY to LAD patent, SVG to RPDA occluded, ostial Circ 75% stenosis, ostial RCA 75% stenosis 11/16/20
s/p CABG at time of AVR with SVG to distal RCA 03/04/21
Brief post op afib episode while at [facility], without known recurrence
s/p [employer] [place] implanted loop recorder
PVCs
Chronic LBBB
DM 2
HTN
Hyperlipidemia
Hypothyroid
h/o CVA
Peripheral neuropathy
s/p IVC filter
Left breast cancer s/p lumpectomy, chemotherapy, and radiation 2008
Obesity
Anemia
Memory loss
Nuclear stress test 08/24/2023: Large sized moderate to severe defect in apex, apical anterior, apical inferior wall, prone imaging not performed, defect consistent with infarct with minimal gerald-infarct ischemia, EF 35% with global hypokinesis and
anteroapical akinesis, unchanged compared to prior cath and echo in 2020
Echo 03/24/2021: EF 25%, severe global hypokinesis with possible inferolateral and apical akinesis, mild MR, bioprosthetic AVR with peak/mean 21/12 mmHg
ECHO 07/2023: Mildly reduced LV systolic function 45% due to akinesis of distal inferior wall, mild MR with severe left atrial dilation, bioprosthetic aortic valve with peak gradient 49/mean gradient 32, valve size known to be small, moderate
pulmonary hypertension
Echo 09/11/2024: Dilated left ventricle with severely reduced left ventricular systolic function estimated 15-20% with grade 2 diastolic dysfunction increased LV filling pressures. Moderate mitral and tricuspid regurgitation. Bioprosthetic aortic
valve with peak/mean gradients 37/23 mmHg and no significant aortic regurgitation.
Plan:
-Patient with h/o severe treated at [facility] with BAV on 12/06/2020 followed later by sternotomy with tissue AVR, aortic root enlargement, pericardial patch and CABG x 1 on 03/04/2021. Coming in now with acute HF and by echo there appears to be likely
significant bioprosthetic .
-After discussion with patient's daughter 09/26 they opted to move forward with valve in valve evaluation. She has a prior #19 biological aortic valve.
-Right heart cath 09/26/2024 with wedge of 45 and cardiac index of 1.5.
-IV Lasix dose increased to 80 mg twice daily. Creatinine stable overnight at 1.2. Nephrology following. Was on p.o. Lasix 40 mg twice daily prior to admission
-She required Levophed earlier this admission for significant hypotension. Low-dose dobutamine was attempted, however patient had hypotension and did not tolerate. Continue Coreg (intermittent doses have been skipped due to hypotension). Not on
MIKY/ARB/ARNI/Aldactone due to chronic renal insufficiency and hypotension. Not SGLT2 inhibitor candidate given recurrent UTIs
-Wean supplemental oxygen as able
-EF by echo this admission 15 to 20%, previously was 45% 07/2023.
-Troponin peaked at 0.04 and was managed as a nonischemic myocardial injury troponin elevation in the setting of acute HF. No CP.
-Patient is chronically on aspirin and Plavix for history of CVA
Progress Note - Auto Parts Clerk
Subjective
Date of Service: September 27, 2024
Patient without complaints this morning.
Objective
Labs:
09/27/24 07:52
09/27/24 07:52
Labs
Hgb 9.5 g/dL (12.0-16.0) L 09/27/24 07:52
Hct 27.9 % (37.0-47.0) L 09/27/24 07:52
Plt Count 462 10^3/uL (130-400) H 09/27/24 07:52
Sodium 141 mmol/L (135-145) 09/27/24 07:52
Potassium 4.5 mmol/L (3.5-5.1) 09/27/24 07:52
BUN 69 mg/dl (7-17) H 09/27/24 07:52
Creatinine 1.2 mg/dL (0.6-1.0) H 09/27/24 07:52
Glucose 124 mg/dl (70-99) H 09/27/24 07:52
Vital Signs and I&O:
Vital Signs
Temp Pulse Resp BP Pulse Ox
97.8 F 67 17 96/60 97
09/27/24 07:38 09/27/24 09:04 09/27/24 07:38 09/27/24 09:04 09/27/24 07:38
Vital Signs
Temp Pulse Resp BP Pulse Ox
97.8 F 67 17 96/60 97
09/27/24 07:38 09/27/24 09:04 09/27/24 07:38 09/27/24 09:04 09/27/24 07:38
Intake & Output
09/25/24 09/26/24 09/27/24 09/28/24
07:59 07:59 07:59 07:59
Intake Total 940 / 940 1020 / 1020
Output Total 1400 / 1400 600 / 600
Balance -1400 / -1400 340 / 340 1020 / 1020
Physical Exam
Physical Exam
GEN: No distress, awake, alert, oriented x3. on supp O2. obese
HEENT: supple, anicteric, mmm, eomi
LUNGS: CTA B/L anterolaterally, no wheezes
CV: Reg, S1/S2, 2/6 syst LSB murmur
ABD: soft, BS+, NT/ND
EXT: No cyanosis, clubbing. 2+ edema of B/L LE
NEURO: Gross non-focal
SKIN: Warm, pink, dry. No rash
[2024-09-27 11:14] LABS: Glucose - Point of Care 163 mg/dl (70-99)
[2024-09-27 11:30] VITALS: BP 104/64
--- NOTE | 2024-09-27 11:55 | W.PN.HOSP.TC ---
Today's Communication/Plan
-
cont iv diuresis
valve work up
Assessment / Plan
Assessment / Plan
Acute on chronic CHF exacerbation with reduced ejection fraction
Acute hypoxic respiratory insufficiency secondary to above, now on 6 L
-Cardiac BNP greater than 27,000
-Chest x-ray shows pulm edema, does not appear to have pneumonia. Will monitor. No fever, leukocytosis.
-Continue with diuresis per renal- Back to IV diuresis.
-EF of 25% from echo in 2020
-Echo 09/11 noted with a EF 15 to 20%,
-S/p CABG 10/2008 with FOLEY to LAD and SVG to RPDA
-S/p cardiac cath at [facility] 11/16/20 FOLEY to LAD patent, SVG to RPDA occluded, ostial Circ 75% stenosis, ostial RCA 75% stenosis
-Severe
-Hold Farxiga
-Continue midodrine with holding parameter
-Cont IV lasix
-Check I's and O's, daily weights-weight improving.
#Shock, unknown etiology
resolved
Pressors weaned off
was hypotensive again 09/16; transferred back to IMU, so far no pressors restarted
coreg dec, monitor.
Continue with midodrine.
# SAM likely cardiorenal on CKD, unknown baseline
-Creatinine of 2.7 from 1.9; creatinine from today pending
-Continue with diuresis
-Nephrology following
-Hold spironolactone, losartan
History of TAVR
-now as per daughter - wants work up for TAVR
-valve in valve work up
#Acute metabolic encephalopathy
� Possibly secondary to CO2 narcosis with CHF exacerbation + UTI + along with +/- delirium
� Resolved 09/22
#UTI
History of multiple UTIs in past
Urine culture with pseudomonas; Completed Cefepime to Cipro course
finished abx
Afeb , WBC normal. No dysuria. Asymptomatic
Repeat UA: Asymptomatic bacteruria - no symptoms and only 70k CFU; mental status resolved on its own -will hold on antibiotics at this time
Elevated troponin likely secondary to nonischemic myocardial injury
Monitor
Edema blistering 2/2 fluid overload
monitor
venous Doppler lower extremity neg for DVT
Transaminitis
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
� Monitor with diuresis
-improving
CAD status post CABG
-Continue Plavix
-Continue Coreg
Chronic lymphedema
left buttock pressure related pressure injury stage 1
Essential hypertension
Chronic LBBB
Hypercholesterolemia
Chronic anemia
Type 2 diabetes
-Hold metformin, glipizide
-Insulin sliding scale
A1c 6.8
History of CVA
Hypothyroidism
-Continue levothyroxine
Full code
DVT prophylaxis�heparin
Discussed with RN
DW cards
Dispo: Daughter wants full code now
Anticipated Discharge: > 48 hours
Subjective/Interval History
-
Date of Service: September 27, 2024
no acute events
Objective Data
-
Labs:
Laboratory Results
09/27/24
07:52
WBC 6.2
Hgb 9.5 L
Hct 27.9 L
Plt Count 462 H
Sodium 141
Potassium 4.5
Chloride 98
Carbon Dioxide 35 H
BUN 69 H
Creatinine 1.2 H
Glucose 124 H
Calcium 9.9
Total Bilirubin 1.3
AST 33
ALT 54 H
Alkaline Phosphatase 107
Vital Signs:
Vital Signs
Temp Pulse Resp BP Pulse Ox
98.0 F 69 17 104/64 99
09/27/24 11:30 09/27/24 11:30 09/27/24 11:30 09/27/24 11:30 09/27/24 11:30
I&O
09/26/24 09/27/24 09/28/24
06:59 06:59 06:59
Intake Total 940 / 940 1020 / 1020
Output Total 600 / 600
Balance 340 / 340 1020 / 1020
Review of Systems
-
History Source: Patient
All other systems: Not reviewed unless documented
Physical Exam
-
General: Negative Comfortable
HEENT: Normocephalic and Atraumatic
Cardiac: Regular Rhythm and S1/S2
GI: Soft
Genito-urinary: No Costovertebral Tender
Musculoskeletal: No Clubbing
Skin: Warm
Neuro: Awake, Alert, Oriented and AO x 3
Hematologic / Lymphatic: No Lymphadenopathy
Psych: Calm
Data Reviewed
-
Diagnostic Radiology: Report Reviewed by me
Ultrasound: Report Reviewed by me
[2024-09-27] MEDS: NOVOLOG FLEXPEN-LOW RESISTANCE 1 UNITS SC (11:58)
[2024-09-27 15:28] VITALS: BP 110/56
[2024-09-27 16:41] LABS: Glucose - Point of Care 138 mg/dl (70-99)
[2024-09-27 19:21] VITALS: BP 124/49
[2024-09-27] MEDS: DESENEX/MITRAZOL/ZEASORB TOPICAL (21:26)
[2024-09-27 22:17] LABS: Glucose - Point of Care 175 mg/dl (70-99)
[2024-09-27 23:31] VITALS: BP 106/64
[2024-09-28] VITALS (7 sets, daily range): BP systolic 97–121; BP diastolic 57–78; PULSE 68; BMI 38.1
[2024-09-28] MEDS: SYNTHROID 88 MCG PO (05:28)
[2024-09-28 07:08] LABS: Hematocrit 31.9 % (37.0-47.0); Hemoglobin 10.3 g/dL (12.0-16.0); Mean Corp Hgb Conc. 32.3 g/dL (33.0-37.0); Mean Platelet Volume 10.2 fL (7.4-10.4); Platelet Count 463 10^3/uL (130-400); Red Blood Cell Count 3.43 10^6/uL (4.20-5.40); Red Cell Dist. Width 17.3 % (11.5-14.5); White Blood Cell Count 6.7 10^3/uL (4.8-10.8)
[2024-09-28 07:30] LABS: Glucose - Point of Care 127 mg/dl (70-99)
[2024-09-28 07:55] LABS: ALT (SGPT) 46 U/L (0-35); AST (SGOT) 31 U/L (14-36); Albumin 3.3 g/dl (3.5-5.0); Alkaline Phosphatase 96 U/L (38-126); Blood Urea Nitrogen 68 mg/dl (7-17); Calcium 10.1 mg/dl (8.4-10.2); Carbon Dioxide 38 mmol/L (22-30); Chloride 97 mmol/L (98-107); Estimated Creatinine Clearance 38 ml/min; Glucose 119 mg/dl (70-99); Potassium 4.5 mmol/L (3.5-5.1); Sodium 142 mmol/L (135-145); Total Bilirubin 1.4 mg/dl (0.2-1.3); eGFR 45.48
[2024-09-28] MEDS: NOVOLOG FLEXPEN-LOW RESISTANCE SC ×2 (09:35→16:54)
[2024-09-28] MEDS: LOW STRENGTH ASPIRIN 81 MG PO ×2 (09:36→21:30)
[2024-09-28] MEDS: FEOSOL 325 MG PO (09:36)
[2024-09-28] MEDS: UROCIT-K 10 MEQ PO ×2 (09:36→20:14)
[2024-09-28] MEDS: THERAGRAN 1 TABLET PO (09:36)
[2024-09-28] MEDS: PROTONIX 40 MG PO (09:36)
[2024-09-28] MEDS: OSCAL 500 + D 500 MG PO (09:36)
[2024-09-28] MEDS: PLAVIX 75 MG PO (09:37)
[2024-09-28] MEDS: HIPREX 1 GRAM PO ×2 (09:37→20:15)
[2024-09-28] MEDS: LIPITOR 40 MG PO (09:37)
[2024-09-28] MEDS: COREG 3.125 MG PO ×2 (09:37→20:15)
[2024-09-28] MEDS: OCUVITE SOFTGEL 1 CAP PO ×2 (09:37→20:15)
[2024-09-28] MEDS: CLARITIN 10 MG PO (09:37)
[2024-09-28] MEDS: MAGNESIUM OXIDE 500 MG PO (09:37)
[2024-09-28] MEDS: ProAmatine 5 MG PO ×3 (09:38→17:03)
[2024-09-28] MEDS: LASIX 80 MG IV ×2 (09:38→16:54)
[2024-09-28] MEDS: HEPARIN 5000 UNITS SC ×2 (09:38→20:16)
[2024-09-28] MEDS: LIDOCAINE 4% PATCH 2 PATCH TOPICAL (09:39)
[2024-09-28] MEDS: DESENEX/MITRAZOL/ZEASORB 1 APPLIC TOPICAL ×2 (09:48→20:16)
[2024-09-28 11:18] LABS: Glucose - Point of Care 254 mg/dl (70-99)
--- NOTE | 2024-09-28 12:14 | W.PN.HOSP.TC ---
Addendum entered and electronically signed by Zain Ivory MD 09/28/24 14:46:
Acute Hypoxic Respiratory failure
Original Note:
Today's Communication/Plan
-
cont iv diuresis
valve work up
Assessment / Plan
Assessment / Plan
Acute on chronic CHF exacerbation with reduced ejection fraction
Acute hypoxic respiratory insufficiency secondary to above, now on 6 L
-Cardiac BNP greater than 27,000
-Chest x-ray shows pulm edema, does not appear to have pneumonia. Will monitor. No fever, leukocytosis.
-Continue with diuresis per renal- Back to IV diuresis.
-EF of 25% from echo in 2020
-Echo 09/11 noted with a EF 15 to 20%,
-S/p CABG 10/2008 with FOLEY to LAD and SVG to RPDA
-S/p cardiac cath at [facility] 11/16/20 FOLEY to LAD patent, SVG to RPDA occluded, ostial Circ 75% stenosis, ostial RCA 75% stenosis
-Severe
-Hold Farxiga
-Continue midodrine with holding parameter
-Cont IV lasix
-Check I's and O's, daily weights-weight improving.
#Shock, unknown etiology
resolved
Pressors weaned off
was hypotensive again 09/16; transferred back to IMU, so far no pressors restarted
coreg dec, monitor.
Continue with midodrine.
# SAM likely cardiorenal on CKD, unknown baseline
-Creatinine of 2.7 from 1.9; creatinine from today pending
-Continue with diuresis
-Nephrology following
-Hold spironolactone, losartan
History of TAVR
-now as per daughter - wants work up for TAVR
-valve in valve work up
#Acute metabolic encephalopathy
� Possibly secondary to CO2 narcosis with CHF exacerbation + UTI + along with +/- delirium
� Resolved 09/22
#UTI
History of multiple UTIs in past
Urine culture with pseudomonas; Completed Cefepime to Cipro course
finished abx
Afeb , WBC normal. No dysuria. Asymptomatic
Repeat UA: Asymptomatic bacteruria - no symptoms and only 70k CFU; mental status resolved on its own -will hold on antibiotics at this time
Elevated troponin likely secondary to nonischemic myocardial injury
Monitor
Edema blistering 2/2 fluid overload
monitor
venous Doppler lower extremity neg for DVT
Transaminitis
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
� Monitor with diuresis
-improving
CAD status post CABG
-Continue Plavix
-Continue Coreg
Chronic lymphedema
left buttock pressure related pressure injury stage 1
Essential hypertension
Chronic LBBB
Hypercholesterolemia
Chronic anemia
Type 2 diabetes
-Hold metformin, glipizide
-Insulin sliding scale
A1c 6.8
History of CVA
Hypothyroidism
-Continue levothyroxine
Full code
DVT prophylaxis�heparin
Discussed with RN
DW cards
Dispo: Daughter wants full code now
Anticipated Discharge: 24 - 48 hours
Subjective/Interval History
-
Date of Service: September 28, 2024
No acute events overnight
Objective Data
-
Labs:
Laboratory Results
09/28/24
06:25
WBC 6.7
Hgb 10.3 L
Hct 31.9 L
Plt Count 463 H
Sodium 142
Potassium 4.5
Chloride 97 L
Carbon Dioxide 38 H
BUN 68 H
Creatinine 1.2 H
Glucose 119 H
Calcium 10.1
Total Bilirubin 1.4 H
AST 31
ALT 46 H
Alkaline Phosphatase 96
Vital Signs:
Vital Signs
Temp Pulse Resp BP Pulse Ox
98.0 F 69 18 106/60 97
09/28/24 11:27 09/28/24 11:27 09/28/24 11:27 09/28/24 11:27 09/28/24 11:27
I&O
09/27/24 09/28/24 09/29/24
06:59 06:59 06:59
Intake Total 1020 / 1020 1080 / 1080
Output Total 500 / 500
Balance 1020 / 1020 580 / 580
Review of Systems
-
History Source: Patient
All other systems: Not reviewed unless documented
Physical Exam
-
General: Negative Comfortable
HEENT: Normocephalic and Atraumatic
Cardiac: Regular Rhythm and S1/S2
GI: Soft
Genito-urinary: No Costovertebral Tender
Musculoskeletal: No Clubbing
Skin: Warm
Neuro: Awake, Alert, Oriented and AO x 3
Hematologic / Lymphatic: No Lymphadenopathy
Psych: Calm
[2024-09-28] MEDS: NOVOLOG FLEXPEN-LOW RESISTANCE 3 UNITS SC (12:21)
--- NOTE | 2024-09-28 13:56 | W.PN.CARDCBS ---
Today's Communication / Plan
-
Continue IV diuresis
Impression / Plan
-
.
PCP: Dr. Elidia Meneses
Primary Slasher Hand: Dr. Chris Craig of [place]
Assessment:
Presentation with SOB, LE edema 09/10/24
Acute on chronic HFrEF
CM EF previously 45% by echo 07/2023 and reduced further to 15 to 20% by echo 09/11/24
Severe
h/o type 2 [place] related to severe 11/2020 resulting in transfer to [facility], s/p BAV 12/06/20
s/p sternotomy with biologic AVR, aortic root enlargement with pericardial patch, and CABG x1 SVG to distal RCA by Dr. Smith on 03/04/2021
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
Acute hypoxic respiratory insufficiency
SAM on CKD, suspected cardiorenal
Hypotension requiring pressor support
Elevated troponin, suspected nonischemic myocardial injury
CAD
s/p CABG with FOLEY to LAD and SVG to RPDA (occluded by cath 2020) in 2008
s/p cardiac cath at [facility] FOLEY to LAD patent, SVG to RPDA occluded, ostial Circ 75% stenosis, ostial RCA 75% stenosis 11/16/20
s/p CABG at time of AVR with SVG to distal RCA 03/04/21
Brief post op afib episode while at [facility], without known recurrence
s/p [facility] [facility] implanted loop recorder
PVCs
Chronic LBBB
DM 2
HTN
Hyperlipidemia
Hypothyroid
h/o CVA
Peripheral neuropathy
s/p IVC filter
Left breast cancer s/p lumpectomy, chemotherapy, and radiation 2008
Obesity
Anemia
Memory loss
Nuclear stress test 08/24/2023: Large sized moderate to severe defect in apex, apical anterior, apical inferior wall, prone imaging not performed, defect consistent with infarct with minimal gerald-infarct ischemia, EF 35% with global hypokinesis and
anteroapical akinesis, unchanged compared to prior cath and echo in 2020
Echo 03/24/2021: EF 25%, severe global hypokinesis with possible inferolateral and apical akinesis, mild MR, bioprosthetic AVR with peak/mean 21/12 mmHg
ECHO 07/2023: Mildly reduced LV systolic function 45% due to akinesis of distal inferior wall, mild MR with severe left atrial dilation, bioprosthetic aortic valve with peak gradient 49/mean gradient 32, valve size known to be small, moderate
pulmonary hypertension
Echo 09/11/2024: Dilated left ventricle with severely reduced left ventricular systolic function estimated 15-20% with grade 2 diastolic dysfunction increased LV filling pressures. Moderate mitral and tricuspid regurgitation. Bioprosthetic aortic
valve with peak/mean gradients 37/23 mmHg and no significant aortic regurgitation.
Plan:
HPI: Patient with h/o severe treated at [facility] with BAV on 12/06/2020 followed later by sternotomy with tissue AVR, aortic root enlargement, pericardial patch and CABG x 1 on 03/04/2021. Coming in now with acute HF and by echo there appears to be
likely significant bioprosthetic .
Additional Hx:
-After discussion with patient's daughter 09/26 they opted to move forward with valve in valve evaluation. She has a prior #19 biological aortic valve.
-Right heart cath 09/26/2024 with wedge of 45 and cardiac index of 1.5.
-EF by echo this admission 15 to 20%, previously was 45% 07/2023.
-Troponin peaked at 0.04 and was managed as a nonischemic myocardial injury troponin elevation in the setting of acute HF. No CP.
-Patient is chronically on aspirin and Plavix for history of CVA
-She required Levophed earlier this admission for significant hypotension. Low-dose dobutamine was attempted, however patient had hypotension and did not tolerate.
Cont IV diuresis
Wt continues to come down.
-IV Lasix dose has been increased to 80 mg twice daily.
-Creatinine stable at 1.2.
-Nephrology signed off
-was on p.o. Lasix 40 mg twice daily prior to admission
-Monitor daily wts and Is and Os and cr
-Hypotension limits GDMT
-Continue Coreg (intermittent doses have been skipped due to hypotension).
-Not on MIKY/ARB/ARNI/Aldactone due to chronic renal insufficiency and hypotension.
-Not SGLT2 inhibitor candidate given recurrent UTIs
-Wean supplemental oxygen as able
Progress Note - Slasher Hand
Subjective
Date of Service: September 28, 2024
Pt seen and examined. No complaints. No chest pain or shortness of breath.
Objective
Labs:
09/28/24 06:25
09/28/24 06:25
Labs
Hgb 10.3 g/dL (12.0-16.0) L 09/28/24 06:25
Hct 31.9 % (37.0-47.0) L 09/28/24 06:25
Plt Count 463 10^3/uL (130-400) H 09/28/24 06:25
Sodium 142 mmol/L (135-145) 09/28/24 06:25
Potassium 4.5 mmol/L (3.5-5.1) 09/28/24 06:25
BUN 68 mg/dl (7-17) H 09/28/24 06:25
Creatinine 1.2 mg/dL (0.6-1.0) H 09/28/24 06:25
Glucose 119 mg/dl (70-99) H 09/28/24 06:25
Vital Signs and I&O:
Vital Signs
Temp Pulse Resp BP Pulse Ox
98.0 F 69 18 106/60 97
09/28/24 11:27 09/28/24 12:22 09/28/24 11:27 09/28/24 12:22 09/28/24 11:27
Vital Signs
Temp Pulse Resp BP Pulse Ox
98.0 F 69 18 106/60 97
09/28/24 11:27 09/28/24 12:22 09/28/24 11:27 09/28/24 12:22 09/28/24 11:27
Intake & Output
09/26/24 09/27/24 09/28/24 09/29/24
06:59 06:59 06:59 06:59
Intake Total 940 / 940 1020 / 1020 1080 / 1080
Output Total 600 / 600 500 / 500
Balance 340 / 340 1020 / 1020 580 / 580
Physical Exam
Physical Exam
General: No acute distress, AAOX3
Neck: Negative JVD
Heart: Regular, Negative S3 positive S1/S2, Negative S4, systolic ejection murmur grade I/
Lungs: CTA b/l, negative wheezes/rales/rhonchi
Abd: Positive BS, NT/ND, neg rebound/rigidity/guarding
Ext: Negative cyanosis/clubbing/+1-2 bilateral edema
Neuro: nonfocal
[2024-09-28 16:15] LABS: Glucose - Point of Care 137 mg/dl (70-99)
[2024-09-28 22:32] LABS: Glucose - Point of Care 148 mg/dl (70-99)
[2024-09-29] VITALS (9 sets, daily range): BP systolic 77–112; BP diastolic 47–69; PULSE 70–75; BMI 37.5
[2024-09-29] MEDS: SYNTHROID 88 MCG PO (06:27)
[2024-09-29 07:49] LABS: Glucose - Point of Care 135 mg/dl (70-99)
--- NOTE | 2024-09-29 08:42 | W.PN.HOSP.TC ---
Today's Communication/Plan
-
await input from Cards regarding Lasix dosing in pt with low BP and timing of planned TAVR
Assessment / Plan
Assessment / Plan
Acute on chronic CHF exacerbation with reduced ejection fraction
Acute hypoxic respiratory insufficiency secondary to above, now on 6 L
-Cardiac BNP greater than 27,000
-Chest x-ray shows pulm edema, does not appear to have pneumonia. Will monitor. No fever, leukocytosis.
-Continue with diuresis per renal- Back to IV diuresis.
-EF of 25% from echo in 2020
-Echo 09/11 noted with a EF 15 to 20%,
-S/p CABG 10/2008 with FOLEY to LAD and SVG to RPDA
-S/p cardiac cath at [facility] 11/16/20 FOLEY to LAD patent, SVG to RPDA occluded, ostial Circ 75% stenosis, ostial RCA 75% stenosis
-Severe
-Hold Farxiga
-Continue midodrine with holding parameter
-Cont IV lasix
BP this morning is 86/51, discussed with nursing and requested to hold IV Lasix until reviewed with cardio as to dosing regimen
-Check I's and O's, daily weights-weight improving.
BMP pending
wt 09/10 (admission) 104-->09/27 92.7-->09/29 90kg
#Shock, unknown etiology
resolved
Pressors weaned off
was hypotensive again 09/16; transferred back to IMU, so far no pressors restarted
coreg dec, monitor.
Continue with midodrine.
# SAM likely cardiorenal on CKD, unknown baseline
-Creatinine holding steady at 1.2, 09/29 results are pending
-Continue with diuresis
-Nephrology following
-Hold spironolactone, losartan
History of TAVR
-now as per daughter - wants work up for TAVR
-valve in valve work up
#Acute metabolic encephalopathy
� Possibly secondary to CO2 narcosis with CHF exacerbation + UTI + along with +/- delirium
� Resolved 09/22
#UTI
History of multiple UTIs in past
Urine culture with pseudomonas; Completed Cefepime to Cipro course
finished abx
Afeb , WBC normal. No dysuria. Asymptomatic
Repeat UA: Asymptomatic bacteruria - no symptoms and only 70k CFU; mental status resolved on its own -will hold on antibiotics at this time
Elevated troponin likely secondary to nonischemic myocardial injury
Monitor
Edema blistering 2/2 fluid overload
monitor
venous Doppler lower extremity neg for DVT
Transaminitis
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
� Monitor with diuresis
-improving
CAD status post CABG
-Continue Plavix
-Continue Coreg
Chronic lymphedema
left buttock pressure related pressure injury stage 1
Essential hypertension
Chronic LBBB
Hypercholesterolemia
Chronic anemia
Type 2 diabetes
-Hold metformin, glipizide
-Insulin sliding scale
A1c 6.8%
History of CVA
Hypothyroidism
-Continue levothyroxine
Full code
DVT prophylaxis�heparin
Discussed with RN
Await cards input regarding TAVR timing
Dispo: Daughter wants full code now
Anticipated Discharge: > 48 hours
Subjective/Interval History
-
Date of Service: September 29, 2024
Awake, alert, asking about timing of planned TAVR
Objective Data
-
Labs:
Laboratory Results
09/29/24
08:08
WBC Pending
Hgb Pending
Hct Pending
Plt Count Pending
Sodium Pending
Potassium Pending
Chloride Pending
Carbon Dioxide Pending
BUN Pending
Creatinine Pending
Glucose Pending
Calcium Pending
Total Bilirubin Pending
AST Pending
ALT Pending
Alkaline Phosphatase Pending
Vital Signs:
Vital Signs
Temp Pulse Resp BP Pulse Ox
97.8 F 63 18 86/51 99
09/29/24 08:12 09/29/24 08:12 09/29/24 08:12 09/29/24 08:12 09/29/24 08:12
I&O
09/28/24 09/29/24 09/30/24
06:59 06:59 06:59
Intake Total 1080 / 1080 900 / 900
Output Total 500 / 500 1650 / 1650
Balance 580 / 580 -750 / -750
Review of Systems
-
History Source: Patient
Constitutional: Denies Fever
EENT: Reports No Symptoms Reported
Respiratory: Denies Trouble Breathing
Cardiac: Denies Chest Pain
Abdomen/GI: Reports No Symptoms
Genitourinary: Reports No Symptoms
Musculoskeletal: Reports No Symptoms
Physical Exam
-
General: Well Developed, Well Nourished and No Apparent Distress
HEENT: Normocephalic, Atraumatic and Moist Mucous Membranes
Respiratory: Clear to Auscultation; Negative Wheezes, Rales or Rhonchi
Cardiac: Regular Rhythm, S1/S2 and Murmur (2/6 systolic m)
GI: Soft, Nontender and Nondistended
Musculoskeletal: No Clubbing and No Cyanosis; Negative No Edema (1-2+)
Neuro: Awake, Alert and Oriented
[2024-09-29 08:49] LABS: Hematocrit 31.1 % (37.0-47.0); Hemoglobin 10.5 g/dL (12.0-16.0); Mean Corp Hgb Conc. 33.8 g/dL (33.0-37.0); Mean Corpuscular Hgb 30.7 pg (27.0-31.0); Mean Corpuscular Volume 90.9 fL (81.0-99.0); Mean Platelet Volume 10.6 fL (7.4-10.4); Platelet Count 425 10^3/uL (130-400); Red Blood Cell Count 3.42 10^6/uL (4.20-5.40); Red Cell Dist. Width 17.3 % (11.5-14.5); White Blood Cell Count 6.3 10^3/uL (4.8-10.8)
[2024-09-29] MEDS: NOVOLOG FLEXPEN-LOW RESISTANCE SC ×2 (09:35→17:13)
[2024-09-29] MEDS: UROCIT-K 10 MEQ PO ×2 (09:36→21:01)
[2024-09-29] MEDS: OCUVITE SOFTGEL 1 CAP PO ×2 (09:36→21:01)
[2024-09-29] MEDS: HIPREX 1 GRAM PO ×2 (09:36→21:01)
[2024-09-29] MEDS: PLAVIX 75 MG PO (09:36)
[2024-09-29] MEDS: FEOSOL 325 MG PO (09:37)
[2024-09-29] MEDS: THERAGRAN 1 TABLET PO (09:37)
[2024-09-29] MEDS: MAGNESIUM OXIDE 500 MG PO (09:37)
[2024-09-29] MEDS: LOW STRENGTH ASPIRIN 81 MG PO ×2 (09:37→21:02)
[2024-09-29] MEDS: CLARITIN 10 MG PO (09:37)
[2024-09-29] MEDS: OSCAL 500 + D 500 MG PO (09:37)
[2024-09-29] MEDS: LIPITOR 40 MG PO (09:37)
[2024-09-29] MEDS: HEPARIN 5000 UNITS SC ×2 (09:37→21:01)
[2024-09-29] MEDS: PROTONIX 40 MG PO (09:37)
[2024-09-29] MEDS: ProAmatine 5 MG PO ×3 (09:47→17:25)
[2024-09-29] MEDS: COREG PO ×3 (09:47→21:22)
[2024-09-29] MEDS: LIDOCAINE 4% PATCH TOPICAL (09:48)
[2024-09-29] MEDS: DESENEX/MITRAZOL/ZEASORB 1 APPLIC TOPICAL ×2 (09:51→21:19)
--- NOTE | 2024-09-29 11:36 | W.PN.CARDCBS ---
Addendum entered and electronically signed by Nasir Roberts DO 09/29/24 12:02:
.'
With hypotension, increase Midodrine to 10 mg aM and 5 mg noon and 5mg PM
Reduce lasix to 60 mg IV BID
Continues to diurese.
Reviewed with nursing
Original Note:
Today's Communication / Plan
-
Pt being evaluated for possible valve in valve TAVR following hx of stenotic bioAVR
Cont IV diuresis as wt continues to come down.
-Cont IV Lasix at 80 mg twice daily.
-Creatinine remains stable at 1.2, pending on September 29.
-Nephrology signed off
-was on p.o. Lasix 40 mg twice daily prior to admission
-Monitor daily wts and Is and Os and cr
-Hypotension limits GDMT
-Continue Coreg (intermittent doses have been skipped due to hypotension).
-Not on MIKY/ARB/ARNI/Aldactone due to chronic renal insufficiency and hypotension.
-Not SGLT2 inhibitor candidate given recurrent UTIs
Impression / Plan
-
.
PCP: Dr. Elidia Meneses
Primary Asset Accountant: Dr. Chris Craig of [place]
Assessment:
Presentation with SOB, LE edema 09/10/24
Acute on chronic HFrEF
CM EF previously 45% by echo 07/2023 and reduced further to 15 to 20% by echo 09/11/24
Severe
h/o type 2 CT related to severe 11/2020 resulting in transfer to [facility], s/p BAV 12/06/20
s/p sternotomy with biologic AVR, aortic root enlargement with pericardial patch, and CABG x1 SVG to distal RCA by Dr. Smith on 03/04/2021
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
Acute hypoxic respiratory insufficiency
SAM on CKD, suspected cardiorenal
Hypotension requiring pressor support
Elevated troponin, suspected nonischemic myocardial injury
CAD
s/p CABG with FOLEY to LAD and SVG to RPDA (occluded by cath 2020) in 2008
s/p cardiac cath at [facility] FOLEY to LAD patent, SVG to RPDA occluded, ostial Circ 75% stenosis, ostial RCA 75% stenosis 11/16/20
s/p CABG at time of AVR with SVG to distal RCA 03/04/21
Brief post op afib episode while at [facility], without known recurrence
s/p [facility] [facility] implanted loop recorder
PVCs
Chronic LBBB
DM 2
HTN
Hyperlipidemia
Hypothyroid
h/o CVA
Peripheral neuropathy
s/p IVC filter
Left breast cancer s/p lumpectomy, chemotherapy, and radiation 2008
Obesity
Anemia
Memory loss
Nuclear stress test 08/24/2023: Large sized moderate to severe defect in apex, apical anterior, apical inferior wall, prone imaging not performed, defect consistent with infarct with minimal gerald-infarct ischemia, EF 35% with global hypokinesis and
anteroapical akinesis, unchanged compared to prior cath and echo in 2020
Echo 03/24/2021: EF 25%, severe global hypokinesis with possible inferolateral and apical akinesis, mild MR, bioprosthetic AVR with peak/mean 21/12 mmHg
ECHO 07/2023: Mildly reduced LV systolic function 45% due to akinesis of distal inferior wall, mild MR with severe left atrial dilation, bioprosthetic aortic valve with peak gradient 49/mean gradient 32, valve size known to be small, moderate
pulmonary hypertension
Echo 09/11/2024: Dilated left ventricle with severely reduced left ventricular systolic function estimated 15-20% with grade 2 diastolic dysfunction increased LV filling pressures. Moderate mitral and tricuspid regurgitation. Bioprosthetic aortic
valve with peak/mean gradients 37/23 mmHg and no significant aortic regurgitation.
Plan:
HPI: Patient with h/o severe treated at [facility] with BAV on 12/06/2020 followed later by sternotomy with tissue AVR, aortic root enlargement, pericardial patch and CABG x 1 on 03/04/2021. Coming in now with acute HF and by echo there appears to be
likely significant bioprosthetic .
Additional Hx:
-After discussion with patient's daughter 09/26 they opted to move forward with valve in valve evaluation. She has a prior #19 biological aortic valve.
-Right heart cath 09/26/2024 with wedge of 45 and cardiac index of 1.5.
-EF by echo this admission 15 to 20%, previously was 45% 07/2023.
-Troponin peaked at 0.04 and was managed as a nonischemic myocardial injury troponin elevation in the setting of acute HF. No CP.
-Patient is chronically on aspirin and Plavix for history of CVA
-She required Levophed earlier this admission for significant hypotension. Low-dose dobutamine was attempted, however patient had hypotension and did not tolerate.
Pt being evaluated for possible valve in valve TAVR following hx of stenotic bioAVR
Cont IV diuresis as wt continues to come down.
-Cont IV Lasix at 80 mg twice daily.
-Creatinine remains stable at 1.2, pending on September 29.
-Nephrology signed off
-was on p.o. Lasix 40 mg twice daily prior to admission
-Monitor daily wts and Is and Os and cr
-Hypotension limits GDMT
-Continue Coreg (intermittent doses have been skipped due to hypotension).
-Not on MIKY/ARB/ARNI/Aldactone due to chronic renal insufficiency and hypotension.
-Not SGLT2 inhibitor candidate given recurrent UTIs
-Wean supplemental oxygen as able
Will update daughter.
Progress Note - Asset Accountant
Subjective
Date of Service: September 29, 2024
Objective
Labs:
09/29/24 08:08
Labs
Hgb 10.5 g/dL (12.0-16.0) L 09/29/24 08:08
Hct 31.1 % (37.0-47.0) L 09/29/24 08:08
Plt Count 425 10^3/uL (130-400) H 09/29/24 08:08
Sodium Cancelled 09/29/24 08:08
Potassium Cancelled 09/29/24 08:08
BUN Cancelled 09/29/24 08:08
Creatinine Cancelled 09/29/24 08:08
Glucose Cancelled 09/29/24 08:08
Vital Signs and I&O:
Vital Signs
Temp Pulse Resp BP Pulse Ox
98.5 F 63 18 84/58 97
09/29/24 11:31 09/29/24 11:33 09/29/24 11:31 09/29/24 11:33 09/29/24 11:31
Vital Signs
Temp Pulse Resp BP Pulse Ox
98.5 F 63 18 84/58 97
09/29/24 11:31 09/29/24 11:33 09/29/24 11:31 09/29/24 11:33 09/29/24 11:31
Intake & Output
09/27/24 09/28/24 09/29/24 09/30/24
06:59 06:59 06:59 06:59
Intake Total 1020 / 1020 1080 / 1080 900 / 900
Output Total 500 / 500 1650 / 1650
Balance 1020 / 1020 580 / 580 -750 / -750
Physical Exam
Physical Exam
General: No acute distress, awake and alert
Neck: Negative JVD
Heart: Regular, Negative S3 positive S1/S2, Negative S4, grade I/ ELBERT
Lungs: CTA b/l, negative wheezes/rales/rhonchi
Abd: Positive BS, NT/ND, neg rebound/rigidity/guarding
Ext: Negative cyanosis/clubbing/edema
Neuro: nonfocal
[2024-09-29 11:37] LABS: ALT (SGPT) 36 U/L (0-35); AST (SGOT) 28 U/L (14-36); Albumin 3.2 g/dl (3.5-5.0); Alkaline Phosphatase 100 U/L (38-126); Blood Urea Nitrogen 60 mg/dl (7-17); Calcium 9.9 mg/dl (8.4-10.2); Chloride 96 mmol/L (98-107); Estimated Creatinine Clearance 35 ml/min; Glucose 147 mg/dl (70-99); Potassium 4.1 mmol/L (3.5-5.1); Sodium 142 mmol/L (135-145); Total Bilirubin 1.5 mg/dl (0.2-1.3); Total Protein 5.8 g/dl (6.3-8.2); eGFR 41.31
[2024-09-29 11:52] LABS: Carbon Dioxide 40 mmol/L (22-30)
[2024-09-29 11:54] LABS: Glucose - Point of Care 240 mg/dl (70-99)
[2024-09-29] MEDS: LASIX IV (12:04)
[2024-09-29] MEDS: NOVOLOG FLEXPEN-LOW RESISTANCE 2 UNITS SC (12:14)
[2024-09-29] MEDS: LASIX 60 MG IV ×2 (12:14→17:29)
--- NOTE | 2024-09-29 12:49 | W.PN.PAL2 ---
Today's Communication
-
heart cath 09/26
TAVR eval
SNF eventually
Assessment / Plan
-
Assessment/Plan:
- now undergoing TAVR workup
- cardiology following
- eventual SNF pending TAVR
Objective Data
-
Objective Data:
Vital Signs
Temp Pulse Resp BP Pulse Ox
98.5 F 63 18 84/58 97
09/29/24 11:31 09/29/24 12:14 09/29/24 11:31 09/29/24 12:14 09/29/24 11:31
Laboratory Results
09/29/24 08:08
09/29/24 10:43
Hemoglobin A1c 6.8 % (4.0-5.6) H 09/11/24 05:12
Total Protein 5.8 g/dl (6.3-8.2) L 09/29/24 10:43
Albumin 3.2 g/dl (3.5-5.0) L 09/29/24 10:43
Urine Color Yellow 09/22/24 21:01
Urine Clarity Clear (Clear) 09/22/24 21:01
Urine pH 6.0 (5.0-9.0) 09/22/24 21:01
Ur Specific [place] 1.010 (<1.030) 09/22/24 21:01
Urine Ketones Negative (Negative) 09/22/24 21:01
Urine Bilirubin Negative (Negative) 09/22/24 21:01
Palliative Performance Scale
Palliative Performance Scale:
PPS Level Ambulation Activity & Evidence of Disease Self Care Intake Conscious Level
100% Full Normal Activity & Work; Full Intake Full
No Evidence of Disease
90% Full Normal Activity & Work; Full Normal Full
Some Evidence of Disease
80% Full Normal Activity with Effort Full Normal or Full
Some Evidence of Disease Reduced
70% Reduced Unable Normal Job/Work Full Normal or Full
Significant Disease Reduced
60% Reduced Unable Hobby/Housework Occasional Normal or Full or Confusion
Significant Disease Assistance Reduced
50% Mainly Sit/Lie Unable to do Any Work Considerable Normal or Full or Confusion
Extensive Disease Assistance Req'd Reduced
40% Mainly in Bed Unable to do Most Activity Mainly Assistance Normal or Full or Drowsy;
Extensive Disease Reduced +/- Confusion
30% Totally Bed Unable to do Any Activity Total Care Normal or Full or Drowsy;
Bound Extensive Disease Reduced +/- Confusion
20% Totally Bed Bound Unable to do Any Activity Total Care Minimal to Full or Drowsy;
Extensive Disease Sips +/- Confusion
10% Totally Bed Bound Unable to do Any Activity Total Care Mouth Care Drowsy or Coma;
Extensive Disease Only +/- Confusion
0%
PPS Score Level:
Physical Exam
-
General: Well Developed, Conversant and Appears Chronically Ill
HEENT: Normocephalic
Respiratory: Clear to Auscultation
Cardiac: Regular Rhythm
GI: Soft
Skin: Warm
Neuro: AO x 3
Care Reviewed
Data Reviewed
Medical Tests: I reviewed
Reviewed with: Patient
--- NOTE | 2024-09-29 16:05 | CM ---
Reviewed the chart notes and spoke with the patient at the bedside. The patient is in process of being evaluated to see if she is a candidate for TAVR. CM continues to be available to patient/family and is monitoring medical plan for needs at
discharge.
Plan: Discharge when medically stable to a SNF/rehab.
[2024-09-29 16:37] LABS: Glucose - Point of Care 124 mg/dl (70-99)
[2024-09-29 21:24] LABS: Glucose - Point of Care 204 mg/dl (70-99)
[2024-09-30] VITALS (8 sets, daily range): BP systolic 91–113; BP diastolic 55–69; BMI 37.9
[2024-09-30] MEDS: SYNTHROID 88 MCG PO (05:45)
[2024-09-30 07:47] LABS: Glucose - Point of Care 130 mg/dl (70-99)
[2024-09-30 08:10] LABS: Hematocrit 28.7 % (37.0-47.0); Hemoglobin 9.5 g/dL (12.0-16.0); Mean Corp Hgb Conc. 33.1 g/dL (33.0-37.0); Mean Corpuscular Hgb 30.4 pg (27.0-31.0); Mean Corpuscular Volume 91.7 fL (81.0-99.0); Mean Platelet Volume 11.5 fL (7.4-10.4); Platelet Count 493 10^3/uL (130-400); Red Blood Cell Count 3.13 10^6/uL (4.20-5.40); Red Cell Dist. Width 17.5 % (11.5-14.5); White Blood Cell Count 6.5 10^3/uL (4.8-10.8)
[2024-09-30 08:34] LABS: ALT (SGPT) 35 U/L (0-35); AST (SGOT) 32 U/L (14-36); Albumin 3.5 g/dl (3.5-5.0); Alkaline Phosphatase 100 U/L (38-126); Blood Urea Nitrogen 69 mg/dl (7-17); Calcium 9.7 mg/dl (8.4-10.2); Carbon Dioxide 37 mmol/L (22-30); Chloride 95 mmol/L (98-107); Estimated Creatinine Clearance 35 ml/min; Glucose 112 mg/dl (70-99); Potassium 4.5 mmol/L (3.5-5.1); Sodium 141 mmol/L (135-145); Total Bilirubin 1.4 mg/dl (0.2-1.3); Total Protein 5.9 g/dl (6.3-8.2); eGFR 41.31
[2024-09-30] MEDS: NOVOLOG FLEXPEN-LOW RESISTANCE SC ×2 (09:06→17:18)
[2024-09-30] MEDS: COREG PO (09:20)
[2024-09-30] MEDS: LIDOCAINE 4% PATCH TOPICAL ×2 (09:20→09:29)
[2024-09-30] MEDS: LASIX 60 MG IV ×2 (09:21→16:01)
[2024-09-30] MEDS: FEOSOL 325 MG PO (09:22)
[2024-09-30] MEDS: OCUVITE SOFTGEL 1 CAP PO ×2 (09:22→20:51)
[2024-09-30] MEDS: LOW STRENGTH ASPIRIN 81 MG PO ×2 (09:22→22:27)
[2024-09-30] MEDS: HIPREX 1 GRAM PO ×2 (09:22→20:51)
[2024-09-30] MEDS: MAGNESIUM OXIDE 500 MG PO (09:22)
[2024-09-30] MEDS: OSCAL 500 + D 500 MG PO (09:22)
[2024-09-30] MEDS: PLAVIX 75 MG PO (09:22)
[2024-09-30] MEDS: PROTONIX 40 MG PO (09:22)
[2024-09-30] MEDS: ProAmatine 10 MG PO (09:22)
[2024-09-30] MEDS: CLARITIN 10 MG PO (09:22)
[2024-09-30] MEDS: LIPITOR 40 MG PO (09:23)
[2024-09-30] MEDS: HEPARIN SC (09:23)
[2024-09-30] MEDS: UROCIT-K 10 MEQ PO ×2 (09:23→20:51)
[2024-09-30] MEDS: THERAGRAN 1 TABLET PO (09:23)
[2024-09-30] MEDS: DESENEX/MITRAZOL/ZEASORB 1 APPLIC TOPICAL ×2 (09:25→20:51)
--- NOTE | 2024-09-30 09:56 | W.PN.HOSP.TC ---
Today's Communication/Plan
-
TAVR work up as per cardio
await timing of next steps
BMP
Assessment / Plan
Assessment / Plan
Acute on chronic CHF exacerbation with reduced ejection fraction
Acute hypoxic respiratory insufficiency secondary to above, now on 2 L/m with SaO2 97%
-Cardiac BNP greater than 27,000
-Chest x-ray shows pulm edema, does not appear to have pneumonia. Will monitor. No fever, leukocytosis.
-Continue with diuresis per renal- Back to IV diuresis.
-EF of 25% from echo in 2020
-Echo 09/11 noted with a EF 15 to 20%,
-S/p CABG 10/2008 with FOLEY to LAD and SVG to RPDA
-S/p cardiac cath at [facility] 11/16/20 FOLEY to LAD patent, SVG to RPDA occluded, ostial Circ 75% stenosis, ostial RCA 75% stenosis
-Severe
-Hold Farxiga
-Continue midodrine with holding parameter
-Cont IV lasix
BP this morning is 95/56, discussed with nursing and IV Lasix dose reduced to 60 mg IV q12h, Midodrine dose slightly increrased
-Check I's and O's, daily weights-weight improving.
BUN 69/Creat 1.3
wt 09/10 (admission) 104-->09/27 92.7-->09/29 90kg-->09/30 90.95
#Shock, unknown etiology
resolved
Pressors weaned off
was hypotensive again 09/16; transferred back to IMU, currently on tele, BP remains low, but tolerating
coreg dec, monitor.
Continue with midodrine.
# SAM likely cardiorenal on CKD, unknown baseline
-Creatinine holding steady at 1.2-1.3
-Continue with diuresis
-Nephrology signed off
-Hold spironolactone, losartan
History of TAVR
-now as per daughter - wants work up for TAVR
-valve in valve work up
#Acute metabolic encephalopathy
� Possibly secondary to CO2 narcosis with CHF exacerbation + UTI + along with +/- delirium
� Resolved 09/22
#UTI
History of multiple UTIs in past
Urine culture with pseudomonas; Completed Cefepime to Cipro course
finished abx
Afeb , WBC normal. No dysuria. Asymptomatic
Repeat UA: Asymptomatic bacteruria - no symptoms and only 70k CFU; mental status resolved on its own -will hold on antibiotics at this time
Elevated troponin likely secondary to nonischemic myocardial injury
Monitor
Edema blistering 2/2 fluid overload
monitor
venous Doppler lower extremity neg for DVT
Transaminitis
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
� Monitor with diuresis
-resolved
CAD status post CABG
-Continue Plavix
-Continue Coreg
Chronic lymphedema
left buttock pressure related pressure injury stage 1
Essential hypertension
Chronic LBBB
Hypercholesterolemia
Chronic anemia
Type 2 diabetes
-Hold metformin, glipizide
-Insulin sliding scale
A1c 6.8%
History of CVA
Hypothyroidism
-Continue levothyroxine
Full code
DVT prophylaxis�heparin
Discussed with RN
Await cards input regarding TAVR timing
Dispo: Daughter wants full code now
reviewed with dgt by phone, Tanesha Seo, >15 minutes
Anticipated Discharge: > 48 hours
Subjective/Interval History
-
Date of Service: September 30, 2024
Awake, alert, conversant
Objective Data
-
Labs:
Laboratory Results
09/30/24
05:35
WBC 6.5
Hgb 9.5 L
Hct 28.7 L
Plt Count 493 H
Sodium 141
Potassium 4.5
Chloride 95 L
Carbon Dioxide 37 H
BUN 69 H
Creatinine 1.3 H
Glucose 112 H
Calcium 9.7
Total Bilirubin 1.4 H
AST 32
ALT 35
Alkaline Phosphatase 100
Vital Signs:
Vital Signs
Temp Pulse Resp BP Pulse Ox
97.5 F 51 16 95/56 97
09/30/24 07:35 09/30/24 09:21 09/30/24 07:35 09/30/24 09:22 09/30/24 07:35
I&O
09/29/24 09/30/24 10/01/24
06:59 06:59 06:59
Intake Total 900 / 900 720 / 720
Output Total 1650 / 1650 1100 / 1100
Balance -750 / -750 -380 / -380
Review of Systems
-
History Source: Patient
Constitutional: Denies Fever
EENT: Reports No Symptoms Reported
Respiratory: Denies Trouble Breathing
Cardiac: Denies Chest Pain
Abdomen/GI: Reports No Symptoms
Genitourinary: Reports No Symptoms
Musculoskeletal: Reports No Symptoms
Physical Exam
-
General: Well Developed, Well Nourished and No Apparent Distress
HEENT: Normocephalic, Atraumatic and Moist Mucous Membranes
Respiratory: Clear to Auscultation; Negative Wheezes, Rales or Rhonchi
Cardiac: Regular Rhythm, S1/S2 and Murmur (2/6 systolic m)
GI: Soft, Nontender and Nondistended
Musculoskeletal: No Clubbing and No Cyanosis; Negative No Edema (1-2+)
Neuro: Awake, Alert and Oriented
--- NOTE | 2024-09-30 11:10 | CM ---
Reviewed the chart notes. TAVR work up as per cardiology. CM continues to be available to patient/family and is monitoring medical plan for needs at discharge.
Plan: Discharge to SNF/rehab once medically stable and a bed is secured. No precert will be required.
[2024-09-30 12:14] LABS: Glucose - Point of Care 231 mg/dl (70-99)
[2024-09-30] MEDS: NOVOLOG FLEXPEN-LOW RESISTANCE 2 UNITS SC (12:52)
[2024-09-30] MEDS: ProAmatine 5 MG PO ×2 (12:54→17:38)
--- NOTE | 2024-09-30 14:39 | W.PN.UPDATE ---
Update Note
Progress Note Update
Called Tanesha to provide update. We discussed that yesterday due to patient's low blood pressures, Lasix had to be decreased and midodrine had to be increased. We discussed that plan for now is to attempt to diurese her as much as possible,
however it will be very problematic if she cannot be diuresed due to hypotension. We discussed plan would be for CT scan once volume status is felt to be stabilized, and will likely need to be staged in 2 parts due to her baseline renal
insufficiency. We also discussed that this would be the first step of several in order to move toward TAVR. She cannot be discussed officially at structural heart meeting until CT scan completed. We discussed that she may not be a candidate,
particularly due to her prior valve being 19 mm, which is small and may be unable to accommodate valve in valve.
--- NOTE | 2024-09-30 15:49 | W.PN.CARDCBS ---
Today's Communication / Plan
-
Continue IV Lasix
Stop Coreg given hypotension
Impression / Plan
-
.
PCP: Dr. Elidia Meneses
Primary Cistern Room Working Supervisor: Dr. Chris Craig of [place]
Assessment:
Presentation with SOB, LE edema 09/10/24
Acute on chronic HFrEF
CM EF previously 45% by echo 07/2023 and reduced further to 15 to 20% by echo 09/11/24
Severe
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
s/p sternotomy with biologic AVR, aortic root enlargement with pericardial patch, and CABG x1 SVG to distal RCA by Dr. Smith on 03/04/2021
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
Acute hypoxic respiratory insufficiency
SAM on CKD, suspected cardiorenal
Hypotension requiring pressor support
Elevated troponin, suspected nonischemic myocardial injury
CAD
s/p CABG with FOLEY to LAD and SVG to RPDA (occluded by cath 2020) in 2008
s/p cardiac cath at [facility] FOLEY to LAD patent, SVG to RPDA occluded, ostial Circ 75% stenosis, ostial RCA 75% stenosis 11/16/20
s/p CABG at time of AVR with SVG to distal RCA 03/04/21
Brief post op afib episode while at [facility], without known recurrence
s/p [facility] implanted loop recorder
PVCs
Chronic LBBB
DM 2
HTN
Hyperlipidemia
Hypothyroid
h/o CVA
Peripheral neuropathy
s/p IVC filter
Left breast cancer s/p lumpectomy, chemotherapy, and radiation 2008
Obesity
Anemia
Memory loss
Nuclear stress test 08/24/2023: Large sized moderate to severe defect in apex, apical anterior, apical inferior wall, prone imaging not performed, defect consistent with infarct with minimal gerald-infarct ischemia, EF 35% with global hypokinesis and
anteroapical akinesis, unchanged compared to prior cath and echo in 2020
Echo 03/24/2021: EF 25%, severe global hypokinesis with possible inferolateral and apical akinesis, mild MR, bioprosthetic AVR with peak/mean 21/12 mmHg
ECHO 07/2023: Mildly reduced LV systolic function 45% due to akinesis of distal inferior wall, mild MR with severe left atrial dilation, bioprosthetic aortic valve with peak gradient 49/mean gradient 32, valve size known to be small, moderate
pulmonary hypertension
Echo 09/11/2024: Dilated left ventricle with severely reduced left ventricular systolic function estimated 15-20% with grade 2 diastolic dysfunction increased LV filling pressures. Moderate mitral and tricuspid regurgitation. Bioprosthetic aortic
valve with peak/mean gradients 37/23 mmHg and no significant aortic regurgitation.
Plan:
HPI: Patient with h/o severe treated at [facility] with BAV on 12/06/2020 followed later by sternotomy with tissue AVR, aortic root enlargement, pericardial patch and CABG x 1 on 03/04/2021. Coming in now with acute HF and by echo there appears to be
likely significant bioprosthetic .
Additional Hx:
-After discussion with patient's daughter 09/26 they opted to move forward with valve in valve evaluation. She has a prior #19 biological aortic valve.
-Right heart cath 09/26/2024 with wedge of 45 and cardiac index of 1.5.
-EF by echo this admission 15 to 20%, previously was 45% 07/2023.
-Troponin peaked at 0.04 and was managed as a nonischemic myocardial injury troponin elevation in the setting of acute HF. No CP.
-Patient is chronically on aspirin and Plavix for history of CVA
-She required Levophed earlier this admission for significant hypotension. Low-dose dobutamine was attempted, however patient had hypotension and did not tolerate.
Pt being evaluated for possible valve in valve TAVR following hx of stenotic bioAVR
Cont IV diuresis as wt continues to come down.
-Cont IV Lasix at 60 mg twice daily
-was on p.o. Lasix 40 mg twice daily prior to admission
-Creatinine remains stable 1.2-1.3
-Nephrology signed off
-Monitor daily wts and Is and Os and cr
-Wean supplemental oxygen as able
-Hypotension limits GDMT
-Unable to tolerate BB given hypotension
-Not on MIKY/ARB/ARNI/Aldactone due to chronic renal insufficiency and hypotension.
-Not SGLT2 inhibitor candidate given recurrent UTIs
Daughter updated by our team earlier today
Progress Note - Cistern Room Working Supervisor
Subjective
Date of Service: September 30, 2024
Resting comfortably in bed. No cardiac complaints today. Despite low blood pressure, not reporting lightheadedness or dizziness.
Objective
Labs:
09/30/24 05:35
09/30/24 05:35
Labs
Hgb 9.5 g/dL (12.0-16.0) L 09/30/24 05:35
Hct 28.7 % (37.0-47.0) L 09/30/24 05:35
Plt Count 493 10^3/uL (130-400) H 09/30/24 05:35
Sodium 141 mmol/L (135-145) 09/30/24 05:35
Potassium 4.5 mmol/L (3.5-5.1) 09/30/24 05:35
BUN 69 mg/dl (7-17) H 09/30/24 05:35
Creatinine 1.3 mg/dL (0.6-1.0) H 09/30/24 05:35
Glucose 112 mg/dl (70-99) H 09/30/24 05:35
Vital Signs and I&O:
Vital Signs
Temp Pulse Resp BP Pulse Ox
98.2 F 62 16 104/62 97
09/30/24 11:00 09/30/24 12:56 09/30/24 11:00 09/30/24 12:56 09/30/24 11:00
Vital Signs
Temp Pulse Resp BP Pulse Ox
98.2 F 62 16 104/62 97
09/30/24 11:00 09/30/24 12:56 09/30/24 11:00 09/30/24 12:56 09/30/24 11:00
Intake & Output
09/28/24 09/29/24 09/30/24 10/01/24
06:59 06:59 06:59 06:59
Intake Total 1080 / 1080 900 / 900 720 / 720
Output Total 500 / 500 1650 / 1650 1100 / 1100
Balance 580 / 580 -750 / -750 -380 / -380
Physical Exam
Physical Exam
Gen: NAD, AA
HEENT: NC/AT, sclera anicteric
Neck: Difficult to assess JVD
CV: RRR, 3/6 ELBERT
Lungs: No increased WOB on 2L NC
Abd: S/ND
Ext: 2+ LE edema
Skin: Warm, dry
Neuro: Non-focal
[2024-09-30 17:18] LABS: Glucose - Point of Care 130 mg/dl (70-99)
[2024-09-30] MEDS: HEPARIN 5000 UNITS SC (20:52)
[2024-09-30 21:10] LABS: Glucose - Point of Care 171 mg/dl (70-99)
[2024-10-01] VITALS (7 sets, daily range): BP systolic 96–121; BP diastolic 47–71; PULSE 54; O2SAT 97; BMI 37.3
[2024-10-01] MEDS: SYNTHROID 88 MCG PO (05:31)
[2024-10-01 07:39] LABS: Glucose - Point of Care 121 mg/dl (70-99)
[2024-10-01 07:48] LABS: Hematocrit 28.1 % (37.0-47.0); Hemoglobin 9.6 g/dL (12.0-16.0); Mean Corp Hgb Conc. 34.2 g/dL (33.0-37.0); Mean Corpuscular Hgb 30.6 pg (27.0-31.0); Mean Corpuscular Volume 89.5 fL (81.0-99.0); Mean Platelet Volume 11.3 fL (7.4-10.4); Platelet Count 395 10^3/uL (130-400); Red Blood Cell Count 3.14 10^6/uL (4.20-5.40); Red Cell Dist. Width 17.8 % (11.5-14.5); White Blood Cell Count 6.3 10^3/uL (4.8-10.8)
[2024-10-01 08:16] LABS: ALT (SGPT) 29 U/L (0-35); AST (SGOT) 30 U/L (14-36); Albumin 3.4 g/dl (3.5-5.0); Alkaline Phosphatase 97 U/L (38-126); Blood Urea Nitrogen 61 mg/dl (7-17); Calcium 9.5 mg/dl (8.4-10.2); Carbon Dioxide 39 mmol/L (22-30); Chloride 96 mmol/L (98-107); Estimated Creatinine Clearance 35 ml/min; Glucose 94 mg/dl (70-99); Potassium 4.5 mmol/L (3.5-5.1); Sodium 140 mmol/L (135-145); Total Bilirubin 1.7 mg/dl (0.2-1.3); Total Protein 5.9 g/dl (6.3-8.2); eGFR 41.31
--- NOTE | 2024-10-01 08:29 | W.PN.HOSP.TC ---
Today's Communication/Plan
-
continue current Tx
encourage OOB
await timing of heart cath and CT scan. Fluid status for planned heart cath aspects reviewed with cardio
Assessment / Plan
Assessment / Plan
Acute on chronic CHF exacerbation with reduced ejection fraction
Acute hypoxic respiratory insufficiency secondary to above, now on 2 L/m with SaO2 97%
-Cardiac BNP greater than 27,000
-Chest x-ray shows pulm edema, does not appear to have pneumonia. Will monitor. No fever, leukocytosis.
-Continue with diuresis per renal- Back to IV diuresis.
-EF of 25% from echo in 2020
-Echo 09/11 noted with a EF 15 to 20%,
-S/p CABG 10/2008 with FOLEY to LAD and SVG to RPDA
-S/p cardiac cath at [facility] 11/16/20 FOLEY to LAD patent, SVG to RPDA occluded, ostial Circ 75% stenosis, ostial RCA 75% stenosis
-Severe
-Hold Farxiga
-Continue midodrine with holding parameter
-Cont IV lasix
BP this morning is 95/56, discussed with nursing and IV Lasix dose reduced to 60 mg IV q12h, Midodrine dose slightly increased
-Check I's and O's, daily weights-weight improving.
BUN 69/Creat 1.3
wt 09/10 (admission) 104-->09/27 92.7-->09/29 90kg-->09/30 90.95-->10/01 89.5
#Shock, unknown etiology
resolved
Pressors weaned off
was hypotensive again 09/16; transferred back to IMU, currently on tele, BP remains low, but tolerating
coreg dec, monitor.
Continue with midodrine.
BP currently 107/63
# SAM likely cardiorenal on CKD, unknown baseline
-BUN/Creat 09/30 69/1.4-->10/01 61/1.3
-Continue with diuresis
-Nephrology signed off
-Hold spironolactone, losartan
History of TAVR
-now as per daughter - wants work up for TAVR
-valve in valve work up
#Acute metabolic encephalopathy
� Possibly secondary to CO2 narcosis with CHF exacerbation + UTI + along with +/- delirium
� Resolved 09/22
#UTI
History of multiple UTIs in past
Urine culture with pseudomonas; Completed Cefepime to Cipro course
finished abx
Afeb , WBC normal. No dysuria. Asymptomatic
Repeat UA: Asymptomatic bacteruria - no symptoms and only 70k CFU; mental status resolved on its own -will hold on antibiotics at this time
Elevated troponin likely secondary to nonischemic myocardial injury
Monitor
Edema blistering 2/2 fluid overload
monitor
venous Doppler lower extremity neg for DVT
Transaminitis
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
� Monitor with diuresis
-resolved
CAD status post CABG
-Continue Plavix
-Continue Coreg
Chronic lymphedema
left buttock pressure related pressure injury stage 1
importance of getting pt OOB to chair reviewed with nursing
Essential hypertension
Chronic LBBB
Hypercholesterolemia
Chronic anemia
Type 2 diabetes
-Hold metformin, glipizide
-Insulin sliding scale
A1c 6.8%
History of CVA
Hypothyroidism
-Continue levothyroxine
Full code
DVT prophylaxis�heparin
Discussed with RN
Await cards input regarding TAVR timing, reviewed with Dr. Nicholson 10/01
Dispo: Daughter clarified, pt is a full code
reviewed with dgt by phone, Tanesha Seo, >15 minutes 09/30
Anticipated Discharge: > 48 hours
Subjective/Interval History
-
Date of Service: October 01, 2024
Awake, alert, answering questions
Objective Data
-
Labs:
Laboratory Results
10/01/24
05:30
WBC 6.3
Hgb 9.6 L
Hct 28.1 L
Plt Count 395
Sodium 140
Potassium 4.5
Chloride 96 L
Carbon Dioxide 39 H
BUN 61 H
Creatinine 1.3 H
Glucose 94
Calcium 9.5
Total Bilirubin 1.7 H
AST 30
ALT 29
Alkaline Phosphatase 97
Vital Signs:
Vital Signs
Temp Pulse Resp BP Pulse Ox
98.0 F 70 16 107/63 99
10/01/24 07:35 10/01/24 07:35 10/01/24 07:35 10/01/24 07:35 10/01/24 07:35
I&O
09/30/24 10/01/24 10/02/24
06:59 06:59 06:59
Intake Total 720 / 720 1080 / 1080
Output Total 1100 / 1100 300 / 300
Balance -380 / -380 780 / 780
Review of Systems
-
History Source: Patient
Constitutional: Denies Fever
EENT: Reports No Symptoms Reported and Hearing Loss (can hear adequately if speak loud)
Respiratory: Denies Trouble Breathing
Cardiac: Denies Chest Pain
Abdomen/GI: Reports No Symptoms
Genitourinary: Reports No Symptoms
Musculoskeletal: Reports No Symptoms
Physical Exam
-
General: Well Developed, Well Nourished and No Apparent Distress
HEENT: Normocephalic, Atraumatic and Moist Mucous Membranes
Respiratory: Clear to Auscultation; Negative Wheezes, Rales or Rhonchi
Cardiac: Regular Rhythm, S1/S2 and Murmur (2/6 systolic m)
GI: Soft, Nontender and Nondistended
Musculoskeletal: No Clubbing and No Cyanosis; Negative No Edema (1-2+)
Neuro: Awake, Alert and Oriented
[2024-10-01] MEDS: NOVOLOG FLEXPEN-LOW RESISTANCE SC ×2 (09:16→17:35)
[2024-10-01] MEDS: UROCIT-K 10 MEQ PO ×2 (09:17→20:42)
[2024-10-01] MEDS: OSCAL 500 + D 500 MG PO (09:17)
[2024-10-01] MEDS: MAGNESIUM OXIDE 500 MG PO (09:17)
[2024-10-01] MEDS: ProAmatine 10 MG PO (09:17)
[2024-10-01] MEDS: LIPITOR 40 MG PO (09:18)
[2024-10-01] MEDS: THERAGRAN 1 TABLET PO (09:18)
[2024-10-01] MEDS: LASIX 60 MG IV (09:18)
[2024-10-01] MEDS: PROTONIX 40 MG PO (09:18)
[2024-10-01] MEDS: LOW STRENGTH ASPIRIN 81 MG PO ×2 (09:18→22:30)
[2024-10-01] MEDS: CLARITIN 10 MG PO (09:18)
[2024-10-01] MEDS: FEOSOL 325 MG PO (09:18)
[2024-10-01] MEDS: PLAVIX 75 MG PO (09:18)
[2024-10-01] MEDS: HIPREX 1 GRAM PO ×2 (09:18→20:21)
[2024-10-01] MEDS: OCUVITE SOFTGEL 1 CAP PO ×2 (09:18→20:22)
[2024-10-01] MEDS: HEPARIN 5000 UNITS SC ×2 (09:19→20:21)
[2024-10-01] MEDS: LIDOCAINE 4% PATCH TOPICAL (09:19)
[2024-10-01] MEDS: DESENEX/MITRAZOL/ZEASORB 1 APPLIC TOPICAL ×2 (09:20→20:20)
--- NOTE | 2024-10-01 11:01 | W.PN.CARDCBS ---
Addendum entered and electronically signed by Nicole Montiel PA-C 10/01/24 15:25:
called and discussed below plan with patient's daughter Tanesha.
Addendum entered and electronically signed by Mak Jay MD 10/01/24 13:06:
I saw and examined the patient.
The Environmental Services Manager's note was reviewed and I agree with the note.
Comment: Briefly, 83-year-old woman past medical history of aortic valve replacement complicated by severe bioprosthetic aortic stenosis who presented in acute decompensated heart failure and was found to have severe LV dysfunction with EF 15-20%.
Remains volume overloaded on exam
Increase IV diuretics to 80mg BID
Continue farxiga
Unfortunately her blood pressure is unable to tolerate additional GDMT as she has been maintained on midodrine here
TAVR workup per structural heart team
Rest per Leopold back
Original Note:
Today's Communication / Plan
-
IV lasix 80mg BID
hypotension limiting more aggressive diuresis and GDMT. on midodrine
will discuss patient with TAVR team
Impression / Plan
-
.
PCP: Dr. Elidia Mensees
Primary Lathe Operator: Dr. Chris Craig of [place]
Assessment:
Presentation with SOB, LE edema 09/10/24
Acute on chronic HFrEF
CM EF previously 45% by echo 07/2023 and reduced further to 15 to 20% by echo 09/11/24
Severe
h/o type 2 CA related to severe 11/2020 resulting in transfer to [facility], s/p BAV 12/06/20
s/p sternotomy with biologic AVR, aortic root enlargement with pericardial patch, and CABG x1 SVG to distal RCA by Dr. Smith on 03/04/2021
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
Acute hypoxic respiratory insufficiency
SAM on CKD, suspected cardiorenal
Hypotension requiring pressor support
Elevated troponin, suspected nonischemic myocardial injury
CAD
s/p CABG with FOLEY to LAD and SVG to RPDA (occluded by cath 2020) in 2008
s/p cardiac cath at [facility] FOLEY to LAD patent, SVG to RPDA occluded, ostial Circ 75% stenosis, ostial RCA 75% stenosis 11/16/20
s/p CABG at time of AVR with SVG to distal RCA 03/04/21
Brief post op afib episode while at [facility], without known recurrence
s/p [employer] implanted loop recorder
PVCs
Chronic LBBB
DM 2
HTN
Hyperlipidemia
Hypothyroid
h/o CVA
Peripheral neuropathy
s/p IVC filter
Left breast cancer s/p lumpectomy, chemotherapy, and radiation 2008
Obesity
Anemia
Memory loss
Nuclear stress test 08/24/2023: Large sized moderate to severe defect in apex, apical anterior, apical inferior wall, prone imaging not performed, defect consistent with infarct with minimal gerald-infarct ischemia, EF 35% with global hypokinesis and
anteroapical akinesis, unchanged compared to prior cath and echo in 2020
Echo 03/24/2021: EF 25%, severe global hypokinesis with possible inferolateral and apical akinesis, mild MR, bioprosthetic AVR with peak/mean 21/12 mmHg
ECHO 07/2023: Mildly reduced LV systolic function 45% due to akinesis of distal inferior wall, mild MR with severe left atrial dilation, bioprosthetic aortic valve with peak gradient 49/mean gradient 32, valve size known to be small, moderate
pulmonary hypertension
Echo 09/11/2024: Dilated left ventricle with severely reduced left ventricular systolic function estimated 15-20% with grade 2 diastolic dysfunction increased LV filling pressures. Moderate mitral and tricuspid regurgitation. Bioprosthetic aortic
valve with peak/mean gradients 37/23 mmHg and no significant aortic regurgitation.
Plan:
-Patient with h/o severe treated at [facility] with BAV on 12/06/2020 followed later by sternotomy with tissue AVR, aortic root enlargement, pericardial patch and CABG x 1 on 03/04/2021. Coming in now with acute HF and by echo there appears to be
significant bioprosthetic .
-EF 15-20% by echo, previously 45% 07/2023.
-after options were discussed with patient and daughter, they opted to move forward with valve in valve evaluation. She has a prior #19 biological aortic valve.
-s/p RHC 09/26/24 with wedge of 45 and CI of 1.5
-she did not tolerate low dose dobutamine earlier this admission due to hypotension. she required levo earlier in admission to allow diuresis. she is currently on midodrine and BPs low but stable
-she remains on supp O2. will increase IV lasix back to 80mg BID. Cr stable at 1.3. was on p.o. Lasix 40 mg twice daily prior to admission
-difficult case. will be discussed with TAVR team. she would be high risk for intervention given memory loss, chronic renal insufficiency, small bio AVR size, and reduced EF. this has been discussed with daughter several times and she has expressed
understanding that patient may be deemed to not be a candidate.
-hypotension and chronic renal insufficiency limiting GDMT of CHF/CM at this time. Not SGLT2 inhibitor candidate given recurrent UTIs
-Troponin peaked at 0.04 and was managed as a nonischemic myocardial injury troponin elevation in the setting of acute HF. No CP. Patient is chronically on aspirin and Plavix for history of CVA
Progress Note - Lathe Operator
Subjective
Date of Service: October 01, 2024
she reports good urine output. confused at times
Objective
Labs:
10/01/24 05:30
10/01/24 05:30
Labs
Hgb 9.6 g/dL (12.0-16.0) L 10/01/24 05:30
Hct 28.1 % (37.0-47.0) L 10/01/24 05:30
Plt Count 395 10^3/uL (130-400) 10/01/24 05:30
Sodium 140 mmol/L (135-145) 10/01/24 05:30
Potassium 4.5 mmol/L (3.5-5.1) 10/01/24 05:30
BUN 61 mg/dl (7-17) H 10/01/24 05:30
Creatinine 1.3 mg/dL (0.6-1.0) H 10/01/24 05:30
Glucose 94 mg/dl (70-99) 10/01/24 05:30
Vital Signs and I&O:
Vital Signs
Temp Pulse Resp BP Pulse Ox
98.0 F 70 16 107/63 99
10/01/24 07:35 10/01/24 09:18 10/01/24 07:35 10/01/24 09:18 10/01/24 07:35
Vital Signs
Temp Pulse Resp BP Pulse Ox
98.0 F 70 16 107/63 99
10/01/24 07:35 10/01/24 09:18 10/01/24 07:35 10/01/24 09:18 10/01/24 07:35
Intake & Output
09/29/24 09/30/24 10/01/24 10/02/24
07:59 07:59 07:59 07:59
Intake Total 900 / 900 720 / 720 1080 / 1080
Output Total 1650 / 1650 1100 / 1100 300 / 300
Balance -750 / -750 -380 / -380 780 / 780
Physical Exam
Physical Exam
GEN: No distress, awake, alert. confused at times. on supp O2. obese
HEENT: supple, anicteric, mmm, eomi
LUNGS: Crackles at bases, no wheezes
CV: Reg, S1/S2, 2/6 syst LSB murmur
ABD: soft, BS+, NT/ND
EXT: No cyanosis, clubbing. 2+ edema of B/L LE
NEURO: Gross non-focal
SKIN: Warm, pink, dry. No rash
[2024-10-01 12:17] LABS: Glucose - Point of Care 190 mg/dl (70-99)
[2024-10-01] MEDS: NOVOLOG FLEXPEN-LOW RESISTANCE 1 UNITS SC (12:40)
[2024-10-01] MEDS: ProAmatine 5 MG PO ×2 (12:42→17:35)
[2024-10-01] MEDS: LASIX 80 MG IV (15:06)
[2024-10-01 16:15] LABS: Glucose - Point of Care 157 mg/dl (70-99)
[2024-10-01 21:19] LABS: Glucose - Point of Care 182 mg/dl (70-99)
[2024-10-02] VITALS (7 sets, daily range): BP systolic 94–116; BP diastolic 61–73; PULSE 73; BMI 37.3
[2024-10-02] MEDS: SYNTHROID 88 MCG PO (06:06)
[2024-10-02 06:30] LABS: Hematocrit 28.6 % (37.0-47.0); Hemoglobin 9.4 g/dL (12.0-16.0); Mean Corp Hgb Conc. 32.9 g/dL (33.0-37.0); Mean Corpuscular Hgb 30.4 pg (27.0-31.0); Mean Corpuscular Volume 92.6 fL (81.0-99.0); Platelet Count 385 10^3/uL (130-400); Red Blood Cell Count 3.09 10^6/uL (4.20-5.40); Red Cell Dist. Width 17.4 % (11.5-14.5); White Blood Cell Count 6.6 10^3/uL (4.8-10.8)
[2024-10-02 06:54] LABS: ALT (SGPT) 27 U/L (0-35); AST (SGOT) 27 U/L (14-36); Albumin 3.2 g/dl (3.5-5.0); Alkaline Phosphatase 100 U/L (38-126); Blood Urea Nitrogen 54 mg/dl (7-17); Calcium 9.6 mg/dl (8.4-10.2); Carbon Dioxide 39 mmol/L (22-30); Chloride 95 mmol/L (98-107); Estimated Creatinine Clearance 35 ml/min; Glucose 114 mg/dl (70-99); Potassium 3.8 mmol/L (3.5-5.1); Sodium 141 mmol/L (135-145); Total Bilirubin 1.7 mg/dl (0.2-1.3); Total Protein 5.7 g/dl (6.3-8.2); eGFR 41.31
[2024-10-02 07:41] LABS: Glucose - Point of Care 133 mg/dl (70-99)
[2024-10-02] MEDS: NOVOLOG FLEXPEN-LOW RESISTANCE SC (07:44)
[2024-10-02] MEDS: THERAGRAN 1 TABLET PO (09:24)
[2024-10-02] MEDS: HIPREX 1 GRAM PO ×2 (09:24→20:39)
[2024-10-02] MEDS: OSCAL 500 + D 500 MG PO (09:24)
[2024-10-02] MEDS: MAGNESIUM OXIDE 500 MG PO (09:24)
[2024-10-02] MEDS: PROTONIX 40 MG PO (09:25)
[2024-10-02] MEDS: LIPITOR 40 MG PO (09:25)
[2024-10-02] MEDS: FEOSOL 325 MG PO (09:25)
[2024-10-02] MEDS: ProAmatine 10 MG PO (09:25)
[2024-10-02] MEDS: PLAVIX 75 MG PO (09:25)
[2024-10-02] MEDS: CLARITIN 10 MG PO (09:25)
[2024-10-02] MEDS: OCUVITE SOFTGEL 1 CAP PO ×2 (09:25→20:39)
[2024-10-02] MEDS: DESENEX/MITRAZOL/ZEASORB 1 APPLIC TOPICAL ×2 (09:25→20:37)
[2024-10-02] MEDS: UROCIT-K 10 MEQ PO ×2 (09:25→20:39)
[2024-10-02] MEDS: LASIX 80 MG IV ×2 (09:26→17:21)
[2024-10-02] MEDS: HEPARIN 5000 UNITS SC ×2 (09:27→20:36)
[2024-10-02] MEDS: LIDOCAINE 4% PATCH TOPICAL (09:27)
--- NOTE | 2024-10-02 09:53 | W.PN.CARDCBS ---
Addendum entered and electronically signed by Constanza Anderson DO 10/02/24 10:40:
I saw and examined the patient.
The Environmental Department Manager's note was reviewed and I agree with the note.
Comment: Seen and examined with cardiac PA. Overnight no events�patient denies chest pain or pressure. No dizziness in bed.
GEN: NAD; aaox3
HEENT: mmm
LUNGS: CTA anterolaterally, no wheezes
CV: Reg, S1/S2, 2/6 syst LSB murmur
ABD: soft, BS+, NT/ND
EXT: 2+ edema of B/L LE
Plan:
h/o severe treated at [facility] with BAV on 12/06/2020 followed later by sternotomy with tissue AVR, aortic root enlargement, pericardial patch and CABG x 1 on 03/04/2021 with ongoing acute HF, hypotension and significant bioprosthetic .
-Remains volume overloaded with borderline hemodynamics on day 22 of this hospitalization
-EF 15-20% by echo, previously 45% 07/2023.
-wedge was 45 at time of RHC 09/26 with CI 1.5.
-Continue diuresis with IV Lasix 80 mg twice daily. Will discuss with nephrology trial of Lasix drip
-Monitor renal function closely; creatinine stable at 1.3
-Telemetry sinus rhythm with frequent PVCs in pairs, short runs of NSVT and bigeminy
-she did not tolerate low dose dobutamine earlier this admission due to hypotension. she required levo earlier in admission to allow diuresis. she is currently on midodrine and BPs low but stable
-We had a edy conversation today about the difficult nature cardiac conditions with overall poor functional capacity. There is been ongoing discussion on whether or not she is a [facility] TAVR candidate; she is not an open surgical candidate. Will be
discussed with TAVR team in AM. she would be high risk for intervention given memory loss, chronic renal insufficiency, small bio AVR size (#19 biological), and reduced EF. We discussed and she has expressed understanding that if valve team deems
her to not be a candidate and that then focus would be on palliation/comfort/hospice. She had appropriate questions regarding hospice and has had several friends who are previously on hospice. All questions were answered.
-Continue aspirin/Plavix.
Original Note:
Today's Communication / Plan
-
continue IV diuresis
await discussion with TAVR team in AM
Impression / Plan
-
.
PCP: Dr. Elidia Meneses
Primary Support Services Rep: Dr. Chris Craig of [place]
Assessment:
Presentation with SOB, LE edema 09/10/24
Acute on chronic HFrEF
CM EF previously 45% by echo 07/2023 and reduced further to 15 to 20% by echo 09/11/24
Severe
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
s/p sternotomy with biologic AVR, aortic root enlargement with pericardial patch, and CABG x1 SVG to distal RCA by Dr. Smith on 03/04/2021
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
Acute hypoxic respiratory insufficiency
SAM on CKD, suspected cardiorenal
Hypotension requiring pressor support
Elevated troponin, suspected nonischemic myocardial injury
CAD
s/p CABG with FOLEY to LAD and SVG to RPDA (occluded by cath 2020) in 2008
s/p cardiac cath at [facility] FOLEY to LAD patent, SVG to RPDA occluded, ostial Circ 75% stenosis, ostial RCA 75% stenosis 11/16/20
s/p CABG at time of AVR with SVG to distal RCA 03/04/21
Brief post op afib episode while at [facility], without known recurrence
s/p [facility] implanted loop recorder
PVCs
Chronic LBBB
DM 2
HTN
Hyperlipidemia
Hypothyroid
h/o CVA
Peripheral neuropathy
s/p IVC filter
Left breast cancer s/p lumpectomy, chemotherapy, and radiation 2008
Obesity
Anemia
Memory loss
Nuclear stress test 08/24/2023: Large sized moderate to severe defect in apex, apical anterior, apical inferior wall, prone imaging not performed, defect consistent with infarct with minimal gerald-infarct ischemia, EF 35% with global hypokinesis and
anteroapical akinesis, unchanged compared to prior cath and echo in 2020
Echo 03/24/2021: EF 25%, severe global hypokinesis with possible inferolateral and apical akinesis, mild MR, bioprosthetic AVR with peak/mean 21/12 mmHg
ECHO 07/2023: Mildly reduced LV systolic function 45% due to akinesis of distal inferior wall, mild MR with severe left atrial dilation, bioprosthetic aortic valve with peak gradient 49/mean gradient 32, valve size known to be small, moderate
pulmonary hypertension
Echo 09/11/2024: Dilated left ventricle with severely reduced left ventricular systolic function estimated 15-20% with grade 2 diastolic dysfunction increased LV filling pressures. Moderate mitral and tricuspid regurgitation. Bioprosthetic aortic
valve with peak/mean gradients 37/23 mmHg and no significant aortic regurgitation.
Plan:
-Patient with h/o severe treated at [facility] with BAV on 12/06/2020 followed later by sternotomy with tissue AVR, aortic root enlargement, pericardial patch and CABG x 1 on 03/04/2021. Coming in now with acute HF and by echo there appears to be
significant bioprosthetic .
-EF 15-20% by echo, previously 45% 07/2023.
-wedge was 45 at time of RHC 09/26 with CI 1.5. Continue diuresis with IV Lasix 80 mg twice daily. Creatinine stable at 1.3
-she did not tolerate low dose dobutamine earlier this admission due to hypotension. she required levo earlier in admission to allow diuresis. she is currently on midodrine and BPs low but stable
-hypotension and chronic renal insufficiency limiting GDMT of CHF/CM at this time. Not SGLT2 inhibitor candidate given recurrent UTIs
-wean supp O2 as able
-difficult case. will be discussed with TAVR team in AM. she would be high risk for intervention given memory loss, chronic renal insufficiency, small bio AVR size (#19 biological), and reduced EF. this has been discussed with daughter several times
and she has expressed understanding that patient may be deemed to not be a candidate and that then focus would be on palliation/comfort/hospice. discussed this with patient today.
-Troponin peaked at 0.04 and was managed as a nonischemic myocardial injury troponin elevation in the setting of acute HF. No CP. Patient is chronically on aspirin and Plavix for history of CVA
-d/w nursing
Progress Note - Support Services Rep
Subjective
Date of Service: October 02, 2024
reports no issues with breathing overnight. reports good urine output
Objective
Labs:
10/02/24 06:12
10/02/24 06:12
Labs
Hgb 9.4 g/dL (12.0-16.0) L 10/02/24 06:12
Hct 28.6 % (37.0-47.0) L 10/02/24 06:12
Plt Count 385 10^3/uL (130-400) 10/02/24 06:12
Sodium 141 mmol/L (135-145) 10/02/24 06:12
Potassium 3.8 mmol/L (3.5-5.1) 10/02/24 06:12
BUN 54 mg/dl (7-17) H 10/02/24 06:12
Creatinine 1.3 mg/dL (0.6-1.0) H 10/02/24 06:12
Glucose 114 mg/dl (70-99) H 10/02/24 06:12
Vital Signs and I&O:
Vital Signs
Temp Pulse Resp BP Pulse Ox
98.0 F 68 16 107/63 95
10/02/24 07:15 10/02/24 07:15 10/02/24 07:15 10/02/24 09:26 10/02/24 07:15
Vital Signs
Temp Pulse Resp BP Pulse Ox
98.0 F 68 16 107/63 95
10/02/24 07:15 10/02/24 07:15 10/02/24 07:15 10/02/24 09:26 10/02/24 07:15
Intake & Output
09/30/24 10/01/24 10/02/24 10/03/24
07:59 07:59 07:59 07:59
Intake Total 720 / 720 1080 / 1080 1140 / 1140
Output Total 1100 / 1100 300 / 300
Balance -380 / -380 780 / 780 1140 / 1140
Physical Exam
Physical Exam
GEN: No distress, awake, alert. on supp O2. obese
HEENT: supple, anicteric, mmm, eomi
LUNGS: CTA anterolaterally, no wheezes
CV: Reg, S1/S2, 2/6 syst LSB murmur
ABD: soft, BS+, NT/ND
EXT: No cyanosis, clubbing. 2+ edema of B/L LE
NEURO: Gross non-focal
SKIN: Warm, pink, dry. No rash
--- NOTE | 2024-10-02 11:40 | CM ---
Reviewed the chart notes and spoke with the patient at the bedside. Per notes, TAVR team to meet tomorrow to evaluate patient. CM continues to be available to patient/family and is monitoring medical plan for needs at discharge.
Plan: Discharge to SNF/rehab once medically stable and bed secured. No precert required. Patient continues with supplemental O2 @ 2L/min.
[2024-10-02] MEDS: LOW STRENGTH ASPIRIN 81 MG PO ×2 (11:46→21:58)
[2024-10-02] MEDS: NOVOLOG FLEXPEN-LOW RESISTANCE 2 UNITS SC (11:48)
[2024-10-02 11:49] LABS: Glucose - Point of Care 242 mg/dl (70-99)
[2024-10-02] MEDS: ProAmatine 5 MG PO ×2 (12:59→17:24)
[2024-10-02 16:44] LABS: Glucose - Point of Care 154 mg/dl (70-99)
[2024-10-02] MEDS: NOVOLOG FLEXPEN-LOW RESISTANCE 1 UNITS SC (17:25)
--- NOTE | 2024-10-02 18:30 | W.PN.HOSP.TC ---
Today's Communication/Plan
-
continue current Rx pending decision on valve
Assessment / Plan
Assessment / Plan
Acute on chronic CHF exacerbation with reduced ejection fraction
Acute hypoxic respiratory insufficiency secondary to above, now on 2 L/m with SaO2 97%
-Cardiac BNP greater than 27,000
-Chest x-ray shows pulm edema, does not appear to have pneumonia. Will monitor. No fever, leukocytosis.
-Continue with diuresis per renal- Back to IV diuresis.
-EF of 25% from echo in 2020
-Echo 09/11 noted with a EF 15 to 20%,
-S/p CABG 10/2008 with FOLEY to LAD and SVG to RPDA
-[facility] 11[facility] FOLEY to LAD patent, SVG to RPDA occluded, ostial Circ 75% stenosis, ostial RCA 75% stenosis
-Severe
-Hold Farxiga
-Continue midodrine with holding parameter
-Cont IV lasix
BP this morning is 95/56, discussed with nursing and IV Lasix dose reduced to 60 mg IV q12h, Midodrine dose slightly increased
-Check I's and O's, daily weights-weight improving.
BUN 69/Creat 1.3
wt 09/10 (admission) 104-->09/27 92.7-->09/29 90kg-->09/30 90.95-->10/01 89.5-->10/02 89.6
#Shock, unknown etiology
resolved
Pressors weaned off
was hypotensive again 09/16; transferred back to IMU, currently on tele, BP remains low, but tolerating
coreg dec, monitor.
Continue with midodrine.
BP currently 107/63
# SAM likely cardiorenal on CKD, unknown baseline
-BUN/Creat 09/30 69/1.4-->10/01 61/1.3-->10/02 54/1.3
-Continue with diuresis
-Nephrology signed off
-Hold spironolactone, losartan
History of TAVR
-now as per daughter - wants work up for TAVR
-valve in valve work up
#Acute metabolic encephalopathy
� Possibly secondary to CO2 narcosis with CHF exacerbation + UTI + along with +/- delirium
� Resolved 09/22
#UTI
History of multiple UTIs in past
Urine culture with pseudomonas; Completed Cefepime to Cipro course
finished abx
Afeb , WBC normal. No dysuria. Asymptomatic
Repeat UA: Asymptomatic bacteruria - no symptoms and only 70k CFU; mental status resolved on its own -will hold on antibiotics at this time
Elevated troponin likely secondary to nonischemic myocardial injury
Monitor
Edema blistering 2/2 fluid overload
monitor
venous Doppler lower extremity neg for DVT
Transaminitis
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
� Monitor with diuresis
-resolved
CAD status post CABG
-Continue Plavix
-Continue Coreg
Chronic lymphedema
left buttock pressure related pressure injury stage 1
importance of getting pt OOB to chair reviewed with nursing
Essential hypertension
Chronic LBBB
Hypercholesterolemia
Chronic anemia
Type 2 diabetes
-Hold metformin, glipizide
-Insulin sliding scale
A1c 6.8%
History of CVA
Hypothyroidism
-Continue levothyroxine
Full code
DVT prophylaxis�heparin
Discussed with RN
Await cards input regarding TAVR timing, reviewed with Dr. Nicholson 10/01
Dispo: Daughter clarified, pt is a full code
reviewed with dgt by phone, Tanesha Seo, >15 minutes 09/30
Input of cardio appreciated, await decision of valve team as to potential intervention or not
Anticipated Discharge: > 48 hours
Subjective/Interval History
-
Date of Service: October 02, 2024
Awake, alert, in good spirits
Objective Data
-
Labs:
Laboratory Results
10/02/24
06:12
WBC 6.6
Hgb 9.4 L
Hct 28.6 L
Plt Count 385
Sodium 141
Potassium 3.8
Chloride 95 L
Carbon Dioxide 39 H
BUN 54 H
Creatinine 1.3 H
Glucose 114 H
Calcium 9.6
Total Bilirubin 1.7 H
AST 27
ALT 27
Alkaline Phosphatase 100
Vital Signs:
Vital Signs
Temp Pulse Resp BP Pulse Ox
98.2 F 71 16 95/65 93
10/02/24 15:30 10/02/24 17:24 10/02/24 15:30 10/02/24 17:24 10/02/24 15:30
I&O
10/01/24 10/02/24 10/03/24
06:59 06:59 06:59
Intake Total 1080 / 1080 1140 / 1140 840 / 840
Output Total 300 / 300
Balance 780 / 780 1140 / 1140 840 / 840
Review of Systems
-
History Source: Patient
Constitutional: Denies Fever
EENT: Reports No Symptoms Reported and Hearing Loss (can hear adequately if speak loud)
Respiratory: Denies Trouble Breathing
Cardiac: Denies Chest Pain
Abdomen/GI: Reports No Symptoms
Genitourinary: Reports No Symptoms
Musculoskeletal: Reports No Symptoms
Physical Exam
-
General: Well Developed, Well Nourished and No Apparent Distress
HEENT: Normocephalic, Atraumatic and Moist Mucous Membranes
Respiratory: Clear to Auscultation; Negative Wheezes, Rales or Rhonchi
Cardiac: Regular Rhythm, S1/S2 and Murmur (2/6 systolic m)
GI: Soft, Nontender and Nondistended
Musculoskeletal: No Clubbing and No Cyanosis; Negative No Edema (1-2+)
Neuro: Awake, Alert and Oriented
[2024-10-02 21:35] LABS: Glucose - Point of Care 190 mg/dl (70-99)
[2024-10-03 03:30] VITALS: BP 104/67
[2024-10-03 05:51] VITALS: BMI 36.9
[2024-10-03 05:52] VITALS: BMI 36.9
[2024-10-03] MEDS: SYNTHROID 88 MCG PO (06:34)
[2024-10-03 07:33] LABS: Glucose - Point of Care 128 mg/dl (70-99)
[2024-10-03 07:39] LABS: Blood Urea Nitrogen 52 mg/dl (7-17); Calcium 9.7 mg/dl (8.4-10.2); Carbon Dioxide 39 mmol/L (22-30); Chloride 95 mmol/L (98-107); Estimated Creatinine Clearance 34 ml/min; Glucose 115 mg/dl (70-99); Potassium 4.3 mmol/L (3.5-5.1); Sodium 140 mmol/L (135-145); eGFR 41.31
[2024-10-03 07:40] VITALS: BP 102/64
[2024-10-03] MEDS: NOVOLOG FLEXPEN-LOW RESISTANCE SC ×2 (07:53→17:03)
[2024-10-03] MEDS: OSCAL 500 + D 500 MG PO (09:10)
[2024-10-03] MEDS: LIPITOR 40 MG PO (09:10)
[2024-10-03] MEDS: THERAGRAN 1 TABLET PO (09:10)
[2024-10-03] MEDS: OCUVITE SOFTGEL 1 CAP PO ×2 (09:10→21:18)
[2024-10-03] MEDS: LOW STRENGTH ASPIRIN 81 MG PO ×2 (09:10→21:18)
[2024-10-03] MEDS: PLAVIX 75 MG PO (09:10)
[2024-10-03] MEDS: CLARITIN 10 MG PO (09:11)
[2024-10-03] MEDS: ProAmatine 10 MG PO (09:11)
[2024-10-03] MEDS: HIPREX 1 GRAM PO ×2 (09:11→21:18)
[2024-10-03] MEDS: FEOSOL 325 MG PO (09:11)
[2024-10-03] MEDS: UROCIT-K 10 MEQ PO ×2 (09:11→21:18)
[2024-10-03] MEDS: PROTONIX 40 MG PO (09:11)
[2024-10-03] MEDS: LIDOCAINE 4% PATCH TOPICAL (09:11)
[2024-10-03] MEDS: MAGNESIUM OXIDE 500 MG PO (09:11)
[2024-10-03] MEDS: LASIX 80 MG IV ×2 (09:11→17:10)
[2024-10-03] MEDS: DESENEX/MITRAZOL/ZEASORB 1 APPLIC TOPICAL ×2 (09:12→21:19)
[2024-10-03] MEDS: HEPARIN 5000 UNITS SC ×2 (09:12→21:19)
--- NOTE | 2024-10-03 10:59 | W.PN.HOSP.TC ---
Today's Communication/Plan
-
await decision regarding TAVR potential
Assessment / Plan
Assessment / Plan
Acute on chronic CHF exacerbation with reduced ejection fraction
Acute hypoxic respiratory insufficiency secondary to above, now on 2 L/m with SaO2 97%
-Cardiac BNP greater than 27,000
-Chest x-ray shows pulm edema, does not appear to have pneumonia. Will monitor. No fever, leukocytosis.
-Continue with diuresis per renal- Back to IV diuresis.
-EF of 25% from echo in 2020
-Echo 09/11 noted with a EF 15 to 20%,
-S/p CABG 10/2008 with FOLEY to LAD and SVG to RPDA
-S/p cardiac cath at [facility] 11/16/20 FOLEY to LAD patent, SVG to RPDA occluded, ostial Circ 75% stenosis, ostial RCA 75% stenosis
-Severe
-Hold Farxiga
-Continue midodrine with holding parameter
-Cont IV lasix
BP this morning is 102/64, discussed with nursing and IV Lasix dose back to 80 mg IV q12h, Midodrine dose slightly increased
-Check I's and O's, daily weights-weight improving.
BUN 69/Creat 1.3
wt 09/10 (admission) 104-->09/27 92.7-->09/29 90kg-->09/30 90.95-->10/01 89.5-->10/02 89.6-->10/03 88.451
as per cardio note, pt to be reviewed at TAVR team. she is felt to be at high risk for intervention. Await their decision
#Shock, unknown etiology
resolved
Pressors weaned off
was hypotensive again 09/16; transferred back to IMU, currently on tele, BP remains low, but tolerating
coreg dec, monitor.
Continue with midodrine.
BP currently 107/63
# SAM likely cardiorenal on CKD, unknown baseline
-BUN/Creat 09/30 69/1.4-->10/01 61/1.3-->10/02 54/1.3-->10/03 52/1.3
-Continue with diuresis
-Nephrology signed off
-Hold spironolactone, losartan
History of TAVR
-now as per daughter - wants work up for TAVR
-valve in valve work up
#Acute metabolic encephalopathy
� Possibly secondary to CO2 narcosis with CHF exacerbation + UTI + along with +/- delirium
� Resolved 09/22
#UTI
History of multiple UTIs in past
Urine culture with pseudomonas; Completed Cefepime to Cipro course
finished abx
Afeb , WBC normal. No dysuria. Asymptomatic
Repeat UA: Asymptomatic bacteruria - no symptoms and only 70k CFU; mental status resolved on its own -will hold on antibiotics at this time
Elevated troponin likely secondary to nonischemic myocardial injury
Monitor
Edema blistering 2/2 fluid overload
monitor
venous Doppler lower extremity neg for DVT
Transaminitis
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
� Monitor with diuresis
-resolved
CAD status post CABG
-Continue Plavix
-Continue Coreg
Chronic lymphedema
left buttock pressure related pressure injury stage 1
importance of getting pt OOB to chair reviewed with nursing
Essential hypertension
Chronic LBBB
Hypercholesterolemia
Chronic anemia
Type 2 diabetes
-Hold metformin, glipizide
-Insulin sliding scale
A1c 6.8%
History of CVA
Hypothyroidism
-Continue levothyroxine
Full code
DVT prophylaxis�heparin
Discussed with RN
Await cards input regarding TAVR timing, reviewed with Dr. Nicholson 10/01
Dispo: Daughter clarified, pt is a full code
reviewed with dgt by phone, Tanesha Seo, >15 minutes 09/30
Input of cardio appreciated, await decision of valve team as to potential intervention or not
Anticipated Discharge: > 48 hours
Subjective/Interval History
-
Date of Service: October 03, 2024
Sitting in chair, no sob at rest
Objective Data
-
Labs:
Laboratory Results
10/03/24
06:51
Sodium 140
Potassium 4.3
Chloride 95 L
Carbon Dioxide 39 H
BUN 52 H
Creatinine 1.3 H
Glucose 115 H
Calcium 9.7
Vital Signs:
Vital Signs
Temp Pulse Resp BP Pulse Ox
98.0 F 80 20 102/64 95
10/03/24 07:40 10/03/24 07:40 10/03/24 07:40 10/03/24 09:11 10/03/24 07:40
I&O
10/02/24 10/03/24 10/04/24
06:59 06:59 06:59
Intake Total 1140 / 1140 1200 / 1200
Balance 1140 / 1140 1200 / 1200
Review of Systems
-
History Source: Patient
Constitutional: Denies Fever
EENT: Reports No Symptoms Reported and Hearing Loss (can hear adequately if speak loud or hearing aides are in place)
Respiratory: Denies Trouble Breathing
Cardiac: Denies Chest Pain
Abdomen/GI: Reports No Symptoms
Genitourinary: Reports No Symptoms
Musculoskeletal: Reports No Symptoms
Physical Exam
-
General: Well Developed, Well Nourished and No Apparent Distress
HEENT: Normocephalic, Atraumatic and Moist Mucous Membranes
Respiratory: Clear to Auscultation; Negative Wheezes, Rales or Rhonchi
Cardiac: Regular Rhythm, S1/S2 and Murmur (2/6 systolic m)
GI: Soft, Nontender and Nondistended
Musculoskeletal: No Clubbing and No Cyanosis; Negative No Edema (1-2+)
Neuro: Awake, Alert and Oriented
[2024-10-03 11:26] VITALS: BP 106/66
[2024-10-03 11:50] LABS: Glucose - Point of Care 215 mg/dl (70-99)
[2024-10-03] MEDS: NOVOLOG FLEXPEN-LOW RESISTANCE 2 UNITS SC (12:19)
[2024-10-03] MEDS: ProAmatine 5 MG PO ×2 (12:49→17:09)
--- NOTE | 2024-10-03 14:40 | CM ---
Reviewed the chart notes and spoke with the patient at the bedside. Patient anticipates having a hearth cath on Sunday to start evaluation for TAVR. CM continues to be available to patient/family and is monitoring medical plan for needs at
discharge.
Plan: Discharge plans will depend on the patient's progress.
--- NOTE | 2024-10-03 15:05 | CONSULT.STRU ---
Addendum entered and electronically signed by CHUCK Partida 10/10/24 10:13:
Patient reviewed by the Heart Team at the SDM meeting. Patient would be a very high risk TAVR procedure and high risk for coronary artery occlusion and massive LA. Team agrees if proceeding with treatment patient should be referred to a tertiary
center. Dr. Leslie to reach out to [place]. Dr. Hernandez to discuss with family and patient.
Addendum entered and electronically signed by CHUCK Partida 10/07/24 09:40:
Procedure Type:�Isolated AVR
Perioperative Outcome Estimate %
Operative Mortality 23.6%
Morbidity & Mortality 38.9%
Stroke 3.51%
Renal Failure 9.89%
Reoperation 5.37%
Prolonged Ventilation 44.5%
Deep Sternal Wound Infection 0.598%
Long Hospital Stay (>14 days) 29%
Short Hospital Stay (<6 days)* 5.48%
Original Note:
Consultation
-
Date/Time Consultation Requested: 10/03/2024
Date/Time Consultation Performed: 10/03/2024
Requesting Provider: Dr. Hernandez
Performing Provider: CHUCK Partida
Reason for Consultation: Bioprosthetic AVR stenosis
Patient History
Physicians
Family Physician: Dr. Elidia Meneses
Outpatient Floor Layer Helper: Dr. Chris Craig
Primary Floor Layer Helper: Dr. Chris Craig
History of Present Illness
Patient has a very complex cardiac history with CABG in 2008 and bioprosthetic aortic valve replacement (19mm Inspiris Resilia) with CABG x1 with SVG to RCA in [address] [place] [address] Smith. Previously followed by Dr. Chris Craig at
[place] but now has moved to [place]. She presents to the ER on 09/10 with heart failure along with hypotension necessitating discontinuation of guideline directed medical therapy. Previous left ventricular ejection fraction 25% on last check with
primary cooker loader 07/2023 left ventricular ejection fraction 45% with peak/mean aortic valve gradients 49/32 mmHg. She feels her dry weight is closer to 190 pounds and on presentation she was 220 pounds. This is complicated in addition by renal
insufficiency with creatinine of 2.6 on admission.prior baseline on admission 1.5. She had initially requested palliative care and no intervention but now that she is feeling better she would like to proceed with full TAVR evaluation. Her most
recent echocardiogram on 09/11/2024 shows a LVEF now of 15-20%, AV PG/M/23, no AI, MAC with moderate MR, moderate TR. Plan is for cardiac cath on Sunday to evaluate coronaries and bypass. Her labs are improved but GFR remains in the low 40s.
Will need to follow prior to performing CT scan and will possibly need to split with hydration. Today patient states she is feeling much better and is sitting OOB in the chair comfortably.
Reviewed the TAVR evaluation process with the patient and then with her daughter on the phone. Next steps will be cardiac cath on Sunday, follow up BMP 5 days post, CT scan, CT surgery consult and heart team discussion. Allowed for and answered
questions. Contact information given along with the TAVR education booklet.
Past Medical History
Past Medical History: CAD, Cancer (Breast cancer with chemo and radiation 2008), CHF, CVA/TIA, HTN, Hypercholesterolemia, Hypothyroidism, NIDDM, LA, Renal Insufficiency, SOB, Valvular Disease (, MR, TR) and Other (Chronic left BBB, peripheral
neuropathy, chronic lymphedema, kidney stones)
Past Surgical History
Past Surgical History: CABG (10/2008- FOLEY to LAD, SVG to RPDA, 03/04/2021- Redo sternotomy with CABG x1, SVG to RCA, AVR) and Other ([employer] [facility] implanted loop recorder)
Dental History
Regular dental care: [facility]
Family History
Mother: at Age
Father: at Age
Family Medical History: CAD
Social History
Alcohol: None
Drug: None
Tobacco: Non-Smoker
Living: Assisted Living ([place] resident)
Employment: Retired
Allergies
Allergy/AdvReac Type Severity Reaction Status Date / Time
lisinopril Allergy Unknown Verified 09/10/24 23:25
Home Medications
�Medication �Instructions �Recorded �Confirmed �Type
acetaminophen 325 mg tablet 650 mg (2 x 325 mg) PO Q6HPRN PRN 03/29/21 09/10/24 Rx
MILD PAIN
carvedilol 6.25 mg tablet 6.25 mg PO BID #60 tabs 03/29/21 09/10/24 Rx
clopidogrel 75 mg tablet 75 mg PO DAILY #30 tabs 03/29/21 09/10/24 Rx
levothyroxine 88 mcg tablet 88 mcg PO DAILY@0700 #30 tabs 03/29/21 09/10/24 Rx
pantoprazole 40 mg tablet,delayed 40 mg PO DAILY #30 tabs 03/29/21 09/10/24 Rx
release
aspirin 81 mg chewable tablet 81 mg PO Q12H Blood Clot 09/10/24 09/10/24 History
Prevention/Tx
atorvastatin 40 mg tablet 40 mg PO DAILY High Cholesterol 09/10/24 09/10/24 History
calcium 600 mg (as 1 tab PO DAILY Supplement 09/10/24 09/10/24 History
carbonate)-vitamin D3 10 mcg (400
unit) tablet (Calcium 600 + D(3))
ciclopirox 0.77 % topical cream 1 applic topical DAILY bottoms of 09/10/24 09/10/24 History
feet
dextromethorphan-guaifenesin 10 10 ml PO Q4HPRN PRN cough 09/10/24 09/10/24 History
mg-100 mg/5 mL oral syrup
empagliflozin 10 mg tablet 10 mg PO DAILY Heart 09/10/24 09/10/24 History
(Jardiance) Disease/Condition
ferrous sulfate 325 mg (65 mg 325 mg PO DAILY Supplement 09/10/24 09/10/24 History
iron) tablet
fluticasone propionate 50 2 spray intranasal DAILY Allergies 09/10/24 09/10/24 History
mcg/actuation nasal
spray,suspension
guaifenesin 400 mg tablet 400 mg PO BIDPRN PRN congestion 09/10/24 09/10/24 History
loratadine 10 mg tablet 10 mg PO DAILY Allergies 09/10/24 09/10/24 History
magnesium oxide 500 mg PO DAILY Electrolyte 09/10/24 09/10/24 History
Repletion
methenamine hippurate 1 gram tablet 1 g PO BID prophylaxis 09/10/24 09/10/24 History
miconazole nitrate 2 % topical 1 applic topical BIDPRN PRN under 09/10/24 09/10/24 History
powder (Micro-Guard) bilateral breasts/abd folds
potassium citrate 15 mEq (1,620 15 meq PO BID Electrolyte Repletion 09/10/24 09/10/24 History
mg) tablet,extended release
sacubitril 24 mg-valsartan 26 mg 1 tab PO BID Heart Failure 09/10/24 09/10/24 History
tablet (Entresto)
sennosides 8.6 mg tablet (senna) 8.6 mg PO DAILYPRN PRN constipation 09/10/24 09/10/24 History
therapeutic multivitamin 1 tab PO DAILY Supplement 09/10/24 09/10/24 History
vit C 250 mg-vit E 90 mg-zinc 40 1 tab PO BID Supplement 09/10/24 09/10/24 History
mg-copper 1 [id number]
capsule (PreserVision AREDS-2)
zinc oxide-cod liver oil 40 % 1 applic topical BID Skin Issues 09/10/24 09/10/24 History
topical paste (Desitin)
furosemide 40 mg tablet 40 mg PO BID AT 0800,1600 Fluid 09/11/24 09/10/24 History
Retention/Swelling
Review of Systems
-
History Source: Patient
General: Reports No Symptoms
HEENT: Reports No Symptoms
Respiratory: Reports SOB and ANDERSON
Cardiac: Reports Edema (bilateral LE)
Abdomen/GI: Reports No Symptoms
: Reports No Symptoms
Musculoskeletal: Reports No Symptoms
Skin: Reports No Symptoms
Neurological: Reports CVA and Other (peripheral neuropathy)
Vascular: Reports No Symptoms
Physical Exam
Vital Signs
Temp 98.1 F 10/03/24 11:26
Temp route: Oral 10/03/24 11:26
Pulse 79 10/03/24 12:49
Rhythm: Normal sinus rhythm 10/03/24 08:34
With- Bundle Branch Block Confi, First Degree Heart Block, PVC's Bigeminy 10/03/24 08:34
Resp Rate 17 10/03/24 11:26
Blood pressure 104/63 10/03/24 12:49
Blood pressure extremity used: Right upper arm 10/03/24 11:26
Position: Lying 10/03/24 11:26
MAP (cuff-Nguyễn Monitor) 75 09/25/24 22:02
SaO2 98 10/03/24 14:28
Nasal Cannula flow liters per minute 2 10/03/24 14:28
Oxygen Mode of Delivery Room air 10/03/24 08:34
Other oxygen comment desatted to 87% on RA, back to 1L 09/24/24 15:02
Flow liters per minute # 2 09/24/24 10:56
Pulse Ox at Rest 97 10/01/24 13:30
Can the patient verbally communicate their pain? Yes 10/02/24 20:45
Pain scale ratin 09/24/24 08:00
Actual Weight 88.451 kg 10/03/24 05:52
Body Mass Index (BMI) 36.9 10/03/24 05:52
Supine- Blood Pressure 89/58 09/29/24 14:36
Supine- Pulse 70 09/29/24 14:36
Sitting- Blood Pressure 94/62 10/02/24 15:25
Sitting- Pulse 73 10/02/24 15:25
Heart rate after activity 76 09/29/24 14:36
Blood pressure after activity 115/72 10/02/24 15:25
Oxygen Saturation with Activity 93 10/02/24 15:25
Labs
10/02/24 06:12
10/03/24 06:51
Hemoglobin A1c 6.8 % (4.0-5.6) H 09/11/24 05:12
Troponin I 0.036 ng/ml H* 09/11/24 13:02
Ihd-F-Vtkjientpwb Pept > 21995 pg/ml 09/15/24 07:46
Urinalysis
Urine Color Yellow 09/22/24 21:01
Urine Clarity Clear (Clear) 09/22/24 21:01
Urine pH 6.0 (5.0-9.0) 09/22/24 21:01
Ur Specific [place] 1.010 (<1.030) 09/22/24 21:01
Urine Ketones Negative (Negative) 09/22/24 21:01
Ur Occult Blood Reflex 2+ (Negative) A 09/22/24 21:01
Urine Bilirubin Negative (Negative) 09/22/24 21:01
Leukocyte Esterase Rfl Negative (Negative) 09/22/24 21:01
Urine RBC 3-6 /HPF (0-2) A 09/22/24 21:01
Urine WBC (Reflex) 3-5 /HPF (0-5) 09/22/24 21:01
Ur Squamous Epith Cells 16-20 /LPF (Few) 09/22/24 21:01
Urine Bacteria (Reflex) Moderate (Negative) A 09/22/24 21:01
Urine Glucose Negative (Negative) 09/22/24 21:01
Urine Albumin (Reflex) 2+ (Neg - Trace) A 09/22/24 21:01
Diagnostic Studies
09/11/2024 Echocardiogram:
CONCLUSIONS
Left ventricle is mildly dilated. Severely reduced left ventricular systolic
function. Normal left ventricular wall thickness. Global hypokinesis.
Paradoxical septal motion. Left ventricular ejection fraction is visually 15
to 20%. Stage II diastolic dysfunction suggestive of abnormal relaxation and
increased filling pressures.
Normal right ventricular size and function.
Thickened mitral valve leaflets. Mitral annular calcification. There is
adequate mitral leaflet excursion. Moderate mitral regurgitation.
Well seated bioprosthetic aortic valve replacement. Peak/mean gradients across
the aortic valve are 37/23 mmHg respectively. Gradients may be underestimated
given low flow state. No aortic regurgitation is seen.
Tricuspid valve opens normally. Moderate tricuspid regurgitation. Estimated
pulmonary artery pressure of 58 mmHg assuming a right atrial pressure of 8
mmHg.
Compared to prior study 03/24/2021 left ventricular ejection fraction is 15 to
20% previously 25%. Pulmonary artery pressures are 58 mmHg previously 41 mmHg.
Bioprosthetic aortic valve gradients have worsened from prior peak/mean 21/06
mmHg to 37/23 mmHg. Mitral regurgitation is now moderate.
Indications:
CM, CHF
Rhythm: Sinus
Portable Study: Yes
Technical Quality: Good
Contrast: Lumason
BP: 103 / 57
PROCEDURE
A complete Transthoracic Echocardiogram was performed utilizing two-dimensional
evaluation with color flow and spectral Doppler analysis.
FINDINGS
Left Ventricle
Left ventricle is mildly dilated. Severely reduced left ventricular systolic
function. Normal left ventricular wall thickness. Global hypokinesis.
Paradoxical septal motion. Left ventricular ejection fraction is visually 15
to 20%. Stage II diastolic dysfunction suggestive of abnormal relaxation and
increased filling pressures.
Right Ventricle
Normal right ventricular size and function.
Left Atrium
Indexed LA volume is within normal range (15-34 mL/m2).
Right Atrium
Normal right atrium.
Mitral Valve
Thickened mitral valve leaflets. Mitral annular calcification. There is
adequate mitral leaflet excursion. Moderate mitral regurgitation.
Aortic Valve
Well seated bioprosthetic aortic valve replacement. Peak/mean gradients across
the aortic valve are 37/23 mmHg respectively. Gradients may be underestimated
given low flow state. No aortic regurgitation is seen.
Tricuspid Valve
Tricuspid valve opens normally. Moderate tricuspid regurgitation. Estimated
pulmonary artery pressure of 58 mmHg assuming a right atrial pressure of 8
mmHg.
Pulmonic Valve
Pulmonic valve opens normally. Trace pulmonic regurgitation.
Pericardium\\Pleura
No pericardial effusion.
Aorta
The aortic root is of normal size.
Other Finding
The IVC is mildly dilated. Interatrial septum is intact with no evidence of
shunting by color flow Doppler. No intracardiac mass or thrombus formation
seen.
Exam
General: Well Developed, Well Nourished, No Apparent Distress and Comfortable
HEENT: Normocephalic, Moist Mucous Membranes and PERRLA
Neck: Trachea Midline
Respiratory: Clear and Other (diminished at bases bilaterally); Negative Wheezes, Crackles or Rhonchi
Cardiac: S1/S2, Irregular Rhythm and Murmur (Grade II/ ELBERT)
GI: Soft, Non Tender, Non Distended and Normal Bowel Sounds
Rectal: Deferred by Provider
Skin: Warm and Dry
Neuro: AO x 3 and Nonfocal/Grossly Intact
Extremities: Lower Level Edema (+2 pitting bilateral LE)
Psych: Calm
Assessment / Plan
-
Acute on chronic HFrEF
-CM EF previously 45% by echo 07/2023 and reduced further to 15 to 20% by echo 09/11/24
-Managed per cardiology
Severe
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
- Cardiac cath Sunday
- plan recheck BMP post
- CT TAVR, may need to split and give IV hydration
- CT surgery consult
- Heart Team Discussion
- Dental clearance- recent visit
SAM on CKD, suspected cardiorenal
- trend BMP
-Appreciate nephrology input when proceeding with CT scan and contrast exposure
Data Reviewed
-
EKG: Report Reviewed by me
Echo: Report Reviewed by me and Discussed with Physician
Labs: Labs Reviewed by me, Discussed with Patient and Discussed with Family
Old Records: Requested (Operative report from [facility]) and Reviewed (previous records)
Total Time Spent with Patient (in minutes): 45
[2024-10-03 15:30] VITALS: BP 111/65
[2024-10-03 17:04] LABS: Glucose - Point of Care 108 mg/dl (70-99)
--- NOTE | 2024-10-03 17:42 | W.PN.CARDCBS ---
Today's Communication / Plan
-
Had a lengthy discussion with patient and daughter. They continue to desire full evaluation for possible transcatheter aortic valve replacement.
Will proceed with left heart catheterization on Sunday.
Continue IV diuresis. She has lost 35 pounds. Creatinine overall stable at 1.3.
Blood pressure remains marginal. Continue midodrine.
I again advised the family that she may not be a candidate for anything but we will proceed with the evaluation. That will also include a CT scan.
Impression / Plan
-
.
PCP: Dr. Elidia Meneses
Primary Veterinarian Small Animal: Dr. Chris Craig of [place]
Assessment:
Presentation with SOB, LE edema 09/10/24
Acute on chronic HFrEF
CM EF previously 45% by echo 07/2023 and reduced further to 15 to 20% by echo 09/11/24
Severe
h/o type 2 OR related to severe 11/2020 resulting in transfer to [facility], s/p BAV 12/06/20
s/p sternotomy with biologic AVR, aortic root enlargement with pericardial patch, and CABG x1 SVG to distal RCA by Dr. Smith on 03/04/2021
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
Acute hypoxic respiratory insufficiency
SAM on CKD, suspected cardiorenal
Hypotension requiring pressor support
Elevated troponin, suspected nonischemic myocardial injury
CAD
s/p CABG with FOLEY to LAD and SVG to RPDA (occluded by cath 2020) in 2008
s/p cardiac cath at [facility] FOLEY to LAD patent, SVG to RPDA occluded, ostial Circ 75% stenosis, ostial RCA 75% stenosis 11/16/20
s/p CABG at time of AVR with SVG to distal RCA 03/04/21
Brief post op afib episode while at [facility], without known recurrence
s/p [facility] implanted loop recorder
PVCs
Chronic LBBB
DM 2
HTN
Hyperlipidemia
Hypothyroid
h/o CVA
Peripheral neuropathy
s/p IVC filter
Left breast cancer s/p lumpectomy, chemotherapy, and radiation 2008
Obesity
Anemia
Memory loss
Nuclear stress test 08/24/2023: Large sized moderate to severe defect in apex, apical anterior, apical inferior wall, prone imaging not performed, defect consistent with infarct with minimal gerald-infarct ischemia, EF 35% with global hypokinesis and
anteroapical akinesis, unchanged compared to prior cath and echo in 2020
Echo 03/24/2021: EF 25%, severe global hypokinesis with possible inferolateral and apical akinesis, mild MR, bioprosthetic AVR with peak/mean 21/12 mmHg
ECHO 07/2023: Mildly reduced LV systolic function 45% due to akinesis of distal inferior wall, mild MR with severe left atrial dilation, bioprosthetic aortic valve with peak gradient 49/mean gradient 32, valve size known to be small, moderate
pulmonary hypertension
Echo 09/11/2024: Dilated left ventricle with severely reduced left ventricular systolic function estimated 15-20% with grade 2 diastolic dysfunction increased LV filling pressures. Moderate mitral and tricuspid regurgitation. Bioprosthetic aortic
valve with peak/mean gradients 37/23 mmHg and no significant aortic regurgitation.
Plan:
-Patient with h/o severe treated at [facility] with BAV on 12/06/2020 followed later by sternotomy with tissue AVR, aortic root enlargement, pericardial patch and CABG x 1 on 03/04/2021. Coming in now with acute HF and by echo there appears to be
significant bioprosthetic .
-EF 15-20% by echo, previously 45% 07/2023.
-wedge was 45 at time of RHC 09/26 with CI 1.5. Continue diuresis with IV Lasix 80 mg twice daily. Creatinine stable at 1.3
-she did not tolerate low dose dobutamine earlier this admission due to hypotension. she required levo earlier in admission to allow diuresis. she is currently on midodrine and BPs low but stable
-hypotension and chronic renal insufficiency limiting GDMT of CHF/CM at this time. Not on Farxiga not on Farxiga due to chronic UTIs
-wean supp O2 as able
-difficult case. I had another lengthy discussion with her and her daughter today regarding goals of care and plan. They strongly prefer to proceed with evaluation for valve in valve transcatheter aortic valve replacement. The neck step in the
process will be a left heart catheterization to evaluate her coronary artery disease. We will plan for this on Sunday
-Troponin peaked at 0.04 and was managed as a nonischemic myocardial injury troponin elevation in the setting of acute HF. No CP. Patient is chronically on aspirin and Plavix for history of CVA
-d/w nursing
Progress Note - Veterinarian Small Animal
Subjective
Date of Service: October 03, 2024
Her shortness of breath continues to slowly improved. She has diuresed significantly of almost 35 pounds
Objective
Labs:
10/02/24 06:12
10/03/24 06:51
Labs
Hgb 9.4 g/dL (12.0-16.0) L 10/02/24 06:12
Hct 28.6 % (37.0-47.0) L 10/02/24 06:12
Plt Count 385 10^3/uL (130-400) 10/02/24 06:12
Sodium 140 mmol/L (135-145) 10/03/24 06:51
Potassium 4.3 mmol/L (3.5-5.1) 10/03/24 06:51
BUN 52 mg/dl (7-17) H 10/03/24 06:51
Creatinine 1.3 mg/dL (0.6-1.0) H 10/03/24 06:51
Glucose 115 mg/dl (70-99) H 10/03/24 06:51
Vital Signs and I&O:
Vital Signs
Temp Pulse Resp BP Pulse Ox
97.9 F 83 17 108/72 96
10/03/24 15:30 10/03/24 17:10 10/03/24 15:30 10/03/24 17:10 10/03/24 15:30
Vital Signs
Temp Pulse Resp BP Pulse Ox
97.9 F 83 17 108/72 96
10/03/24 15:30 10/03/24 17:10 10/03/24 15:30 10/03/24 17:10 10/03/24 15:30
Intake & Output
10/01/24 10/02/24 10/03/24 10/04/24
06:59 06:59 06:59 06:59
Intake Total 1080 / 1080 1140 / 1140 1200 / 1200 540 / 540
Output Total 300 / 300
Balance 780 / 780 1140 / 1140 1200 / 1200 540 / 540
Physical Exam
Physical Exam
GEN: No distress, awake, Ox3
HEENT: supple, anicteric, mmm
LUNGS: CTA, no wheezes/rales
CV: Reg, S1/S2, 1/6 syst LSB, S4+
ABD: soft, BS+, NT/ND
EXT: +1 edema
NEURO: Gross non-focal
SKIN: No rash
[2024-10-03 19:34] VITALS: BP 106/62
[2024-10-03 22:21] LABS: Glucose - Point of Care 166 mg/dl (70-99)
[2024-10-03 23:35] VITALS: BP 107/62
[2024-10-04 03:20] VITALS: BP 97/53
[2024-10-04 05:35] VITALS: BMI 36.5
[2024-10-04] MEDS: SYNTHROID 88 MCG PO (06:18)
[2024-10-04 07:35] VITALS: BP 109/74
[2024-10-04 07:35] LABS: Glucose - Point of Care 133 mg/dl (70-99)
[2024-10-04 07:45] LABS: % Eosinophils 4.4 % (0-6); % Immature Granulocytes 0.2 % (0-0.5); % Lymphocytes 15.9 % (20.5-51.1); % Monocytes 8.9 % (1.7-9.3); % Neutrophils 69.6 % (42.2-75.2); Absolute Basophils 0.1 10^3/uL (0-0.2); Absolute Eosinophils 0.4 10^3/uL (0-0.7); Absolute Lymphocytes 1.3 10^3/uL (1.2-3.4); Absolute Monocytes 0.7 10^3/uL (0.1-0.6); Absolute Neutrophils 5.7 10^3/uL (1.4-6.5); Hematocrit 28.4 % (37.0-47.0); Hemoglobin 9.6 g/dL (12.0-16.0); Mean Corp Hgb Conc. 33.8 g/dL (33.0-37.0); Mean Corpuscular Hgb 30.5 pg (27.0-31.0); Mean Corpuscular Volume 90.2 fL (81.0-99.0); Mean Platelet Volume 11.9 fL (7.4-10.4); Nucleated Red Blood Cells % 0 %; Platelet Count 366 10^3/uL (130-400); Red Blood Cell Count 3.15 10^6/uL (4.20-5.40); Red Cell Dist. Width 17.4 % (11.5-14.5); White Blood Cell Count 8.1 10^3/uL (4.8-10.8)
[2024-10-04 07:55] LABS: Blood Urea Nitrogen 50 mg/dl (7-17); Calcium 9.7 mg/dl (8.4-10.2); Carbon Dioxide 39 mmol/L (22-30); Chloride 95 mmol/L (98-107); Estimated Creatinine Clearance 34 ml/min; Glucose 110 mg/dl (70-99); Potassium 4.1 mmol/L (3.5-5.1); Sodium 141 mmol/L (135-145); eGFR 41.31
--- NOTE | 2024-10-04 08:21 | W.PN.CARDCBS ---
Today's Communication / Plan
-
Continue IV Lasix
Follow BUN and creatinine
Consider acetazolamide for bicarb of 39
Plan is for cardiac catheterization on Sunday
Impression / Plan
-
.
PCP: Dr. Elidia Meneses
Primary Collision Worker: Dr. Chris Craig of [place]
Assessment:
Presentation with SOB, LE edema 09/10/24
Acute on chronic HFrEF
CM EF previously 45% by echo 07/2023 and reduced further to 15 to 20% by echo 09/11/24
Severe
h/o type 2 DE related to severe 11/2020 resulting in transfer to [facility], s/p BAV 12/06/20
s/p sternotomy with biologic AVR, aortic root enlargement with pericardial patch, and CABG x1 SVG to distal RCA by Dr. Smith on 03/04/2021
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
Acute hypoxic respiratory insufficiency
SAM on CKD, suspected cardiorenal
Hypotension requiring pressor support
Elevated troponin, suspected nonischemic myocardial injury
CAD
s/p CABG with FOLEY to LAD and SVG to RPDA (occluded by cath 2020) in 2008
s/p cardiac cath at [facility] FOLEY to LAD patent, SVG to RPDA occluded, ostial Circ 75% stenosis, ostial RCA 75% stenosis 11/16/20
s/p CABG at time of AVR with SVG to distal RCA 03/04/21
Brief post op afib episode while at [facility], without known recurrence
s/p [facility] implanted loop recorder
PVCs
Chronic LBBB
DM 2
HTN
Hyperlipidemia
Hypothyroid
h/o CVA
Peripheral neuropathy
s/p IVC filter
Left breast cancer s/p lumpectomy, chemotherapy, and radiation 2008
Obesity
Anemia
Memory loss
Nuclear stress test 08/24/2023: Large sized moderate to severe defect in apex, apical anterior, apical inferior wall, prone imaging not performed, defect consistent with infarct with minimal gerald-infarct ischemia, EF 35% with global hypokinesis and
anteroapical akinesis, unchanged compared to prior cath and echo in 2020
Echo 03/24/2021: EF 25%, severe global hypokinesis with possible inferolateral and apical akinesis, mild MR, bioprosthetic AVR with peak/mean 21/12 mmHg
ECHO 07/2023: Mildly reduced LV systolic function 45% due to akinesis of distal inferior wall, mild MR with severe left atrial dilation, bioprosthetic aortic valve with peak gradient 49/mean gradient 32, valve size known to be small, moderate
pulmonary hypertension
Echo 09/11/2024: Dilated left ventricle with severely reduced left ventricular systolic function estimated 15-20% with grade 2 diastolic dysfunction increased LV filling pressures. Moderate mitral and tricuspid regurgitation. Bioprosthetic aortic
valve with peak/mean gradients 37/23 mmHg and no significant aortic regurgitation.
Plan:
Fortunately she is comfortable at rest.
However she still has evidence of volume overload on exam, is tolerating IV furosemide 80 mg twice daily but bicarb is 39 which is stable. Creatinine is stable at 1.3. Will continue IV Lasix, wedge pressure was 45 at right heart cath on the .
She may need acetazolamide as well but will hold for now.
Plan is for cardiac catheterization on Sunday.
Concern remains regarding her multiple comorbidities. Primary issue may be LV dysfunction and valve in valve TAVR in a 19 mm valve may be problematic. Prognosis is guarded.
-Patient with h/o severe treated at [facility] with BAV on 12/06/2020 followed later by sternotomy with tissue AVR, aortic root enlargement, pericardial patch and CABG x 1 on 03/04/2021. Coming in now with acute HF and by echo there appears to be
significant bioprosthetic .
Progress Note - Collision Worker
Subjective
Date of Service: October 04, 2024:
She has dyspnea when she moves to the commode but is comfortable in the [place] chair
Medications: Subcu heparin, insulin, aspirin 81 mg a day, atorvastatin 40 mg a day, Farxiga 10 mg a day, iron, Claritin, magnesium, Hip-Narciso, potassium citrate 10 mill equivalents twice daily, multivitamins, clopidogrel 75 mg a day, levothyroxine 88
mcg daily, pantoprazole 40 mg a day, lidocaine, midodrine 10 mg in a.m. and 5 mg at 1318 100, furosemide 80 mg twice daily IV
109/74, pulse 84, respiratory 20, afebrile, sats 94% down 0.8 kg peak weight on admission was 104 kg, current weight is 87.6 kg, intake and output incomplete, head neck exam unremarkable, lungs are clear, neck veins hard to assess, AAS murmur, still
3+ edema, abdomen benign
Hemoglobin is 9.6, platelets are 366, BUN and creatinine are 15 and 1.3, potassium is 4.1, CO2 is 39, creatinine and CO2 are stable
Objective
Labs:
10/04/24 06:49
10/04/24 06:49
Labs
Hgb 9.6 g/dL (12.0-16.0) L 10/04/24 06:49
Hct 28.4 % (37.0-47.0) L 10/04/24 06:49
Plt Count 366 10^3/uL (130-400) 10/04/24 06:49
Sodium 141 mmol/L (135-145) 10/04/24 06:49
Potassium 4.1 mmol/L (3.5-5.1) 10/04/24 06:49
BUN 50 mg/dl (7-17) H 10/04/24 06:49
Creatinine 1.3 mg/dL (0.6-1.0) H 10/04/24 06:49
Glucose 110 mg/dl (70-99) H 10/04/24 06:49
Vital Signs and I&O:
Vital Signs
Temp Pulse Resp BP Pulse Ox
36.5 C 84 20 109/74 94
10/04/24 07:35 10/04/24 07:35 10/04/24 07:35 10/04/24 07:35 10/04/24 07:35
Vital Signs
Temp Pulse Resp BP Pulse Ox
36.5 C 84 20 109/74 94
10/04/24 07:35 10/04/24 07:35 10/04/24 07:35 10/04/24 07:35 10/04/24 07:35
Intake & Output
10/02/24 10/03/24 10/04/24 10/05/24
07:59 07:59 07:59 07:59
Intake Total 1140 / 1140 1200 / 1200 540 / 540
Balance 1140 / 1140 1200 / 1200 540 / 540
Physical Exam
Physical Exam
See above
--- NOTE | 2024-10-04 09:24 | W.PN.HOSP.TC ---
Today's Communication/Plan
-
heart cath on Sunday
Assessment / Plan
Assessment / Plan
Acute on chronic CHF exacerbation with reduced ejection fraction
Acute hypoxic respiratory insufficiency secondary to above, now on 2 L/m with SaO2 97%
-Cardiac BNP greater than 27,000
-Chest x-ray shows pulm edema, does not appear to have pneumonia. Will monitor. No fever, leukocytosis.
-Continue with diuresis per renal- Back to IV diuresis.
-EF of 25% from echo in 2020
-Echo 09/11 noted with a EF 15 to 20%,
-S/p CABG 10/2008 with FOLEY to LAD and SVG to RPDA
-S/p cardiac cath at [facility] 11/16/20 FOLEY to LAD patent, SVG to RPDA occluded, ostial Circ 75% stenosis, ostial RCA 75% stenosis
-Severe
-Hold Farxiga
-Continue midodrine with holding parameter
-Cont IV lasix
BP this morning is 109/74, discussed with nursing and IV Lasix dose back to 80 mg IV q12h, Midodrine dose slightly increased
-Check I's and O's, daily weights-weight improving.
BUN 69/Creat 1.3-->50/1.3
wt 09/10 (admission) 104-->09/27 92.7-->09/29 90kg-->09/30 90.95-->10/01 89.5-->10/02 89.6-->10/03 88.451-->10/04 87.6
as per cardio note, pt to have heart catheterization on Friday 10/[address] scan to follow for full TAVR evaluation
#Shock, unknown etiology
resolved
Pressors weaned off
was hypotensive again 09/16; transferred back to IMU, currently on tele, BP remains low, but tolerating
coreg dec, monitor.
Continue with midodrine.
BP currently 107/63
# SAM likely cardiorenal on CKD, unknown baseline
-Continue with diuresis
-Nephrology signed off
-Hold spironolactone, losartan
History of TAVR
#Acute metabolic encephalopathy
� Possibly secondary to CO2 narcosis with CHF exacerbation + UTI + along with +/- delirium
� Resolved 09/22
#UTI
History of multiple UTIs in past
Urine culture with pseudomonas; Completed Cefepime to Cipro course
finished abx
Afeb , WBC normal. No dysuria. Asymptomatic
Repeat UA: Asymptomatic bacteruria - no symptoms and only 70k CFU; mental status resolved on its own -will hold on antibiotics at this time
Elevated troponin likely secondary to nonischemic myocardial injury
Monitor
Edema blistering 2/2 fluid overload
monitor
venous Doppler lower extremity neg for DVT
Transaminitis
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
� Monitor with diuresis
-resolved
CAD status post CABG
-Continue Plavix
-Continue Coreg
Chronic lymphedema
left buttock pressure related pressure injury stage 1
importance of getting pt OOB to chair reviewed with nursing
Essential hypertension
Chronic LBBB
Hypercholesterolemia
Chronic anemia
Type 2 diabetes
-Hold metformin, glipizide
-Insulin sliding scale
A1c 6.8%
History of CVA
Hypothyroidism
-Continue levothyroxine
Full code
DVT prophylaxis�heparin
Discussed with RN, encouraged OOB to chair as much as possible, PT/OT following
Dispo: Daughter clarified, pt is a full code
reviewed with dgt by phone, Tanesha Seo, >15 minutes 09/30
Anticipated Discharge: > 48 hours
Subjective/Interval History
-
Date of Service: October 04, 2024
In good spirits
Objective Data
-
Labs:
Laboratory Results
10/04/24
06:49
WBC 8.1
Hgb 9.6 L
Hct 28.4 L
Plt Count 366
Sodium 141
Potassium 4.1
Chloride 95 L
Carbon Dioxide 39 H
BUN 50 H
Creatinine 1.3 H
Glucose 110 H
Calcium 9.7
Vital Signs:
Vital Signs
Temp Pulse Resp BP Pulse Ox
97.7 F 84 20 109/74 94
10/04/24 07:35 10/04/24 07:35 10/04/24 07:35 10/04/24 07:35 10/04/24 07:35
I&O
10/03/24 10/04/24 10/05/24
06:59 06:59 06:59
Intake Total 1200 / 1200 540 / 540
Balance 1200 / 1200 540 / 540
Review of Systems
-
History Source: Patient
Constitutional: Denies Fever
EENT: Reports No Symptoms Reported and Hearing Loss (can hear adequately if speak loud or hearing aides are in place)
Respiratory: Denies Trouble Breathing
Cardiac: Denies Chest Pain
Abdomen/GI: Reports No Symptoms
Genitourinary: Reports No Symptoms
Musculoskeletal: Reports No Symptoms
Physical Exam
-
General: Well Developed, Well Nourished and No Apparent Distress
HEENT: Normocephalic, Atraumatic and Moist Mucous Membranes
Respiratory: Clear to Auscultation; Negative Wheezes, Rales or Rhonchi
Cardiac: Regular Rhythm, S1/S2 and Murmur (2/6 systolic m)
GI: Soft, Nontender and Nondistended
Musculoskeletal: No Clubbing and No Cyanosis; Negative No Edema (1+ edema)
Neuro: Awake, Alert and Oriented
[2024-10-04] MEDS: LASIX 80 MG IV ×2 (09:42→16:05)
[2024-10-04] MEDS: OSCAL 500 + D 500 MG PO (09:43)
[2024-10-04] MEDS: CLARITIN 10 MG PO (09:43)
[2024-10-04] MEDS: MAGNESIUM OXIDE 500 MG PO (09:43)
[2024-10-04] MEDS: PLAVIX 75 MG PO (09:43)
[2024-10-04] MEDS: FEOSOL 325 MG PO (09:43)
[2024-10-04] MEDS: LIPITOR 40 MG PO (09:43)
[2024-10-04] MEDS: THERAGRAN 1 TABLET PO (09:43)
[2024-10-04] MEDS: HIPREX 1 GRAM PO ×2 (09:43→20:59)
[2024-10-04] MEDS: UROCIT-K 10 MEQ PO ×2 (09:43→20:59)
[2024-10-04] MEDS: PROTONIX 40 MG PO (09:43)
[2024-10-04] MEDS: LOW STRENGTH ASPIRIN 81 MG PO ×2 (09:43→22:22)
[2024-10-04] MEDS: OCUVITE SOFTGEL 1 CAP PO ×2 (09:43→20:59)
[2024-10-04] MEDS: HEPARIN 5000 UNITS SC ×2 (09:44→20:59)
[2024-10-04] MEDS: ProAmatine 10 MG PO (09:44)
[2024-10-04] MEDS: NOVOLOG FLEXPEN-LOW RESISTANCE SC (09:45)
[2024-10-04] MEDS: DESENEX/MITRAZOL/ZEASORB 1 APPLIC TOPICAL ×2 (09:54→21:07)
[2024-10-04] MEDS: LIDOCAINE 4% PATCH TOPICAL (10:12)
[2024-10-04 11:05] VITALS: BP 109/64
[2024-10-04 12:03] LABS: Glucose - Point of Care 157 mg/dl (70-99)
[2024-10-04] MEDS: ProAmatine 5 MG PO ×2 (12:36→17:53)
[2024-10-04] MEDS: NOVOLOG FLEXPEN-LOW RESISTANCE 1 UNITS SC (12:37)
[2024-10-04 15:35] VITALS: BP 97/62
[2024-10-04 16:57] LABS: Glucose - Point of Care 201 mg/dl (70-99)
[2024-10-04] MEDS: NOVOLOG FLEXPEN-LOW RESISTANCE 2 UNITS SC (17:52)
[2024-10-04 19:29] VITALS: BP 102/56
[2024-10-04 21:42] LABS: Glucose - Point of Care 172 mg/dl (70-99)
[2024-10-04 23:17] VITALS: BP 110/64
[2024-10-05] VITALS (7 sets, daily range): BP systolic 92–118; BP diastolic 49–64; PULSE 73; O2SAT 96; BMI 37.2
[2024-10-05] MEDS: SYNTHROID 88 MCG PO (05:33)
[2024-10-05 07:32] LABS: INR 0.98; PT 13.3 Sec (11.4-14.6)
[2024-10-05 07:59] LABS: ALT (SGPT) 22 U/L (0-35); AST (SGOT) 27 U/L (14-36); Albumin 3.7 g/dl (3.5-5.0); Alkaline Phosphatase 100 U/L (38-126); Blood Urea Nitrogen 54 mg/dl (7-17); Calcium 9.7 mg/dl (8.4-10.2); Carbon Dioxide 35 mmol/L (22-30); Chloride 96 mmol/L (98-107); Estimated Creatinine Clearance 34 ml/min; Glucose 118 mg/dl (70-99); Potassium 4.1 mmol/L (3.5-5.1); Sodium 139 mmol/L (135-145); Total Bilirubin 1.9 mg/dl (0.2-1.3); Total Protein 6.2 g/dl (6.3-8.2); eGFR 41.31
[2024-10-05 08:11] LABS: Hematocrit 28.9 % (37.0-47.0); Hemoglobin 9.4 g/dL (12.0-16.0); Mean Corp Hgb Conc. 32.5 g/dL (33.0-37.0); Mean Corpuscular Volume 92.3 fL (81.0-99.0); Mean Platelet Volume 11.2 fL (7.4-10.4); Platelet Count 376 10^3/uL (130-400); Red Blood Cell Count 3.13 10^6/uL (4.20-5.40); Red Cell Dist. Width 17.7 % (11.5-14.5); White Blood Cell Count 6.4 10^3/uL (4.8-10.8)
[2024-10-05 08:18] LABS: Glucose - Point of Care 125 mg/dl (70-99)
[2024-10-05] MEDS: NOVOLOG FLEXPEN-LOW RESISTANCE SC ×2 (08:25→17:13)
--- NOTE | 2024-10-05 09:10 | W.PN.HOSP.TC ---
Today's Communication/Plan
-
CXR regarding cough
Assessment / Plan
Assessment / Plan
Acute on chronic CHF exacerbation with reduced ejection fraction
Acute hypoxic respiratory insufficiency secondary to above, now on room air with SaO2 95%
-Cardiac BNP greater than 27,000
-Chest x-ray shows pulm edema, does not appear to have pneumonia. Will monitor. No fever, leukocytosis (WBC 6.4k).
-Continue with diuresis per renal- Lasix 80 mg IV q12h
-EF of 25% from echo in 2020
-Echo 09/11 noted with a EF 15 to 20%,
-S/p CABG 10/2008 with FOLEY to LAD and SVG to RPDA
-S/p cardiac cath at [facility] 11/16/20 FOLEY to LAD patent, SVG to RPDA occluded, ostial Circ 75% stenosis, ostial RCA 75% stenosis
-Severe
-Hold Farxiga
-Continue midodrine with holding parameter
-Cont IV lasix
BP this morning is 108/63, discussed with nursing and IV Lasix dose back to 80 mg IV q12h, Midodrine dose 10 mg qAM, 5 mg 1300/1800
-Check I's and O's, daily weights-weight improving.
BUN 69/Creat 1.3-->50/1.3-->54/1.3
wt 09/10 (admission) 104-->09/27 92.7-->09/29 90kg-->09/30 90.95-->10/01 89.5-->10/02 89.6-->10/03 88.451-->10/04 87.6-->10/05 89.22
as per cardio note, pt to have heart catheterization on Friday 10/[address] scan to follow for full TAVR evaluation
#Shock, unknown etiology
resolved
Pressors weaned off
was hypotensive again 09/16; transferred back to IMU, then back to tele, currently on tele, BP remains low, but tolerating
coreg dec, monitor.
Continue with midodrine.
# SAM likely cardiorenal on CKD, unknown baseline
-Continue with diuresis
-Nephrology signed off
-Hold spironolactone, losartan
Productive cough, pt first time mentions today (10/05)
pt states ongoing for a 'while', but does not delineate what the time frame means.
will order CXR, Dr. Limon updated
History of TAVR
#Acute metabolic encephalopathy
� Possibly secondary to CO2 narcosis with CHF exacerbation + UTI + along with +/- delirium
� Resolved 09/22
#UTI
History of multiple UTIs in past
Urine culture with pseudomonas; Completed Cefepime to Cipro course
finished abx
Afeb , WBC normal. No dysuria. Asymptomatic
Repeat UA: Asymptomatic bacteruria - no symptoms and only 70k CFU; mental status resolved on its own -will hold on antibiotics at this time
Elevated troponin likely secondary to nonischemic myocardial injury
Monitor
Edema blistering 2/2 fluid overload
monitor
venous Doppler lower extremity neg for DVT
Transaminitis
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
� Monitor with diuresis
-resolved
CAD status post CABG
-Continue Plavix
-Continue Coreg
Chronic lymphedema
left buttock pressure related pressure injury stage 1
importance of getting pt OOB to chair reviewed with nursing
Essential hypertension
Chronic LBBB
Hypercholesterolemia
Chronic anemia
Type 2 diabetes
-Hold metformin, glipizide
-Insulin sliding scale
glu 125-201
A1c 6.8%
History of CVA
Hypothyroidism
-Continue levothyroxine
Full code
DVT prophylaxis�heparin
Discussed with RN, encouraged OOB to chair as much as possible, PT/OT following
Dispo: Daughter clarified, pt is a full code
reviewed with dgt by phone, Tanesha Seo, >15 minutes 09/30
Anticipated Discharge: > 48 hours
Subjective/Interval History
-
Date of Service: October 05, 2024
Pt notes has been coughing up phlegm
Objective Data
-
Labs:
Laboratory Results
10/05/24
07:10
WBC 6.4
Hgb 9.4 L
Hct 28.9 L
Plt Count 376
PT 13.3
INR 0.98
Sodium 139
Potassium 4.1
Chloride 96 L
Carbon Dioxide 35 H
BUN 54 H
Creatinine 1.3 H
Glucose 118 H
Calcium 9.7
Total Bilirubin 1.9 H
AST 27
ALT 22
Alkaline Phosphatase 100
Vital Signs:
Vital Signs
Temp Pulse Resp BP Pulse Ox
98.3 F 74 18 108/63 95
10/05/24 07:40 10/05/24 07:40 10/05/24 07:40 10/05/24 07:40 10/05/24 07:40
I&O
10/04/24 10/05/24 10/06/24
06:59 06:59 06:59
Intake Total 540 / 540 720 / 720
Balance 540 / 540 720 / 720
Review of Systems
-
History Source: Patient
Constitutional: Denies Fever
EENT: Reports No Symptoms Reported and Hearing Loss (can hear adequately if speak loud or hearing aides are in place)
Respiratory: Denies Trouble Breathing
Cardiac: Denies Chest Pain
Abdomen/GI: Reports No Symptoms
Genitourinary: Reports No Symptoms
Musculoskeletal: Reports No Symptoms
Physical Exam
-
General: Well Developed, Well Nourished and No Apparent Distress
HEENT: Normocephalic, Atraumatic and Moist Mucous Membranes
Respiratory: Clear to Auscultation; Negative Wheezes, Rales or Rhonchi
Cardiac: Regular Rhythm, S1/S2 and Murmur (2/6 systolic m)
GI: Soft, Nontender and Nondistended
Musculoskeletal: No Clubbing and No Cyanosis; Negative No Edema (1+ edema)
Neuro: Awake, Alert and Oriented
[2024-10-05] MEDS: OCUVITE SOFTGEL 1 CAP PO ×2 (09:26→20:47)
[2024-10-05] MEDS: MAGNESIUM OXIDE 500 MG PO (09:27)
[2024-10-05] MEDS: LIDOCAINE 4% PATCH 2 PATCH TOPICAL (09:27)
[2024-10-05] MEDS: THERAGRAN 1 TABLET PO (09:27)
[2024-10-05] MEDS: FEOSOL 325 MG PO (09:27)
[2024-10-05] MEDS: CLARITIN 10 MG PO (09:27)
[2024-10-05] MEDS: OSCAL 500 + D 500 MG PO (09:27)
[2024-10-05] MEDS: HIPREX 1 GRAM PO ×2 (09:28→20:47)
[2024-10-05] MEDS: PLAVIX 75 MG PO (09:28)
[2024-10-05] MEDS: LIPITOR 40 MG PO (09:28)
[2024-10-05] MEDS: PROTONIX 40 MG PO (09:28)
[2024-10-05] MEDS: UROCIT-K 10 MEQ PO ×2 (09:28→20:46)
[2024-10-05] MEDS: ProAmatine 10 MG PO (09:28)
[2024-10-05] MEDS: HEPARIN 5000 UNITS SC ×2 (09:28→20:47)
[2024-10-05] MEDS: LOW STRENGTH ASPIRIN 81 MG PO ×2 (09:28→22:51)
[2024-10-05] MEDS: LASIX 80 MG IV ×2 (09:30→17:10)
[2024-10-05] MEDS: DESENEX/MITRAZOL/ZEASORB 1 APPLIC TOPICAL ×2 (09:32→20:52)
[2024-10-05 10:11] LABS: % Basophils 1.1 % (0-2); % Immature Granulocytes 0.2 % (0-0.5); % Lymphocytes 28.9 % (20.5-51.1); % Monocytes 8.8 % (1.7-9.3); Absolute Basophils 0.1 10^3/uL (0-0.2); Absolute Eosinophils 0.4 10^3/uL (0-0.7); Absolute Lymphocytes 1.8 10^3/uL (1.2-3.4); Absolute Monocytes 0.6 10^3/uL (0.1-0.6); Absolute Neutrophils 3.5 10^3/uL (1.4-6.5); Nucleated Red Blood Cells % 0 %
[2024-10-05] MEDS: NOVOLOG FLEXPEN-LOW RESISTANCE 1 UNITS SC (12:14)
[2024-10-05] MEDS: ProAmatine 5 MG PO ×2 (12:16→17:17)
[2024-10-05 12:19] LABS: Glucose - Point of Care 184 mg/dl (70-99)
--- NOTE | 2024-10-05 13:57 | W.PN.CARDCBS ---
Today's Communication / Plan
-
Continue IV Lasix
Chest x-ray with persistent CHF
Cardiac catheterization on Friday 10/06 if able to lie flat
Considering TAVR within prosthetic valve likely as an outpatient
Impression / Plan
-
.
PCP: Dr. Elidia Meneses
Primary Mud Trucker: Dr. Chris Craig of [place]
Assessment:
Presentation with SOB, LE edema 09/10/24
Acute on chronic HFrEF
CM EF previously 45% by echo 07/2023 and reduced further to 15 to 20% by echo 09/11/24
Severe
h/o type 2 HI related to severe 11/2020 resulting in transfer to [facility], s/p BAV 12/06/20
s/p sternotomy with biologic AVR, aortic root enlargement with pericardial patch, and CABG x1 SVG to distal RCA by Dr. Smith on 03/04/2021
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
Acute hypoxic respiratory insufficiency
SAM on CKD, suspected cardiorenal
Hypotension requiring pressor support
Elevated troponin, suspected nonischemic myocardial injury
CAD
s/p CABG with FOLEY to LAD and SVG to RPDA (occluded by cath 2020) in 2008
s/p cardiac cath at [facility] FOLEY to LAD patent, SVG to RPDA occluded, ostial Circ 75% stenosis, ostial RCA 75% stenosis 11/16/20
s/p CABG at time of AVR with SVG to distal RCA 03/04/21
Brief post op afib episode while at [facility], without known recurrence
s/p [employer] implanted loop recorder
PVCs
Chronic LBBB
DM 2
HTN
Hyperlipidemia
Hypothyroid
h/o CVA
Peripheral neuropathy
s/p IVC filter
Left breast cancer s/p lumpectomy, chemotherapy, and radiation 2008
Obesity
Anemia
Memory loss
Nuclear stress test 08/24/2023: Large sized moderate to severe defect in apex, apical anterior, apical inferior wall, prone imaging not performed, defect consistent with infarct with minimal gerald-infarct ischemia, EF 35% with global hypokinesis and
anteroapical akinesis, unchanged compared to prior cath and echo in 2020
Echo 03/24/2021: EF 25%, severe global hypokinesis with possible inferolateral and apical akinesis, mild MR, bioprosthetic AVR with peak/mean 21/12 mmHg
ECHO 07/2023: Mildly reduced LV systolic function 45% due to akinesis of distal inferior wall, mild MR with severe left atrial dilation, bioprosthetic aortic valve with peak gradient 49/mean gradient 32, valve size known to be small, moderate
pulmonary hypertension
Echo 09/11/2024: Dilated left ventricle with severely reduced left ventricular systolic function estimated 15-20% with grade 2 diastolic dysfunction increased LV filling pressures. Moderate mitral and tricuspid regurgitation. Bioprosthetic aortic
valve with peak/mean gradients 37/23 mmHg and no significant aortic regurgitation.
Plan:
Chest x-ray 10/05/2024 consistent with CHF.
Will continue IV Lasix
If able to lie flat, plan is for cardiac catheterization on Friday 10/06.
Concern remains regarding her multiple comorbidities. Primary issue may be LV dysfunction and valve in valve TAVR in a 19 mm valve may be problematic. Prognosis is guarded.
-Patient with h/o severe treated at [facility] with BAV on 12/06/2020 followed later by sternotomy with tissue AVR, aortic root enlargement, pericardial patch and CABG x 1 on 03/04/2021. Coming in now with acute HF and by echo there appears to be
significant bioprosthetic .
Progress Note - Mud Trucker
Subjective
Date of Service: October 05, 2024
No complaints
Objective
Labs:
10/05/24 07:10
10/05/24 07:10
Labs
Hgb 9.4 g/dL (12.0-16.0) L 10/05/24 07:10
Hct 28.9 % (37.0-47.0) L 10/05/24 07:10
Plt Count 376 10^3/uL (130-400) 10/05/24 07:10
PT 13.3 Sec (11.4-14.6) 10/05/24 07:10
INR 0.98 10/05/24 07:10
Sodium 139 mmol/L (135-145) 10/05/24 07:10
Potassium 4.1 mmol/L (3.5-5.1) 10/05/24 07:10
BUN 54 mg/dl (7-17) H 10/05/24 07:10
Creatinine 1.3 mg/dL (0.6-1.0) H 10/05/24 07:10
Glucose 118 mg/dl (70-99) H 10/05/24 07:10
Vital Signs and I&O:
Vital Signs
Temp Pulse Resp BP Pulse Ox
98.4 F 76 18 111/61 96
10/05/24 11:10 10/05/24 12:16 10/05/24 11:10 10/05/24 12:16 10/05/24 11:10
Vital Signs
Temp Pulse Resp BP Pulse Ox
98.4 F 76 18 111/61 96
10/05/24 11:10 10/05/24 12:16 10/05/24 11:10 10/05/24 12:16 10/05/24 11:10
Intake & Output
10/03/24 10/04/24 10/05/24 10/06/24
06:59 06:59 06:59 06:59
Intake Total 1200 / 1200 540 / 540 720 / 720
Balance 1200 / 1200 540 / 540 720 / 720
Physical Exam
Physical Exam
General: Well developed, well nourished in NAD.
Neck: Supple, no JVD, HJR, carotids +2 B/L, no bruits bilaterally.
Heart: Non displaced PMI, RRR, 2/6 basal systolic murmur, No S3, S4, no rubs.
Lungs: Scattered rhonchi
Extremities: No clubbing, cyanosis or edema bilaterally.
Neuro: Grossly nonfocal, awake, alert and oriented x3.
[2024-10-05 17:02] LABS: Glucose - Point of Care 129 mg/dl (70-99)
[2024-10-05 21:24] LABS: Glucose - Point of Care 194 mg/dl (70-99)
[2024-10-06] VITALS (14 sets, daily range): BP systolic 97–124; BP diastolic 52–74; BMI 36.6
[2024-10-06] MEDS: SYNTHROID 88 MCG PO (07:19)
[2024-10-06 08:03] LABS: Glucose - Point of Care 142 mg/dl (70-99)
[2024-10-06] MEDS: OSCAL 500 + D 500 MG PO (08:05)
[2024-10-06] MEDS: CLARITIN 10 MG PO (08:05)
[2024-10-06] MEDS: HIPREX 1 GRAM PO ×2 (08:05→20:01)
[2024-10-06] MEDS: THERAGRAN 1 TABLET PO (08:05)
[2024-10-06] MEDS: LIPITOR 40 MG PO (08:05)
[2024-10-06] MEDS: MAGNESIUM OXIDE 500 MG PO (08:05)
[2024-10-06] MEDS: HEPARIN 5000 UNITS SC ×2 (08:05→20:01)
[2024-10-06] MEDS: OCUVITE SOFTGEL 1 CAP PO ×2 (08:05→20:01)
[2024-10-06] MEDS: PROTONIX 40 MG PO (08:05)
[2024-10-06] MEDS: PLAVIX 75 MG PO (08:05)
[2024-10-06] MEDS: UROCIT-K 10 MEQ PO ×2 (08:05→20:01)
[2024-10-06] MEDS: FEOSOL 325 MG PO (08:05)
[2024-10-06] MEDS: LASIX 80 MG IV ×2 (08:08→17:05)
[2024-10-06] MEDS: DESENEX/MITRAZOL/ZEASORB 1 APPLIC TOPICAL ×2 (08:14→20:02)
[2024-10-06] MEDS: ProAmatine 10 MG PO (08:14)
[2024-10-06] MEDS: LIDOCAINE 4% PATCH 2 PATCH TOPICAL (08:14)
[2024-10-06] MEDS: NOVOLOG FLEXPEN-LOW RESISTANCE SC ×4 (08:15→17:32)
[2024-10-06 08:49] LABS: Hematocrit 31.6 % (37.0-47.0); Hemoglobin 10.2 g/dL (12.0-16.0); Mean Corp Hgb Conc. 32.3 g/dL (33.0-37.0); Mean Corpuscular Hgb 30.3 pg (27.0-31.0); Mean Corpuscular Volume 93.8 fL (81.0-99.0); Platelet Count 385 10^3/uL (130-400); Red Blood Cell Count 3.37 10^6/uL (4.20-5.40); Red Cell Dist. Width 17.7 % (11.5-14.5); White Blood Cell Count 7.1 10^3/uL (4.8-10.8)
[2024-10-06 08:55] LABS: Blood Urea Nitrogen 53 mg/dl (7-17); Calcium 9.9 mg/dl (8.4-10.2); Carbon Dioxide 36 mmol/L (22-30); Chloride 94 mmol/L (98-107); Estimated Creatinine Clearance 34 ml/min; Glucose 117 mg/dl (70-99); Potassium 4.1 mmol/L (3.5-5.1); Sodium 141 mmol/L (135-145); eGFR 41.31
[2024-10-06] MEDS: LOW STRENGTH ASPIRIN 81 MG PO ×2 (10:12→22:42)
--- NOTE | 2024-10-06 11:12 | CM ---
Addendum entered by Myrna Dupree RN 10/06/24 15:42:
IMM on chart.
Original Note:
Reviewed the chart notes. Patient down for heart cath. CM continues to be available to patient/family and is monitoring medical plan for needs at discharge.
Plan: Discharge plans will depend on the patient's progress.
[2024-10-06 11:38] LABS: % Eosinophils 6.1 % (0-6); % Immature Granulocytes 0.3 % (0-0.5); % Lymphocytes 25.4 % (20.5-51.1); % Monocytes 8.1 % (1.7-9.3); % Neutrophils 59.1 % (42.2-75.2); Absolute Basophils 0.1 10^3/uL (0-0.2); Absolute Eosinophils 0.4 10^3/uL (0-0.7); Absolute Lymphocytes 1.8 10^3/uL (1.2-3.4); Absolute Monocytes 0.6 10^3/uL (0.1-0.6); Absolute Neutrophils 4.2 10^3/uL (1.4-6.5); Nucleated Red Blood Cells % 0 %
[2024-10-06] MEDS: ProAmatine PO (13:00)
--- NOTE | 2024-10-06 13:23 | ITS.CL.CATH ---
[facility] - Catheterization
Cardiac Catheterization
Procedure Report:
RIGHT AND LEFT HEART CATHETERIZATION
Date of Procedure: October 06, 2024
Referring: Dr. Luly Mojica
PROCEDURES:
1. Right heart catheterization
2. Left heart catheterization with coronary angiography
3. Selective saphenous vein graft and IMAN angiography
4. Ascending aortography to assess aortic dimensions and to nonselectively look for bypass grafts that were not identified
INDICATION:
Prior monomer recovery operator: Dr. Migue Peace: [phone]
This is an 83-year-old female with a complicated past medical history. In 2008 she underwent coronary artery bypass grafting with a FOLEY-LAD and SVG-PDA. She developed progressive aortic stenosis and was referred for repeat coronary angiography in
2020 and was found to have a 75% ostial circumflex stenosis and ostial RCA stenosis. She underwent redo sternotomy with placement of a 19 mm Inspiris Resilia valve, root enlargement, and coronary artery bypass grafting with a SVG-RCA. She is now
admitted to [facility]
ACCESS: Right common femoral artery, 6 Vincentian sheath and right common femoral vein, 6 Vincentian sheath
HEMODYNAMICS (mmHg) :
RA (m) : 20
RV (s/d) : 82/12, 21
PA (s/d,m) : 80/38, 53
PCWP (m) : 46
AO (s/d, m) : 127/60, 87
LV (s/d) : 143/22
LVEDP (m) : 32
Estimated Garcia Cardiac Output: 3.4 L/min and Cardiac Index: 1.8 L/min/M-2
Systemic vascular resistance: 19.7 Wood units or 1576 mpolc-qtl-lg(-5)
Pulmonary vascular resistance: 0.9 Wood units or 70 lmhog-mbf-ox(-5)
AORTIC VALVE
Mean gradient: 18 mmHg
Aortic valve area: 0.80 cm�
CORONARY ANGIOGRAPHY
Dominance: Right
LEFT MAIN: 100% occluded with bridging collaterals to the circumflex
LEFT ANTERIOR DESCENDIN% occluded at its origin with the distal vessel filling via a widely patent IMAN graft which fills antegrade and retrograde to a proximal diagonal branch where the LAD is occluded
CIRCUMFLEX: 100% occluded at its origin. The circumflex is supplied by bridging collaterals from the left main. There is a moderate-sized OM1 and OM 2. OM 2 may have competitive flow from a patent bypass graft, however, no bypass graft was noted
on selective or nonselective angiography. Will reassess with CT scan of the chest if TAVR is considered.
RIGHT CORONARY ARTERY: 100% occluded in the mid vessel with the distal right coronary artery filling via a patent saphenous vein graft as described below
GRAFT ANGIOGRAPHY:
1. FOLEY-LAD: The FOLEY graft is widely patent to the mid LAD. The LAD fills distal to the anastomosis and has only minor irregularities. The LAD also fills retrograde to fill a proximally arising first diagonal branch.
2. SVG-distal RCA: The saphenous vein graft to the distal right coronary artery is widely patent. The PDA is widely patent. The right coronary fills retrograde proximal to the anastomosis of the vein graft.
ASCENDING AORTOGRAPHY: Ascending aortography was performed in the UZBEK projection. There appeared to be a possible graft originating from the ascending aorta near the highest surgical clip, however, I tried multiple diagnostic catheters in an
attempt to cannulate the origin of this graft and could never locate the takeoff of a graft from the ascending aorta. Additionally, I was not convinced that we were not noticing the FOLEY graft fill giving the false impression that there was a
patent SVG graft. She really was not experiencing anginal symptoms and her troponin peaked at 0.040 ng/mL on admission suggestive of more chronic coronary disease rather than an acute coronary syndrome. Additional angiographic views were not
obtained as it is likely that she may need a TAVR CT in the future. The ascending aorta appeared normal caliber. No significant aortic insufficiency
LEFT VENTRICULOGRAPHY: Not done
SEDATION: 79 minutes of procedural sedation was utilized. An independent medical transcription supervisor was present to assist with and help manage the patient's level of consciousness and physiologic status.
RADIATION SUMMARY: Fluoro Time (min): 21.4, Dose (mGy): 788, DAP (Gy.cm2) : 83.3
Closure Device: None
CONCLUSION
1. 100% occluded distal left main with the circumflex noted to fill via bridging collaterals. We cannot be sure there is not a patent graft to the circumflex and can assess for the presence of a graft when CT scan of the chest is performed
2. Widely patent FOLEY-LAD and SVG-RCA
3. Persistently elevated right and left ventricular filling pressures
4. Low output low gradient aortic stenosis with a mean aortic valve gradient of 18 mmHg.
RECOMMENDATIONS
1. Will need to obtain prior echocardiograms from Dr. Chris Peace to assess trajectory of LV function and aortic valve gradients
2. Continue attempted IV diuresis
3. Will need to discuss at an upcoming Valve Clinic meeting as she is clearly not a straightforward valve in valve candidate
4. Guideline directed medical therapy for LV dysfunction as blood pressure tolerate
Copy to: Dr. Luly Mojica
--- NOTE | 2024-10-06 13:29 | W.PN.HOSP.TC ---
Today's Communication/Plan
-
LHC today
IV diuresis
Assessment / Plan
Assessment / Plan
Acute on chronic CHF exacerbation with reduced ejection fraction
Acute hypoxic respiratory insufficiency secondary to above, now on room air with SaO2 95%
-Cardiac BNP greater than 27,000
-Chest x-ray shows pulm edema, does not appear to have pneumonia. Will monitor. No fever, leukocytosis (WBC 6.4k).
-Continue with diuresis per renal- Lasix 80 mg IV q12h
-EF of 25% from echo in 2020
-Echo 09/11 noted with a EF 15 to 20%,
-S/p CABG 10/2008 with FOLEY to LAD and SVG to RPDA
-S/p cardiac cath at [facility] 11/16/20 FOLEY to LAD patent, SVG to RPDA occluded, ostial Circ 75% stenosis, ostial RCA 75% stenosis
-Severe
-Hold Farxiga
-Continue midodrine with holding parameter
-Cont IV lasix
- IV Lasix dose back to 80 mg IV q12h, Midodrine dose 10 mg qAM, 5 mg 1300/1800
-Check I's and O's, daily weights-weight improving.
heart catheterization on Friday 10/[address] scan to follow for full TAVR evaluation
#Shock, unknown etiology
resolved
Pressors weaned off
was hypotensive again 09/16; transferred back to IMU, then back to tele, currently on tele, BP remains low, but tolerating
coreg dec, monitor.
Continue with midodrine.
# SAM likely cardiorenal on CKD, unknown baseline
-Continue with diuresis
-Nephrology signed off
-Hold spironolactone, losartan
History of TAVR
#Acute metabolic encephalopathy
� Possibly secondary to CO2 narcosis with CHF exacerbation + UTI + along with +/- delirium
� Resolved 09/22
#UTI
History of multiple UTIs in past
Urine culture with pseudomonas; Completed Cefepime to Cipro course
finished abx
Afeb , WBC normal. No dysuria. Asymptomatic
Repeat UA: Asymptomatic bacteruria - no symptoms and only 70k CFU; mental status resolved on its own -will hold on antibiotics at this time
Elevated troponin likely secondary to nonischemic myocardial injury
Monitor
Edema blistering 2/2 fluid overload
monitor
venous Doppler lower extremity neg for DVT
Transaminitis
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
� Monitor with diuresis
-resolved
CAD status post CABG
-Continue Plavix
-Continue Coreg
Chronic lymphedema
left buttock pressure related pressure injury stage 1
importance of getting pt OOB to chair reviewed with nursing
Essential hypertension
Chronic LBBB
Hypercholesterolemia
Chronic anemia
Type 2 diabetes
-Hold metformin, glipizide
-Insulin sliding scale
glu 125-201
A1c 6.8%
History of CVA
Hypothyroidism
-Continue levothyroxine
Full code
DVT prophylaxis�heparin
Dispo: a full code
Total time spent on today's encounter was 51 minutes which included time spent in counseling the patient/family regarding diagnosis and treatment plan as listed above, goals of care, and symptom management. Case was discussed with nursing staff,
specialists, and care coordinators/case management. All labs and imaging personally reviewed by me. Remainder the time spent in detailed review of previous records, lab data, imaging, and other medical provider documentation.
Anticipated Discharge: Today
Subjective/Interval History
-
Date of Service: October 06, 2024
no acute events, going for [facility] today
Objective Data
-
Labs:
Laboratory Results
10/06/24
07:52
WBC 7.1
Hgb 10.2 L
Hct 31.6 L
Plt Count 385
Sodium 141
Potassium 4.1
Chloride 94 L
Carbon Dioxide 36 H
BUN 53 H
Creatinine 1.3 H
Glucose 117 H
Calcium 9.9
Vital Signs:
Vital Signs
Temp Pulse Resp BP Pulse Ox
97.1 F 81 18 120/70 97
10/06/24 13:13 10/06/24 08:14 10/06/24 07:30 10/06/24 13:13 10/06/24 13:13
I&O
10/05/24 10/06/24 10/07/24
06:59 06:59 06:59
Intake Total 720 / 720 780 / 780
Balance 720 / 720 780 / 780
Review of Systems
-
History Source: Patient
Constitutional: Denies Fever
EENT: Reports No Symptoms Reported and Hearing Loss (can hear adequately if speak loud or hearing aides are in place)
Respiratory: Denies Trouble Breathing
Cardiac: Denies Chest Pain
Abdomen/GI: Reports No Symptoms
Genitourinary: Reports No Symptoms
Musculoskeletal: Reports No Symptoms
Physical Exam
-
General: Well Developed, Well Nourished and No Apparent Distress
HEENT: Normocephalic, Atraumatic and Moist Mucous Membranes
Respiratory: Clear to Auscultation; Negative Wheezes, Rales or Rhonchi
Cardiac: Regular Rhythm, S1/S2 and Murmur (2/6 systolic m)
GI: Soft, Nontender and Nondistended
Musculoskeletal: No Clubbing and No Cyanosis; Negative No Edema (1+ edema)
Neuro: Awake, Alert and Oriented
Data Reviewed
-
Diagnostic Radiology: Report Reviewed by me
Ultrasound: Report Reviewed by me
[2024-10-06] MEDS: ProAmatine 5 MG PO (17:07)
[2024-10-06 17:16] LABS: Glucose - Point of Care 124 mg/dl (70-99)
[2024-10-07] VITALS (9 sets, daily range): BP systolic 91–111; BP diastolic 56–66; PULSE 72–77; O2SAT 96; BMI 35.8
[2024-10-07] MEDS: SYNTHROID 88 MCG PO (04:54)
[2024-10-07 07:51] LABS: Hematocrit 28.6 % (37.0-47.0); Hemoglobin 9.4 g/dL (12.0-16.0); Mean Corp Hgb Conc. 32.9 g/dL (33.0-37.0); Mean Corpuscular Hgb 29.9 pg (27.0-31.0); Mean Corpuscular Volume 91.1 fL (81.0-99.0); Mean Platelet Volume 11.9 fL (7.4-10.4); Platelet Count 357 10^3/uL (130-400); Red Blood Cell Count 3.14 10^6/uL (4.20-5.40); Red Cell Dist. Width 17.4 % (11.5-14.5); White Blood Cell Count 5.7 10^3/uL (4.8-10.8)
[2024-10-07 07:58] LABS: Blood Urea Nitrogen 47 mg/dl (7-17); Calcium 9.9 mg/dl (8.4-10.2); Carbon Dioxide 36 mmol/L (22-30); Chloride 95 mmol/L (98-107); Estimated Creatinine Clearance 37 ml/min; Glucose 96 mg/dl (70-99); Potassium 4.1 mmol/L (3.5-5.1); Sodium 140 mmol/L (135-145); eGFR 45.48
[2024-10-07] MEDS: LIDOCAINE 4% PATCH 2 PATCH TOPICAL (09:17)
[2024-10-07] MEDS: NOVOLOG FLEXPEN-LOW RESISTANCE SC ×2 (09:17→16:55)
[2024-10-07] MEDS: MAGNESIUM OXIDE 500 MG PO (09:18)
[2024-10-07] MEDS: HEPARIN 5000 UNITS SC ×2 (09:18→21:06)
[2024-10-07] MEDS: HIPREX 1 GRAM PO ×2 (09:18→20:44)
[2024-10-07] MEDS: OSCAL 500 + D 500 MG PO (09:18)
[2024-10-07] MEDS: PLAVIX 75 MG PO (09:18)
[2024-10-07] MEDS: UROCIT-K 10 MEQ PO ×2 (09:19→20:44)
[2024-10-07] MEDS: LOW STRENGTH ASPIRIN 81 MG PO ×2 (09:20→22:00)
[2024-10-07] MEDS: FEOSOL 325 MG PO (09:20)
[2024-10-07] MEDS: PROTONIX 40 MG PO (09:21)
[2024-10-07] MEDS: LIPITOR 40 MG PO (09:21)
[2024-10-07] MEDS: THERAGRAN 1 TABLET PO (09:21)
[2024-10-07] MEDS: OCUVITE SOFTGEL 1 CAP PO ×2 (09:21→20:44)
[2024-10-07] MEDS: CLARITIN 10 MG PO (09:21)
[2024-10-07] MEDS: ProAmatine 10 MG PO (09:21)
[2024-10-07] MEDS: DESENEX/MITRAZOL/ZEASORB 1 APPLIC TOPICAL ×2 (09:28→20:45)
[2024-10-07] MEDS: LASIX 80 MG IV ×2 (09:49→16:54)
[2024-10-07 10:05] LABS: Glucose - Point of Care 146 mg/dl (70-99)
--- NOTE | 2024-10-07 10:55 | W.PN.CARDCBS ---
Today's Communication / Plan
-
Continue IV Lasix for CHF noted in right heart cath on 10/06/2024
Impression / Plan
-
.
PCP: Dr. Elidia Meneses
Primary Drive Tester: Dr. Chris Craig of [place]
Assessment:
Presentation with SOB, LE edema 09/10/24
Acute on chronic HFrEF
CM EF previously 45% by echo 07/2023 and reduced further to 15 to 20% by echo 09/11/24
Severe
h/o type 2 WI related to severe 11/2020 resulting in transfer to [facility], s/p BAV 12/06/20
s/p sternotomy with biologic AVR, aortic root enlargement with pericardial patch, and CABG x1 SVG to distal RCA by Dr. Smith on 03/04/2021
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
Acute hypoxic respiratory insufficiency
SAM on CKD, suspected cardiorenal
Hypotension requiring pressor support
Elevated troponin, suspected nonischemic myocardial injury
CAD
s/p CABG with FOLEY to LAD and SVG to RPDA (occluded by cath 2020) in 2008
s/p cardiac cath at [facility] FOLEY to LAD patent, SVG to RPDA occluded, ostial Circ 75% stenosis, ostial RCA 75% stenosis 11/16/20
s/p CABG at time of AVR with SVG to distal RCA 03/04/21
Brief post op afib episode while at [facility], without known recurrence
s/p [facility] implanted loop recorder
PVCs
Chronic LBBB
DM 2
HTN
Hyperlipidemia
Hypothyroid
h/o CVA
Peripheral neuropathy
s/p IVC filter
Left breast cancer s/p lumpectomy, chemotherapy, and radiation 2008
Obesity
Anemia
Memory loss
Nuclear stress test 08/24/2023: Large sized moderate to severe defect in apex, apical anterior, apical inferior wall, prone imaging not performed, defect consistent with infarct with minimal gerald-infarct ischemia, EF 35% with global hypokinesis and
anteroapical akinesis, unchanged compared to prior cath and echo in 2020
Echo 03/24/2021: EF 25%, severe global hypokinesis with possible inferolateral and apical akinesis, mild MR, bioprosthetic AVR with peak/mean 21/12 mmHg
ECHO 07/2023: Mildly reduced LV systolic function 45% due to akinesis of distal inferior wall, mild MR with severe left atrial dilation, bioprosthetic aortic valve with peak gradient 49/mean gradient 32, valve size known to be small, moderate
pulmonary hypertension
Echo 09/11/2024: Dilated left ventricle with severely reduced left ventricular systolic function estimated 15-20% with grade 2 diastolic dysfunction increased LV filling pressures. Moderate mitral and tricuspid regurgitation. Bioprosthetic aortic
valve with peak/mean gradients 37/23 mmHg and no significant aortic regurgitation.
Catheterization 10/06/2024: Pulmonary cavity wedge pressure 46, PA 80/38, LVEDP 32, 100% occluded distal left main and circumflex noted to fill via bridging collaterals, widely patent FOLEY to LAD and vein graft RCA, low output gradient aortic stenosis
with mean valve gradient of 18 mmHg
Plan:
She remains in CHF based on right heart catheterization on 10/06/2024
She is only on 1 L of oxygen currently
Will continue diuresis
She might be a candidate for high risk valve in valve TAVR which will be decided as an outpatient
-Patient with h/o severe treated at [facility] with BAV on 12/06/2020 followed later by sternotomy with tissue AVR, aortic root enlargement, pericardial patch and CABG x 1 on 03/04/2021. Coming in now with acute HF and by echo there appears to be
significant bioprosthetic .
Progress Note - Drive Tester
Subjective
Date of Service: October 07, 2024
No complaints.
Objective
Labs:
10/07/24 06:35
10/07/24 06:35
Labs
Hgb 9.4 g/dL (12.0-16.0) L 10/07/24 06:35
Hct 28.6 % (37.0-47.0) L 10/07/24 06:35
Plt Count 357 10^3/uL (130-400) 10/07/24 06:35
PT 13.3 Sec (11.4-14.6) 10/05/24 07:10
INR 0.98 10/05/24 07:10
Sodium 140 mmol/L (135-145) 10/07/24 06:35
Potassium 4.1 mmol/L (3.5-5.1) 10/07/24 06:35
BUN 47 mg/dl (7-17) H 10/07/24 06:35
Creatinine 1.2 mg/dL (0.6-1.0) H 10/07/24 06:35
Glucose 96 mg/dl (70-99) 10/07/24 06:35
Vital Signs and I&O:
Vital Signs
Temp Pulse Resp BP Pulse Ox
97.9 F 73 20 98/56 92
10/07/24 07:40 10/07/24 09:49 10/07/24 07:40 10/07/24 09:49 10/07/24 07:40
Vital Signs
Temp Pulse Resp BP Pulse Ox
97.9 F 73 20 98/56 92
10/07/24 07:40 10/07/24 09:49 10/07/24 07:40 10/07/24 09:49 10/07/24 07:40
Intake & Output
10/05/24 10/06/24 10/07/24 10/08/24
06:59 06:59 06:59 06:59
Intake Total 720 / 720 780 / 780 1035 / 1035
Balance 720 / 720 780 / 780 1035 / 1035
Physical Exam
Physical Exam
General: Well developed, well nourished in NAD.
Neck: Supple, no JVD, HJR, carotids +2 B/L, no bruits bilaterally.
Heart: Non displaced PMI, RRR, 2/6 basal systolic murmur, No S3, S4, no rubs.
Lungs: Scattered rhonchi at the bases
Extremities: No clubbing, cyanosis or edema bilaterally.
Neuro: Grossly nonfocal, awake, alert and oriented x3.
[2024-10-07 12:09] LABS: Glucose - Point of Care 211 mg/dl (70-99)
[2024-10-07] MEDS: ProAmatine 5 MG PO ×2 (12:22→16:57)
[2024-10-07] MEDS: NOVOLOG FLEXPEN-LOW RESISTANCE 2 UNITS SC (12:22)
--- NOTE | 2024-10-07 12:57 | W.PN.HOSP.TC ---
Today's Communication/Plan
-
cont iv diuresis
Assessment / Plan
Assessment / Plan
Acute on chronic CHF exacerbation with reduced ejection fraction
Acute hypoxic respiratory insufficiency secondary to above, now on room air with SaO2 95%
-Cardiac BNP greater than 27,000
-Chest x-ray shows pulm edema, does not appear to have pneumonia. Will monitor. No fever, leukocytosis (WBC 6.4k).
-Continue with diuresis per renal- Lasix 80 mg IV q12h
-EF of 25% from echo in 2020
-Echo 09/11 noted with a EF 15 to 20%,
-S/p CABG 10/2008 with FOLEY to LAD and SVG to RPDA
-S/p cardiac cath at [facility] 11/16/20 FOLEY to LAD patent, SVG to RPDA occluded, ostial Circ 75% stenosis, ostial RCA 75% stenosis
-Severe
-Hold Farxiga
-Continue midodrine with holding parameter
-Cont IV lasix
- IV Lasix dose back to 80 mg IV q12h, Midodrine dose 10 mg qAM, 5 mg 1300/1800
-Check I's and O's, daily weights-weight improving.
heart catheterization on Friday 10/06 # evidence of fluid overload, increased LVEDP, continue TAVR workup as per cardiology
She might be a candidate for high risk valve in valve TAVR which will be decided as an outpatient
#Shock, unknown etiology
resolved
Pressors weaned off
was hypotensive again 09/16; transferred back to IMU, then back to tele, currently on tele, BP remains low, but tolerating
coreg dec, monitor.
Continue with midodrine.
# SAM likely cardiorenal on CKD, unknown baseline
-Continue with diuresis
-Nephrology signed off
-Hold spironolactone, losartan
History of TAVR
#Acute metabolic encephalopathy
� Possibly secondary to CO2 narcosis with CHF exacerbation + UTI + along with +/- delirium
� Resolved 09/22
#UTI
History of multiple UTIs in past
Urine culture with pseudomonas; Completed Cefepime to Cipro course
finished abx
Afeb , WBC normal. No dysuria. Asymptomatic
Repeat UA: Asymptomatic bacteruria - no symptoms and only 70k CFU; mental status resolved on its own -will hold on antibiotics at this time
Elevated troponin likely secondary to nonischemic myocardial injury
Monitor
Edema blistering 2/2 fluid overload
monitor
venous Doppler lower extremity neg for DVT
Transaminitis
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
� Monitor with diuresis
-resolved
CAD status post CABG
-Continue Plavix
-Continue Coreg
Chronic lymphedema
left buttock pressure related pressure injury stage 1
importance of getting pt OOB to chair reviewed with nursing
Essential hypertension
Chronic LBBB
Hypercholesterolemia
Chronic anemia
Type 2 diabetes
-Hold metformin, glipizide
-Insulin sliding scale
glu 125-201
A1c 6.8%
History of CVA
Hypothyroidism
-Continue levothyroxine
Full code
DVT prophylaxis�heparin
Dispo: a full code
Anticipated Discharge: 24 - 48 hours
Subjective/Interval History
-
Date of Service: October 07, 2024
No acute events
Objective Data
-
Labs:
Laboratory Results
10/07/24
06:35
WBC 5.7
Hgb 9.4 L
Hct 28.6 L
Plt Count 357
Sodium 140
Potassium 4.1
Chloride 95 L
Carbon Dioxide 36 H
BUN 47 H
Creatinine 1.2 H
Glucose 96
Calcium 9.9
Vital Signs:
Vital Signs
Temp Pulse Resp BP Pulse Ox
97.9 F 82 18 108/58 97
10/07/24 11:12 10/07/24 12:22 10/07/24 11:12 10/07/24 12:22 10/07/24 11:12
I&O
10/06/24 10/07/24 10/08/24
06:59 06:59 06:59
Intake Total 780 / 780 1035 / 1035
Balance 780 / 780 1035 / 1035
Review of Systems
-
History Source: Patient
All other systems: Not reviewed unless documented
Physical Exam
-
General: Well Developed, Well Nourished and No Apparent Distress
HEENT: Normocephalic, Atraumatic and Moist Mucous Membranes
Respiratory: Clear to Auscultation; Negative Wheezes, Rales or Rhonchi
Cardiac: Regular Rhythm, S1/S2 and Murmur (2/6 systolic m)
GI: Soft, Nontender and Nondistended
Musculoskeletal: No Clubbing and No Cyanosis; Negative No Edema (1+ edema)
Neuro: Awake, Alert and Oriented
Data Reviewed
-
Diagnostic Radiology: Report Reviewed by me
Ultrasound: Report Reviewed by me
[2024-10-07 16:56] LABS: Glucose - Point of Care 103 mg/dl (70-99)
[2024-10-07 21:40] LABS: Glucose - Point of Care 202 mg/dl (70-99)
[2024-10-08 03:20] VITALS: BP 112/65
[2024-10-08 06:00] VITALS: BMI 35.8
[2024-10-08] MEDS: SYNTHROID 88 MCG PO (06:33)
[2024-10-08 07:41] LABS: Glucose - Point of Care 109 mg/dl (70-99)
[2024-10-08 07:42] VITALS: BP 111/66
[2024-10-08] MEDS: MAGNESIUM OXIDE 500 MG PO (08:22)
[2024-10-08] MEDS: LASIX 80 MG IV ×2 (08:22→17:43)
[2024-10-08] MEDS: NOVOLOG FLEXPEN-LOW RESISTANCE SC (08:22)
[2024-10-08] MEDS: UROCIT-K 10 MEQ PO ×2 (08:23→21:50)
[2024-10-08] MEDS: LIPITOR 40 MG PO (08:23)
[2024-10-08] MEDS: PLAVIX 75 MG PO (08:23)
[2024-10-08] MEDS: HEPARIN 5000 UNITS SC ×2 (08:23→21:50)
[2024-10-08] MEDS: FEOSOL 325 MG PO (08:23)
[2024-10-08] MEDS: LOW STRENGTH ASPIRIN 81 MG PO ×2 (08:23→21:50)
[2024-10-08] MEDS: OSCAL 500 + D 500 MG PO (08:23)
[2024-10-08] MEDS: OCUVITE SOFTGEL 1 CAP PO ×2 (08:24→21:50)
[2024-10-08] MEDS: HIPREX 1 GRAM PO ×2 (08:24→21:49)
[2024-10-08] MEDS: LIDOCAINE 4% PATCH 2 PATCH TOPICAL (08:24)
[2024-10-08] MEDS: CLARITIN 10 MG PO (08:24)
[2024-10-08] MEDS: ProAmatine 10 MG PO (08:25)
[2024-10-08] MEDS: PROTONIX 40 MG PO (08:25)
[2024-10-08] MEDS: THERAGRAN 1 TABLET PO (08:25)
[2024-10-08] MEDS: DESENEX/MITRAZOL/ZEASORB 1 APPLIC TOPICAL ×2 (08:34→21:51)
--- NOTE | 2024-10-08 08:57 | W.PN.UPDATE ---
Update Note
Progress Note Update
Patient resting comfortably in bed. Updated on plan for CT TAVR chest only today around 1215. Requested nursing to place at least a 20g IV in right AC. Patient NPO 3 hours prior. Allowed for and answered questions. Obtained previous echo reports and
images from [facility]. Images uploaded to [employer] and reports placed on inpatient chart. Operative note obtained from Ramón and placed on the chart. Discussed plan With Nicole Montiel PA-C (cardiology). Will plan to discuss patient at
heart team meeting on 10/10/2024.
--- NOTE | 2024-10-08 09:10 | W.PN.CARDCBS ---
Addendum entered and electronically signed by Mak Jay MD 10/08/24 14:09:
I saw and examined the patient.
The Life Insurance Underwriter's note was reviewed and I agree with the note.
Comment: Briefly, 83-year-old woman past medical history of aortic valve replacement complicated by severe bioprosthetic aortic valve stenosis who presented in acute decompensated heart failure and was found to have severe LV dysfunction with EF
15-20%.
Filling pressures were elevated both on right heart catheterization last week as well as left heart catheterization this week
Remains volume overloaded on exam and is still requiring supplemental oxygen
Cont IV lasix 80mg BID
Due to marginal blood pressure would be unable to tolerate additional GDMT as she has been maintained on midodrine here
TAVR workup per structural heart team
Rest per Nicole Montiel
Original Note:
Today's Communication / Plan
-
continue IV diuresis
TAVR chest CT today
GDMT limited by hypotension requiring midodrine
Impression / Plan
-
.
PCP: Dr. Elidia Meneses
Primary Car Hostler: Dr. Chris Craig of [place]
Assessment:
Presentation with SOB, LE edema 09/10/24
Acute on chronic HFrEF
CM EF previously 45% by echo 07/2023 and reduced further to 15 to 20% by echo 09/11/24
Severe
h/o type 2 DE related to severe 11/2020 resulting in transfer to [facility], s/p BAV 12/06/20
s/p sternotomy with biologic AVR, aortic root enlargement with pericardial patch, and CABG x1 SVG to distal RCA by Dr. Smith on 03/04/2021
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
Acute hypoxic respiratory insufficiency
SAM on CKD, suspected cardiorenal
Hypotension requiring pressor support
Elevated troponin, suspected nonischemic myocardial injury
CAD
s/p CABG with FOLEY to LAD and SVG to RPDA (occluded by cath 2020) in 2008
s/p cardiac cath at [facility] FOLEY to LAD patent, SVG to RPDA occluded, ostial Circ 75% stenosis, ostial RCA 75% stenosis 11/16/20
s/p CABG at time of AVR with SVG to distal RCA 03/04/21
Brief post op afib episode while at [facility], without known recurrence
s/p [employer] implanted loop recorder
PVCs
Chronic LBBB
DM 2
HTN
Hyperlipidemia
Hypothyroid
h/o CVA
Peripheral neuropathy
s/p IVC filter
Left breast cancer s/p lumpectomy, chemotherapy, and radiation 2008
Obesity
Anemia
Memory loss
Nuclear stress test 08/24/2023: Large sized moderate to severe defect in apex, apical anterior, apical inferior wall, prone imaging not performed, defect consistent with infarct with minimal gerald-infarct ischemia, EF 35% with global hypokinesis and
anteroapical akinesis, unchanged compared to prior cath and echo in 2020
Echo 03/24/2021: EF 25%, severe global hypokinesis with possible inferolateral and apical akinesis, mild MR, bioprosthetic AVR with peak/mean 21/12 mmHg
ECHO 07/2023: Mildly reduced LV systolic function 45% due to akinesis of distal inferior wall, mild MR with severe left atrial dilation, bioprosthetic aortic valve with peak gradient 49/mean gradient 32, valve size known to be small, moderate
pulmonary hypertension
Echo 09/11/2024: Dilated left ventricle with severely reduced left ventricular systolic function estimated 15-20% with grade 2 diastolic dysfunction increased LV filling pressures. Moderate mitral and tricuspid regurgitation. Bioprosthetic aortic
valve with peak/mean gradients 37/23 mmHg and no significant aortic regurgitation.
Catheterization 10/06/2024: Pulmonary cavity wedge pressure 46, PA 80/38, LVEDP 32, 100% occluded distal left main and circumflex noted to fill via bridging collaterals, widely patent FOLEY to LAD and vein graft RCA, low output gradient aortic stenosis
with mean valve gradient of 18 mmHg
Plan:
-continue diuresis with IV lasix 80mg BID. wedge improving by [facility] 10/06, 32 (was 45 last week by [facility]). Cr stable
-she did not tolerate low dose dobutamine earlier this admission due to hypotension. she required levo earlier in admission to allow diuresis. she is currently on midodrine and BPs stable
-wean supp O2 as able
-being evaluated for high risk valve in valve TAVR. she is not a open surgical candidate. d/w TAVR coordinator 10/08. plan for TAVR chest CT today. she has a prior #19mm inspiris resilia valve, [facility].
-by cath 10/06 she had widely patent FOLEY to LAD and SVG-RCA with 100% occluded distal L main with circ filling via bridging collaterals
-in SR with frequent PVCs, at times in pattern of bigeminy. follow
-GDMT of CM/CHF limited by hypotension.
-d/w nursing
-Patient with h/o severe treated at [facility] with BAV on 12/06/2020 followed later by sternotomy with tissue AVR, aortic root enlargement, pericardial patch and CABG x 1 on 03/04/2021. Coming in now with acute HF and by echo there appears to be
significant bioprosthetic .
Progress Note - Car Hostler
Subjective
Date of Service: October 08, 2024
she reports good urine output with IV lasix.
Objective
Labs:
Labs
Hgb 9.4 g/dL (12.0-16.0) L 10/07/24 06:35
Hct 28.6 % (37.0-47.0) L 10/07/24 06:35
Plt Count 357 10^3/uL (130-400) 10/07/24 06:35
PT 13.3 Sec (11.4-14.6) 10/05/24 07:10
INR 0.98 10/05/24 07:10
Sodium 140 mmol/L (135-145) 10/07/24 06:35
Potassium 4.1 mmol/L (3.5-5.1) 10/07/24 06:35
BUN 47 mg/dl (7-17) H 10/07/24 06:35
Creatinine 1.2 mg/dL (0.6-1.0) H 10/07/24 06:35
Glucose 96 mg/dl (70-99) 10/07/24 06:35
Vital Signs and I&O:
Vital Signs
Temp Pulse Resp BP Pulse Ox
98.0 F 81 18 111/66 98
10/08/24 07:42 10/08/24 08:22 10/08/24 07:42 10/08/24 08:22 10/08/24 08:41
Vital Signs
Temp Pulse Resp BP Pulse Ox
98.0 F 81 18 111/66 98
10/08/24 07:42 10/08/24 08:22 10/08/24 07:42 10/08/24 08:22 10/08/24 08:41
Intake & Output
10/06/24 10/07/24 10/08/24 10/09/24
07:59 07:59 07:59 07:59
Intake Total 780 / 780 1035 / 1035 900 / 900
Output Total 1150 / 1150
Balance 780 / 780 1035 / 1035 -250 / -250
Physical Exam
Physical Exam
GEN: No distress, awake, alert. on supp O2. obese
HEENT: supple, anicteric, mmm, eomi
LUNGS: CTA anterolaterally, no wheezes
CV: Reg, S1/S2, 2/6 murmur
ABD: soft, BS+, NT/ND
EXT: No cyanosis, clubbing. 2+ edema of B/L LE
NEURO: Gross non-focal
SKIN: Warm, pink, dry. No rash
[2024-10-08 09:20] LABS: Hematocrit 29.6 % (37.0-47.0); Hemoglobin 9.8 g/dL (12.0-16.0); Mean Corp Hgb Conc. 33.1 g/dL (33.0-37.0); Mean Corpuscular Hgb 29.9 pg (27.0-31.0); Mean Corpuscular Volume 90.2 fL (81.0-99.0); Mean Platelet Volume 10.9 fL (7.4-10.4); Platelet Count 381 10^3/uL (130-400); Red Blood Cell Count 3.28 10^6/uL (4.20-5.40); Red Cell Dist. Width 17.7 % (11.5-14.5); White Blood Cell Count 6.1 10^3/uL (4.8-10.8)
[2024-10-08 10:28] LABS: ALT (SGPT) 18 U/L (0-35); AST (SGOT) 25 U/L (14-36); Alkaline Phosphatase 101 U/L (38-126); Blood Urea Nitrogen 48 mg/dl (7-17); Carbon Dioxide 37 mmol/L (22-30); Chloride 92 mmol/L (98-107); Estimated Creatinine Clearance 29 ml/min; Glucose 169 mg/dl (70-99); Potassium 4.1 mmol/L (3.5-5.1); Sodium 139 mmol/L (135-145); Total Protein 6.6 g/dl (6.3-8.2); eGFR 34.79
[2024-10-08 11:50] VITALS: BP 107/72
--- NOTE | 2024-10-08 11:54 | W.PN.HOSP.TC ---
Today's Communication/Plan
-
CT TAVR Chest
IV diuresis - monitoring BP with midodine and Scr
Assessment / Plan
Assessment / Plan
Acute on chronic CHF exacerbation with reduced ejection fraction
Acute hypoxic respiratory insufficiency secondary to above, now on room air with SaO2 95%
-Cardiac BNP greater than 27,000
-Chest x-ray shows pulm edema, does not appear to have pneumonia. Will monitor. No fever, leukocytosis (WBC 6.4k).
-Continue with diuresis per renal- Lasix 80 mg IV q12h
-EF of 25% from echo in 2020
-Echo 09/11 noted with a EF 15 to 20%,
-S/p CABG 10/2008 with FOLEY to LAD and SVG to RPDA
-S/p cardiac cath at [facility] 11/16/20 FOLEY to LAD patent, SVG to RPDA occluded, ostial Circ 75% stenosis, ostial RCA 75% stenosis
-Severe
-Hold Farxiga
-Continue midodrine with holding parameter
-Cont IV lasix
- IV Lasix dose back to 80 mg IV q12h, Midodrine dose 10 mg qAM, 5 mg 1300/1800
-Check I's and O's, daily weights-weight improving.
heart catheterization on Friday 10/06 # evidence of fluid overload, increased LVEDP, continue TAVR workup as per cardiology
TAVR work up - CT TAVR Chest today
#Shock, unknown etiology
resolved
Pressors weaned off
was hypotensive again 09/16; transferred back to IMU, then back to tele, currently on tele, BP remains low, but tolerating
coreg dec, monitor.
Continue with midodrine.
# SAM likely cardiorenal on CKD, unknown baseline
-Continue with diuresis
-Nephrology signed off
-Hold spironolactone, losartan
History of TAVR
#Acute metabolic encephalopathy
� Possibly secondary to CO2 narcosis with CHF exacerbation + UTI + along with +/- delirium
� Resolved 09/22
#UTI
History of multiple UTIs in past
Urine culture with pseudomonas; Completed Cefepime to Cipro course
finished abx
Afeb , WBC normal. No dysuria. Asymptomatic
Repeat UA: Asymptomatic bacteruria - no symptoms and only 70k CFU; mental status resolved on its own -will hold on antibiotics at this time
Elevated troponin likely secondary to nonischemic myocardial injury
Monitor
Edema blistering 2/2 fluid overload
monitor
venous Doppler lower extremity neg for DVT
Transaminitis
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
� Monitor with diuresis
-resolved
CAD status post CABG
-Continue Plavix
-Continue Coreg
Chronic lymphedema
left buttock pressure related pressure injury stage 1
importance of getting pt OOB to chair reviewed with nursing
Essential hypertension
Chronic LBBB
Hypercholesterolemia
Chronic anemia
Type 2 diabetes
-Hold metformin, glipizide
-Insulin sliding scale
glu 125-201
A1c 6.8%
History of CVA
Hypothyroidism
-Continue levothyroxine
Full code
DVT prophylaxis�heparin
Dispo: a full code
Total time spent on today's encounter was 50 minutes which included time spent in counseling the patient/family regarding diagnosis and treatment plan as listed above, goals of care, and symptom management. Case was discussed with nursing staff,
specialists, and care coordinators/case management. All labs and imaging personally reviewed by me. Remainder the time spent in detailed review of previous records, lab data, imaging, and other medical provider documentation.
Anticipated Discharge: > 48 hours
Subjective/Interval History
-
Date of Service: October 08, 2024
No acute events overnight, planning for CT TAVR chest today
Objective Data
-
Labs:
Laboratory Results
10/08/24 10/08/24
08:59 09:49
WBC 6.1
Hgb 9.8 L
Hct 29.6 L
Plt Count 381
Sodium Cancelled 139
Potassium Cancelled 4.1
Chloride Cancelled 92 L
Carbon Dioxide Cancelled 37 H
BUN Cancelled 48 H
Creatinine Cancelled 1.5 H
Glucose Cancelled 169 H
Calcium Cancelled 10.0
Total Bilirubin Cancelled 2.0 H
AST Cancelled 25
ALT Cancelled 18
Alkaline Phosphatase Cancelled 101
Vital Signs:
Vital Signs
Temp Pulse Resp BP Pulse Ox
98.0 F 81 18 111/66 98
10/08/24 07:42 10/08/24 08:22 10/08/24 07:42 10/08/24 08:22 10/08/24 08:41
I&O
10/07/24 10/08/24 10/09/24
06:59 06:59 06:59
Intake Total 1035 / 1035 900 / 900
Output Total 1150 / 1150
Balance 1035 / 1035 -250 / -250
Review of Systems
-
History Source: Patient
All other systems: Not reviewed unless documented
Data Reviewed
-
Diagnostic Radiology: Report Reviewed by me
Ultrasound: Report Reviewed by me
[2024-10-08 13:04] LABS: Glucose - Point of Care 192 mg/dl (70-99)
[2024-10-08] MEDS: NOVOLOG FLEXPEN-LOW RESISTANCE 1 UNITS SC (14:30)
[2024-10-08] MEDS: ProAmatine 5 MG PO ×2 (14:31→17:43)
--- NOTE | 2024-10-08 15:34 | CM ---
Reviewed the chart notes and spoke with the patient at the bedside. Patient continues on IV Lasix. CM continues to be available to patient/family and is monitoring medical plan for needs at discharge.
Plan: Discharge plans will depend on the patient's progress.
[2024-10-08 15:52] VITALS: BP 103/64
[2024-10-08 17:04] LABS: Glucose - Point of Care 204 mg/dl (70-99)
[2024-10-08] MEDS: NOVOLOG FLEXPEN-LOW RESISTANCE 2 UNITS SC (17:42)
[2024-10-08 19:25] VITALS: BP 97/69
[2024-10-08 21:40] LABS: Glucose - Point of Care 209 mg/dl (70-99)
[2024-10-08 23:11] VITALS: BP 105/62
[2024-10-09 03:09] VITALS: BP 114/68
[2024-10-09] MEDS: SYNTHROID 88 MCG PO (04:59)
[2024-10-09 05:22] VITALS: BMI 35.6
[2024-10-09 07:21] LABS: Hematocrit 28.4 % (37.0-47.0); Hemoglobin 9.5 g/dL (12.0-16.0); Mean Corp Hgb Conc. 33.5 g/dL (33.0-37.0); Mean Corpuscular Hgb 30.4 pg (27.0-31.0); Mean Corpuscular Volume 90.7 fL (81.0-99.0); Mean Platelet Volume 10.8 fL (7.4-10.4); Platelet Count 361 10^3/uL (130-400); Red Blood Cell Count 3.13 10^6/uL (4.20-5.40); Red Cell Dist. Width 18.1 % (11.5-14.5); White Blood Cell Count 7.8 10^3/uL (4.8-10.8)
[2024-10-09 07:39] VITALS: BP 106/68
[2024-10-09 07:43] LABS: Glucose - Point of Care 131 mg/dl (70-99)
[2024-10-09 07:53] LABS: Blood Urea Nitrogen 53 mg/dl (7-17); Calcium 9.7 mg/dl (8.4-10.2); Carbon Dioxide 37 mmol/L (22-30); Chloride 94 mmol/L (98-107); Estimated Creatinine Clearance 29 ml/min; Glucose 122 mg/dl (70-99); Potassium 4.2 mmol/L (3.5-5.1); Sodium 138 mmol/L (135-145); eGFR 34.79
[2024-10-09] MEDS: NOVOLOG FLEXPEN-LOW RESISTANCE SC (08:07)
--- NOTE | 2024-10-09 08:58 | W.PN.CARDCBS ---
Addendum entered and electronically signed by Mak Jay MD 10/09/24 16:06:
I saw and examined the patient.
The Door Patcher's note was reviewed and I agree with the note.
Comment: Briefly, 83-year-old woman past medical history of aortic valve replacement complicated by severe bioprosthetic aortic valve stenosis who presented in acute decompensated heart failure and was found to have severe LV dysfunction with EF
15-20%.
Filling pressures were elevated both on right heart catheterization last week as well as left heart catheterization this week
Remains volume overloaded on exam and is still requiring supplemental oxygen
Cont IV lasix 80mg BID
Due to marginal blood pressure would be unable to tolerate additional GDMT as she has been maintained on midodrine here
TAVR workup per structural heart team
Rest per Nicole Montiel
Original Note:
Today's Communication / Plan
-
continue IV lasix
follow Cr
await interdisciplinary discussion at TAVR meeting 10/10
Impression / Plan
-
.
PCP: Dr. Elidia Meneses
Primary Research Development Director: Dr. Chris Craig of [place]
Assessment:
Presentation with SOB, LE edema 09/10/24
Acute on chronic HFrEF
CM EF previously 45% by echo 07/2023 and reduced further to 15 to 20% by echo 09/11/24
Severe
h/o type 2 AL related to severe 11/2020 resulting in transfer to [facility], s/p BAV 12/06/20
s/p sternotomy with biologic AVR, aortic root enlargement with pericardial patch, and CABG x1 SVG to distal RCA by Dr. Smith on 03/04/2021
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
Acute hypoxic respiratory insufficiency
SAM on CKD, suspected cardiorenal
Hypotension requiring pressor support
Elevated troponin, suspected nonischemic myocardial injury
CAD
s/p CABG with FOLEY to LAD and SVG to RPDA (occluded by cath 2020) in 2008
s/p cardiac cath at [facility] FOLEY to LAD patent, SVG to RPDA occluded, ostial Circ 75% stenosis, ostial RCA 75% stenosis 11/16/20
s/p CABG at time of AVR with SVG to distal RCA 03/04/21
Brief post op afib episode while at [facility], without known recurrence
s/p [employer] implanted loop recorder
PVCs
Chronic LBBB
DM 2
HTN
Hyperlipidemia
Hypothyroid
h/o CVA
Peripheral neuropathy
s/p IVC filter
Left breast cancer s/p lumpectomy, chemotherapy, and radiation 2008
Obesity
Anemia
Memory loss
Nuclear stress test 08/24/2023: Large sized moderate to severe defect in apex, apical anterior, apical inferior wall, prone imaging not performed, defect consistent with infarct with minimal gerald-infarct ischemia, EF 35% with global hypokinesis and
anteroapical akinesis, unchanged compared to prior cath and echo in 2020
Echo 03/24/2021: EF 25%, severe global hypokinesis with possible inferolateral and apical akinesis, mild MR, bioprosthetic AVR with peak/mean 21/12 mmHg
ECHO 07/2023: Mildly reduced LV systolic function 45% due to akinesis of distal inferior wall, mild MR with severe left atrial dilation, bioprosthetic aortic valve with peak gradient 49/mean gradient 32, valve size known to be small, moderate
pulmonary hypertension
Echo 09/11/2024: Dilated left ventricle with severely reduced left ventricular systolic function estimated 15-20% with grade 2 diastolic dysfunction increased LV filling pressures. Moderate mitral and tricuspid regurgitation. Bioprosthetic aortic
valve with peak/mean gradients 37/23 mmHg and no significant aortic regurgitation.
Catheterization 10/06/2024: Pulmonary cavity wedge pressure 46, PA 80/38, LVEDP 32, 100% occluded distal left main and circumflex noted to fill via bridging collaterals, widely patent FOLEY to LAD and vein graft RCA, low output gradient aortic stenosis
with mean valve gradient of 18 mmHg
Plan:
-continue diuresis with IV lasix 80mg BID. wedge improving by C 10/06, (was 45 last week by [facility]).
-cr up slightly to 1.5 but received dye Sunday and Sunday for cath and CT scan respectively.
-she did not tolerate low dose dobutamine earlier this admission due to hypotension. she required levo earlier in admission to allow diuresis. she is currently on midodrine and BPs stable
-wean supp O2 as able
-being evaluated for high risk valve in valve TAVR. she is not a open surgical candidate. she has a prior #19mm inspiris resilia valve, reviewed prior surgical report from [facility]. to be discussed at TAVR meeting 10/10
-by cath 10/06 she had widely patent FOLEY to LAD and SVG-RCA with 100% occluded distal L main with circ filling via bridging collaterals
-in SR with frequent PVCs, at times in pattern of bigeminy. follow
-GDMT of CM/CHF limited by hypotension.
-continue PT/OT
-Patient with h/o severe treated at [facility] with BAV on 12/06/2020 followed later by sternotomy with tissue AVR, aortic root enlargement, pericardial patch and CABG x 1 on 03/04/2021. Coming in now with acute HF and by echo there appears to be
significant bioprosthetic .
Progress Note - Research Development Director
Subjective
Date of Service: October 09, 2024
reports breathing ok.
Objective
Labs:
10/09/24 07:04
10/09/24 07:04
Labs
Hgb 9.5 g/dL (12.0-16.0) L 10/09/24 07:04
Hct 28.4 % (37.0-47.0) L 10/09/24 07:04
Plt Count 361 10^3/uL (130-400) 10/09/24 07:04
PT 13.3 Sec (11.4-14.6) 10/05/24 07:10
INR 0.98 10/05/24 07:10
Sodium 138 mmol/L (135-145) 10/09/24 07:04
Potassium 4.2 mmol/L (3.5-5.1) 10/09/24 07:04
BUN 53 mg/dl (7-17) H 10/09/24 07:04
Creatinine 1.5 mg/dL (0.6-1.0) H 10/09/24 07:04
Glucose 122 mg/dl (70-99) H 10/09/24 07:04
Vital Signs and I&O:
Vital Signs
Temp Pulse Resp BP Pulse Ox
97.5 F 77 16 106/68 99
10/09/24 07:39 10/09/24 07:39 10/09/24 07:39 10/09/24 07:39 10/09/24 07:39
Vital Signs
Temp Pulse Resp BP Pulse Ox
97.5 F 77 16 106/68 99
10/09/24 07:39 10/09/24 07:39 10/09/24 07:39 10/09/24 07:39 10/09/24 07:39
Intake & Output
10/07/24 10/08/24 10/09/24 10/10/24
07:59 07:59 07:59 07:59
Intake Total 1035 / 1035 900 / 900 780 / 780
Output Total 1150 / 1150 1999 / 1999
Balance 1035 / 1035 -250 / -250 -1220 / -1220
Physical Exam
Physical Exam
GEN: No distress, awake, alert. on supp O2. obese
HEENT: supple, anicteric, mmm, eomi
LUNGS: CTA anterolaterally, no wheezes
CV: Reg, S1/S2, 2/6 murmur
ABD: soft, BS+, NT/ND
EXT: No cyanosis, clubbing. 1+ edema of B/L LE
NEURO: Gross non-focal
SKIN: Warm, pink, dry. No rash
[2024-10-09] MEDS: ProAmatine 10 MG PO (09:28)
[2024-10-09] MEDS: OSCAL 500 + D 500 MG PO (09:28)
[2024-10-09] MEDS: FEOSOL 325 MG PO (09:28)
[2024-10-09] MEDS: LOW STRENGTH ASPIRIN 81 MG PO ×2 (09:28→22:48)
[2024-10-09] MEDS: CLARITIN 10 MG PO (09:28)
[2024-10-09] MEDS: UROCIT-K 10 MEQ PO ×2 (09:28→21:18)
[2024-10-09] MEDS: OCUVITE SOFTGEL 1 CAP PO ×2 (09:28→21:18)
[2024-10-09] MEDS: PROTONIX 40 MG PO (09:28)
[2024-10-09] MEDS: MAGNESIUM OXIDE 500 MG PO (09:28)
[2024-10-09] MEDS: PLAVIX 75 MG PO (09:28)
[2024-10-09] MEDS: HIPREX 1 GRAM PO ×2 (09:28→22:36)
[2024-10-09] MEDS: LIPITOR 40 MG PO (09:28)
[2024-10-09] MEDS: THERAGRAN 1 TABLET PO (09:29)
[2024-10-09] MEDS: LIDOCAINE 4% PATCH TOPICAL (09:29)
[2024-10-09] MEDS: LASIX 80 MG IV ×2 (09:29→17:07)
[2024-10-09] MEDS: HEPARIN 5000 UNITS SC (09:30)
[2024-10-09] MEDS: DESENEX/MITRAZOL/ZEASORB 1 APPLIC TOPICAL ×2 (09:46→21:19)
[2024-10-09] MEDS: SENOKOT 8.6 MG PO (10:17)
[2024-10-09 11:47] VITALS: BP 112/66
[2024-10-09 11:51] LABS: Glucose - Point of Care 195 mg/dl (70-99)
--- NOTE | 2024-10-09 12:25 | CM ---
Reviewed the chart notes. Per notes, interdisciplinary discussion at TAVR meeting 10/10. CM continues to be available to patient/family and is monitoring medical plan for needs at discharge.
Plan: Discharge plans will depend on the patient's progress.
--- NOTE | 2024-10-09 12:42 | W.PN.HOSP.TC ---
Today's Communication/Plan
-
TAVR work up
cont IV diuresis
Assessment / Plan
Assessment / Plan
Acute on chronic CHF exacerbation with reduced ejection fraction
Acute hypoxic respiratory insufficiency secondary to above, now on room air with SaO2 95%
-Cardiac BNP greater than 27,000
-Chest x-ray shows pulm edema, does not appear to have pneumonia. Will monitor. No fever, leukocytosis (WBC 6.4k).
-Continue with diuresis per renal- Lasix 80 mg IV q12h
-EF of 25% from echo in 2020
-Echo 09/11 noted with a EF 15 to 20%,
-S/p CABG 10/2008 with FOLEY to LAD and SVG to RPDA
-S/p cardiac cath at [facility] 11/16/20 FOLEY to LAD patent, SVG to RPDA occluded, ostial Circ 75% stenosis, ostial RCA 75% stenosis
-Severe
-Hold Farxiga
-Continue midodrine with holding parameter
-Cont IV lasix
- IV Lasix dose back to 80 mg IV q12h, Midodrine dose 10 mg qAM, 5 mg 1300/1800
-Check I's and O's, daily weights-weight improving.
heart catheterization on Friday 10/06 # evidence of fluid overload, increased LVEDP, continue TAVR workup as per cardiology
TAVR work up - CT TAVR Chest performed
- await interdisciplinary discussion at TAVR meeting 10/10
#Shock, unknown etiology
resolved
Pressors weaned off
was hypotensive again 09/16; transferred back to IMU, then back to tele, currently on tele, BP remains low, but tolerating
coreg dec, monitor.
Continue with midodrine.
# SAM likely cardiorenal on CKD, unknown baseline
-Continue with diuresis
-Nephrology signed off
-Hold spironolactone, losartan
History of TAVR
#Acute metabolic encephalopathy
� Possibly secondary to CO2 narcosis with CHF exacerbation + UTI + along with +/- delirium
� Resolved 09/22
#UTI
History of multiple UTIs in past
Urine culture with pseudomonas; Completed Cefepime to Cipro course
finished abx
Afeb , WBC normal. No dysuria. Asymptomatic
Repeat UA: Asymptomatic bacteruria - no symptoms and only 70k CFU; mental status resolved on its own -will hold on antibiotics at this time
Elevated troponin likely secondary to nonischemic myocardial injury
Monitor
Edema blistering 2/2 fluid overload
monitor
venous Doppler lower extremity neg for DVT
Transaminitis
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
� Monitor with diuresis
-resolved
CAD status post CABG
-Continue Plavix
-Continue Coreg
Chronic lymphedema
left buttock pressure related pressure injury stage 1
importance of getting pt OOB to chair reviewed with nursing
Essential hypertension
Chronic LBBB
Hypercholesterolemia
Chronic anemia
Type 2 diabetes
-Hold metformin, glipizide
-Insulin sliding scale
glu 125-201
A1c 6.8%
History of CVA
Hypothyroidism
-Continue levothyroxine
Full code
DVT prophylaxis�heparin
Dispo: a full code
Total time spent on today's encounter was 51 minutes which included time spent in counseling the patient/family regarding diagnosis and treatment plan as listed above, goals of care, and symptom management. Case was discussed with nursing staff,
specialists, and care coordinators/case management. All labs and imaging personally reviewed by me. Remainder the time spent in detailed review of previous records, lab data, imaging, and other medical provider documentation.
Anticipated Discharge: > 48 hours
Subjective/Interval History
-
Date of Service: October 09, 2024
No acute events
Objective Data
-
Labs:
Laboratory Results
10/09/24
07:04
WBC 7.8
Hgb 9.5 L
Hct 28.4 L
Plt Count 361
Sodium 138
Potassium 4.2
Chloride 94 L
Carbon Dioxide 37 H
BUN 53 H
Creatinine 1.5 H
Glucose 122 H
Calcium 9.7
Vital Signs:
Vital Signs
Temp Pulse Resp BP Pulse Ox
98.0 F 78 16 112/66 95
10/09/24 11:47 10/09/24 11:47 10/09/24 11:47 10/09/24 11:47 10/09/24 11:47
I&O
10/08/24 10/09/24 10/10/24
06:59 06:59 06:59
Intake Total 900 / 900 780 / 780
Output Total 1150 / 1150 2000 / 2000
Balance -250 / -250 -1220 / -1220
Review of Systems
-
History Source: Patient
All other systems: Not reviewed unless documented
Physical Exam
-
General: Well Developed, Well Nourished and No Apparent Distress
HEENT: Normocephalic, Atraumatic and Moist Mucous Membranes
Respiratory: Clear to Auscultation; Negative Wheezes, Rales or Rhonchi
Cardiac: Regular Rhythm, S1/S2 and Murmur (2/6 systolic m)
GI: Soft, Nontender and Nondistended
Musculoskeletal: No Clubbing and No Cyanosis; Negative No Edema (1+ edema)
Neuro: Awake, Alert and Oriented
Data Reviewed
-
Diagnostic Radiology: Report Reviewed by me
CT Scan: Report Reviewed by me
Ultrasound: Report Reviewed by me
Labs: Labs Reviewed by me
[2024-10-09] MEDS: NOVOLOG FLEXPEN-LOW RESISTANCE 1 UNITS SC (13:23)
[2024-10-09] MEDS: ProAmatine 5 MG PO ×2 (13:26→17:11)
[2024-10-09 15:02] VITALS: BP 112/65
[2024-10-09 16:07] LABS: Glucose - Point of Care 256 mg/dl (70-99)
--- NOTE | 2024-10-09 16:17 | PTCARENOTE ---
pt with small hard/black stool this morning for this RN. prn stool softener given at bedside. pt states she has been feeling constipated. last bm noted 10/07. pt oob to chair. woundcare completed by this RN and whole soap and water bed bath complete.
pt oob to chair on air cushion.
[2024-10-09] MEDS: NOVOLOG FLEXPEN-LOW RESISTANCE 3 UNITS SC (17:07)
[2024-10-09 19:19] VITALS: BP 102/64
[2024-10-09] MEDS: HEPARIN SC ×2 (21:18→22:39)
[2024-10-09] MEDS: HIPREX PO (21:18)
[2024-10-09 21:38] LABS: Glucose - Point of Care 138 mg/dl (70-99)
[2024-10-09 23:27] VITALS: BP 112/66
[2024-10-10] VITALS (44 sets, daily range): BP systolic 51–126; BP diastolic 38–102; BMI 35.6; BMI 36.1
[2024-10-10] MEDS: SYNTHROID 88 MCG PO (06:23)
[2024-10-10 07:38] LABS: Hematocrit 26.5 % (37.0-47.0); Hemoglobin 8.8 g/dL (12.0-16.0); Mean Corp Hgb Conc. 33.2 g/dL (33.0-37.0); Mean Corpuscular Hgb 30.6 pg (27.0-31.0); Mean Platelet Volume 11.6 fL (7.4-10.4); Platelet Count 369 10^3/uL (130-400); Red Blood Cell Count 2.88 10^6/uL (4.20-5.40); Red Cell Dist. Width 17.7 % (11.5-14.5); White Blood Cell Count 7.5 10^3/uL (4.8-10.8)
[2024-10-10 07:52] LABS: Glucose - Point of Care 154 mg/dl (70-99)
[2024-10-10 08:06] LABS: Blood Urea Nitrogen 58 mg/dl (7-17); Calcium 9.8 mg/dl (8.4-10.2); Carbon Dioxide 36 mmol/L (22-30); Chloride 93 mmol/L (98-107); Estimated Creatinine Clearance 26 ml/min; Glucose 140 mg/dl (70-99); Potassium 4.7 mmol/L (3.5-5.1); Sodium 137 mmol/L (135-145); eGFR 29.94
[2024-10-10] MEDS: UROCIT-K 10 MEQ PO ×2 (08:42→21:30)
[2024-10-10] MEDS: PLAVIX 75 MG PO (08:42)
[2024-10-10] MEDS: HIPREX 1 GRAM PO ×2 (08:42→21:30)
[2024-10-10] MEDS: ProAmatine 10 MG PO (08:43)
[2024-10-10] MEDS: FEOSOL 325 MG PO (08:43)
[2024-10-10] MEDS: OCUVITE SOFTGEL 1 CAP PO ×2 (08:44→21:30)
[2024-10-10] MEDS: LIPITOR 40 MG PO (08:44)
[2024-10-10] MEDS: MAGNESIUM OXIDE 500 MG PO (08:44)
[2024-10-10] MEDS: PROTONIX 40 MG PO (08:44)
[2024-10-10] MEDS: CLARITIN 10 MG PO (08:45)
[2024-10-10] MEDS: HEPARIN 5000 UNITS SC ×2 (08:45→21:30)
[2024-10-10] MEDS: OSCAL 500 + D 500 MG PO (08:45)
[2024-10-10] MEDS: THERAGRAN 1 TABLET PO (08:46)
[2024-10-10] MEDS: LIDOCAINE 4% PATCH 2 PATCH TOPICAL (08:46)
[2024-10-10] MEDS: LASIX 80 MG IV ×2 (08:47→16:55)
[2024-10-10] MEDS: NOVOLOG FLEXPEN-LOW RESISTANCE 1 UNITS SC ×2 (08:48→16:52)
[2024-10-10] MEDS: DESENEX/MITRAZOL/ZEASORB 1 APPLIC TOPICAL ×2 (08:50→21:31)
[2024-10-10] MEDS: LOW STRENGTH ASPIRIN 81 MG PO ×2 (08:50→22:36)
--- NOTE | 2024-10-10 09:49 | W.PN.CARDCBS ---
Addendum entered and electronically signed by Joel Hernandez MD 10/10/24 11:02:
I saw and examined the patient.
The Manager Of Administration's note was reviewed and I agree with the note.
Comment:
GEN: No distress, awake, Ox3
HEENT: supple, anicteric, mmm
LUNGS: Bilateral rhonchi.
CV: Reg, S1/S2, 1/6 syst LSB, S3+
ABD: soft, BS+, NT/ND
EXT: No edema
NEURO: Gross non-focal
SKIN: No rash
Plan:
I had a lengthy discussion with her and her daughter. We discussed multiple options for her. Option 1 would be hospice/palliative care. Option 2 would be continued attempts at medical therapy including a trial of IV milrinone to augment diuresis
and continued medical therapy. Understanding that she did very poorly with IV dobutamine. Option 3 would be transfer to the [facility] or [place] for reevaluation for valve in valve TAVR. It was felt that she was too high risk
here at [facility] due to her severe coronary disease, risk of myocardial infarction, and extremely small bioprosthetic valve size.
For now they prefer option 2. We will start milrinone 0.2 mcg/kg/min, continue IV diuresis, and continue midodrine. I am not sure she is a good candidate for long-term inotrope therapy if she does respond to inotropes. We will need to watch for
hypotension on the milrinone.
Her creatinine has increased to 1.7. We will need to continue to follow this.
Continue medical therapy for severe coronary arteries with CABG x 2. Continue aspirin and atorvastatin.
Original Note:
Today's Communication / Plan
-
turned down for high risk TAVR
family opting for trial of milrinone, will transfer to IVU and start at 0.2.
continue diuresis attempts
prognosis poor
Impression / Plan
-
.
PCP: Dr. Elidia Meneses
Primary Cash Processor: Dr. Chris Craig of [place]
Assessment:
Presentation with SOB, LE edema 09/10/24
Acute on chronic HFrEF
CM EF previously 45% by echo 07/2023 and reduced further to 15 to 20% by echo 09/11/24
Severe
h/o type 2 CT related to severe 11/2020 resulting in transfer to [facility], s/p BAV 12/06/20
s/p sternotomy with biologic AVR, aortic root enlargement with pericardial patch, and CABG x1 SVG to distal RCA by Dr. Smith on 03/04/2021
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
Acute hypoxic respiratory insufficiency
SAM on CKD, suspected cardiorenal
Hypotension requiring pressor support
Elevated troponin, suspected nonischemic myocardial injury
CAD
s/p CABG with FOLEY to LAD and SVG to RPDA (occluded by cath 2020) in 2008
s/p cardiac cath at [facility] FOLEY to LAD patent, SVG to RPDA occluded, ostial Circ 75% stenosis, ostial RCA 75% stenosis 11/16/20
s/p CABG at time of AVR with SVG to distal RCA 03/04/21
Brief post op afib episode while at [facility], without known recurrence
s/p [facility] implanted loop recorder
PVCs
Chronic LBBB
DM 2
HTN
Hyperlipidemia
Hypothyroid
h/o CVA
Peripheral neuropathy
s/p IVC filter
Left breast cancer s/p lumpectomy, chemotherapy, and radiation 2008
Obesity
Anemia
Memory loss
Nuclear stress test 08/24/2023: Large sized moderate to severe defect in apex, apical anterior, apical inferior wall, prone imaging not performed, defect consistent with infarct with minimal gerald-infarct ischemia, EF 35% with global hypokinesis and
anteroapical akinesis, unchanged compared to prior cath and echo in 2020
Echo 03/24/2021: EF 25%, severe global hypokinesis with possible inferolateral and apical akinesis, mild MR, bioprosthetic AVR with peak/mean 21/12 mmHg
ECHO 07/2023: Mildly reduced LV systolic function 45% due to akinesis of distal inferior wall, mild MR with severe left atrial dilation, bioprosthetic aortic valve with peak gradient 49/mean gradient 32, valve size known to be small, moderate
pulmonary hypertension
Echo 09/11/2024: Dilated left ventricle with severely reduced left ventricular systolic function estimated 15-20% with grade 2 diastolic dysfunction increased LV filling pressures. Moderate mitral and tricuspid regurgitation. Bioprosthetic aortic
valve with peak/mean gradients 37/23 mmHg and no significant aortic regurgitation.
Catheterization 10/06/2024: Pulmonary cavity wedge pressure 46, PA 80/38, LVEDP 32, 100% occluded distal left main and circumflex noted to fill via bridging collaterals, widely patent FOLEY to LAD and vein graft RCA, low output gradient aortic stenosis
with mean valve gradient of 18 mmHg
Plan:
-patient discussed at TAVR meeting this morning and due to high risk/comorbidities, was turned down for valve in valve TAVR here. discussed with patient and daughter and presented options including consideration for transfer to [facility] vs [place]
(patient's primary chainstitch tunnel elastic operator Dr. Craig is at [place]) for second opinion for high risk valve in valve TAVR, vs hospice, vs trial of milrinone. of note, patient did not tolerate dobutamine earlier in admission due to hypotension. she required
levo earlier in admission to allow diuresis. she is currently on midodrine. they have opted for trial of milrinone at this time. will transfer to IVU and start milrinone @0.2.
-continue diuresis with IV lasix 80mg BID. Cr 1.7
-wean supp O2 as able
-in SR with frequent PVCs, at times in pattern of bigeminy. follow
-GDMT of CM/CHF limited by hypotension.
-continue PT/OT
-prognosis poor
-Patient with h/o severe treated at [facility] with BAV on 12/06/2020 followed later by sternotomy with tissue AVR, aortic root enlargement, pericardial patch and CABG x 1 on 03/04/2021. Coming in now with acute HF and by echo there appears to be
significant bioprosthetic .
Progress Note - Cash Processor
Subjective
Date of Service: October 10, 2024
no issues overnight
Objective
Labs:
10/10/24 06:57
10/10/24 06:57
Labs
Hgb 8.8 g/dL (12.0-16.0) L 10/10/24 06:57
Hct 26.5 % (37.0-47.0) L 10/10/24 06:57
Plt Count 369 10^3/uL (130-400) 10/10/24 06:57
PT 13.3 Sec (11.4-14.6) 10/05/24 07:10
INR 0.98 10/05/24 07:10
Sodium 137 mmol/L (135-145) 10/10/24 06:57
Potassium 4.7 mmol/L (3.5-5.1) 10/10/24 06:57
BUN 58 mg/dl (7-17) H 10/10/24 06:57
Creatinine 1.7 mg/dL (0.6-1.0) H 10/10/24 06:57
Glucose 140 mg/dl (70-99) H 10/10/24 06:57
Vital Signs and I&O:
Vital Signs
Temp Pulse Resp BP Pulse Ox
98.7 F 83 17 95/58 97
10/10/24 07:47 10/10/24 08:43 10/10/24 07:47 10/10/24 08:43 10/10/24 07:47
Vital Signs
Temp Pulse Resp BP Pulse Ox
98.7 F 83 17 95/58 97
10/10/24 07:47 10/10/24 08:43 10/10/24 07:47 10/10/24 08:43 10/10/24 07:47
Intake & Output
10/08/24 10/09/24 10/10/24 10/11/24
07:59 07:59 07:59 07:59
Intake Total 900 / 900 780 / 780 1200 / 1200
Output Total 1150 / 1150 2000 / 1999 800 / 800
Balance -250 / -250 -1220 / -1220 400 / 400
[2024-10-10 11:33] LABS: Glucose - Point of Care 239 mg/dl (70-99)
[2024-10-10] MEDS: ProAmatine 5 MG PO ×2 (12:04→16:51)
[2024-10-10] MEDS: NOVOLOG FLEXPEN-LOW RESISTANCE 2 UNITS SC (12:05)
[2024-10-10] MEDS: PRIMACOR 20 MG 100 IV (12:44)
--- NOTE | 2024-10-10 12:50 | PTCARENOTE ---
Pt transferred to IVU by this RN. VSS, 2Lo2, accucheck and afternoon meds complete before transfer. Pt changed. Report called to [place] IVU RN prior to transferred. Pt transferred with portable regional administrative assistant.
--- NOTE | 2024-10-10 13:00 | PTCARENOTE ---
Pt transferred from [facility] to 2249, aa0x3, able to make needs known. Milrinone gtt started as per order. Pt denies chest pain or SOB, 2L O2 via NC- 94% VSS.
--- NOTE | 2024-10-10 13:29 | CM ---
Reviewed the chart notes. Patient transferred to IVU to start IV milrinone. CM continues to be available to patient/family and is monitoring medical plan for needs at discharge.
Plan: Discharge plans will depend on the patient's progress.
--- NOTE | 2024-10-10 13:44 | W.PN.HOSP.TC ---
Addendum entered and electronically signed by Zain Ivory MD 10/12/24 15:34:
[id number]
Original Note:
Today's Communication/Plan
-
At this juncture, patient desires to continue medical therapy and does not want to be transferred nor transition to hospice
Initiate milrinone drip, continue midodrine, IV diuresis
Monitor renal function closely with interventions
Assessment / Plan
Assessment / Plan
Acute on chronic CHF exacerbation with reduced ejection fraction
Acute hypoxic respiratory insufficiency secondary to above, now on room air with SaO2 95%
Severe
-Cardiac BNP greater than 27,000
-Chest x-ray shows pulm edema, does not appear to have pneumonia. Will monitor. No fever, leukocytosis (WBC 6.4k).
-Continue with diuresis per renal- Lasix 80 mg IV q12h
-EF of 25% from echo in 2020
-Echo 09/11 noted with a EF 15 to 20%,
-S/p CABG 10/2008 with FOLEY to LAD and SVG to RPDA
-S/p cardiac cath at [facility] 11/16/20 FOLEY to LAD patent, SVG to RPDA occluded, ostial Circ 75% stenosis, ostial RCA 75% stenosis
-Hold Farxiga
-Continue midodrine with holding parameter
-Cont IV lasix
- IV Lasix dose back to 80 mg IV q12h, Midodrine dose 10 mg qAM, 5 mg 1300/1800
-Check I's and O's, daily weights-weight improving.
heart catheterization on Friday 10/06 # evidence of fluid overload, increased LVEDP, continue TAVR workup as per cardiology
TAVR work up - CT TAVR Chest performed�see cardiology note, patient does not want to be transferred for further TAVR evaluation, or hospice care
�After discussion with cardiology and patient, initiating milrinone, IV diuresis, midodrine.
� Follow-up serum creatinine with interventions
#Shock, unknown etiology
resolved
Pressors weaned off
was hypotensive again 09/16; transferred back to IMU, then back to tele, currently on tele, BP remains low, but tolerating
coreg dec, monitor.
Continue with midodrine.
# SAM likely cardiorenal on CKD, unknown baseline
-Continue with diuresis, milrinone and midodrine
-Nephrology signed off
-Hold spironolactone, losartan
History of TAVR
#Acute metabolic encephalopathy
� Possibly secondary to CO2 narcosis with CHF exacerbation + UTI + along with +/- delirium
� Resolved 09/22
#UTI
History of multiple UTIs in past
Urine culture with pseudomonas; Completed Cefepime to Cipro course
finished abx
Afeb , WBC normal. No dysuria. Asymptomatic
Repeat UA: Asymptomatic bacteruria - no symptoms and only 70k CFU; mental status resolved on its own -will hold on antibiotics at this time
Elevated troponin likely secondary to nonischemic myocardial injury
Monitor
Edema blistering 2/2 fluid overload
monitor
venous Doppler lower extremity neg for DVT
Transaminitis
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
� Monitor with diuresis
-resolved
CAD status post CABG
-Continue Plavix
-Continue Coreg
Chronic lymphedema
left buttock pressure related pressure injury stage 1
importance of getting pt OOB to chair reviewed with nursing
Essential hypertension
Chronic LBBB
Hypercholesterolemia
Chronic anemia
Type 2 diabetes
-Hold metformin, glipizide
-Insulin sliding scale
glu 125-201
A1c 6.8%
History of CVA
Hypothyroidism
-Continue levothyroxine
Full code
DVT prophylaxis�heparin
Dispo: a full code
Total time spent on today's encounter was 55 minutes which included time spent in counseling the patient/family regarding diagnosis and treatment plan as listed above, goals of care, and symptom management. Case was discussed with nursing staff,
specialists, and care coordinators/case management. All labs and imaging personally reviewed by me. Remainder the time spent in detailed review of previous records, lab data, imaging, and other medical provider documentation.
Anticipated Discharge: > 48 hours
Subjective/Interval History
-
Date of Service: October 10, 2024
After extensive discussion, patient wants to attempt medical management for cardiac issues
Objective Data
-
Labs:
Laboratory Results
10/10/24
06:57
WBC 7.5
Hgb 8.8 L
Hct 26.5 L
Plt Count 369
Sodium 137
Potassium 4.7
Chloride 93 L
Carbon Dioxide 36 H
BUN 58 H
Creatinine 1.7 H
Glucose 140 H
Calcium 9.8
Vital Signs:
Vital Signs
Temp Pulse Resp BP Pulse Ox
98 F 79 22 96/63 95
10/10/24 12:35 10/10/24 12:04 10/10/24 12:35 10/10/24 12:04 10/10/24 11:50
I&O
10/09/24 10/10/24 10/11/24
06:59 06:59 06:59
Intake Total 780 / 780 1200 / 1200 450 / 450
Output Total 2000 / 2000 800 / 800
Balance -1220 / -1220 400 / 400 450 / 450
Review of Systems
-
History Source: Patient
All other systems: Not reviewed unless documented
Data Reviewed
-
Diagnostic Radiology: Report Reviewed by me
CT Scan: Report Reviewed by me
Ultrasound: Report Reviewed by me
Labs: Labs Reviewed by me
--- NOTE | 2024-10-10 14:11 | PTOTSP ---
Pt transferred to IVU for trial of milrinone. OT orders not continued upon transfer. Will need new orders when stable for activity. Will continue to follow medical status.
--- NOTE | 2024-10-10 14:13 | W.PN.PAL2 ---
Today's Communication
-
Patient seen for follow up. At this time she is on milrinone drip, unclear if this will provide major change, she is comfortable at this time. BP low. she not interested in hospice care.
can pursue outpatient palliative care if interested once ready for discharge.
Objective Data
-
Objective Data:
Vital Signs
Temp Pulse Resp BP Pulse Ox
98 F 87 22 123/68 95
10/10/24 12:35 10/10/24 14:04 10/10/24 12:35 10/10/24 14:04 10/10/24 14:04
Laboratory Results
10/10/24 06:57
10/10/24 06:57
PT 13.3 Sec (11.4-14.6) 10/05/24 07:10
INR 0.98 10/05/24 07:10
Hemoglobin A1c 6.8 % (4.0-5.6) H 09/11/24 05:12
Total Protein 6.6 g/dl (6.3-8.2) 10/08/24 09:49
Albumin 4.0 g/dl (3.5-5.0) 10/08/24 09:49
Urine Color Yellow 09/22/24 21:01
Urine Clarity Clear (Clear) 09/22/24 21:01
Urine pH 6.0 (5.0-9.0) 09/22/24 21:01
Ur Specific [place] 1.010 (<1.030) 09/22/24 21:01
Urine Ketones Negative (Negative) 09/22/24 21:01
Urine Bilirubin Negative (Negative) 09/22/24 21:01
Palliative Performance Scale
Palliative Performance Scale:
PPS Level Ambulation Activity & Evidence of Disease Self Care Intake Conscious Level
100% Full Normal Activity & Work; Full Intake Full
No Evidence of Disease
90% Full Normal Activity & Work; Full Normal Full
Some Evidence of Disease
80% Full Normal Activity with Effort Full Normal or Full
Some Evidence of Disease Reduced
70% Reduced Unable Normal Job/Work Full Normal or Full
Significant Disease Reduced
60% Reduced Unable Hobby/Housework Occasional Normal or Full or Confusion
Significant Disease Assistance Reduced
50% Mainly Sit/Lie Unable to do Any Work Considerable Normal or Full or Confusion
Extensive Disease Assistance Req'd Reduced
40% Mainly in Bed Unable to do Most Activity Mainly Assistance Normal or Full or Drowsy;
Extensive Disease Reduced +/- Confusion
30% Totally Bed Unable to do Any Activity Total Care Normal or Full or Drowsy;
Bound Extensive Disease Reduced +/- Confusion
20% Totally Bed Bound Unable to do Any Activity Total Care Minimal to Full or Drowsy;
Extensive Disease Sips +/- Confusion
10% Totally Bed Bound Unable to do Any Activity Total Care Mouth Care Drowsy or Coma;
Extensive Disease Only +/- Confusion
0%
PPS Score Level:
--- NOTE | 2024-10-10 16:00 | CM ---
CM following for DC planning needs.
Pt has been inpatient since 09/10.
Reviewed initial assessment. Pt. resides at [facility] in her own apt. Pt. requires assistance w/ ADLs and is ambulatory with use of a RW.
DC plan is for SNF. [facility] and [facility]. Will plan for transfer to SNF once DC.
Will cont. to follow.
[2024-10-10 16:47] LABS: Glucose - Point of Care 191 mg/dl (70-99)
--- NOTE | 2024-10-10 20:00 | PTCARENOTE ---
Rec'd pt change of shift. Pt AAO*3, VSS, and SR on TELE monitor. Pt denies any pain or discomfort. Pt with milrinone infusing at 0.2 mcg/ kg / minute. Pt updated on plan of care. Pt resting with call rey in reach. Plan of care ongoing.
[2024-10-10 22:12] LABS: Glucose - Point of Care 187 mg/dl (70-99)
[2024-10-10 23:12] LABS: Glucose - Point of Care 241 mg/dl (70-99)
[2024-10-10 23:41] LABS: Hemoglobin 9.5 g/dL (12.0-16.0); Mean Corp Hgb Conc. 32.8 g/dL (33.0-37.0); Mean Corpuscular Hgb 30.4 pg (27.0-31.0); Mean Corpuscular Volume 92.9 fL (81.0-99.0); Mean Platelet Volume 10.1 fL (7.4-10.4); Platelet Count 368 10^3/uL (130-400); Red Blood Cell Count 3.12 10^6/uL (4.20-5.40); Red Cell Dist. Width 17.7 % (11.5-14.5); White Blood Cell Count 10.4 10^3/uL (4.8-10.8)
[2024-10-10 23:43] LABS: INR 1.04; PT 13.9 Sec (11.4-14.6)
[2024-10-10 23:48] LABS: ALT (SGPT) 17 U/L (0-35); AST (SGOT) 26 U/L (14-36); Albumin 3.8 g/dl (3.5-5.0); Alkaline Phosphatase 101 U/L (38-126); Blood Urea Nitrogen 60 mg/dl (7-17); Calcium 12.3 mg/dl (8.4-10.2); Carbon Dioxide 30 mmol/L (22-30); Chloride 92 mmol/L (98-107); Estimated Creatinine Clearance 22 ml/min; Glucose 238 mg/dl (70-99); Potassium 4.5 mmol/L (3.5-5.1); Sodium 135 mmol/L (135-145); Total Bilirubin 2.2 mg/dl (0.2-1.3); Total Protein 6.6 g/dl (6.3-8.2); eGFR 24.64
[2024-10-10 23:49] LABS: Lactic Acid 6.2 mmol/L (0.7-2.0)
[2024-10-11] VITALS: BP 96/72
[2024-10-11 00:04] LABS: Troponin I 0.167 ng/ml
[2024-10-11 00:05] LABS: APTT 21.5 Sec (23.4-35.0)
--- NOTE | 2024-10-11 00:31 | RR ---
A Rapid Response was called on this patient, please see Rapid Response form.
At 2259 pt complained of Shortness of breath while resting in bed with 2L of oxygen via nasal canula. Pulse oxygen 97 % on 2L. Cracked auscultated bilaterally in the lower lobs. Pt bp 94/82, and pt requested to use bedside commode. Pt was able
to stand and pivot with maximum staff assistance. Pt not able to sit on commode due to height of chair.
Pt sat back down at bedside and leg brought onto bed in a supine position. Pt become unresponsive and breathing decreased. Pulse was weak and thready but still SR with first degree and BBB. Rapid response call at this time (23:05). Palpable
pulse was lost at 23:08, 30 compressions were given, code was called. PO Deleon ordered milrinone Pt became responsive and compressions stopped. Code called off at 23:18.
Pt put on non rebreather. Multiple new IV access obtained on the R arm. Blood work obtained. Family contacted by cyndi WOODS. Pt verbalized wish to be a DRN to [facility] 'i do not want tubes or compression again.' Pt sent to ICU room 3260. Please see
rapid response form for full pt care and meds given.
--- NOTE | 2024-10-11 00:32 | W.PN.UPDATE ---
Update Note
Progress Note Update
2305 CRUSHER PLANT OPERATOR turned to code9
Per nurse, pt c/o SOB thought she needed to sit up and use commode but was too weak to stand up so RN placed her back to bed where she went unresponsive and was without pulse. 30 compressions were given at that time by RNs and when code team
responded pt was awake. Pt was hypotensive and HR tachy to 120 with ectopy. ON milrinone gtt--turned off.
PT still complained of SOB. Placed on NRB.
Updated daughter tanesha and discussed Goals of care and code status. Discussed if mom continues to have resp distress would she want to have further CPR or intubation. Tanesha states ' i think mom wouldn't want to be on ventilator, but would want
compressions/shock.' Asked pt herself whether she would want CPR or intubation if it was needed and she clearly stated 'no-let me .' Daughter tanesha on her way in. PT then transferred to ICU.
[2024-10-11] MEDS: MORPHINE SULFATE 2 MG IV (02:29)
--- NOTE | 2024-10-11 02:30 | PTCARENOTE ---
Pt. post Rapid/Code 9 in IVU. Family contacted by hospitalist in IVU decision made to become Limited DNR/DNI, no cpr/intubation/defib, would accept vasopressors if necessary. Pt. transferred to ICU for closer management.
Family bedside, updated on plan, goals of care discussion completed. Pt. stating she does not want any further treatments and would like to transition to comfort measures.
Whilst family present, pt became unresponsive, VFIB arrest on monitor, ICU DAMIEN called bedside, family made aware of rhythm change, decision to keep pt. DNR do not defibrillate.
Pt. passed shortly after, ICU DAMIEN pronounced, see certificate for further details. GOL notified via protocol. Family provided with end of life information.
--- NOTE | 2024-10-11 03:52 | W.PN.UPDATE ---
Update Note
Progress Note Update
0000 Family at bedside. Discuss prior events and code status with family. Family OK if pressers needed, but full DNR outside of pressors. 0033. Family at bedside and talking with patient. Patient went into VTAC/V fib and became unresponsive. Patient
passed and pronounced at 0035. Condolences given to family�
--- NOTE | 2024-10-11 03:52 | W.PN.DEATH ---
Pronouncement of
-
Called to see patient to pronounce.
No spontaneous heart tones or respirations noted.
Patient not responsive to verbal stimuli.
Patient is pronounced .
Time of : 00:35
Date of : 10/11/24
Cause of : Severe Aortic Stenosis
Family Notified: Yes
== END 2024-10-11 02:57 | disposition expired | DRG 286 ==
LOC: ICU 18:54
PROVIDERS: Internal Medicine; Internal Medicine Cardiovascular Disease; Internal Medicine Interventional Cardiology; Nurse Practitioner; Nurse Practitioner Family; Nurse Practitioner Gerontology; ADMITTING PHYSICIAN Hospitalist; ATTENDING PHYSICIAN Internal Medicine; CONSULT PHYSICIAN Internal Medicine; EMERGENCY PHYSICIAN Emergency Medicine; FAMILY PHYSICIAN Internal Medicine; OTHER PHYSICIAN Internal Medicine Cardiovascular Disease
PROC: 02HV33Z Insertion of Infusion Device into Superior Vena Cava, Percutaneous Approach (ICD-10-PCS; 2024-09-12)
PROC: 4A023N6 Measurement of Cardiac Sampling and Pressure, Right Heart, Percutaneous Approach (ICD-10-PCS; 2024-09-26)
PROC: B2121ZZ Fluoroscopy of Single Coronary Artery Bypass Graft using Low Osmolar Contrast (ICD-10-PCS; 2024-10-06)
PROC: B2111ZZ Fluoroscopy of Multiple Coronary Arteries using Low Osmolar Contrast (ICD-10-PCS; 2024-10-06)
PROC: 4A023N8 Measurement of Cardiac Sampling and Pressure, Bilateral, Percutaneous Approach (ICD-10-PCS; 2024-10-06)
PROC: B3101ZZ Fluoroscopy of Thoracic Aorta using Low Osmolar Contrast (ICD-10-PCS; 2024-10-06)
PROC: B2181ZZ Fluoroscopy of Left Internal Mammary Bypass Graft using Low Osmolar Contrast (ICD-10-PCS; 2024-10-06)
DX: I13.0 Hypertensive heart and chronic kidney disease with heart failure and stage 1 through stage 4 chronic kidney disease, or unspecified chronic kidney disease (principal); G93.41 Metabolic encephalopathy; I50.23 Acute on chronic systolic (congestive) heart failure; J96.01 Acute respiratory failure with hypoxia; N17.9 Acute kidney failure, unspecified; N39.0 Urinary tract infection, site not specified; R57.9 Shock, unspecified; I42.9 Cardiomyopathy, unspecified; I25.10 Atherosclerotic heart disease of native coronary artery without angina pectoris; Z51.5 Encounter for palliative care; Z66 Do not resuscitate; I89.0 Lymphedema, not elsewhere classified; E78.00 Pure hypercholesterolemia, unspecified; N18.30 Chronic kidney disease, stage 3 unspecified; I5A Non-ischemic myocardial injury (non-traumatic); D63.1 Anemia in chronic kidney disease; E11.22 Type 2 diabetes mellitus with diabetic chronic kidney disease; E03.9 Hypothyroidism, unspecified; I27.20 Pulmonary hypertension, unspecified; I34.81 Nonrheumatic mitral (valve) annulus calcification; I34.0 Nonrheumatic mitral (valve) insufficiency; I25.82 Chronic total occlusion of coronary artery; I44.7 Left bundle-branch block, unspecified; I48.0 Paroxysmal atrial fibrillation; E66.9 Obesity, unspecified; I35.0 Nonrheumatic aortic (valve) stenosis; E11.42 Type 2 diabetes mellitus with diabetic polyneuropathy; L89.321 Pressure ulcer of left buttock, stage 1; I50.84 End stage heart failure; I25.2 Old myocardial infarction; Z68.36 Body mass index [BMI] 36.0-36.9, adult; Z79.02 Long term (current) use of antithrombotics/antiplatelets; Z79.84 Long term (current) use of oral hypoglycemic drugs; Z79.82 Long term (current) use of aspirin; Z79.899 Other long term (current) drug therapy; Z85.3 Personal history of malignant neoplasm of breast; Z86.73 Personal history of transient ischemic attack (TIA), and cerebral infarction without residual deficits; Z87.440 Personal history of urinary (tract) infections; Z92.21 Personal history of antineoplastic chemotherapy; Z92.3 Personal history of irradiation; Z95.1 Presence of aortocoronary bypass graft; Z95.3 Presence of xenogenic heart valve; Z82.49 Family history of ischemic heart disease and other diseases of the circulatory system
CPT/HCPCS: 71045; 71046; 75572; 76775; 80048; 80053; 81003; 81015; 82570; 82805; 82962; 83036; 83605; 83735; 83880; 84132; 84156; 84484; 85025; 85027; 85610; 85730; 87070; 87077; 87086; 87186; 92610; 93005; 93306; 93451; 93461; 93567; 93970; 94640; 94660; 96365; 97116; 97163; 97167; 97530; 97535; 99152; 99153; 99285; C1769; C1894; J2260; Q9950; Q9967